=== PATIENT | female | born 1950 | race Caucasian/White ===

== ENCOUNTER → 2017-02-05 | Outpatient (CLI) | payer OTHER ==
[~2017-02-05] MED LIST: AZIT250T PO; MULT-506 PO
--- NOTE | 2017-02-06 14:33 | MAMMOGRAPHY REPORT ---
BILATERAL DIGITAL SCREENING MAMMOGRAM TOMOSYNTHESIS WITH CAD: 02/05/2017 TECHNIQUE: Breast tomosynthesis in addition to standard 2D mammography was performed. Current study was also evaluated with a Computer Aided Detection (CAD) system. COMPARISON: Comparison is made to exams dated: 01/11/2016 mammogram, 12/06/2014 mammogram, 11/16/2014 ma mmogram, and 06/16/2013 mammogram - [facility]. BREAST COMPOSITION: The tissue of both breasts is heterogeneously dense, which may obscure small mas ses. FINDINGS: No suspicious masses, calcifications, or areas of architectural distortion are noted in ei ther breast. There has been no significant interval change compared to prior exams. Bilateral asymme tries and scattered benign-appearing calcifications are not significantly changed. IMPRESSION: ACR BI-RADS CATEGORY 2: BENIGN There is no mammographic evidence of malignancy. A 1 year screening mammogram is recommended. The pa tient will receive written notification of the results. Approximately 10% of breast cancers are not detected with mammography. A negative mammographic report should not delay biopsy if a clinically suggestive mass is present. Jany Olivas M.D. ah/:02/05/2017 17:23:07 Fiction [employer]fiction Prose Writer: Jazmin GUZMAN(Gasper)(Evon), [facility] letter sent: Normal 1/2 BI-RADS Code: ACR BI-RADS Category 2: Benign
== END | disposition home or self-care (01) ==
LOC: C.MAMM 16:59
PROVIDERS: ATTEND Family Medicine
DX: Z12.31 Encounter for screening mammogram for malignant neoplasm of breast (principal)

== ENCOUNTER 2017-07-31 09:21 | Inpatient (IN) | payer OTHER ==
[~2017-07-31] VITALS: Ht 154.9 cm; Wt 69.2 kg
[2017-07-31] MEDS ORDERED: SODIUM CHLORIDE 0.9% 1000ML 1,000 ML IV STA (10:06)
[2017-07-31] MEDS ORDERED: IBUP-1277 PO (10:18)
--- NOTE | 2017-07-31 10:20 | EMERGENCY ROOM VISIT NOTE ---
ED Visit Note First contact with patient: 09:25 The patient was seen and examined with Ariel Pinedo PA-C. I agree with the history, physical and findings. Please see the note for disposition and details.
[2017-07-31] MEDS ORDERED: SODIUM CHLORIDE 0.9% IV STA (10:26)
[2017-07-31] MEDS ORDERED: VANCOMYCIN IV STA (10:26)
[2017-07-31] MEDS ORDERED: VANCOMYCIN CONSULT ACTIVE PRN ×2 (10:30→12:14)
[2017-07-31] MEDS ORDERED: AMOX875T PO (10:55)
[2017-07-31 11:00] LABS: BASO % 0.2 %; BASO ABS # 0.03 K/uL (0-0.2); EOS % 0.4 %; EOS ABS # 0.05 K/uL (0-0.5); HEMATOCRIT 39.8 % (37-47); HEMOGLOBIN 13.6 g/dL (12.0-16.0); IG# 0.05 K/uL (0.00-0.02); LYMPH % 12.1 %; LYMPH ABS # 1.53 K/uL (1.2-3.4); MEAN CELL VOLUME 94.3 fL (80-100); MEAN CORPUSCULAR HEMOGLOBIN 32.2 pg (25-34); MEAN CORPUSCULAR HGB CONC 34.2 g/dl (32-36); MEAN PLATELET VOLUME 11.7 fL (7.4-10.4); MONO % 7.6 %; MONO ABS # 0.97 K/uL (0.11-0.59); NEUT % 79.3 %; NEUT ABS # 10.05 K/uL (1.4-6.5); PLATELET COUNT 190 K/uL (130-400); RED CELL DISTRIBUTION WIDTH CV 13.5 % (11.5-14.5); RED CELL DISTRIBUTION WIDTH SD 46.7 fL (36.4-46.3); WHITE BLOOD COUNT 12.68 K/uL (4.8-10.8)
--- NOTE | 2017-07-31 11:14 | DIAGNOSTIC IMAGING REPORT ---
LEFT FOREARM ULTRASOUND CLINICAL HISTORY: L forearm cellulitis,?abscess. Spider bite. COMPARISON STUDY: None. FINDINGS: There is extensive subcutaneous edema/fluid seen within the left forearm with associated skin thickening. There is also increased echogenicity within the fat. The fluid is not loculated at this time. No foreign bodies identified. IMPRESSION: Extensive subcutaneous edema/fluid within the left forearm with associated skin thickening. This favors a cellulitis . The fluid is not loculated at this time to suggest an abscess. Consider follow-up ultrasound if the patient's swelling continues to progress. Electronically signed by: Antwan Hardy M.D. 07/31/2017 11:13 AM Dictated Date/Time: 07/31/2017 11:10 AM
[2017-07-31 11:21] LABS: ALBUMIN 3.2 gm/dl (3.4-5.0); CALCIUM 8.8 mg/dl (8.5-10.1); CREATININE 0.86 mg/dl (0.60-1.20); POTASSIUM 3.5 mmol/L (3.5-5.1)
[2017-07-31 11:23] LABS: TOTAL PROTEIN 7.3 gm/dl (6.4-8.2)
[2017-07-31] MEDS ORDERED: ENOXAPARIN 40 MG/0.4 ML SYR SQ SCH (12:00)
[2017-07-31 12:12] VITALS: O2SAT 96; Ht 154.9 cm; Wt 69.2 kg
--- NOTE | 2017-07-31 12:16 | History and Physical ---
History & Physical Date & Time of Service: Jul 31, 2017 at 12:06 Chief Complaint: Redness From The Spider Bite Primary Care Physician: Melissa Black D.O. History of Present Illness Source: patient, clinic records, hospital records Patient is a 67-year-old female with a PMH of GERD who presents with worsening left forearm pain/swelling 6 days. Patient states that she woke up Friday morning with a pea-size jeromy on her left forearm that she thinks is a spider bite. Did not visualize any spiders. By that evening, patient noticed that the jeromy had blistered and circumferential swelling was present. Saw PCP on Friday and was diagnosed with left forearm cellulitis and was sent home on Augmentin, which she started that evening. This morning, patient noticed that redness had extended down to wrist as well as up to left arm, which was a significant increase. Pain had worsened, which she described as 10/10 throbbing pain, made worse with movement. Is able to move left elbow and wrist but experiences pain when doing so. Denies numbness, tingling, itching or drainage of left forearm. Has completed 4 doses of Augmentin. Took ibuprofen at home this morning with minimal relief. Currently denies fever, chills, lightheadedness, visual changes, chest pain, SOB, abdominal pain, nausea, vomiting, bowel or bladder changes. Past Medical/Surgical History Medical Problems: (1) GERD (gastroesophageal reflux disease) Status: Chronic Family History Hypertension Social History Smoking Status: Never Smoker Alcohol Use: none Marital Status: Housing status: lives with significant other Allergies Coded Allergies: No Known Allergies (Verified , 07/31/17) Home Medications Scheduled Amoxicillin & Pot Clavulanate (Augmentin 875-125 mg), 1 TAB PO BID Multivitamin (Multivitamin), 1 TAB PO DAILY Pantoprazole (Protonix), 40 MG PO DAILY Scheduled PRN Ibuprofen (Advil), 400 MG PO Q8 PRN for Pain Review of Systems Ten systems reviewed and negative except as noted in the HPI. Physical Exam Vital Signs Date Time Temp Pulse Resp B/P (MAP) Pulse Ox O2 Delivery O2 Flow Rate FiO2 07/31/17 10:31 90 07/31/17 10:26 98 Room Air 07/31/17 09:23 36.7 102 20 116/76 98 Room Air Head: normocephalic, atraumatic Eyes: normal inspection, PERRL, sclerae normal ENT: normal ENT inspection, hearing grossly normal, pharynx normal Neck: supple, thyroid normal, trachea midline Respiratory/Chest: chest non-tender, lungs clear, normal breath sounds, no respiratory distress, no accessory muscle use Cardiovascular: regular rate, rhythm, no murmur, normal peripheral pulses Abdomen/GI: non tender, soft, no organomegaly Back: normal inspection Extremities/Musculoskelatal: normal inspection, no calf tenderness, normal capillary refill, no pedal edema Neurologic/Psych: no motor/sensory deficits, alert, normal mood/affect, oriented x 3 Skin: normal color, warm/dry, + pertinent finding (Left dorsal forearm with small macular lesion and surrounding erythema and edema extending over wrist and up to elbow. Streaking noted on medial arm ) Diagnostics Laboratory Results Results Past 24 Hours Test 07/31/17 10:32 07/31/17 12:03 07/31/17 12:04 Range/Units White Blood Count 12.68 4.8-10.8 K/uL Red Blood Count 4.22 4.2-5.4 M/uL Hemoglobin 13.6 12.0-16.0 g/dL Hematocrit 39.8 37-47 % Mean Corpuscular Volume 94.3 80-100 fL Mean Corpuscular Hemoglobin 32.2 25-34 pg Mean Corpuscular Hemoglobin Concent 34.2 32-36 g/dl Platelet Count 190 130-400 K/uL Mean Platelet Volume 11.7 7.4-10.4 fL Neutrophils (%) (Auto) 79.3 % Lymphocytes (%) (Auto) 12.1 % Monocytes (%) (Auto) 7.6 % Eosinophils (%) (Auto) 0.4 % Basophils (%) (Auto) 0.2 % Neutrophils # (Auto) 10.05 1.4-6.5 K/uL Lymphocytes # (Auto) 1.53 1.2-3.4 K/uL Monocytes # (Auto) 0.97 0.11-0.59 K/uL Eosinophils # (Auto) 0.05 0-0.5 K/uL Basophils # (Auto) 0.03 0-0.2 K/uL RDW Standard Deviation 46.7 36.4-46.3 fL RDW Coefficient of Variation 13.5 11.5-14.5 % Immature Granulocyte % (Auto) 0.4 % Immature Granulocyte # (Auto) 0.05 0.00-0.02 K/uL Sodium Level 135 136-145 mmol/L Potassium Level 3.5 3.5-5.1 mmol/L Chloride Level 107 98-107 mmol/L Carbon Dioxide Level 24 21-32 mmol/L Anion Gap 4.0 3-11 mmol/L Blood Urea Nitrogen 12 7-18 mg/dl Creatinine 0.86 0.60-1.20 mg/dl Est Creatinine Clear Calc Drug Dose 58.0 ml/min Estimated GFR () 82.2 Estimated GFR (Non- 70.9 BUN/Creatinine Ratio 13.6 10-20 Random Glucose 114 70-99 mg/dl Lactic Acid Level 0.6 0.4-2.0 mmol/L Calcium Level 8.8 8.5-10.1 mg/dl Magnesium Level 2.2 1.8-2.4 mg/dl Total Bilirubin 1.4 0.2-1 mg/dl Aspartate Amino Transf (AST/SGOT) 88 15-37 U/L Alanine Aminotransferase (ALT/SGPT) 149 12-78 U/L Alkaline Phosphatase 200 45-117 U/L Total Protein 7.3 6.4-8.2 gm/dl Albumin 3.2 3.4-5.0 gm/dl Globulin 4.1 2.5-4.0 gm/dl Albumin/Globulin Ratio 0.8 0.9-2 Lyme Disease IgG Antibody NEG NEG Lyme Disease IgM Antibody NEG NEG Microbiology Results 07/31/17 Blood Culture, Received Pending 07/31/17 Blood Culture, Received Pending Diagnostic Radiology Left forearm ultrasound: IMPRESSION: Extensive subcutaneous edema/fluid within the left forearm with associated skin thickening. This favors a cellulitis . The fluid is not loculated at this time to suggest an abscess. Consider follow-up ultrasound if the patient's swelling continues to progress. Impression Assessment and Plan Patient is a 67-year-old female with a PMH of GERD who presents with worsening left forearm pain/swelling 6 days and was found to have cellulitis. Left forearm cellulitis: -2/2 spider bite -Erythema, warmth, edema x 6 days -Erythema extending over wrist but motor/sensory function intact, normal cap refill -Ultrasound with extensive subcutaneous edema but no loculated fluid suggestive of abscess -Leukocytosis of 12.68 -All vitals stable, lactic acid within normal limits -Margins of erythema drawn with marker -Vanco initiated in ED. Plan to continue -Follow blood cultures -Pain control -Monitor CBC GERD: -Cont PPI DVT Ppx: SQ heparin Code status: FULL PCP: Wayne Dispo: Admit to med/surg. Plan to return home once medically stable. Patient seen in collaboration with Dr. Lan. Please see addendum. ADDENDUM: I have seen and examined the patient and agree with the assessment and plan as above. The patient is currently afebrile and does not appear septic but does have a significant L arm cellulitis that stops at the distal L elbow and crosses the wrist joint proximally . She does have some limited range of motion but there is no hamzah joint effusion. Will monitor response to abx overnight. Although no purulent drainage noted, there is an area of redness where a possible bite occurred. Agree with vancomycin empirically. If no improvement with IV abx or persistent wrist tenderness or reduced ROM, would have ortho see patient. Blood cultures pending. DO Riky Resuscitation Status VTE Prophylaxis Will order VTE Prophylaxis: Yes
[2017-07-31] MEDS ORDERED: MULT-506 PO (12:35)
[2017-07-31] MEDS ORDERED: PANT40TA PO (12:35)
[2017-07-31 13:05] VITALS: BP 139/76; PULSE 94; TEMP 36.8; O2SAT 97
[2017-07-31 13:15] LABS: PTT PATIENT 32.9 SECONDS (21.0-31.0)
[2017-07-31] MEDS: KETOROLAC TROMETHAMINE 30 MG/ML VIAL IV PRN ×2 (13:29→19:59)
[2017-07-31] MEDS: SODIUM CHLORIDE 0.9% 1000ML 1,000 ML IV SCH ×2 (13:30→21:29)
--- NOTE | 2017-07-31 13:59 | Pharmacy Progress Note ---
Pharmacy Abx Initial Consult Date of Service Jul 31, 2017. Pharmacy Dosing Scope Date of Consult: 07/31/17 Consultation requested by: Dr. Trina Herrera PAC Pharmacy is consulted to initiate IV Vancomycin dosing therapy, order appropriate labs and adjust drug dose/frequency. Subjective The patient is a 67 year old female admitted on Jul 31, 2017 at 11:56. Objective Height (Feet): 5 Height (Inches): 1.00 Weight (Kilograms): 69.200 Vital Signs (Past 12Hrs) Vital Signs Past 12 Hours Date Time Temp Pulse Resp B/P (MAP) Pulse Ox O2 Delivery O2 Flow Rate FiO2 07/31/17 13:05 36.8 94 18 139/76 (97) 97 Room Air 07/31/17 12:47 92 18 133/89 98 Room Air 07/31/17 12:12 96 Room Air 07/31/17 11:20 96 26 133/87 96 Room Air 07/31/17 10:31 90 07/31/17 10:26 98 Room Air 07/31/17 09:23 36.7 102 20 116/76 98 Room Air Lab Results (24Hrs) Laboratory Tests (24 Hours) Test 07/31/17 10:32 Lactic Acid Level 0.6 mmol/L (0.4-2.0) White Blood Count 12.68 K/uL (4.8-10.8) H Red Blood Count 4.22 M/uL (4.2-5.4) Hemoglobin 13.6 g/dL (12.0-16.0) Hematocrit 39.8 % (37-47) Mean Corpuscular Volume 94.3 fL (80-100) Mean Corpuscular Hemoglobin 32.2 pg (25-34) Mean Corpuscular Hemoglobin Concent 34.2 g/dl (32-36) Platelet Count 190 K/uL (130-400) Mean Platelet Volume 11.7 fL (7.4-10.4) H Neutrophils (%) (Auto) 79.3 % Lymphocytes (%) (Auto) 12.1 % Monocytes (%) (Auto) 7.6 % Eosinophils (%) (Auto) 0.4 % Basophils (%) (Auto) 0.2 % Neutrophils # (Auto) 10.05 K/uL (1.4-6.5) H Lymphocytes # (Auto) 1.53 K/uL (1.2-3.4) Monocytes # (Auto) 0.97 K/uL (0.11-0.59) H Eosinophils # (Auto) 0.05 K/uL (0-0.5) Basophils # (Auto) 0.03 K/uL (0-0.2) Micro Results Date/Time Source Procedure Growth Status 07/31/17 10:43 Blood Blood Culture Pending Received 07/31/17 10:32 Blood Blood Culture Pending Received Risk Factors for Resistance * Antimicrobial use within the last 90 days - started Augmentin orally on Assessment & Plan Assessment 67 year old female with PMH of GERD, presenting with left forearm cellulitis presumed to be induced by a spider bite that has progressed despite two days of oral Augmentin as an outpatient. Blood cultures are pending and renal function appears to be appropriate for age. Plan IV Vancomycin for treatment of skin and skin structure - cellulitis Vancomycin IV * Loading dose: 1384 mg (20 mg/kg) X 1 given in the Emergency Department today at ~1030 am * Maintenance dose: 1000 mg IV (15 mg/kg) every 16 hours * Goal trough level for cellulitis: 13 to 20 mcg/mL * Trough level ordered for Friday08/02/17 prior to the 0600 hours dose Pharmacy will continue to follow and will adjust dose/frequency as necessary. Thank you.
[2017-07-31] MEDS ORDERED: HEPARIN SOD 5000 UNIT/0.5 ML CARP SQ SCH (14:00)
[2017-07-31 15:38] VITALS: BP 115/78; PULSE 89; TEMP 36.8; O2SAT 96
[2017-07-31] MEDS: VANCOMYCIN IV 1,000 MG in SODIUM CHLORIDE 0.9% 250ML 250 ML IV SCH (21:29)
--- NOTE | 2017-07-31 23:04 | EMERGENCY ROOM VISIT NOTE ---
History First contact with patient: : Chief Complaint: BITE Stated Complaint: CELLULITIS OF LEFT FOREARM History of Present Illness The patient is a 67 year old female who presents to the Emergency Room via private vehicle accompanied by sister with complaints of "cellulitis of left forearm". The patient states that this past Friday she woke up with a red blister on the left midforearm. She states that Friday evening the blister ruptured. She states that she noticed that the arm swelled and continued over the weekend. She was then noticing redness on Friday. She states that Friday she saw her primary care doctor she states that this was twice a day. She called her family doctor noting that the redness had greatly spread beyond the occluded her left wrist, left forearm all the way up to the elbow with red streaking on the medial aspect of the bicep. She rates the overall pain as a 10 /10. She denies any nausea, vomiting,, constipation, diarrhea, abdominal pain, fevers or chills. Of important note she does note that Friday morning she had a fever 101 degrees Fahrenheit of which was relieved by Tylenol. Tetanus UTD. She denies seeing anything biting her. Review of Systems A complete 10-point Review of Systems was discussed with the patient, with pertinent positives and negatives listed in the History of Present Illness. All remaining Review of Systems questions can be considered negative unless otherwise specified. Past Medical/Surgical History Medical Problems: (1) GERD (gastroesophageal reflux disease) Family History Hypertension Social History Smoking Status: Never Smoker Marital Status: Current/Historical Medications Scheduled Amoxicillin & Pot Clavulanate (Augmentin 875-125 mg), 1 TAB PO BID Multivitamin (Multivitamin), 1 TAB PO DAILY Pantoprazole (Protonix), 40 MG PO DAILY Scheduled PRN Ibuprofen (Advil), 400 MG PO Q8 PRN for Pain Physical Exam Vital Signs Date Time Temp Pulse Resp B/P (MAP) Pulse Ox O2 Delivery O2 Flow Rate FiO2 07/31/17 11:20 96 26 133/87 96 Room Air 07/31/17 10:31 90 07/31/17 10:26 98 Room Air 07/31/17 09:23 36.7 102 20 116/76 98 Room Air Physical Exam VITAL SIGNS - Vital signs and nursing notes were reviewed. Stable. Afebrile. Slightly tachycardic. GENERAL -67-year-old female appearing her stated age who is in no acute distress. Communicates well with provider and answers questions appropriately. SKIN -there is extensive erythema and edema overlying the dorsal aspect of the patient's left entire forearm from the left wrist to left elbow. There is also medial lymphangitic streaking on the left bicep. This extends up to the armpit. HEAD - NC/AT. EYES - Sclera anicteric. EARS - No deformities of external structures noted on gross examination bilaterally. NOSE -No epistaxis or purulent drainage noted. MOUTH/OROPHARYNX - Without perioral cyanosis. LUNGS - Chest wall symmetric without accessory muscle use, intercostals retractions, or central cyanosis. Normal vesicular breath sounds CTA B/L. No wheezes, rales, or rhonchi appreciated. CARDIAC - RRR with S1/S2. No murmur, rubs, or gallops appreciated. EXTREMITIES: Full range of motion of the left upper extremity noted. She is neurovascularly intact distally. Medical Decision & Procedures ER Provider Diagnostic Interpretation: [~ rep ct add3]] LEFT FOREARM ULTRASOUND CLINICAL HISTORY: L forearm cellulitis,?abscess. Spider bite. COMPARISON STUDY: None. FINDINGS: There is extensive subcutaneous edema/fluid seen within the left forearm with associated skin thickening. There is also increased echogenicity within the fat. The fluid is not loculated at this time. No foreign bodies identified. IMPRESSION: Extensive subcutaneous edema/fluid within the left forearm with associated skin thickening. This favors a cellulitis . The fluid is not loculated at this time to suggest an abscess. Consider follow-up ultrasound if the patient's swelling continues to progress. Electronically signed by: Antwan Hardy M.D. 07/31/2017 11:13 AM Dictated Date/Time: 07/31/2017 11:10 AM Laboratory Results 07/31/17 10:32 Red Blood Count 4.22, Mean Corpuscular Volume 94.3, Mean Corpuscular Hemoglobin 32.2, Mean Corpuscular Hemoglobin Concent 34.2, Mean Platelet Volume 11.7, Neutrophils (%) (Auto) 79.3, Lymphocytes (%) (Auto) 12.1, Monocytes (%) (Auto) 7.6, Eosinophils (%) (Auto) 0.4, Basophils (%) (Auto) 0.2, Neutrophils # (Auto) 10.05, Lymphocytes # (Auto) 1.53, Monocytes # (Auto) 0.97, Eosinophils # (Auto) 0.05, Basophils # (Auto) 0.03 07/31/17 10:32 Test 07/31/17 10:32 White Blood Count 12.68 K/uL (4.8-10.8) Red Blood Count 4.22 M/uL (4.2-5.4) Hemoglobin 13.6 g/dL (12.0-16.0) Hematocrit 39.8 % (37-47) Mean Corpuscular Volume 94.3 fL (80-100) Mean Corpuscular Hemoglobin 32.2 pg (25-34) Mean Corpuscular Hemoglobin Concent 34.2 g/dl (32-36) Platelet Count 190 K/uL (130-400) Mean Platelet Volume 11.7 fL (7.4-10.4) Neutrophils (%) (Auto) 79.3 % Lymphocytes (%) (Auto) 12.1 % Monocytes (%) (Auto) 7.6 % Eosinophils (%) (Auto) 0.4 % Basophils (%) (Auto) 0.2 % Neutrophils # (Auto) 10.05 K/uL (1.4-6.5) Lymphocytes # (Auto) 1.53 K/uL (1.2-3.4) Monocytes # (Auto) 0.97 K/uL (0.11-0.59) Eosinophils # (Auto) 0.05 K/uL (0-0.5) Basophils # (Auto) 0.03 K/uL (0-0.2) RDW Standard Deviation 46.7 fL (36.4-46.3) RDW Coefficient of Variation 13.5 % (11.5-14.5) Immature Granulocyte % (Auto) 0.4 % Immature Granulocyte # (Auto) 0.05 K/uL (0.00-0.02) Prothrombin Time 10.9 SECONDS (9.0-12.0) Prothromb Time International Ratio 1.0 (0.9-1.1) Activated Partial Thromboplast Time 32.9 SECONDS (21.0-31.0) Partial Thromboplastin Ratio 1.3 Anion Gap 4.0 mmol/L (3-11) Est Creatinine Clear Calc Drug Dose 58.0 ml/min Estimated GFR () 82.2 Estimated GFR (Non- 70.9 BUN/Creatinine Ratio 13.6 (10-20) Lactic Acid Level 0.6 mmol/L (0.4-2.0) Calcium Level 8.8 mg/dl (8.5-10.1) Magnesium Level 2.2 mg/dl (1.8-2.4) Total Bilirubin 1.4 mg/dl (0.2-1) Aspartate Amino Transf (AST/SGOT) 88 U/L (15-37) Alanine Aminotransferase (ALT/SGPT) 149 U/L (12-78) Alkaline Phosphatase 200 U/L (45-117) Total Protein 7.3 gm/dl (6.4-8.2) Albumin 3.2 gm/dl (3.4-5.0) Globulin 4.1 gm/dl (2.5-4.0) Albumin/Globulin Ratio 0.8 (0.9-2) Lyme Disease IgG Antibody NEG (NEG) Lyme Disease IgM Antibody NEG (NEG) Medications Administered Medications (Trade) Dose Ordered Sig/Tony Route Start Time Stop Time Status Last Admin Dose Admin Sodium Chloride 1,000 ml @ 999 mls/hr Q1H1M STAT IV 07/31/17 10:06 07/31/17 11:06 DC 07/31/17 10:06 999 MLS/HR Vancomycin HCl 1384 mg/Sodium Chloride 277.68 ml @ 125 mls/ hr NOW STAT IV 07/31/17 10:26 07/31/17 12:39 DC 07/31/17 10:26 125 MLS/HR Medical Decision Patient was seen and evaluated as above in room A2. Review was performed of nursing notes and vital signs. After obtaining a thorough history and physical examination the above work up was performed. Clinically the patient is experiencing extensive cellulitis of the left forearm. Blood cultures were obtained. Fluids as well as IV vancomycin. Cultures were obtained prior to antibiotic administration. There is a slight leukocytosis. Ultrasound was obtained to rule out underlying deep abscess. This was negative vancomycin was chosen to provide coverage that might not be obtained with the Augmentin. Metabolic panel does reveal elevated transaminases. I believe that she should be admitted for IV antibiotics she has greater than 50% of the upper extremity affected, has essentially failed outpatient antibiotic regimen, and now has lymphogenic streaking on the left elbow towards the armpit. Case was discussed with the attending physician and subsequently the hospitalist. Please refer to for the documentation regarding her stay. Case was discussed with the attending physician. I attest that I have reviewed the patient's blood pressure and it was found to be normal. Medication list reviewed. In the evaluation and treatment of this patient the following differential diagnoses were entertained: Cellulitis, abscess, skin reaction, bite, among others. Impression Primary Impression: Cellulitis of left forearm Departure Information Dispostion Admitted as an inpatient Condition FAIR Referrals Melissa Black D.O. (PCP) Forms HOME CARE DOCUMENTATION FORM, IMPORTANT VISIT INFORMATION Patient Instructions My [facility]
[2017-07-31 23:16] VITALS: BP 127/83; PULSE 82; TEMP 36.8; O2SAT 95
[2017-08-01 06:04] LABS: HEMATOCRIT 36.5 % (37-47); HEMOGLOBIN 12.1 g/dL (12.0-16.0); MEAN CELL VOLUME 96.1 fL (80-100); MEAN CORPUSCULAR HEMOGLOBIN 31.8 pg (25-34); MEAN CORPUSCULAR HGB CONC 33.2 g/dl (32-36); MEAN PLATELET VOLUME 11.5 fL (7.4-10.4); PLATELET COUNT 196 K/uL (130-400); RED CELL DISTRIBUTION WIDTH CV 13.9 % (11.5-14.5); RED CELL DISTRIBUTION WIDTH SD 48.5 fL (36.4-46.3); WHITE BLOOD COUNT 11.68 K/uL (4.8-10.8)
[2017-08-01 06:34] LABS: ALBUMIN 2.7 gm/dl (3.4-5.0); CALCIUM 8.1 mg/dl (8.5-10.1); CREATININE 0.78 mg/dl (0.60-1.20); POTASSIUM 3.9 mmol/L (3.5-5.1)
[2017-08-01 06:37] LABS: TOTAL PROTEIN 6.7 gm/dl (6.4-8.2)
[2017-08-01 07:22] VITALS: BP 145/81; PULSE 89; TEMP 37.3; O2SAT 95
[2017-08-01] MEDS: KETOROLAC TROMETHAMINE 30 MG/ML VIAL IV PRN ×3 (09:32→23:37)
[2017-08-01] MEDS: ACETAMINOPHEN 325 MG TAB PO PRN ×2 (09:34→16:16)
[2017-08-01] MEDS: ENOXAPARIN 40 MG/0.4 ML SYR SQ SCH (09:36)
[2017-08-01] MEDS ORDERED: NURSING VERBAL MED ORDER ONE (09:45)
--- NOTE | 2017-08-01 09:53 | Progress Note ---
Medicine Progress Note Date & Time of Visit: Aug 01, 2017 at 09:52. (Trina Herrera, P.A.-C.) Subjective Patient was seen and examined. States that left forearm pain has increased overnight. Has not taken pain medication this morning due to nausea. Describes left forearm/elbow pain as constant, aching and worse with movement. Is able to move both elbow and wrist but states that it is painful. Had one episode of diarrhea this morning following breakfast. Was tearful during discussion, stating that she feels anxious 2/2 pain and a poor night's sleep. Endorses chills but denies fever, headache, lightheadedness, chest pain, SOB, abdominal pain or vomiting. (Trina Herrera, P.A.-C.) Objective Last 8 Hrs Date Time Temp Pulse Resp B/P (MAP) Pulse Ox O2 Delivery O2 Flow Rate FiO2 08/01/17 07:22 37.3 89 18 145/81 (102) 95 Room Air Physical Exam: Head: normocephalic, atraumatic Eyes: normal inspection, PERRL, sclerae normal ENT: normal ENT inspection, hearing grossly normal, pharynx normal Neck: supple, thyroid normal, trachea midline Respiratory/Chest: chest non-tender, lungs clear, normal breath sounds, no respiratory distress, no accessory muscle use Cardiovascular: regular rate, rhythm, no murmur, normal peripheral pulses Abdomen/GI: non tender, soft, no organomegaly Back: normal inspection Extremities/Musculoskelatal: normal inspection, no calf tenderness, normal capillary refill, no pedal edema Neurologic/Psych: + Anxious. No motor/sensory deficits, alert, normal mood/ affect, oriented x 3 Skin: normal color, warm/dry, + pertinent finding (Left dorsal forearm with small macular lesion and surrounding erythema and edema extending over wrist and elbow. Streaking noted on medial arm. Warm to touch. No drainage noted) Laboratory Results: Last 24 Hours Test 07/31/17 10:32 08/01/17 05:33 White Blood Count 12.68 K/uL 11.68 K/uL Red Blood Count 4.22 M/uL 3.80 M/uL Hemoglobin 13.6 g/dL 12.1 g/dL Hematocrit 39.8 % 36.5 % Mean Corpuscular Volume 94.3 fL 96.1 fL Mean Corpuscular Hemoglobin 32.2 pg 31.8 pg Mean Corpuscular Hemoglobin Concent 34.2 g/dl 33.2 g/dl Platelet Count 190 K/uL 196 K/uL Mean Platelet Volume 11.7 fL 11.5 fL Neutrophils (%) (Auto) 79.3 % Lymphocytes (%) (Auto) 12.1 % Monocytes (%) (Auto) 7.6 % Eosinophils (%) (Auto) 0.4 % Basophils (%) (Auto) 0.2 % Neutrophils # (Auto) 10.05 K/uL Lymphocytes # (Auto) 1.53 K/uL Monocytes # (Auto) 0.97 K/uL Eosinophils # (Auto) 0.05 K/uL Basophils # (Auto) 0.03 K/uL RDW Standard Deviation 46.7 fL 48.5 fL RDW Coefficient of Variation 13.5 % 13.9 % Immature Granulocyte % (Auto) 0.4 % Immature Granulocyte # (Auto) 0.05 K/uL Prothrombin Time 10.9 SECONDS Prothromb Time International Ratio 1.0 Activated Partial Thromboplast Time 32.9 SECONDS Partial Thromboplastin Ratio 1.3 Sodium Level 135 mmol/L 138 mmol/L Potassium Level 3.5 mmol/L 3.9 mmol/L Chloride Level 107 mmol/L 111 mmol/L Carbon Dioxide Level 24 mmol/L 20 mmol/L Anion Gap 4.0 mmol/L 7.0 mmol/L Blood Urea Nitrogen 12 mg/dl 15 mg/dl Creatinine 0.86 mg/dl 0.78 mg/dl Est Creatinine Clear Calc Drug Dose 58.0 ml/min 64.0 ml/min Estimated GFR () 82.2 92.5 Estimated GFR (Non- 70.9 79.8 BUN/Creatinine Ratio 13.6 18.7 Random Glucose 114 mg/dl 95 mg/dl Lactic Acid Level 0.6 mmol/L Calcium Level 8.8 mg/dl 8.1 mg/dl Magnesium Level 2.2 mg/dl Total Bilirubin 1.4 mg/dl 1.0 mg/dl Aspartate Amino Transf (AST/SGOT) 88 U/L 42 U/L Alanine Aminotransferase (ALT/SGPT) 149 U/L 101 U/L Alkaline Phosphatase 200 U/L 192 U/L Total Protein 7.3 gm/dl 6.7 gm/dl Albumin 3.2 gm/dl 2.7 gm/dl Globulin 4.1 gm/dl 4.0 gm/dl Albumin/Globulin Ratio 0.8 0.7 Lyme Disease IgG Antibody NEG Lyme Disease IgM Antibody NEG Date/Time Source Procedure Growth Status 07/31/17 10:43 Blood Blood Culture Pending Received 07/31/17 10:32 Blood Blood Culture Pending Received (Trina Herrera, P.A.-C.) Assessment & Plan Patient is a 67-year-old female with a PMH of GERD who presents with worsening left forearm pain/swelling 6 days and was found to have cellulitis. Left forearm cellulitis: -2/2 spider bite -Erythema, warmth, edema for ~ 1 week -Extending over wrist, forearm. Margins of erythema drawn with marker yesterday- -now involving elbow and distal aspect of arm -Motor/sensory function intact, normal cap refill. ROM slightly decreased 2/2 pain -Ortho consulted due to persistent pain in forearm, elbow -Concern for joint involvement, abscess -Ordered MRI upper extremity of wrist, forearm and elbow -Leukocytosis decreased from 12.68 to 11.68 -Continue vanc. 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 Plan to return home once medically stable. Patient seen in collaboration with Dr. Nava. Please see addendum. Consultants: ortho Current Inpatient Medications: Current Inpatient Medications Medications (Trade) Dose Ordered Sig/Tony Route Start Time Stop Time Status Last Admin Dose Admin Acetaminophen (Tylenol Tab) 650 mg Q4H PRN PO 07/31/17 12:00 08/30/17 11:59 08/01/17 09:34 650 MG Ketorolac Tromethamine (Toradol Inj) 30 mg Q6H PRN IV 07/31/17 12:00 08/05/17 11:59 08/01/17 09:32 30 MG Miscellaneous Information (Consult) 1 ea UD PRN N/A 07/31/17 12:14 08/30/17 12:13 Vancomycin HCl 1000 mg/Sodium Chloride 270 ml @ 125 mls/hr Q16H IV 07/31/17 22:00 08/10/17 10:29 07/31/17 21:29 125 MLS/HR Enoxaparin Sodium (Lovenox Inj) 40 mg QAM SQ 08/01/17 08:00 08/31/17 07:59 08/01/17 09:36 40 MG Piperacillin Sod/ Tazobactam Sod 4.5 gm/Dextrose 120 ml @ 200 mls/hr Q6 IV 08/01/17 09:45 08/15/17 09:44 UNV Lorazepam (Ativan Tab) 0.5 mg 1000 ONCE PO 08/01/17 10:00 08/01/17 10:01 (Trina Herrera, P.A.-C.) ATTENDING ADDENDUM care coordinated with DOV Herrera please refer to her notes for full details, I agree with her notes patient seen and examined, records reviewed by myself as well on exam, patient seen sitting in bed, comfortable states pain has improved since this morning- mild-moderate now can move wrist/hand, elbow fully no other symptoms VS noted and reviewed oriented x 3, not in distress, speaks in sentences with no effort nor accessory muscle use normal rate, regular rhythm, no murmurs clear breath sounds bilaterally non distended, soft, nontender left forearm: erythema extending from demarcation line, has significant erythema /edema, mild tenderness, mild warmth left wrist and elbow: mild erythema, no tenderness no bipedal edema, erythema, warmth no neuro deficits WBC 11.6 crea 0.78 blood cultures negative LEFT FOREARM CELLULITIS suspected started with insect bite no signs of sepsis ff up blood cultures MRI of the L arm ordered add Zosyn to Vanco to increase coverage Ortho consult ordered, appreciate the recommendations PRN analgesics other diagnoses and plan of care as per DOV Herrera's notes (Matt Nava MD)
[2017-08-01] MEDS ORDERED: PIPERACILL/TAZOBAC CONSULT ACTIVE PRN (10:00)
[2017-08-01] MEDS ORDERED: LORAZEPAM 0.5 MG TAB PO ONE (10:00)
[2017-08-01] MEDS ORDERED: PIPERACILL/TAZOBAC IV 3.375 GM in NSS 100 ML IV ONE (10:00)
[2017-08-01] MEDS: VANCOMYCIN IV 1,000 MG in SODIUM CHLORIDE 0.9% 250ML 250 ML IV SCH (14:17)
[2017-08-01 14:54] VITALS: BP 118/80; PULSE 73; TEMP 36.7; O2SAT 95
[2017-08-01] MEDS: PIPERACILL/TAZOBAC IV 3.375 GM in DEXTROSE 5% 100ML 100 ML IV SCH ×2 (15:41→23:36)
[2017-08-01 16:00] VITALS: O2SAT 95
[2017-08-01] MEDS ORDERED: LOPERAMIDE HCL 2 MG CAP PO PRN (18:00)
[2017-08-01] MEDS ORDERED: GADAVIST IV PRN (21:45)
--- NOTE | 2017-08-01 22:11 | DIAGNOSTIC IMAGING REPORT ---
L UPPER EXT NONJOINT COMBO CLINICAL HISTORY: Evaluate for abscess, effusion pain. Edema. TECHNIQUE: Multi axial MRI acquisition and post gadolinium enhancement COMPARISON STUDY: Ultrasound 07/31/2017 FINDINGS: Diffuse soft tissue cellulitis seen circumferentially about the proximal to mid forearm. This is most prominent at the posterior aspect of the proximal forearm. Muscular involvement is minimal, if any. No evidence for drainable abscess or collection. Mild generalized postcontrast enhancement of the diffuse edematous tissue. Bone marrow signal characteristics of the radius and ulna are unremarkable. IMPRESSION: 1. Diffuse soft tissue edema and/or cellulitis throughout the proximal to mid forearm. 2. No significant muscular enhancement or edematous change. 3. No evidence for a significant drainable abscess or collection. The above report was generated using voice recognition software. It may contain grammatical, syntax or spelling errors. Electronically signed by: Connor Pugh M.D. 08/01/2017 10:09 PM Dictated Date/Time: 08/01/2017 10:06 PM
[2017-08-01 23:03] VITALS: BP 142/88; PULSE 83; TEMP 36.6; O2SAT 96
--- NOTE | 2017-08-01 23:34 | ORTHOPEDIC CONSULTATION ---
DATE OF CONSULTATION: 08/01/2017 HISTORY OF PRESENT ILLNESS: This is a 67-year-old female who was admitted to the medical service on 07/31/2017 for left forearm pain and swelling. It has been ongoing for approximately 6 days. Patient had no specific injury. States she woke up on Friday morning with a pea-sized jeromy on her left forearm that she assumed had been some sort of an insect or spider bite. She had not seen any spiders in the home. They did not have an infestation problems and she has made an assumption that it was a spider. She had noticed a blister that started later that evening with some circumferential swelling. She saw her PCP on Friday and was diagnosed with cellulitis, was treated with Augmentin as an outpatient. On 07/31/2017, she noted redness with extension to the wrist as well as up to the left elbow which had worsened. She also noted severe throbbing pain worsened with movement. She denied any fevers or chills, lightheadedness or other constitutional symptoms. She is admitted to the hospital and placed on IV antibiotics. Orthopedics was consulted. PAST MEDICAL HISTORY: Gastroesophageal reflux. PAST SURGICAL HISTORY: Noncontributory. ALLERGIES: No known drug allergies. MEDICATIONS: Augmentin for approximately 2 days prior to admission, multivitamin 1 daily, Protonix 40 mg daily, Advil 400 mg p.o. q.8h. p.r.n. pain, and hospital medications as listed on the medical reconciliation. SOCIAL HISTORY: Denies tobacco use, denies alcohol use, she denies drug use. She is , she lives with her spouse. PHYSICAL EXAMINATION: GENERAL: This is a 67-year-old female who is lying supine in her hospital room bed. Her is present with her in the hospital room. She is alert and oriented x3. Speech clear and fluent. Affect is appropriate. Cranial nerves II-XII grossly intact. EXTREMITIES: Examination of the left upper extremity demonstrates a small local excoriation, no obvious blistering, significant cellulitis, erythema, and increased warmth over the left dorsal forearm extending ulnar and radial, extending to the elbow flexion crease and to the dorsal wrist crease. The forearm exhibits no obvious fluctuance or abscess formation; however, there is generalized induration. Specific palpation of the olecranon bursa yields no fluctuance and no coalescence of any type of abscess or fluid collection. Range of motion demonstrates no specific limitation with flexion, extension, supination, pronation, or wrist flexion, extension, ulnar or radial deviation. However, all motion generates some discomfort related to the forearm. 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 Radial pulses are 2/4. Radial, ulnar and median nerve sensory and motor functions are intact. LABORATORY DATA: Reviewed, specifically noting white count 12.68, hemoglobin 13.6, hematocrit 39.8, platelets 190. Negative Lyme titer. IMAGING DATA: Radiographs reviewed. IMPRESSION: Left forearm cellulitis without significant abscess formation. RECOMMENDATIONS: Continuation of IV antibiotics. Patient is scheduled for an MRI of her left upper extremity and patient will be made n.p.o. Dr. Peterson will be covering for this weekend. He is aware of this case and will reassess her in the morning for possible need for operative intervention. At this time, patient demonstrates no obvious abscess and should be managed nonoperatively for cellulitis first. We will follow with you. Thank you for the opportunity to consult in the care of this patient.
[2017-08-02] MEDS: VANCOMYCIN IV 1,000 MG in SODIUM CHLORIDE 0.9% 250ML 250 ML IV SCH ×2 (05:30→16:50)
[2017-08-02] MEDS ORDERED: VANCOMYCIN TROUGH ONE (05:30)
[2017-08-02] MEDS: KETOROLAC TROMETHAMINE 30 MG/ML VIAL IV PRN ×3 (05:33→19:07)
[2017-08-02 06:09] LABS: CREATININE 0.61 mg/dl (0.60-1.20)
[2017-08-02 07:26] VITALS: BP 126/84; PULSE 78; TEMP 36.6; O2SAT 96
[2017-08-02] MEDS: PIPERACILL/TAZOBAC IV 3.375 GM in DEXTROSE 5% 100ML 100 ML IV SCH ×2 (08:37→15:33)
[2017-08-02] MEDS ORDERED: SODIUM CHLORIDE 0.9% 1000ML 1,000 ML IV SCH (09:00)
[2017-08-02 09:30] LABS: BASO % 0.3 %; BASO ABS # 0.03 K/uL (0-0.2); EOS % 3.4 %; EOS ABS # 0.39 K/uL (0-0.5); HEMATOCRIT 35.8 % (37-47); HEMOGLOBIN 12.2 g/dL (12.0-16.0); LYMPH % 13.1 %; MEAN CORPUSCULAR HGB CONC 34.1 g/dl (32-36); MEAN PLATELET VOLUME 11.3 fL (7.4-10.4); NEUT % 75.3 %; NEUT ABS # 8.66 K/uL (1.4-6.5); PLATELET COUNT 216 K/uL (130-400); RED CELL DISTRIBUTION WIDTH CV 13.8 % (11.5-14.5); RED CELL DISTRIBUTION WIDTH SD 47.7 fL (36.4-46.3); WHITE BLOOD COUNT 11.48 K/uL (4.8-10.8)
[2017-08-02] MEDS ORDERED: MoRPHine SULFATE 4 MG/ML 1 ML CARP\\VIAL IV PRN (09:30)
[2017-08-02] MEDS: ENOXAPARIN 40 MG/0.4 ML SYR SQ SCH (10:05)
--- NOTE | 2017-08-02 10:50 | PROGRESS NOTE ---
DATE: 08/02/2017 SUBJECTIVE: Miladys was seen in the bedside today. She does note continued pain in the extremities. She denies any numbness, tingling or other complaints. OBJECTIVE: Left arm examination does show cellulitis extending slightly beyond the previous markings. I do not detect any fluctuance. Her compartments are soft. She has negative Kanavel sign. No evidence of fluctuance or abscess formation is identified. IMAGING DATA: Review of MRI shows diffuse soft tissue edema with cellulitis, no abscess. ASSESSMENT: Cellulitis, left forearm. PLAN: At this point in time, will continue to monitor. Continue antibiotics, vancomycin and Zosyn as per the hospitalist service. We will continue to follow. No surgical indications at this point in time.
[2017-08-02] MEDS: ONDANSETRON INJ 2 MG/ML 2 ML VIAL IV PRN (14:17)
[2017-08-02 15:51] VITALS: O2SAT 96
[2017-08-02] MEDS: ACETAMINOPHEN 325 MG TAB PO PRN (16:51)
[2017-08-02 17:52] VITALS: BP 118/77; PULSE 76; TEMP 36.6; O2SAT 94
--- NOTE | 2017-08-02 19:24 | Progress Note ---
Medicine Progress Note Date & Time of Visit: Aug 02, 2017 at 19:11. Subjective seen resting in bed, not in distress left arm pain slightly better able to move left hand/wrist/elbow fully no fever/chills no nausea, chest pain, dyspnea, palpitations no other symptoms Objective Last 8 Hrs Date Time Temp Pulse Resp B/P (MAP) Pulse Ox O2 Delivery O2 Flow Rate FiO2 08/02/17 17:52 36.6 76 18 118/77 (91) 94 Room Air 08/02/17 15:51 96 Room Air Physical Exam: General- oriented x 3, not in distress, speaks in sentences with no effort Eyes- anicteric Neck- supple, no JVD Lungs- clear breath sounds bilaterally Heart- regular rhythm; no murmur, normal rate Abdomen- normal bowel sounds, soft, nontender Extremities- Left forearm: (+) erythema on the left forearm- extending out of the demarcation line drawn, with moderate edema, mild warmth but no tenderness no pretibial edema, no calf tenderness; peripheral pulses intact Neuro- alert, oriented x 3; no gross focal deficits Skin- warm & dry Laboratory Results: Last 24 Hours Test 08/02/17 05:23 08/02/17 09:04 Creatinine 0.61 mg/dl Est Creatinine Clear Calc Drug Dose 81.8 ml/min Estimated GFR () 110.3 Estimated GFR (Non- 95.1 Vancomycin Level Trough 6.1 mcg/ml White Blood Count 11.48 K/uL Red Blood Count 3.81 M/uL Hemoglobin 12.2 g/dL Hematocrit 35.8 % Mean Corpuscular Volume 94.0 fL Mean Corpuscular Hemoglobin 32.0 pg Mean Corpuscular Hemoglobin Concent 34.1 g/dl Platelet Count 216 K/uL Mean Platelet Volume 11.3 fL Neutrophils (%) (Auto) 75.3 % Lymphocytes (%) (Auto) 13.1 % Monocytes (%) (Auto) 7.0 % Eosinophils (%) (Auto) 3.4 % Basophils (%) (Auto) 0.3 % Neutrophils # (Auto) 8.66 K/uL Lymphocytes # (Auto) 1.50 K/uL Monocytes # (Auto) 0.80 K/uL Eosinophils # (Auto) 0.39 K/uL Basophils # (Auto) 0.03 K/uL RDW Standard Deviation 47.7 fL RDW Coefficient of Variation 13.8 % Immature Granulocyte % (Auto) 0.9 % Immature Granulocyte # (Auto) 0.10 K/uL Assessment & Plan Left forearm cellulitis MRI arm: no abscess Ortho consulted, appreciate the recommendations continue monitor response to Vanco + Zonsyn Day 2 ID consulted GERD: -Cont PPI DVT Ppx: SQ heparin Code status: FULL PCP: Wayne Dispo: Plan to return home once medically stable. Consultants: ortho Current Inpatient Medications: Current Inpatient Medications Medications (Trade) Dose Ordered Sig/Tony Route Start Time Stop Time Status Last Admin Dose Admin Acetaminophen (Tylenol Tab) 650 mg Q4H PRN PO 07/31/17 12:00 08/30/17 11:59 08/02/17 16:51 650 MG Ketorolac Tromethamine (Toradol Inj) 30 mg Q6H PRN IV 07/31/17 12:00 08/05/17 11:59 08/02/17 19:07 30 MG Miscellaneous Information (Consult) 1 ea UD PRN N/A 07/31/17 12:14 08/30/17 12:13 Enoxaparin Sodium (Lovenox Inj) 40 mg QAM SQ 08/01/17 08:00 08/31/17 07:59 08/02/17 10:05 40 MG Piperacillin Sod/ Tazobactam Sod 3.375 gm/Dextrose 115 ml @ 28.75 mls/ hr Q8H IV 08/01/17 16:00 08/15/17 09:59 08/02/17 15:33 28.75 MLS/HR Miscellaneous Information (Consult) 1 ea UD PRN N/A 08/01/17 10:00 08/31/17 09:59 Ondansetron HCl (Zofran Inj) 4 mg Q6H PRN IV 08/01/17 10:45 08/31/17 10:44 08/02/17 14:17 4 MG Loperamide HCl (Imodium Cap) 2 mg UD PRN PO 08/01/17 18:00 08/31/17 17:59 Gadobutrol (Gadavist) 6.5 mmol UD PRN IV 08/01/17 21:45 08/05/17 21:44 Morphine Sulfate (MoRPHine SULFATE INJ) 3 mg Q4H PRN IV 08/02/17 09:30 5/5/18 09:29 08/02/17 14:19 3 MG Vancomycin HCl 1000 mg/Sodium Chloride 270 ml @ 125 mls/hr Q10H IV 08/02/17 17:00 08/10/17 23:59 08/02/17 16:50 125 MLS/HR
[2017-08-02 22:41] VITALS: BP 120/75; PULSE 76; TEMP 36.9; O2SAT 95
[2017-08-03] MEDS: PIPERACILL/TAZOBAC IV 3.375 GM in DEXTROSE 5% 100ML 100 ML IV SCH ×3 (00:25→15:59)
[2017-08-03] MEDS: VANCOMYCIN IV 1,000 MG in SODIUM CHLORIDE 0.9% 250ML 250 ML IV SCH (03:27)
--- NOTE | 2017-08-03 07:28 | Progress Note ---
Progress Note Date of Service Aug 03, 2017. Progress Note ID Consult Dictated # [id number] A/P: 1. VERONAE Cellulitis -Continue IV abx, follow cultures -thank you
[2017-08-03 07:38] VITALS: BP 140/79; PULSE 72; TEMP 36.4; O2SAT 95
[2017-08-03] MEDS: ENOXAPARIN 40 MG/0.4 ML SYR SQ SCH (07:49)
[2017-08-03 08:32] LABS: BASO % 0.4 %; BASO ABS # 0.04 K/uL (0-0.2); EOS ABS # 0.51 K/uL (0-0.5); HEMATOCRIT 33.8 % (37-47); HEMOGLOBIN 11.7 g/dL (12.0-16.0); IG# 0.13 K/uL (0.00-0.02); LYMPH % 12.6 %; LYMPH ABS # 1.28 K/uL (1.2-3.4); MEAN CELL VOLUME 94.4 fL (80-100); MEAN CORPUSCULAR HEMOGLOBIN 32.7 pg (25-34); MEAN CORPUSCULAR HGB CONC 34.6 g/dl (32-36); MEAN PLATELET VOLUME 11.8 fL (7.4-10.4); MONO % 9.7 %; MONO ABS # 0.98 K/uL (0.11-0.59); NEUT ABS # 7.18 K/uL (1.4-6.5); PLATELET COUNT 232 K/uL (130-400); RED CELL DISTRIBUTION WIDTH CV 14.1 % (11.5-14.5); RED CELL DISTRIBUTION WIDTH SD 48.8 fL (36.4-46.3); WHITE BLOOD COUNT 10.12 K/uL (4.8-10.8)
[2017-08-03 09:00] LABS: CALCIUM 8.2 mg/dl (8.5-10.1); CREATININE 1.9 mg/dl (0.60-1.20); POTASSIUM 3.7 mmol/L (3.5-5.1)
--- NOTE | 2017-08-03 09:01 | INFECT. DISEASE CONSULTATION ---
DATE OF CONSULTATION: 08/03/2017 REQUESTING PHYSICIAN: Dr. Nava. HISTORY OF PRESENT ILLNESS: This is a 67-year-old female who was admitted on the 19 with worsening left forearm pain and swelling. She started with an abscess and had worsening cellulitis. She did follow with her primary care physician and was placed on Augmentin initially. She had little response to this and subsequently followed in the Emergency Room. She states today she is feeling significantly better and has less swelling in her hand. She did have an MRI which showed diffuse cellulitis but no drainable collection or bone infection. She is also followed by orthopedic surgery, and there are no plans for surgery at this time. She is on vancomycin and Zosyn and tolerating these well. Blood cultures are negative. She initially had a leukocytosis which has resolved. She is currently afebrile. She does admit to some pain in the arm but overall states it is improved. She has full range of motion. She denies any chest pain, cough, shortness of breath, nausea, vomiting, diarrhea, or abdominal pain. Her remaining review of systems is unremarkable. She has no known trauma to the area but did feel as though she may have had a spider bite. PAST MEDICAL HISTORY: Significant for GERD. FAMILY HISTORY: Noncontributory. SOCIAL HISTORY: Negative for tobacco use, alcohol use, or drug use. ALLERGIES: She has no known drug allergies. MEDICATIONS: Include vancomycin, morphine, Gadavist, Imodium, Zosyn, Zofran, Lovenox, Toradol, and Tylenol. PHYSICAL EXAMINATION: VITAL SIGNS: She is afebrile, pulse 76, respiratory rate 16, blood pressure 120/75, oxygen saturation is 95% on room air. GENERAL: She is awake, alert, and oriented x3. She is in no acute distress. HEENT: Mucous membranes are moist. Extraocular muscles are intact. CARDIOVASCULAR: Heart is regular. LUNGS: Clear. GASTROINTESTINAL: Abdomen is soft. There is no edema. EXTREMITIES: Examination of the left forearm does reveal erythema into the medial aspect of the humerus, this has decreased from the line drawn. There is no swelling in the hand. Erythema does not extend into the hand. She has full range of motion at all joints. There is tenderness and warmth to palpation. LABORATORY STUDIES: CBC yesterday reveals a white blood cell count of 11.4, hemoglobin 12.2, and platelets of 216. Chemistry panel reveals sodium of 138, potassium 3.9, chloride 111, bicarbonate 20, BUN 15, creatinine 0.7, glucose 95. LFTs: AST is 42, ALT 101, that is improved from admission. Bilirubin is 1.0. Vancomycin level is 6. Lyme disease screen is negative. Blood cultures are negative. Stool culture is negative. C. difficile is negative. IMAGING: As above. ASSESSMENT AND PLAN: Left arm cellulitis. She will continue on intravenous antibiotics and hopefully can transition to oral antibiotics soon. Thank you for this consultation.
[2017-08-03] MEDS: KETOROLAC TROMETHAMINE 30 MG/ML VIAL IV PRN (09:03)
--- NOTE | 2017-08-03 09:15 | PROGRESS NOTE ---
DATE: 08/03/2017 SUBJECTIVE: Miladys is seen at the bedside today. She is comfortable. She has decreased swelling. She has elevated her hand on Gómez pillow. OBJECTIVE: On left hand exam, significant decrease in swelling over the dorsal aspect of the hand. She has erythema, slightly decreased compared to her prior demarcation line, but she does have continued erythema in the medial aspect of the elbow. I did not detect any gross fluctuance. She has negative Kanavel sign. She has full range of motion of the digits without significant discomfort. ASSESSMENT: Cellulitis, left upper extremity, left forearm. PLAN: At this point in time, she does appear to be responding to antibiotics. RECOMMENDATIONS: Continue antibiotics as per hospitalist service. I do not see any surgical indications at this point in time. We will sign off. If any further questions or concerns, feel free to call.
--- NOTE | 2017-08-03 09:25 | Progress Note ---
Medicine Progress Note Date & Time of Visit: Aug 03, 2017 at 09:25. Subjective seen resting in bed, comfortable in good spirits states she feels better today left arm pain is much less compared to yesterday denies fever/chills, nausea no chest pain, dyspnea, dizziness no other symptoms Objective Last 8 Hrs Date Time Temp Pulse Resp B/P (MAP) Pulse Ox O2 Delivery O2 Flow Rate FiO2 08/03/17 07:38 36.4 72 16 140/79 (99) 95 Physical Exam: General- oriented x 3, not in distress, speaks in sentences with no effort Neck- no JVD Lungs- clear breath sounds bilaterally, no rales, no wheezing Heart- regular rhythm; no murmur, normal rate Abdomen- normal bowel sounds, soft, nontender, non distended Extremities- Left forearm: (+) erythema on the left forearm- extending out of the demarcation line drawn- more on the upper arm, with less edema, less warmth , no tenderness no pretibial edema, no calf tenderness Neuro- alert, oriented x 3; no gross focal deficits Skin- warm & dry Laboratory Results: Last 24 Hours Test 08/03/17 07:58 White Blood Count 10.12 K/uL Red Blood Count 3.58 M/uL Hemoglobin 11.7 g/dL Hematocrit 33.8 % Mean Corpuscular Volume 94.4 fL Mean Corpuscular Hemoglobin 32.7 pg Mean Corpuscular Hemoglobin Concent 34.6 g/dl Platelet Count 232 K/uL Mean Platelet Volume 11.8 fL Neutrophils (%) (Auto) 71.0 % Lymphocytes (%) (Auto) 12.6 % Monocytes (%) (Auto) 9.7 % Eosinophils (%) (Auto) 5.0 % Basophils (%) (Auto) 0.4 % Neutrophils # (Auto) 7.18 K/uL Lymphocytes # (Auto) 1.28 K/uL Monocytes # (Auto) 0.98 K/uL Eosinophils # (Auto) 0.51 K/uL Basophils # (Auto) 0.04 K/uL RDW Standard Deviation 48.8 fL RDW Coefficient of Variation 14.1 % Immature Granulocyte % (Auto) 1.3 % Immature Granulocyte # (Auto) 0.13 K/uL Sodium Level 138 mmol/L Potassium Level 3.7 mmol/L Chloride Level 107 mmol/L Carbon Dioxide Level 21 mmol/L Anion Gap 10.0 mmol/L Blood Urea Nitrogen 17 mg/dl Creatinine 1.90 mg/dl Est Creatinine Clear Calc Drug Dose 26.3 ml/min Estimated GFR () 31.5 Estimated GFR (Non- 27.2 BUN/Creatinine Ratio 8.9 Random Glucose 88 mg/dl Calcium Level 8.2 mg/dl Assessment & Plan Left forearm cellulitis MRI arm: no abscess Ortho consulted, appreciate the recommendations, no surgical intervention at this time ID consulted, continue with antibiotics has received IV Vanco x 3 days, crea elevated to 1.9, change Vanco to Dapto for now, discussed with Pharmacy continue Zosyn Day 3 monitor appreciate Ortho and ID recommendations Acute Renal Failure check Fractional Excretion of Na change Vanco to Dapto stop Toradol start IV NSS at 125cc/hr monitor crea daily GERD: -Cont PPI DVT Ppx: stop Lovenox due to acute renal failure repeat crea tomorrow, may need to be transitioned to heparin SC Code status: FULL PCP: Wayne Dispo: Plan to return home once left forearm cellulitis further improves and acute renal failure resolves. Consultants: ortho Current Inpatient Medications: Current Inpatient Medications Medications (Trade) Dose Ordered Sig/Tony Route Start Time Stop Time Status Last Admin Dose Admin Acetaminophen (Tylenol Tab) 650 mg Q4H PRN PO 07/31/17 12:00 08/30/17 11:59 08/02/17 16:51 650 MG Ketorolac Tromethamine (Toradol Inj) 30 mg Q6H PRN IV 07/31/17 12:00 08/05/17 11:59 08/03/17 09:03 30 MG Miscellaneous Information (Consult) 1 ea UD PRN N/A 07/31/17 12:14 08/30/17 12:13 Enoxaparin Sodium (Lovenox Inj) 40 mg QAM SQ 08/01/17 08:00 08/31/17 07:59 08/03/17 07:49 40 MG Piperacillin Sod/ Tazobactam Sod 3.375 gm/Dextrose 115 ml @ 28.75 mls/ hr Q8H IV 08/01/17 16:00 08/15/17 09:59 08/03/17 07:48 28.75 MLS/HR Miscellaneous Information (Consult) 1 ea UD PRN N/A 08/01/17 10:00 08/31/17 09:59 Ondansetron HCl (Zofran Inj) 4 mg Q6H PRN IV 08/01/17 10:45 08/31/17 10:44 08/02/17 14:17 4 MG Loperamide HCl (Imodium Cap) 2 mg UD PRN PO 08/01/17 18:00 08/31/17 17:59 Gadobutrol (Gadavist) 6.5 mmol UD PRN IV 08/01/17 21:45 08/05/17 21:44 Morphine Sulfate (MoRPHine SULFATE INJ) 3 mg Q4H PRN IV 08/02/17 09:30 08/16/17 09:29 08/02/17 14:19 3 MG Vancomycin HCl 1000 mg/Sodium Chloride 270 ml @ 125 mls/hr Q10H IV 08/02/17 17:00 08/10/17 23:59 08/03/17 03:27 125 MLS/HR
--- NOTE | 2017-08-03 09:39 | Pharmacy Progress Note ---
Pharmacy Abx Dose Progress Nt Date of Service Aug 03, 2017. Pharmacy Dosing Scope The patient WAS receiving the Vancomycin 1000 mg IV q16h per Pharmacy consult. It was changed yesterday to Vanco 1000 mg IV q10h which started at 1700 on 08/02. Objective Height (Feet): 5 Height (Inches): 1.00 Weight (Kilograms): 69.200 Vital Signs (Past 12Hrs) Vital Signs Past 12 Hours Date Time Temp Pulse Resp B/P (MAP) Pulse Ox O2 Delivery O2 Flow Rate FiO2 08/03/17 07:38 36.4 72 16 140/79 (99) 95 08/03/17 00:05 Room Air 08/02/17 22:41 36.9 76 16 120/75 (90) 95 Room Air Lab Results (24Hrs) Item Value Date Time Vancomycin Level Trough 6.1 mcg/ml 08/02/17 0523 Laboratory Tests (24 Hours) Test 08/03/17 07:58 White Blood Count 10.12 K/uL (4.8-10.8) Red Blood Count 3.58 M/uL (4.2-5.4) L Hemoglobin 11.7 g/dL (12.0-16.0) L Hematocrit 33.8 % (37-47) L Mean Corpuscular Volume 94.4 fL (80-100) Mean Corpuscular Hemoglobin 32.7 pg (25-34) Mean Corpuscular Hemoglobin Concent 34.6 g/dl (32-36) Platelet Count 232 K/uL (130-400) Mean Platelet Volume 11.8 fL (7.4-10.4) H Neutrophils (%) (Auto) 71.0 % Lymphocytes (%) (Auto) 12.6 % Monocytes (%) (Auto) 9.7 % Eosinophils (%) (Auto) 5.0 % Basophils (%) (Auto) 0.4 % Neutrophils # (Auto) 7.18 K/uL (1.4-6.5) H Lymphocytes # (Auto) 1.28 K/uL (1.2-3.4) Monocytes # (Auto) 0.98 K/uL (0.11-0.59) H Eosinophils # (Auto) 0.51 K/uL (0-0.5) H Basophils # (Auto) 0.04 K/uL (0-0.2) Micro Results Date/Time Source Procedure Growth Status 07/31/17 10:43 Blood Blood Culture - Preliminary NO GROWTH TO DATE. Resulted 07/31/17 10:32 Blood Blood Culture - Preliminary NO GROWTH TO DATE. Resulted 08/01/17 10:50 Stool C.difficile Toxin B Gene (PCR) - Final No C. difficile toxin B gene detected Complete 08/01/17 10:50 Stool Shiga Toxin Test - Preliminary Resulted 08/01/17 10:50 Stool Stool Culture - Preliminary NO SALMONELLA ISOLATED TO DATE,... Resulted Risk Factors for Resistance * Antimicrobial use within the last 90 days- failed outpatient Augmentin use ( for 2 days) for current Cellulitis. Assessment & Plan Assessment 67 year old female receiving Vancomycin for treatment of Cellulitis from insect bite. Day # 07/22 of antimicrobial therapy Plan Vancomycin IV * Trough level of 6.1 mcg/mL from yesterday morning was subtherapeutic. * Calculated PK parameters: Ke= 0.095/hr, t1/2 = 7.3 hrs. * Vanco dose was changed to 1 gm IV q10h which started yesterday at 1700. * Goal trough level for Cellulitis: ~ 15 mcg/mL * Trough Vanco level ordered for: 08/04/17 before dose at 0900 (before the 5th dose after dose change). Pharmacy will continue to follow and will adjust dose/frequency as necessary. Thank you.
[2017-08-03] MEDS ORDERED: MoRPHine SULFATE 4 MG/ML 1 ML CARP\\VIAL IV PRN (13:30)
[2017-08-03] MEDS: SODIUM CHLORIDE 0.9% 1000ML 1,000 ML IV SCH ×2 (13:48→21:51)
[2017-08-03] MEDS ORDERED: DAPTOMYCIN CONSULT ACTIVE PRN (14:45)
[2017-08-03 15:03] VITALS: BP 138/84; PULSE 73; TEMP 36.5; O2SAT 96
[2017-08-03] MEDS: ONDANSETRON INJ 2 MG/ML 2 ML VIAL IV PRN (15:15)
[2017-08-03] MEDS: TRAMADOL HCL 50 MG TAB PO PRN (15:58)
[2017-08-03 16:00] VITALS: O2SAT 96
[2017-08-03 23:06] VITALS: BP 116/78; PULSE 81; TEMP 36.6; O2SAT 93
[2017-08-04] MEDS: PIPERACILL/TAZOBAC IV 3.375 GM in DEXTROSE 5% 100ML 100 ML IV SCH ×2 (01:11→08:03)
[2017-08-04] MEDS: SODIUM CHLORIDE 0.9% 1000ML 1,000 ML IV SCH ×3 (05:33→22:15)
[2017-08-04] MEDS: DAPTOMYCIN IV SCH (05:33)
[2017-08-04 06:27] LABS: BASO % 0.5 %; BASO ABS # 0.05 K/uL (0-0.2); EOS % 5.1 %; EOS ABS # 0.46 K/uL (0-0.5); HEMATOCRIT 33.5 % (37-47); HEMOGLOBIN 11.3 g/dL (12.0-16.0); IG# 0.17 K/uL (0.00-0.02); LYMPH % 15.7 %; LYMPH ABS # 1.43 K/uL (1.2-3.4); MEAN CELL VOLUME 95.2 fL (80-100); MEAN CORPUSCULAR HEMOGLOBIN 32.1 pg (25-34); MEAN CORPUSCULAR HGB CONC 33.7 g/dl (32-36); MEAN PLATELET VOLUME 11.4 fL (7.4-10.4); MONO % 7.3 %; MONO ABS # 0.66 K/uL (0.11-0.59); NEUT % 69.5 %; NEUT ABS # 6.33 K/uL (1.4-6.5); PLATELET COUNT 233 K/uL (130-400); RED CELL DISTRIBUTION WIDTH CV 14.4 % (11.5-14.5); RED CELL DISTRIBUTION WIDTH SD 49.8 fL (36.4-46.3)
[2017-08-04 07:03] LABS: CALCIUM 8.1 mg/dl (8.5-10.1); CREATININE 2.32 mg/dl (0.60-1.20); POTASSIUM 3.7 mmol/L (3.5-5.1)
[2017-08-04 07:24] VITALS: BP 134/84; PULSE 78; TEMP 36.5; O2SAT 94
[2017-08-04] MEDS: PANTOprazole SOD 40 MG TAB PO SCH (08:16)
[2017-08-04] MEDS ORDERED: VANCOMYCIN TROUGH ONE (08:30)
--- NOTE | 2017-08-04 09:24 | NEPHROLOGY CONSULTATION ---
DATE OF CONSULTATION: 08/04/2017 ATTENDING OF RECORD: Dr. Nava REASON FOR CONSULTATION: SHARATH. HISTORY OF PRESENT ILLNESS: This is a 67-year-old female who had a significant cellulitis of her left arm, thought to be from a spider bite. The patient was taking ibuprofen 2 pills every 4-6 hours for several days prior to coming in. The patient's creatinine on admission was normal at 0.86, however, over the past 2 days has gone from 0.61 to 1.90 to 2.32. The patient was on IV vancomycin, which was stopped and switched to daptomycin. The patient also was on Toradol which she got 2 doses on 07/31/2017, 3 doses on 08/01/2017, 3 doses on 08/02/2017, and 1 dose yesterday morning before being stopped. The patient's cellulitis is improving, appetite is improving, although still nauseous and requiring antiemetics. PAST MEDICAL/SURGICAL HISTORY: GERD. No hypertension, no diabetes, no tobacco use. FAMILY HISTORY: Significant for hypertension. SOCIAL HISTORY: No smoking, no alcohol, no drugs. Lives with . CURRENT MEDICATIONS: Protonix 40 mg a day, Zosyn 3.375 IV every 8 hours, normal saline at 125 mL an hour, daptomycin 200 mg IV every 48 hours. REVIEW OF SYSTEMS: No chest pain, no shortness of breath. Positive nausea. No vomiting. No headaches, no blurry vision. No dysphagia. No diarrhea or constipation. The patient did notice a decrease in urination yesterday. Rash/pain/cellulitis of the left forearm is improving. Denies any fevers or chills. All other review of systems otherwise negative. PHYSICAL EXAMINATION: VITAL SIGNS: Temperature 36.5, pulse 78, respiratory rate is 18, blood pressure 134/84, satting 94% on room air. GENERAL: Awake, alert, oriented x3. EYES: No scleral icterus. ENT: Moist mucous membranes. NECK: Supple. PULMONARY: Basilar rales. CARDIAC: Regular rate and rhythm. ABDOMEN: Bowel sounds positive, soft, nontender. EXTREMITIES: No clubbing, cyanosis, or edema. Left forearm is swollen, red, and warm. LABORATORIES: Sodium was 139, potassium 3.7, chloride is 111, bicarbonate is 22, BUN is 19, creatinine is 2.32, glucose is 90, calcium is 8.1. White count is 9, H and H 11 and 33, platelet count is 233. Vancomycin level on 08/03/2017 was elevated at 29.1. INR is 1. Urine random sodium of 24. UA is bland with 1+ protein, specific gravity 1.025. Lyme is negative. C. diff negative. Blood cultures negative. Stool studies negative. ASSESSMENT AND PLAN: Acute kidney injury, nonoliguric, urinating about 700-800 mL a day in the setting of NSAIDs plus or minus vancomycin. Vancomycin has been stopped and since has been stopped, giving IV fluids. I expect creatinine to worsen before it starts to improve. Checking a renal ultrasound to be thorough. Urinalysis is bland. The patient is tolerating the IV fluids well. The patient does have some basilar rales, but I feel that is more likely atelectasis as opposed to volume overload. I encouraged incentive spirometer and did reinforce this with the nurse and the patient. We will follow the creatinine trend. If creatinine does continue to worsen, there is a possibility for need for dialysis, however, I am hoping to avoid this since we have stopped the medications that could be toxic to the kidneys, hoping that kidney function eventually peaks and starts to improve and returns back down to baseline. I appreciate the consultation.
--- NOTE | 2017-08-04 10:41 | Progress Note ---
Subjective Date of Service: Aug 04, 2017. Subjective Pt evaluation today including: conversation w/ patient, physical exam pt seen in followup, ambulating in room. states arm is feeling much better. creat has significantly increased, was 0.6 on admission, now increased to 2.3. vanco changed to dapto yesterday, creat 1.9 at that point. vanco level this am 29.1, last level 6. tolerating dapto. able to move arm, denies pain, no f/c. blood cultures remain negative, no plan for OR. no n/v/d/abd pain, no cp, no cough, no sob. all remaining ros reviewed and are negative. Objective Vital Signs Date Time Temp Pulse Resp B/P (MAP) Pulse Ox O2 Delivery O2 Flow Rate FiO2 08/04/17 08:10 Room Air 08/04/17 07:24 36.5 78 18 134/84 (101) 94 08/04/17 00:05 Room Air 08/03/17 23:06 36.6 81 18 116/78 (91) 93 Room Air 08/03/17 16:00 96 Room Air 08/03/17 15:03 36.5 73 16 138/84 (102) 96 Physical Exam General Appearance: WD/WN, no apparent distress Eyes: normal inspection, EOMI Neck: supple Respiratory/Chest: lungs clear, normal breath sounds, no respiratory distress Cardiovascular: regular rate, rhythm, no edema Abdomen: non tender, soft Extremities: non-tender, no pedal edema Neurologic/Psychiatric: alert, oriented x 3 Skin: normal color Comments: lue with improved erythema, no warmth, non tender, no open areas, improving. Laboratory Results Last 24 Hours Test 08/03/17 12:34 08/03/17 14:45 08/04/17 06:01 Vancomycin Level Trough 29.1 mcg/ml Urine Color YELLOW Urine Appearance CLOUDY Urine pH 5.0 Urine Specific [place] 1.025 Urine Protein 1+ Urine Glucose (UA) NEG Urine Ketones NEG Urine Occult Blood TRACE Urine Nitrite NEG Urine Bilirubin NEG Urine Urobilinogen NEG Urine Leukocyte Esterase NEG Urine WBC (Auto) 1-5 /hpf Urine RBC (Auto) 0-4 /hpf Urine Hyaline Casts (Auto) 1-5 /lpf Urine Epithelial Cells (Auto) >30 /lpf Urine Bacteria (Auto) NEG Urine Yeast (Auto) Urine Random Creatinine 155.0 mg/dl Urine Random Sodium 24 mEq/L White Blood Count 9.10 K/uL Red Blood Count 3.52 M/uL Hemoglobin 11.3 g/dL Hematocrit 33.5 % Mean Corpuscular Volume 95.2 fL Mean Corpuscular Hemoglobin 32.1 pg Mean Corpuscular Hemoglobin Concent 33.7 g/dl Platelet Count 233 K/uL Mean Platelet Volume 11.4 fL Neutrophils (%) (Auto) 69.5 % Lymphocytes (%) (Auto) 15.7 % Monocytes (%) (Auto) 7.3 % Eosinophils (%) (Auto) 5.1 % Basophils (%) (Auto) 0.5 % Neutrophils # (Auto) 6.33 K/uL Lymphocytes # (Auto) 1.43 K/uL Monocytes # (Auto) 0.66 K/uL Eosinophils # (Auto) 0.46 K/uL Basophils # (Auto) 0.05 K/uL RDW Standard Deviation 49.8 fL RDW Coefficient of Variation 14.4 % Immature Granulocyte % (Auto) 1.9 % Immature Granulocyte # (Auto) 0.17 K/uL Sodium Level 139 mmol/L Potassium Level 3.7 mmol/L Chloride Level 111 mmol/L Carbon Dioxide Level 22 mmol/L Anion Gap 6.0 mmol/L Blood Urea Nitrogen 19 mg/dl Creatinine 2.32 mg/dl Est Creatinine Clear Calc Drug Dose 21.5 ml/min Estimated GFR () 24.8 Estimated GFR (Non- 21.4 BUN/Creatinine Ratio 8.3 Random Glucose 90 mg/dl Calcium Level 8.1 mg/dl Assessment and Plan (1) Cellulitis of left forearm Assessment & Plan: continue dapto, stop zosyn, follow blood cultures. monitor kidney function
--- NOTE | 2017-08-04 11:35 | DIAGNOSTIC IMAGING REPORT ---
ULTRASOUND KIDNEYS AND BLADDER CLINICAL HISTORY: Acute renal insufficiency. COMPARISON STUDY: No priors. TECHNIQUE: Real-time, grayscale, and color flow sonography of the kidneys and bladder is performed. Images are reviewed in the transverse and longitudinal planes. FINDINGS: Kidneys: The kidneys are normal in size and echotexture. The right kidney measures 11.3 x 4.4 x 4.3 cm and the left kidney measures 12.1 x 5.2 x 5.7 cm. There is no hydronephrosis. No shadowing renal calculi are identified. There is no sonographic evidence of contour deforming renal mass lesion. Trace right-sided perinephric fluid is nonspecific. Bladder: The partially decompressed bladder is normal in appearance. Bilateral ureteral jets were seen. IMPRESSION: 1. The kidneys are normal in size and without hydronephrosis. 2. The bladder is normal as visualized. Electronically signed by: Rommel Evans M.D. 08/04/2017 11:33 AM Dictated Date/Time: 08/04/2017 11:32 AM
[2017-08-04] MEDS: ONDANSETRON INJ 2 MG/ML 2 ML VIAL IV PRN ×2 (12:47→19:51)
[2017-08-04 15:52] VITALS: BP 129/82; PULSE 68; TEMP 36.8; O2SAT 94
--- NOTE | 2017-08-04 20:09 | Progress Note ---
Medicine Progress Note Date & Time of Visit: Aug 04, 2017 at 20:01. Subjective seen resting in bed, comfortable in good spirits states her left arm pain and swelling continues to improve denies urinary symptoms, voiding with no problems, denies decreasing urine amount no other symptoms Objective Last 8 Hrs Date Time Temp Pulse Resp B/P (MAP) Pulse Ox O2 Delivery O2 Flow Rate FiO2 08/04/17 16:32 Room Air 08/04/17 15:52 36.8 68 18 129/82 (98) 94 Physical Exam: General- oriented x 3, not in distress, speaks in sentences with no effort Neck- no JVD Lungs- clear breath sounds, no rales/wheezes bilaterally Heart- regular rhythm; no murmur, normal rate Abdomen- normal bowel sounds, soft, nontender, non distended Extremities- Left forearm: (+) erythema on the left forearm-seems to be receding /less prominent, with less edema, less warmth , no tenderness no pretibial edema, no calf tenderness Neuro- alert, oriented x 3; no gross focal deficits Skin- warm & dry Laboratory Results: Last 24 Hours Test 08/04/17 06:01 White Blood Count 9.10 K/uL Red Blood Count 3.52 M/uL Hemoglobin 11.3 g/dL Hematocrit 33.5 % Mean Corpuscular Volume 95.2 fL Mean Corpuscular Hemoglobin 32.1 pg Mean Corpuscular Hemoglobin Concent 33.7 g/dl Platelet Count 233 K/uL Mean Platelet Volume 11.4 fL Neutrophils (%) (Auto) 69.5 % Lymphocytes (%) (Auto) 15.7 % Monocytes (%) (Auto) 7.3 % Eosinophils (%) (Auto) 5.1 % Basophils (%) (Auto) 0.5 % Neutrophils # (Auto) 6.33 K/uL Lymphocytes # (Auto) 1.43 K/uL Monocytes # (Auto) 0.66 K/uL Eosinophils # (Auto) 0.46 K/uL Basophils # (Auto) 0.05 K/uL RDW Standard Deviation 49.8 fL RDW Coefficient of Variation 14.4 % Immature Granulocyte % (Auto) 1.9 % Immature Granulocyte # (Auto) 0.17 K/uL Sodium Level 139 mmol/L Potassium Level 3.7 mmol/L Chloride Level 111 mmol/L Carbon Dioxide Level 22 mmol/L Anion Gap 6.0 mmol/L Blood Urea Nitrogen 19 mg/dl Creatinine 2.32 mg/dl Est Creatinine Clear Calc Drug Dose 21.5 ml/min Estimated GFR () 24.8 Estimated GFR (Non- 21.4 BUN/Creatinine Ratio 8.3 Random Glucose 90 mg/dl Calcium Level 8.1 mg/dl Assessment & Plan Left forearm cellulitis suspected to have started as an insect bite on the dorsal aspect, middle forearm MRI arm: no abscess, (+) edema Ortho consulted, appreciate the recommendations, no surgical intervention at this time ID consulted has received IV Vanco x 3 days, but crea elevated to 1.9, changed Vanco to Dapto on 08/03/17 also received Zosyn x [address] Mayes recommends to continue Dapto IV Day 2, d/c Zosyn appreciate Ortho and ID recommendations Acute Renal Failure crea increased from 0.6 to 1.9 to 2.3 Pre renal? has also received Toradol, Vancomycin, contrast for MRI Fractional Excretion of Na: <1 changed Vanco to Dapto discontinued Toradol Renal US: unremarkable Nephro consulted, appreciate input continue IV NSS at 125cc/hr monitor crea avoid nephrotoxins, NSAIDs, contrast GERD: -Cont PPI DVT Ppx: stopped Lovenox due to acute renal failure transition to Heparin SC Dispo: Plan to return home once left forearm cellulitis further improves and acute renal failure resolves. ff up with Dr. Black for PCP Consultants: ortho Current Inpatient Medications: Current Inpatient Medications Medications (Trade) Dose Ordered Sig/Tony Route Start Time Stop Time Status Last Admin Dose Admin Acetaminophen (Tylenol Tab) 650 mg Q4H PRN PO 07/31/17 12:00 08/30/17 11:59 08/02/17 16:51 650 MG Ondansetron HCl (Zofran Inj) 4 mg Q6H PRN IV 08/01/17 10:45 08/31/17 10:44 08/04/17 19:51 4 MG Loperamide HCl (Imodium Cap) 2 mg UD PRN PO 08/01/17 18:00 08/31/17 17:59 Gadobutrol (Gadavist) 6.5 mmol UD PRN IV 08/01/17 21:45 08/05/17 21:44 Morphine Sulfate (MoRPHine SULFATE INJ) 3 mg Q6H PRN IV 08/03/17 13:30 08/16/17 09:29 Sodium Chloride 1,000 ml @ 125 mls/hr Q8H IV 08/03/17 13:15 09/02/17 13:14 08/04/17 12:47 125 MLS/HR Tramadol HCl (Ultram Tab) 50 mg Q12H PRN PO 08/03/17 13:15 09/02/17 13:14 08/03/17 15:58 50 MG Daptomycin 200 mg/ Syringe 4 ml @ 2 mls/min Q48H IV 08/04/17 06:00 08/14/17 05:59 08/04/17 05:33 2 MLS/MIN Daptomycin (Consult) 1 ea UD PRN N/A 08/03/17 14:45 09/02/17 14:44 Pantoprazole Sodium (Protonix Tab) 40 mg QAM PO 08/04/17 08:00 08/07/17 08:01 08/04/17 08:16 40 MG
[2017-08-04] MEDS: HEPARIN SOD 5000 UNIT/0.5 ML CARP SQ SCH (21:06)
[2017-08-04 23:30] VITALS: BP 146/98; PULSE 74; TEMP 37.1; O2SAT 92
[2017-08-05] MEDS: SODIUM CHLORIDE 0.9% 1000ML 1,000 ML IV SCH (05:27)
[2017-08-05] MEDS: HEPARIN SOD 5000 UNIT/0.5 ML CARP SQ SCH ×3 (05:32→21:06)
[2017-08-05 06:45] VITALS: BP 154/75; PULSE 64; TEMP 36.8; O2SAT 92
[2017-08-05 06:55] LABS: BASO % 0.5 %; BASO ABS # 0.05 K/uL (0-0.2); EOS % 5.4 %; EOS ABS # 0.53 K/uL (0-0.5); HEMATOCRIT 31.8 % (37-47); HEMOGLOBIN 10.7 g/dL (12.0-16.0); IG# 0.21 K/uL (0.00-0.02); LYMPH % 16.7 %; LYMPH ABS # 1.64 K/uL (1.2-3.4); MEAN CELL VOLUME 94.6 fL (80-100); MEAN CORPUSCULAR HEMOGLOBIN 31.8 pg (25-34); MEAN CORPUSCULAR HGB CONC 33.6 g/dl (32-36); MEAN PLATELET VOLUME 10.8 fL (7.4-10.4); MONO % 7.5 %; MONO ABS # 0.74 K/uL (0.11-0.59); NEUT % 67.8 %; NEUT ABS # 6.65 K/uL (1.4-6.5); PLATELET COUNT 249 K/uL (130-400); RED CELL DISTRIBUTION WIDTH CV 14.5 % (11.5-14.5); RED CELL DISTRIBUTION WIDTH SD 49.8 fL (36.4-46.3); WHITE BLOOD COUNT 9.82 K/uL (4.8-10.8)
[2017-08-05 07:29] LABS: CALCIUM 7.9 mg/dl (8.5-10.1); CREATININE 2.34 mg/dl (0.60-1.20); POTASSIUM 3.9 mmol/L (3.5-5.1)
[2017-08-05] MEDS: PANTOprazole SOD 40 MG TAB PO SCH (08:08)
--- NOTE | 2017-08-05 12:32 | Nephrology Progress Note ---
Nephrology Progress Note Date of Service: Aug 05, 2017. Subjective 67 yo female seen for key with resolving cellulitis. pt doing well. appetite decreased. no sob. Objective Date Time Temp Pulse Resp B/P (MAP) Pulse Ox O2 Delivery O2 Flow Rate FiO2 08/05/17 08:00 Room Air 08/05/17 06:45 36.8 64 18 154/75 (101) 92 Room Air 08/04/17 23:30 Room Air 08/04/17 23:30 37.1 74 18 146/98 (114) 92 Room Air 08/04/17 16:32 Room Air 08/04/17 15:52 36.8 68 18 129/82 (98) 94 Physical Exam: General-aaox3 Eyes-no scleral icterus ENT-mmm Neck-supple Lungs-basilar rales Heart-rrr Abdomen-bs+ s/nt/nd Extremities-+erythema of the arm Neuro-nonfocal Current Inpatient Medications Medications (Trade) Dose Ordered Sig/Tony Route Start Time Stop Time Status Last Admin Dose Admin Acetaminophen (Tylenol Tab) 650 mg Q4H PRN PO 07/31/17 12:00 08/30/17 11:59 08/02/17 16:51 650 MG Ondansetron HCl (Zofran Inj) 4 mg Q6H PRN IV 08/01/17 10:45 08/31/17 10:44 08/04/17 19:51 4 MG Loperamide HCl (Imodium Cap) 2 mg UD PRN PO 08/01/17 18:00 08/31/17 17:59 Gadobutrol (Gadavist) 6.5 mmol UD PRN IV 08/01/17 21:45 08/05/17 21:44 Morphine Sulfate (MoRPHine SULFATE INJ) 3 mg Q6H PRN IV 08/03/17 13:30 08/16/17 09:29 Sodium Chloride 1,000 ml @ 125 mls/hr Q8H IV 08/03/17 13:15 09/02/17 13:14 08/05/17 05:27 125 MLS/HR Tramadol HCl (Ultram Tab) 50 mg Q12H PRN PO 08/03/17 13:15 09/02/17 13:14 08/03/17 15:58 50 MG Daptomycin 200 mg/ Syringe 4 ml @ 2 mls/min Q48H IV 08/04/17 06:00 08/14/17 05:59 08/04/17 05:33 2 MLS/MIN Daptomycin (Consult) 1 ea UD PRN N/A 08/03/17 14:45 09/02/17 14:44 Pantoprazole Sodium (Protonix Tab) 40 mg QAM PO 08/04/17 08:00 09/03/17 07:59 08/05/17 08:08 40 MG Heparin Sodium (Porcine) (Heparin Sq 5000 Unit/0.5ml) 5,000 unit Q8 SQ 08/04/17 22:00 09/03/17 21:59 08/05/17 05:32 5,000 UNIT Last 24 Hours Test 08/05/17 06:42 White Blood Count 9.82 K/uL Red Blood Count 3.36 M/uL Hemoglobin 10.7 g/dL Hematocrit 31.8 % Mean Corpuscular Volume 94.6 fL Mean Corpuscular Hemoglobin 31.8 pg Mean Corpuscular Hemoglobin Concent 33.6 g/dl Platelet Count 249 K/uL Mean Platelet Volume 10.8 fL Neutrophils (%) (Auto) 67.8 % Lymphocytes (%) (Auto) 16.7 % Monocytes (%) (Auto) 7.5 % Eosinophils (%) (Auto) 5.4 % Basophils (%) (Auto) 0.5 % Neutrophils # (Auto) 6.65 K/uL Lymphocytes # (Auto) 1.64 K/uL Monocytes # (Auto) 0.74 K/uL Eosinophils # (Auto) 0.53 K/uL Basophils # (Auto) 0.05 K/uL RDW Standard Deviation 49.8 fL RDW Coefficient of Variation 14.5 % Immature Granulocyte % (Auto) 2.1 % Immature Granulocyte # (Auto) 0.21 K/uL Sodium Level 141 mmol/L Potassium Level 3.9 mmol/L Chloride Level 114 mmol/L Carbon Dioxide Level 18 mmol/L Anion Gap 9.0 mmol/L Blood Urea Nitrogen 19 mg/dl Creatinine 2.34 mg/dl Est Creatinine Clear Calc Drug Dose 21.3 ml/min Estimated GFR () 24.5 Estimated GFR (Non- 21.1 BUN/Creatinine Ratio 8.2 Random Glucose 77 mg/dl Calcium Level 7.9 mg/dl Assessment & Plan [id number]-thought to be atn from nsaids and volume depletion-creatinine still worsening but looks like its going to peak and start to improve. renal us is normal. would like to stop the iv fluids with the continued rales for fear of eventual volume overload. to check a chest xray to be thorough.
--- NOTE | 2017-08-05 13:56 | DIAGNOSTIC IMAGING REPORT ---
CHEST ONE VIEW PORTABLE CLINICAL HISTORY: basilar rales, check for volume overload dyspnea COMPARISON STUDY: 06/29/2007 FINDINGS: Mild cardia megaly. Prominent pulmonary vasculature. Trace pleural fluid both lung bases. IMPRESSION: Congestive heart failure The above report was generated using voice recognition software. It may contain grammatical, syntax or spelling errors. Electronically signed by: Connor Pugh M.D. 08/05/2017 1:55 PM Dictated Date/Time: 08/05/2017 1:54 PM
--- NOTE | 2017-08-05 14:04 | Progress Note ---
Medicine Progress Note Date & Time of Visit: Aug 05, 2017 at 14:03. Subjective CC: Follow-up visit for cellulitis left upper extremity and other problems. HPI: Left arm feels better; less swelling, less pain, less erythema. Nausea last evening, better this morning. Stools formed, dark. Experiencing some dyspnea on exertion; no significant cough. ROS: General- no fever Resp- as noted above in HPI Cardiac- no chest pain GI- as noted above in HPI - no dysuria, no difficulty voiding . Objective Last 8 Hrs Date Time Temp Pulse Resp B/P (MAP) Pulse Ox O2 Delivery O2 Flow Rate FiO2 08/05/17 08:00 Room Air 08/05/17 06:45 36.8 64 18 154/75 (101) 92 Room Air Physical Exam: General- lying in bed, no distress Lungs- bibasilar rales; no respiratory distress Cardiovascular- RRR; no murmur or gallop appreciated; + JVD; trace pretibial edema Abdomen- + bowel sounds, soft, nontender Extremities- moderate swelling, resolving erythema LUE; no cyanosis; no calf tenderness Neuro- alert, oriented Skin- warm & dry . Laboratory Results: Last 24 Hours Test 08/05/17 06:42 White Blood Count 9.82 K/uL Red Blood Count 3.36 M/uL Hemoglobin 10.7 g/dL Hematocrit 31.8 % Mean Corpuscular Volume 94.6 fL Mean Corpuscular Hemoglobin 31.8 pg Mean Corpuscular Hemoglobin Concent 33.6 g/dl Platelet Count 249 K/uL Mean Platelet Volume 10.8 fL Neutrophils (%) (Auto) 67.8 % Lymphocytes (%) (Auto) 16.7 % Monocytes (%) (Auto) 7.5 % Eosinophils (%) (Auto) 5.4 % Basophils (%) (Auto) 0.5 % Neutrophils # (Auto) 6.65 K/uL Lymphocytes # (Auto) 1.64 K/uL Monocytes # (Auto) 0.74 K/uL Eosinophils # (Auto) 0.53 K/uL Basophils # (Auto) 0.05 K/uL RDW Standard Deviation 49.8 fL RDW Coefficient of Variation 14.5 % Immature Granulocyte % (Auto) 2.1 % Immature Granulocyte # (Auto) 0.21 K/uL Sodium Level 141 mmol/L Potassium Level 3.9 mmol/L Chloride Level 114 mmol/L Carbon Dioxide Level 18 mmol/L Anion Gap 9.0 mmol/L Blood Urea Nitrogen 19 mg/dl Creatinine 2.34 mg/dl Est Creatinine Clear Calc Drug Dose 21.3 ml/min Estimated GFR () 24.5 Estimated GFR (Non- 21.1 BUN/Creatinine Ratio 8.2 Random Glucose 77 mg/dl Calcium Level 7.9 mg/dl Assessment & Plan CELLULITIS LUE Extensive cellulitis of left upper extremity at time of admission. MRI obtained and Ortho consulted. No apparent abscess, septic arthritis, or other drainable source of infection. ID consulted. Initially treated with intravenous vancomycin and piperacillin/tazobactam with improvement. Blood cultures negative. Vancomycin and piperacillin/tazobactam discontinued because of acute kidney injury. Now receiving IV daptomycin. ACUTE KIDNEY INJURY Serum creatinine day of admission was 0.78. Creatinine luke to 1.90 on 08/03. Nephrology consulted. Renal ultrasound did not show any hydronephrosis. [place] to have SHARATH. Possible contributing factors include vancomycin, piperacillin/tazobactam, ketorolac, infection. Received IV fluids. Urine output has been greater than 200 mL/shift. Serum creatinine today = 2.34. Avoid potential nephrotoxins when able. Follow. PULMONARY EDEMA Patient experiencing dyspnea on exertion. Oxygen saturations greater than 90% on room air. Chest x-ray today reveals pulmonary vascular congestion. Suspect pulmonary edema secondary to fluid overload from IV and oral fluid intake. IV fluids discontinued. Furosemide 20 mg x 1 today. Check echocardiogram. NAUSEA / VOMITING Improved. Continue pantoprazole and ondansetron PRN. VTE PROPHYLAXIS SQ heparin. Ambulate. DISPOSITION Expected discharge to home. Family Medicine follow-up with Dr. Black. ADDENDUM: Son and sister visiting and given update. . Consultants: ortho Current Inpatient Medications: Current Inpatient Medications Medications (Trade) Dose Ordered Sig/Tony Route Start Time Stop Time Status Last Admin Dose Admin Acetaminophen (Tylenol Tab) 650 mg Q4H PRN PO 07/31/17 12:00 08/30/17 11:59 08/02/17 16:51 650 MG Ondansetron HCl (Zofran Inj) 4 mg Q6H PRN IV 08/01/17 10:45 08/31/17 10:44 08/04/17 19:51 4 MG Loperamide HCl (Imodium Cap) 2 mg UD PRN PO 08/01/17 18:00 08/31/17 17:59 Gadobutrol (Gadavist) 6.5 mmol UD PRN IV 08/01/17 21:45 08/05/17 21:44 Morphine Sulfate (MoRPHine SULFATE INJ) 3 mg Q6H PRN IV 08/03/17 13:30 08/16/17 09:29 Tramadol HCl (Ultram Tab) 50 mg Q12H PRN PO 08/03/17 13:15 09/02/17 13:14 08/03/17 15:58 50 MG Daptomycin 200 mg/ Syringe 4 ml @ 2 mls/min Q48H IV 08/04/17 06:00 08/14/17 05:59 08/04/17 05:33 2 MLS/MIN Daptomycin (Consult) 1 ea UD PRN N/A 08/03/17 14:45 09/02/17 14:44 Pantoprazole Sodium (Protonix Tab) 40 mg QAM PO 08/04/17 08:00 09/03/17 07:59 08/05/17 08:08 40 MG Heparin Sodium (Porcine) (Heparin Sq 5000 Unit/0.5ml) 5,000 unit Q8 SQ 08/04/17 22:00 09/03/17 21:59 08/05/17 05:32 5,000 UNIT
[2017-08-05] MEDS ORDERED: POTASSIUM CHLORIDE 20 MEQ TABCR PO ONE (15:00)
[2017-08-05] MEDS ORDERED: FUROSEMIDE INJ 20 MG in SYRINGE 0 ML IV ONE (15:00)
--- NOTE | 2017-08-05 15:07 | Progress Note ---
Subjective Date of Service: Aug 05, 2017. Subjective Pt evaluation today including: conversation w/ patient, physical exam, chart review, lab review pt seen in followup, creat remains the same. afebrile. arm looks much better today. no pain, urinating frequently. blood cultures negative. all remaining ros reviewed and are negative. Objective Vital Signs Date Time Temp Pulse Resp B/P (MAP) Pulse Ox O2 Delivery O2 Flow Rate FiO2 08/05/17 08:00 Room Air 08/05/17 06:45 36.8 64 18 154/75 (101) 92 Room Air 08/04/17 23:30 Room Air 08/04/17 23:30 37.1 74 18 146/98 (114) 92 Room Air 08/04/17 16:32 Room Air 08/04/17 15:52 36.8 68 18 129/82 (98) 94 Physical Exam General Appearance: WD/WN, no apparent distress Eyes: normal inspection, EOMI Neck: supple Respiratory/Chest: normal breath sounds, no respiratory distress Cardiovascular: regular rate, rhythm, no edema, no murmur Abdomen: non tender, soft Extremities: non-tender, no pedal edema Neurologic/Psychiatric: alert, oriented x 3 Skin: normal color Comments: lue much improved. erythema almost completely resolved, no warmth, non tender. Laboratory Results Item Value Date Time Blood Culture - Preliminary Resulted 07/31/17 1043 Blood NO GROWTH TO DATE. Blood Culture - Preliminary Resulted 07/31/17 1032 Blood NO GROWTH TO DATE. Last 24 Hours Test 08/05/17 06:42 White Blood Count 9.82 K/uL Red Blood Count 3.36 M/uL Hemoglobin 10.7 g/dL Hematocrit 31.8 % Mean Corpuscular Volume 94.6 fL Mean Corpuscular Hemoglobin 31.8 pg Mean Corpuscular Hemoglobin Concent 33.6 g/dl Platelet Count 249 K/uL Mean Platelet Volume 10.8 fL Neutrophils (%) (Auto) 67.8 % Lymphocytes (%) (Auto) 16.7 % Monocytes (%) (Auto) 7.5 % Eosinophils (%) (Auto) 5.4 % Basophils (%) (Auto) 0.5 % Neutrophils # (Auto) 6.65 K/uL Lymphocytes # (Auto) 1.64 K/uL Monocytes # (Auto) 0.74 K/uL Eosinophils # (Auto) 0.53 K/uL Basophils # (Auto) 0.05 K/uL RDW Standard Deviation 49.8 fL RDW Coefficient of Variation 14.5 % Immature Granulocyte % (Auto) 2.1 % Immature Granulocyte # (Auto) 0.21 K/uL Sodium Level 141 mmol/L Potassium Level 3.9 mmol/L Chloride Level 114 mmol/L Carbon Dioxide Level 18 mmol/L Anion Gap 9.0 mmol/L Blood Urea Nitrogen 19 mg/dl Creatinine 2.34 mg/dl Est Creatinine Clear Calc Drug Dose 21.3 ml/min Estimated GFR () 24.5 Estimated GFR (Non- 21.1 BUN/Creatinine Ratio 8.2 Random Glucose 77 mg/dl Calcium Level 7.9 mg/dl Assessment and Plan (1) Cellulitis of left forearm Assessment & Plan: will continue dapto for now, follow creat, will likely transition to po abx at d/c.
[2017-08-05 15:18] VITALS: BP 152/89; PULSE 95; TEMP 36.9; O2SAT 99
[2017-08-05 15:49] VITALS: BP 163/82; PULSE 84; TEMP 36.7; O2SAT 93
[2017-08-05] MEDS: ONDANSETRON INJ 2 MG/ML 2 ML VIAL IV PRN (17:26)
[2017-08-05] MEDS ORDERED: PANTOprazole INJ 40 MG in SYRINGE 0 ML IV ONE (17:45)
[2017-08-06 00:15] VITALS: BP 157/84; PULSE 77; TEMP 37.6; O2SAT 92
[2017-08-06] MEDS: DAPTOMYCIN IV SCH (05:36)
[2017-08-06] MEDS: HEPARIN SOD 5000 UNIT/0.5 ML CARP SQ SCH ×3 (06:00→21:57)
[2017-08-06 07:53] LABS: HEMATOCRIT 32.6 % (37-47); MEAN CELL VOLUME 94.2 fL (80-100); MEAN CORPUSCULAR HEMOGLOBIN 31.8 pg (25-34); MEAN CORPUSCULAR HGB CONC 33.7 g/dl (32-36); MEAN PLATELET VOLUME 11.1 fL (7.4-10.4); PLATELET COUNT 286 K/uL (130-400); RED CELL DISTRIBUTION WIDTH CV 14.2 % (11.5-14.5); RED CELL DISTRIBUTION WIDTH SD 48.4 fL (36.4-46.3); WHITE BLOOD COUNT 10.92 K/uL (4.8-10.8)
[2017-08-06] MEDS: PANTOprazole SOD 40 MG TAB PO SCH (08:00)
[2017-08-06 08:04] VITALS: TEMP 36.9
[2017-08-06 08:16] LABS: CALCIUM 8.7 mg/dl (8.5-10.1); CREATININE 2.29 mg/dl (0.60-1.20); POTASSIUM 3.9 mmol/L (3.5-5.1)
[2017-08-06 08:18] LABS: BASO % 0.7 %; BASO ABS # 0.08 K/uL (0-0.2); EOS % 3.9 %; EOS ABS # 0.43 K/uL (0-0.5); IG# 0.46 K/uL (0.00-0.02); LYMPH % 14.5 %; LYMPH ABS # 1.58 K/uL (1.2-3.4); MONO % 7.6 %; MONO ABS # 0.83 K/uL (0.11-0.59); NEUT % 69.1 %; NEUT ABS # 7.54 K/uL (1.4-6.5)
[2017-08-06 08:30] VITALS: O2SAT 92
--- NOTE | 2017-08-06 09:16 | ECHOCARDIOGRAM REPORT ---
*NOTICE TO RECEIVING CONSTITUTION PARTY AGENCY This information is strictly Confidential and protected under [place] law. [place] law prohibits you from making any further disclosure of this information unless further disclosure is expressly permitted by the written consent of the person to whom it pertains or is authorized by law. A general authorization for the release of medical or other information is not sufficient for this purpose. Hospital accepts no responsibility if the information is made available to any other person, INCLUDING THE PATIENT. Interpretation Summary * Name: EDNA WEBB Study Date: 08/06/2017 06:51 AM BP: 157/84 mmHg * Patient Location: [id number]\S\E420\S\1 HR: 79 * : 1950 (M/d/yyyy) Gender: Female Height: 60 in * Age: 67 yrs Ethnicity: [place] Weight: 152 lb * Ordering Physician: Ramírez Arteaga * Referring Physician: Melissa Black D.O. * Performed By: Katy Troy RDCS * * Reason For Study: Pulmonary Edema * BSA: 1.7 m2 * The study was technically adequate. * -- Conclusions -- * Ejection Fraction = 60-65%. * The left ventricular wall motion is normal. * Normal diastolic function. * There is mild mitral regurgitation. * There is trace tricuspid regurgitation. * Doppler findings do not suggest pulmonary hypertension. Procedure Details * A complete two-dimensional transthoracic echocardiogram was performed (2D, M-mode, Doppler and color flow Doppler). Left Ventricle * The left ventricle is normal in size. * There is no thrombus. * There is normal left ventricular wall thickness. * Ejection Fraction = 60-65%. * Left ventricular systolic function is normal. * The left ventricular wall motion is normal. Right Ventricle * The right ventricle is normal size. * The right ventricular systolic function is normal as assessed by tricuspid annular plane systolic excursion (TAPSE) (normal >1.5 cm). Atria * The left atrial size is normal. * Right atrial size is normal. * There is no evidence of atrial septal defect, but resolution does not allow assessment for a patent foramen ovale. Mitral Valve * The mitral valve is normal. * There is no mitral valve stenosis. * There is mild mitral regurgitation. Tricuspid Valve * The tricuspid valve is normal. * There is no tricuspid stenosis. * There is trace tricuspid regurgitation. * Doppler findings do not suggest pulmonary hypertension. Aortic Valve * The aortic valve is trileaflet. * Aortic stenosis is absent. * There is no significant aortic regurgitation. Pulmonic Valve * The pulmonary valve is not well seen, but the Doppler examination is normal without significant regurgitation or stenosis. Great Vessels * The aortic root and proximal ascending aorta are normal sized. Pericardium/Pleural * There is no pericardial effusion. Great Vessels * Normal inferior vena cava diameter and respiratory variation suggests normal central venous pressure. Left Ventricular Diastolic Function * Normal diastolic function. MMode 2D Measurements and Calculations IVSd 0.85 cm IVSs 1.4 cm LVIDd 4.6 cm LVIDs 2.8 cm LVPWd 0.89 cm LVPWs 1.6 cm IVS/LVPW 0.96 FS 39.1 % EDV(Teich) 95.6 ml ESV(Teich) 29.0 ml EF(Teich) 69.6 % EDV(cubed) 95.1 ml ESV(cubed) 21.5 ml EF(cubed) 77.4 % % IVS thick 61.9 % % LVPW thick 78.5 % LV mass(C)d 130.7 grams LV mass(C)dI 78.7 grams/m\S\2 LV mass(C)s 141.4 grams LV mass(C)sI 85.1 grams/m\S\2 SV(Teich) 66.5 ml SI(Teich) 40.1 ml/m\S\2 SV(cubed) 73.6 ml SI(cubed) 44.3 ml/m\S\2 Ao root diam 2.8 cm Ao root area 6.0 cm\S\2 ACS 1.7 cm LA dimension 3.3 cm LA/Ao 1.2 LVAd ap4 22.4 cm\S\2 LVLd ap4 6.6 cm EDV(MOD-sp4) 63.8 ml EDV(sp4-el) 64.4 ml LVAs ap4 12.6 cm\S\2 LVLs ap4 5.5 cm ESV(MOD-sp4) 25.5 ml ESV(sp4-el) 24.5 ml EF(MOD-sp4) 60.0 % EF(sp4-el) 61.9 % LVAd ap2 19.5 cm\S\2 LVLd ap2 6.7 cm EDV(MOD-sp2) 49.8 ml EDV(sp2-el) 48.4 ml LVAs ap2 10.6 cm\S\2 LVLs ap2 5.1 cm ESV(MOD-sp2) 18.7 ml ESV(sp2-el) 18.7 ml EF(MOD-sp2) 62.3 % EF(sp2-el) 61.4 % LVLd %diff 0.86 % EDV(MOD-bp) 56.2 ml LVLs %diff -7.99 % ESV(MOD-bp) 22.7 ml EF(MOD-bp) 59.5 % SV(MOD-sp4) 38.3 ml SI(MOD-sp4) 23.0 ml/m\S\2 SV(MOD-sp2) 31.0 ml SI(MOD-sp2) 18.7 ml/m\S\2 SV(MOD-bp) 33.5 ml SI(MOD-bp) 20.1 ml/m\S\2 SV(sp4-el) 39.9 ml SI(sp4-el) 24.0 ml/m\S\2 SV(sp2-el) 29.7 ml SI(sp2-el) 17.9 ml/m\S\2 Doppler Measurements and Calculations MV E max analy 124.6 cm/sec MV A max analy 72.8 cm/sec MV E/A 1.7 MV dec time 0.23 sec Ao V2 max 157.9 cm/sec Ao max PG 10.0 mmHg Ao max PG (full) 4.0 mmHg LV V1 max PG 6.0 mmHg LV V1 max 122.1 cm/sec MR max analy 578.1 cm/sec MR max PG 133.7 mmHg MR mean analy 471.2 cm/sec MR mean PG 97.2 mmHg MR VTI 189.8 cm PA V2 max 106.1 cm/sec PA max PG 4.5 mmHg TR max analy 238.6 cm/sec
--- NOTE | 2017-08-06 10:01 | Nephrology Progress Note ---
Nephrology Progress Note Date of Service: Aug 06, 2017. Subjective 67 yo female seen for key with resolving cellulitis. creatinine peaked and trending down. signs of chf on chest xray. given dose of lasix yesterday and pt reports breathing better today. still with intermittent nausea with eating. did get echo of heart and no pulmonary hypertension and good EF. Objective Date Time Temp Pulse Resp B/P (MAP) Pulse Ox O2 Delivery O2 Flow Rate FiO2 08/06/17 08:30 92 Room Air 08/06/17 08:04 36.9 08/06/17 00:15 37.6 77 20 157/84 (108) 92 Room Air 08/06/17 00:00 Room Air 08/05/17 16:19 Room Air 08/05/17 15:49 36.7 84 18 163/82 (109) 93 Room Air Physical Exam: General-aaox3 Eyes-no scleral icterus ENT-mmm Neck-supple Lungs-mild rales at bases Heart-regular Abdomen-bs+ s/nt/nd Extremities-+erythema of the arm improving, mild edema in legs Neuro-nonfocal Current Inpatient Medications Medications (Trade) Dose Ordered Sig/Tony Route Start Time Stop Time Status Last Admin Dose Admin Acetaminophen (Tylenol Tab) 650 mg Q4H PRN PO 07/31/17 12:00 08/30/17 11:59 08/02/17 16:51 650 MG Ondansetron HCl (Zofran Inj) 4 mg Q6H PRN IV 08/01/17 10:45 08/31/17 10:44 08/05/17 17:26 4 MG Loperamide HCl (Imodium Cap) 2 mg UD PRN PO 08/01/17 18:00 08/31/17 17:59 Morphine Sulfate (MoRPHine SULFATE INJ) 3 mg Q6H PRN IV 08/03/17 13:30 08/16/17 09:29 Tramadol HCl (Ultram Tab) 50 mg Q12H PRN PO 08/03/17 13:15 09/02/17 13:14 08/03/17 15:58 50 MG Daptomycin 200 mg/ Syringe 4 ml @ 2 mls/min Q48H IV 08/04/17 06:00 08/14/17 05:59 08/06/17 05:36 2 MLS/MIN Daptomycin (Consult) 1 ea UD PRN N/A 08/03/17 14:45 09/02/17 14:44 Pantoprazole Sodium (Protonix Tab) 40 mg QAM PO 08/04/17 08:00 09/03/17 07:59 08/06/17 08:00 40 MG Heparin Sodium (Porcine) (Heparin Sq 5000 Unit/0.5ml) 5,000 unit Q8 SQ 08/04/17 22:00 09/03/17 21:59 08/05/17 14:08 5,000 UNIT Last 24 Hours Test 08/05/17 20:40 08/06/17 07:29 Stool Occult Blood NEGATIVE White Blood Count 10.92 K/uL Red Blood Count 3.46 M/uL Hemoglobin 11.0 g/dL Hematocrit 32.6 % Mean Corpuscular Volume 94.2 fL Mean Corpuscular Hemoglobin 31.8 pg Mean Corpuscular Hemoglobin Concent 33.7 g/dl Platelet Count 286 K/uL Mean Platelet Volume 11.1 fL Neutrophils (%) (Auto) 69.1 % Lymphocytes (%) (Auto) 14.5 % Monocytes (%) (Auto) 7.6 % Eosinophils (%) (Auto) 3.9 % Basophils (%) (Auto) 0.7 % Neutrophils # (Auto) 7.54 K/uL Lymphocytes # (Auto) 1.58 K/uL Monocytes # (Auto) 0.83 K/uL Eosinophils # (Auto) 0.43 K/uL Basophils # (Auto) 0.08 K/uL RDW Standard Deviation 48.4 fL RDW Coefficient of Variation 14.2 % Immature Granulocyte % (Auto) 4.2 % Immature Granulocyte # (Auto) 0.46 K/uL Large Platelets 1+ Sodium Level 140 mmol/L Potassium Level 3.9 mmol/L Chloride Level 113 mmol/L Carbon Dioxide Level 19 mmol/L Anion Gap 8.0 mmol/L Blood Urea Nitrogen 20 mg/dl Creatinine 2.29 mg/dl Est Creatinine Clear Calc Drug Dose 21.8 ml/min Estimated GFR () 25.1 Estimated GFR (Non- 21.7 BUN/Creatinine Ratio 8.8 Random Glucose 92 mg/dl Calcium Level 8.7 mg/dl Assessment & Plan [id number]-thought to be atn from nsaids and infection-infection improving and no more nsaids. creatinine has peaked and trending down. would continue intermittent doses of lasix to help with the volume overload. continues to have some rales at the bases. if creatinine continues to be better tomorrow, ok from renal perspective to go home tomorrow.
[2017-08-06] MEDS ORDERED: FUROSEMIDE INJ 20 MG in SYRINGE 0 ML IV ONE (10:15)
--- NOTE | 2017-08-06 11:13 | Progress Note ---
Subjective Date of Service: Aug 06, 2017. Subjective pt remains on dapto, tolerating well. slight fever overnight, 37.6, isolated. wbc slightly increased today. echo negative for veg. blood cultures negative and final. creat slightly improved today. Objective Vital Signs Date Time Temp Pulse Resp B/P (MAP) Pulse Ox O2 Delivery O2 Flow Rate FiO2 08/06/17 08:30 92 Room Air 08/06/17 08:04 36.9 08/06/17 00:15 37.6 77 20 157/84 (108) 92 Room Air 08/06/17 00:00 Room Air 08/05/17 16:19 Room Air 08/05/17 15:49 36.7 84 18 163/82 (109) 93 Room Air Laboratory Results Item Value Date Time Blood Culture - Final Complete 07/31/17 1043 Blood NO GROWTH Blood Culture - Final Complete 07/31/17 1032 Blood NO GROWTH Last 24 Hours Test 08/05/17 20:40 08/06/17 07:29 Stool Occult Blood NEGATIVE White Blood Count 10.92 K/uL Red Blood Count 3.46 M/uL Hemoglobin 11.0 g/dL Hematocrit 32.6 % Mean Corpuscular Volume 94.2 fL Mean Corpuscular Hemoglobin 31.8 pg Mean Corpuscular Hemoglobin Concent 33.7 g/dl Platelet Count 286 K/uL Mean Platelet Volume 11.1 fL Neutrophils (%) (Auto) 69.1 % Lymphocytes (%) (Auto) 14.5 % Monocytes (%) (Auto) 7.6 % Eosinophils (%) (Auto) 3.9 % Basophils (%) (Auto) 0.7 % Neutrophils # (Auto) 7.54 K/uL Lymphocytes # (Auto) 1.58 K/uL Monocytes # (Auto) 0.83 K/uL Eosinophils # (Auto) 0.43 K/uL Basophils # (Auto) 0.08 K/uL RDW Standard Deviation 48.4 fL RDW Coefficient of Variation 14.2 % Immature Granulocyte % (Auto) 4.2 % Immature Granulocyte # (Auto) 0.46 K/uL Large Platelets 1+ Sodium Level 140 mmol/L Potassium Level 3.9 mmol/L Chloride Level 113 mmol/L Carbon Dioxide Level 19 mmol/L Anion Gap 8.0 mmol/L Blood Urea Nitrogen 20 mg/dl Creatinine 2.29 mg/dl Est Creatinine Clear Calc Drug Dose 21.8 ml/min Estimated GFR () 25.1 Estimated GFR (Non- 21.7 BUN/Creatinine Ratio 8.8 Random Glucose 92 mg/dl Calcium Level 8.7 mg/dl Assessment and Plan (1) Cellulitis of left forearm Assessment & Plan: will continue dapto for now, follow creat, will likely transition to po doxy at d/c. min 14 days.
[2017-08-06] MEDS: TRAMADOL HCL 50 MG TAB PO PRN (11:34)
[2017-08-06 15:24] VITALS: BP 122/78; PULSE 80; TEMP 36.5; O2SAT 90
[2017-08-06] MEDS: ACETAMINOPHEN 325 MG TAB PO PRN (17:09)
--- NOTE | 2017-08-06 20:28 | Progress Note ---
Medicine Progress Note Date & Time of Visit: Aug 06, 2017 at 10:40 . Subjective CC: Follow-up visit for cellulitis left upper extremity and other problems. HPI: Low-grade fever last night-asymptomatic. Left arm feels better; less swelling, less pain, less erythema. Nausea yesterday, better this morning. No diarrhea. Ambulating in hallway without dyspnea. ROS: General- as noted above in HPI Resp- as noted above in HPI Cardiac- no chest pain GI- as noted above in HPI - no dysuria . Objective Last 8 Hrs Date Time Temp Pulse Resp B/P (MAP) Pulse Ox O2 Delivery O2 Flow Rate FiO2 08/06/17 15:36 Room Air 08/06/17 15:24 36.5 80 18 122/78 (93) 90 Physical Exam: General- no distress Lungs- few bibasilar rales; no respiratory distress Cardiovascular- RRR; no murmur or gallop appreciated; + JVD; trace pretibial edema Abdomen- + bowel sounds, soft, nontender Extremities- moderate swelling and resolving erythema LUE; no cyanosis; no calf tenderness Neuro- alert, oriented Skin- warm & dry . Laboratory Results: Last 24 Hours Test 08/05/17 20:40 08/06/17 07:29 Stool Occult Blood NEGATIVE White Blood Count 10.92 K/uL Red Blood Count 3.46 M/uL Hemoglobin 11.0 g/dL Hematocrit 32.6 % Mean Corpuscular Volume 94.2 fL Mean Corpuscular Hemoglobin 31.8 pg Mean Corpuscular Hemoglobin Concent 33.7 g/dl Platelet Count 286 K/uL Mean Platelet Volume 11.1 fL Neutrophils (%) (Auto) 69.1 % Lymphocytes (%) (Auto) 14.5 % Monocytes (%) (Auto) 7.6 % Eosinophils (%) (Auto) 3.9 % Basophils (%) (Auto) 0.7 % Neutrophils # (Auto) 7.54 K/uL Lymphocytes # (Auto) 1.58 K/uL Monocytes # (Auto) 0.83 K/uL Eosinophils # (Auto) 0.43 K/uL Basophils # (Auto) 0.08 K/uL RDW Standard Deviation 48.4 fL RDW Coefficient of Variation 14.2 % Immature Granulocyte % (Auto) 4.2 % Immature Granulocyte # (Auto) 0.46 K/uL Large Platelets 1+ Sodium Level 140 mmol/L Potassium Level 3.9 mmol/L Chloride Level 113 mmol/L Carbon Dioxide Level 19 mmol/L Anion Gap 8.0 mmol/L Blood Urea Nitrogen 20 mg/dl Creatinine 2.29 mg/dl Est Creatinine Clear Calc Drug Dose 21.8 ml/min Estimated GFR () 25.1 Estimated GFR (Non- 21.7 BUN/Creatinine Ratio 8.8 Random Glucose 92 mg/dl Calcium Level 8.7 mg/dl Assessment & Plan CELLULITIS LUE Extensive cellulitis of left upper extremity at time of admission. MRI obtained and Ortho consulted. No apparent abscess, septic arthritis, or other drainable source of infection. ID consulted. Initially treated with intravenous vancomycin and piperacillin/tazobactam with improvement. Blood cultures negative. Vancomycin and piperacillin/tazobactam discontinued because of acute kidney injury. Now receiving IV daptomycin. May be able to transition to oral therapy with doxycycline at time of discharge. 14 day course of therapy recommended. ACUTE KIDNEY INJURY Serum creatinine day of admission was 0.78. Creatinine luke to 1.90 on 08/03 and luke as high as 2.34 on 08/05. Nephrology consulted. Renal ultrasound did not show any hydronephrosis. [place] to have SHARATH. Possible contributing factors include vancomycin, piperacillin/tazobactam, ketorolac, infection. Received IV fluids. Urine output has been greater than 200 mL/shift. Serum creatinine today = 2.29. Avoid potential nephrotoxins when able. Follow. PULMONARY EDEMA Patient experienced dyspnea on exertion. Chest exam revealed bibasilar rales. Oxygen saturations greater than 90% on room air. Chest x-ray 08/06 revealed pulmonary vascular congestion. Suspect pulmonary edema secondary to fluid overload from IV and oral fluid intake. IV fluids discontinued. Received IV furosemide. Symptoms and exam improved. Echocardiogram showed normal left ventricle systolic and diastolic function. NAUSEA / VOMITING Improved. ? secondary to ketorolac. Continue pantoprazole and ondansetron PRN. DARK STOOLS Patient noted dark stools. Fecal occult blood was negative. VTE PROPHYLAXIS SQ heparin. Ambulating in hallway. DISPOSITION Expected discharge to home. Family Medicine follow-up with Dr. Black. . Consultants: ortho Current Inpatient Medications: Current Inpatient Medications Medications (Trade) Dose Ordered Sig/Tony Route Start Time Stop Time Status Last Admin Dose Admin Acetaminophen (Tylenol Tab) 650 mg Q4H PRN PO 07/31/17 12:00 08/30/17 11:59 08/06/17 17:09 650 MG Ondansetron HCl (Zofran Inj) 4 mg Q6H PRN IV 08/01/17 10:45 08/31/17 10:44 08/05/17 17:26 4 MG Loperamide HCl (Imodium Cap) 2 mg UD PRN PO 08/01/17 18:00 08/31/17 17:59 Morphine Sulfate (MoRPHine SULFATE INJ) 3 mg Q6H PRN IV 08/03/17 13:30 08/16/17 09:29 Tramadol HCl (Ultram Tab) 50 mg Q12H PRN PO 08/03/17 13:15 09/02/17 13:14 08/06/17 11:34 50 MG Daptomycin 200 mg/ Syringe 4 ml @ 2 mls/min Q48H IV 08/04/17 06:00 08/14/17 05:59 08/06/17 05:36 2 MLS/MIN Daptomycin (Consult) 1 ea UD PRN N/A 08/03/17 14:45 09/02/17 14:44 Pantoprazole Sodium (Protonix Tab) 40 mg QAM PO 08/04/17 08:00 09/03/17 07:59 08/06/17 08:00 40 MG Heparin Sodium (Porcine) (Heparin Sq 5000 Unit/0.5ml) 5,000 unit Q8 SQ 08/04/17 22:00 09/03/17 21:59 08/05/17 14:08 5,000 UNIT
[2017-08-06 22:35] VITALS: BP 156/89; PULSE 66; TEMP 36.5; O2SAT 91
[2017-08-07] MEDS: HEPARIN SOD 5000 UNIT/0.5 ML CARP SQ SCH ×2 (05:30→14:00)
[2017-08-07 07:01] LABS: BASO % 0.5 %; BASO ABS # 0.05 K/uL (0-0.2); EOS % 3.3 %; EOS ABS # 0.34 K/uL (0-0.5); HEMATOCRIT 31.9 % (37-47); HEMOGLOBIN 10.8 g/dL (12.0-16.0); IG# 0.37 K/uL (0.00-0.02); LYMPH ABS # 1.42 K/uL (1.2-3.4); MEAN CELL VOLUME 94.9 fL (80-100); MEAN CORPUSCULAR HEMOGLOBIN 32.1 pg (25-34); MEAN CORPUSCULAR HGB CONC 33.9 g/dl (32-36); MEAN PLATELET VOLUME 10.4 fL (7.4-10.4); MONO % 7.5 %; MONO ABS # 0.76 K/uL (0.11-0.59); NEUT % 71.1 %; NEUT ABS # 7.22 K/uL (1.4-6.5); PLATELET COUNT 263 K/uL (130-400); RED CELL DISTRIBUTION WIDTH CV 14.1 % (11.5-14.5); RED CELL DISTRIBUTION WIDTH SD 48.7 fL (36.4-46.3); WHITE BLOOD COUNT 10.16 K/uL (4.8-10.8)
[2017-08-07] MEDS: PANTOprazole SOD 40 MG TAB PO SCH (07:26)
[2017-08-07 07:38] LABS: CALCIUM 8.9 mg/dl (8.5-10.1); CREATININE 2.03 mg/dl (0.60-1.20)
[2017-08-07 07:45] VITALS: O2SAT 93
[2017-08-07 07:58] VITALS: BP 150/85; PULSE 77; TEMP 36.7; O2SAT 93
[2017-08-07] MEDS ORDERED: DOXYCYCLINE HYCLATE 100 MG CAP PO ONE (09:23)
--- NOTE | 2017-08-07 14:25 | Progress Note ---
Subjective Date of Service: Aug 07, 2017. Subjective Pt evaluation today including: conversation w/ patient, physical exam, chart review, lab review pt ambulating in room, much improved. feeling better. states she is to be d/c home today. arm much improved, almost completely resolved. creat better, urinating without difficulty. afebrile. blood cultures negative and final. all remaining ros reviewed and are negative Objective Vital Signs Date Time Temp Pulse Resp B/P (MAP) Pulse Ox O2 Delivery O2 Flow Rate FiO2 08/07/17 07:58 36.7 77 16 150/85 (106) 93 Room Air 08/07/17 07:45 93 Room Air 08/07/17 00:00 Room Air 08/06/17 22:35 36.5 66 18 156/89 (111) 91 08/06/17 20:00 Room Air 08/06/17 15:36 Room Air 08/06/17 15:24 36.5 80 18 122/78 (93) 90 Physical Exam General Appearance: WD/WN, no apparent distress Eyes: normal inspection, EOMI Neck: supple Respiratory/Chest: lungs clear, normal breath sounds, no respiratory distress Cardiovascular: regular rate, rhythm, no edema Abdomen: soft Extremities: non-tender, normal inspection, no pedal edema Neurologic/Psychiatric: alert, oriented x 3 Skin: normal color Comments: lue cellulitis almost completely resolved. Laboratory Results Item Value Date Time Blood Culture - Final Complete 07/31/17 1043 Blood NO GROWTH Blood Culture - Final Complete 07/31/17 1032 Blood NO GROWTH Last 24 Hours Test 08/07/17 06:41 White Blood Count 10.16 K/uL Red Blood Count 3.36 M/uL Hemoglobin 10.8 g/dL Hematocrit 31.9 % Mean Corpuscular Volume 94.9 fL Mean Corpuscular Hemoglobin 32.1 pg Mean Corpuscular Hemoglobin Concent 33.9 g/dl Platelet Count 263 K/uL Mean Platelet Volume 10.4 fL Neutrophils (%) (Auto) 71.1 % Lymphocytes (%) (Auto) 14.0 % Monocytes (%) (Auto) 7.5 % Eosinophils (%) (Auto) 3.3 % Basophils (%) (Auto) 0.5 % Neutrophils # (Auto) 7.22 K/uL Lymphocytes # (Auto) 1.42 K/uL Monocytes # (Auto) 0.76 K/uL Eosinophils # (Auto) 0.34 K/uL Basophils # (Auto) 0.05 K/uL RDW Standard Deviation 48.7 fL RDW Coefficient of Variation 14.1 % Immature Granulocyte % (Auto) 3.6 % Immature Granulocyte # (Auto) 0.37 K/uL Sodium Level 140 mmol/L Potassium Level 4.0 mmol/L Chloride Level 111 mmol/L Carbon Dioxide Level 23 mmol/L Anion Gap 6.0 mmol/L Blood Urea Nitrogen 22 mg/dl Creatinine 2.03 mg/dl Est Creatinine Clear Calc Drug Dose 24.6 ml/min Estimated GFR () 29.1 Estimated GFR (Non- 25.1 BUN/Creatinine Ratio 11.0 Random Glucose 91 mg/dl Calcium Level 8.9 mg/dl Assessment and Plan (1) Cellulitis of left forearm Assessment & Plan: will continue dapto for now, follow creat, will likely transition to po doxy at d/c. 14 days. ok for d/c when otherwise stable.
--- NOTE | 2017-08-07 15:28 | Nephrology Progress Note ---
Nephrology Progress Note Date of Service: Aug 07, 2017. Subjective 67 yo female seen for key with resolving cellulitis. arm looks much better. greatly appreciate ID help. recommending transition to po doxy at time of discharge. pt breathing well. urinating well. walking around and feels good. Objective Date Time Temp Pulse Resp B/P (MAP) Pulse Ox O2 Delivery O2 Flow Rate FiO2 08/07/17 07:58 36.7 77 16 150/85 (106) 93 Room Air 08/07/17 07:45 93 Room Air 08/07/17 00:00 Room Air 08/06/17 22:35 36.5 66 18 156/89 (111) 91 08/06/17 20:00 Room Air 08/06/17 15:36 Room Air Physical Exam: General-aaox3 Eyes-no scleral icterus ENT-mmm Neck-supple Lungs-cta Heart-regular Abdomen-bs+ s/nt/nd Extremities-+erythema of the arm much improved Neuro-nonfocal Current Inpatient Medications Medications (Trade) Dose Ordered Sig/Tony Route Start Time Stop Time Status Last Admin Dose Admin Acetaminophen (Tylenol Tab) 650 mg Q4H PRN PO 07/31/17 12:00 08/30/17 11:59 08/06/17 17:09 650 MG Ondansetron HCl (Zofran Inj) 4 mg Q6H PRN IV 08/01/17 10:45 08/31/17 10:44 08/05/17 17:26 4 MG Loperamide HCl (Imodium Cap) 2 mg UD PRN PO 08/01/17 18:00 08/31/17 17:59 Morphine Sulfate (MoRPHine SULFATE INJ) 3 mg Q6H PRN IV 08/03/17 13:30 08/16/17 09:29 Tramadol HCl (Ultram Tab) 50 mg Q12H PRN PO 08/03/17 13:15 09/02/17 13:14 08/06/17 11:34 50 MG Daptomycin 200 mg/ Syringe 4 ml @ 2 mls/min Q48H IV 08/04/17 06:00 08/14/17 05:59 08/06/17 05:36 2 MLS/MIN Daptomycin (Consult) 1 ea UD PRN N/A 08/03/17 14:45 09/02/17 14:44 Pantoprazole Sodium (Protonix Tab) 40 mg QAM PO 08/04/17 08:00 09/03/17 07:59 08/07/17 07:26 40 MG Heparin Sodium (Porcine) (Heparin Sq 5000 Unit/0.5ml) 5,000 unit Q8 SQ 08/04/17 22:00 09/03/17 21:59 08/05/17 14:08 5,000 UNIT Doxycycline Hyclate (Vibramycin Cap) 100 mg BID PO 08/07/17 20:00 08/17/17 19:59 Last 24 Hours Test 08/07/17 06:41 White Blood Count 10.16 K/uL Red Blood Count 3.36 M/uL Hemoglobin 10.8 g/dL Hematocrit 31.9 % Mean Corpuscular Volume 94.9 fL Mean Corpuscular Hemoglobin 32.1 pg Mean Corpuscular Hemoglobin Concent 33.9 g/dl Platelet Count 263 K/uL Mean Platelet Volume 10.4 fL Neutrophils (%) (Auto) 71.1 % Lymphocytes (%) (Auto) 14.0 % Monocytes (%) (Auto) 7.5 % Eosinophils (%) (Auto) 3.3 % Basophils (%) (Auto) 0.5 % Neutrophils # (Auto) 7.22 K/uL Lymphocytes # (Auto) 1.42 K/uL Monocytes # (Auto) 0.76 K/uL Eosinophils # (Auto) 0.34 K/uL Basophils # (Auto) 0.05 K/uL RDW Standard Deviation 48.7 fL RDW Coefficient of Variation 14.1 % Immature Granulocyte % (Auto) 3.6 % Immature Granulocyte # (Auto) 0.37 K/uL Sodium Level 140 mmol/L Potassium Level 4.0 mmol/L Chloride Level 111 mmol/L Carbon Dioxide Level 23 mmol/L Anion Gap 6.0 mmol/L Blood Urea Nitrogen 22 mg/dl Creatinine 2.03 mg/dl Est Creatinine Clear Calc Drug Dose 24.6 ml/min Estimated GFR () 29.1 Estimated GFR (Non- 25.1 BUN/Creatinine Ratio 11.0 Random Glucose 91 mg/dl Calcium Level 8.9 mg/dl Assessment & Plan [id number]-thought to be atn from nsaids and infection-infection improving and no more nsaids. creatinine has peaked and trending down. creatinine now 2.03. slowly resolving. ok from renal perspective to go home once medically cleared and would recommend repeating bmp next week. volume status appears improved. would hold on further diuretics for now and re- evaluate next week.
[2017-08-07 15:29] VITALS: BP 156/86; PULSE 70; TEMP 36.8; O2SAT 93
[2017-08-07] MEDS ORDERED: DXY100 PO (16:30)
--- NOTE | 2017-08-07 16:41 | Discharge Instructions ---
Discharge Instructions Date of Service Aug 07, 2017. Admission Reason for Admission: cellulitis of left arm . Discharge Discharge Diagnosis / Problem: cellulitis of left arm Discharge Goals Goal(s): Improve disease control Activity Recommendations Activity Limitations: as noted below Exercise/Sports Limitations: gradually increase as tolerated . Instructions / Follow-Up Instructions / Follow-Up APPOINTMENTS: FAMILY MEDICINE 08/12/2017 9:50 AM Melissa Black, DO NEPHROLOGY Dr. Cardenas Please ask Dr. Black to make referral for follow-up appointment. OTHER INSTRUCTIONS: New antibiotic for cellulitis: doxycycline 100 mg twice a day for 7 days Keep arm elevated when possible to reduce swelling. May use unscented moisturizing creams like Eucerin or aloe for dry / peeling skin on arm. Do not use anti-inflammatory medicines for pain. They can damage the kidneys. Common nonprescription anti-inflammatory medications: ibuprofen Advil or Motrin naproxen Aleve high-dose aspirin Kidney problems were probably due to one or combination of the following things: vancomycin antibiotic piperacillin / tazobactam (Zosyn) antibiotic ketorolac (Toradol) pain / anti-inflammatory medicine Kidney function is improving. Weigh yourself every morning after you go to the bathroom. Your kidneys may be overactive as they are recovering. Drink plenty of fluids, especially if you feel weak or lightheaded or you are losing weight. Please ask Dr. lBack to recheck blood test (basic metabolic profile). Please ask Dr. Black to order repeat chest x-ray in clinic. Seek medical attention if you have: * temperature above 101 * worsening pain, swelling, redness of arm * chest pain or trouble breathing * abdominal pain, nausea, vomiting * diarrhea, dark stools or bloody stools * low urine production * any unanswered questions or concerns Call 911 if symptoms are severe. Call if you have any questions or problems. My cell # is [phone]. You can also reach a [facility] hospitalist on duty at [facility] 24 hours a day by calling [phone]. Please take good care of yourself. Ramírez Arteaga . Current Hospital Diet Patient's current hospital diet: Regular Diet Discharge Diet Recommended Diet: Regular Diet Pending Studies Studies pending at discharge: no Medical Emergencies . Who to Call and When: Medical Emergencies: If at any time you feel your situation is an emergency, please call 911 immediately. . Non-Emergent Contact Non-Emergency issues call your: Primary Care Provider, Hospital Doctor, [employer] . . "Provider Documentation" section prepared by Ramírez Arteaga. .
[2017-08-07 17:23] VITALS: BP 156/86; PULSE 70; TEMP 36.8; O2SAT 93
[2017-08-07] MEDS ORDERED: DOXYCYCLINE HYCLATE 100 MG CAP PO SCH (20:00)
--- NOTE | 2017-08-07 20:57 | Progress Note ---
Medicine Progress Note Date & Time of Visit: Aug 07, 2017 at ~ 16:00 . Subjective Initially seen this morning and reassess in the afternoon. Doing well and anxious to go home No fever or chills. Left arm feels much better. Ambulating in hallway without chest pain or dyspnea. No cough. Nausea improved; tolerated dose of oral doxycycline this morning. No diarrhea, melena, hematochezia. . Objective Last 8 Hrs Date Time Temp Pulse Resp B/P (MAP) Pulse Ox O2 Delivery O2 Flow Rate FiO2 08/07/17 17:23 36.8 70 22 93 Room Air 08/07/17 16:11 Room Air 08/07/17 15:29 36.8 70 22 156/86 (109) 93 Room Air Physical Exam: General- no distress Lungs- few rales left base; no respiratory distress Cardiovascular- RRR; no murmur or gallop appreciated; + JVD; trace pretibial edema Abdomen- + bowel sounds, soft, nontender Extremities- moderate swelling and resolving erythema LUE; no cyanosis; no calf tenderness Neuro- alert, oriented Skin- warm & dry . Laboratory Results: Last 24 Hours Test 08/07/17 06:41 White Blood Count 10.16 K/uL Red Blood Count 3.36 M/uL Hemoglobin 10.8 g/dL Hematocrit 31.9 % Mean Corpuscular Volume 94.9 fL Mean Corpuscular Hemoglobin 32.1 pg Mean Corpuscular Hemoglobin Concent 33.9 g/dl Platelet Count 263 K/uL Mean Platelet Volume 10.4 fL Neutrophils (%) (Auto) 71.1 % Lymphocytes (%) (Auto) 14.0 % Monocytes (%) (Auto) 7.5 % Eosinophils (%) (Auto) 3.3 % Basophils (%) (Auto) 0.5 % Neutrophils # (Auto) 7.22 K/uL Lymphocytes # (Auto) 1.42 K/uL Monocytes # (Auto) 0.76 K/uL Eosinophils # (Auto) 0.34 K/uL Basophils # (Auto) 0.05 K/uL RDW Standard Deviation 48.7 fL RDW Coefficient of Variation 14.1 % Immature Granulocyte % (Auto) 3.6 % Immature Granulocyte # (Auto) 0.37 K/uL Sodium Level 140 mmol/L Potassium Level 4.0 mmol/L Chloride Level 111 mmol/L Carbon Dioxide Level 23 mmol/L Anion Gap 6.0 mmol/L Blood Urea Nitrogen 22 mg/dl Creatinine 2.03 mg/dl Est Creatinine Clear Calc Drug Dose 24.6 ml/min Estimated GFR () 29.1 Estimated GFR (Non- 25.1 BUN/Creatinine Ratio 11.0 Random Glucose 91 mg/dl Calcium Level 8.9 mg/dl Assessment & Plan CELLULITIS LUE Extensive cellulitis of left upper extremity at time of admission. MRI obtained and Ortho consulted. No apparent abscess, septic arthritis, or other drainable source of infection. ID consulted. Initially treated with intravenous vancomycin and piperacillin/tazobactam with improvement. Blood cultures negative. Vancomycin and piperacillin/tazobactam discontinued because of acute kidney injury. Subsequently received IV daptomycin with continued improvement. Transition to oral therapy with doxycycline at time of discharge. 14 day total course of therapy recommended. ACUTE KIDNEY INJURY Serum creatinine day of admission was 0.78. Creatinine luke to 1.90 on 08/03 and luke as high as 2.34 on 08/05. Nephrology consulted. Renal ultrasound did not show any hydronephrosis. [place] to have SHARATH. Possible contributing factors include vancomycin, piperacillin/tazobactam, ketorolac, infection. Received IV fluids. Urine output greater than 200 mL/shift. Serum creatinine today = 2.03. Avoid potential nephrotoxins when able. Follow. PULMONARY EDEMA Patient experienced dyspnea on exertion 08/05. Chest exam revealed bibasilar rales. Oxygen saturations were greater than 90% on room air. Chest x-ray revealed pulmonary vascular congestion. Suspect pulmonary edema secondary to fluid overload from IV and oral fluid intake. IV fluids discontinued. Received 2 doses of furosemide. Echocardiogram showed normal left ventricle systolic and diastolic function. Symptoms and exam improved; still has some rales at the left base at time of discharge. Check follow-up chest x-ray in clinic. NAUSEA / VOMITING Improved. ? secondary to ketorolac. Received pantoprazole and ondansetron PRN. Tolerated dose of oral doxycycline prior to discharge. DARK STOOLS Patient noted dark stools around 08/06. Fecal occult blood was negative. Follow H&H. VTE PROPHYLAXIS SQ heparin. Ambulating in hallway. DISPOSITION Discharge to home. Family Medicine follow-up with Dr. Black. Nephrology follow-up with Dr. Cardenas. ID follow-up with Dr. Mayes as needed. . Consultants: ortho
--- NOTE | 2017-08-08 23:26 | Discharge Summary ---
Discharge Summary Date of Service Aug 08, 2017. Discharge Summary Admission Date: Jul 31, 2017 at 11:56 Discharge Date: Aug 07, 2017 Discharge Disposition: Home Principal Diagnosis: cellulitis left upper extremity OTHER ACUTE / SECONDARY DIAGNOSES acute kidney injury, probable ATN pulmonary edema secondary to fluid overload (not CHF) . Secondary Diagnoses/Problems: Chronic Medical Problems: (1) GERD (gastroesophageal reflux disease) Status: Chronic . Procedures: IV fluids IV medications Ultrasound upper extremity MRI of upper extremity Ultrasound kidneys Echocardiogram . Consultations: Orthopedics Infectious disease . Pending Studies/Follow-Up: Please check follow-up CBC and basic metabolic profile clinic. Please make referral for follow-up Nephrology appointment with Dr. Cardenas re: acute kidney injury. . Medication Reconciliation New Medications: Doxycycline Hyclate (Doxycycline Hyclate) 100 Mg Cap 100 MG PO BID, #14 CAP Continued Medications: Multivitamin (Multivitamin) Tab 1 TAB PO DAILY, TAB Pantoprazole (Protonix) 40 Mg Tab 40 MG PO DAILY, #30 TAB Discontinued Medications: Amoxicillin & Pot Clavulanate (Augmentin 875-125 mg) 1 Tab Tab 1 TAB PO BID, #14 TAB Ibuprofen (Advil) 200 Mg Tab 400 MG PO Q8 PRN for Pain, TAB Admission Information HPI (per Admitting provider): Patient is a 67-year-old female with a PMH of GERD who presents with worsening left forearm pain/swelling 6 days. Patient states that she woke up Friday morning with a pea-size jeromy on her left forearm that she thinks is a spider bite. Did not visualize any spiders. By that evening, patient noticed that the jeromy had blistered and circumferential swelling was present. Saw PCP on Friday and was diagnosed with left forearm cellulitis and was sent home on Augmentin, which she started that evening. This morning, patient noticed that redness had extended down to wrist as well as up to left arm, which was a significant increase. Pain had worsened, which she described as 10/10 throbbing pain, made worse with movement. Is able to move left elbow and wrist but experiences pain when doing so. Denies numbness, tingling, itching or drainage of left forearm. Has completed 4 doses of Augmentin. Took ibuprofen at home this morning with minimal relief. Currently denies fever, chills, lightheadedness, visual changes, chest pain, SOB, abdominal pain, nausea, vomiting, bowel or bladder changes. . Physical Exam (per Admitting): Head: normocephalic, atraumatic Eyes: normal inspection, PERRL, sclerae normal ENT: normal ENT inspection, hearing grossly normal, pharynx normal Neck: supple, thyroid normal, trachea midline Respiratory/Chest: chest non-tender, lungs clear, normal breath sounds, no respiratory distress, no accessory muscle use Cardiovascular: regular rate, rhythm, no murmur, normal peripheral pulses Abdomen/GI: non tender, soft, no organomegaly Back: normal inspection Extremities/Musculoskelatal: normal inspection, no calf tenderness, normal capillary refill, no pedal edema Neurologic/Psych: no motor/sensory deficits, alert, normal mood/affect, oriented x 3 Skin: normal color, warm/dry, + pertinent finding (Left dorsal forearm with small macular lesion and surrounding erythema and edema extending over wrist and up to elbow. Streaking noted on medial arm ) Hospital Course CELLULITIS MAMADOU Presented with extensive cellulitis of left upper extremity that was not improving with outpatient management. MRI obtained and Ortho consulted. No apparent abscess, septic arthritis, or other drainable source of infection. ID consulted. Initially treated with intravenous vancomycin and piperacillin/tazobactam with improvement. Blood cultures negative. Vancomycin and piperacillin/tazobactam discontinued because of acute kidney injury. Subsequently received IV daptomycin with continued improvement. Transition to oral therapy with doxycycline at time of discharge. 14 day total course of therapy recommended. ACUTE KIDNEY INJURY Serum creatinine day of admission was 0.78. Creatinine luke to 1.90 on 08/03 and luke as high as 2.34 on 08/05. Nephrology consulted. Renal ultrasound did not show any hydronephrosis. [place] to have SHARATH. Possible contributing factors include vancomycin, piperacillin/tazobactam, ketorolac, infection. Received IV fluids. Urine output greater than 200 mL/shift. Serum creatinine day of discharge was 2.03. Avoid potential nephrotoxins when able. Follow. PULMONARY EDEMA Patient experienced dyspnea on exertion 08/05. Chest exam revealed bibasilar rales. Oxygen saturations were greater than 90% on room air. Chest x-ray revealed pulmonary vascular congestion. Suspect pulmonary edema secondary to fluid overload from IV and oral fluid intake. IV fluids discontinued. Received 2 doses of furosemide. Echocardiogram showed normal left ventricle systolic and diastolic function. Symptoms and exam improved; still has some rales at the left base at time of discharge. Check follow-up chest x-ray in clinic. NAUSEA / VOMITING Improved. ? secondary to ketorolac. Received pantoprazole and ondansetron PRN. Tolerated dose of oral doxycycline prior to discharge. DARK STOOLS Patient noted dark stools around 08/06. Hemoglobin L gradually from 13.6-10.8. Fecal occult blood was negative. Continue PPI. Follow H&H. VTE PROPHYLAXIS SQ heparin. Ambulating in hallway. DISPOSITION Discharge to home. Family Medicine follow-up with Dr. Black. Nephrology follow-up with Dr. Cardenas. ID follow-up with Dr. Mayes as needed. . Total time spent on discharge = 40 min. This includes examination of the patient, discharge planning, medication reconciliation, and communication with other providers. . Discharge Instructions Date of Service Aug 07, 2017. Admission Reason for Admission: cellulitis of left arm . Discharge Discharge Diagnosis / Problem: cellulitis of left arm Discharge Goals Goal(s): Improve disease control Activity Recommendations Activity Limitations: as noted below Exercise/Sports Limitations: gradually increase as tolerated . Instructions / Follow-Up Instructions / Follow-Up APPOINTMENTS: FAMILY MEDICINE 08/12/2017 9:50 AM Melissa Black, DO NEPHROLOGY Dr. Cardenas Please ask Dr. Black to make referral for follow-up appointment. OTHER INSTRUCTIONS: New antibiotic for cellulitis: doxycycline 100 mg twice a day for 7 days Keep arm elevated when possible to reduce swelling. May use unscented moisturizing creams like Eucerin or aloe for dry / peeling skin on arm. Do not use anti-inflammatory medicines for pain. They can damage the kidneys. Common nonprescription anti-inflammatory medications: ibuprofen Advil or Motrin naproxen Aleve high-dose aspirin Kidney problems were probably due to one or combination of the following things: vancomycin antibiotic piperacillin / tazobactam (Zosyn) antibiotic ketorolac (Toradol) pain / anti-inflammatory medicine Kidney function is improving. Weigh yourself every morning after you go to the bathroom. Your kidneys may be overactive as they are recovering. Drink plenty of fluids, especially if you feel weak or lightheaded or you are losing weight. Please ask Dr. Black to recheck blood test (basic metabolic profile). Please ask Dr. Black to order repeat chest x-ray in clinic. Seek medical attention if you have: * temperature above 101 * worsening pain, swelling, redness of arm * chest pain or trouble breathing * abdominal pain, nausea, vomiting * diarrhea, dark stools or bloody stools * low urine production * any unanswered questions or concerns Call 911 if symptoms are severe. Call if you have any questions or problems. My cell # is [phone]. You can also reach a [facility] hospitalist on duty at [facility] 24 hours a day by calling [phone]. Please take good care of yourself. Ramírez Arteaga . Current Hospital Diet Patient's current hospital diet: Regular Diet Discharge Diet Recommended Diet: Regular Diet Pending Studies Studies pending at discharge: no Medical Emergencies . Who to Call and When: Medical Emergencies: If at any time you feel your situation is an emergency, please call 911 immediately. . Non-Emergent Contact Non-Emergency issues call your: Primary Care Provider, Hospital Doctor, Flying In[employer] . . "Provider Documentation" section prepared by Ramírez Arteaga. . Additional Copies To Melissa Black D.O.; Jessica Cardenas I., DO
== END 2017-08-07 20:51 | disposition home or self-care (01) | DRG 602 ==
LOC: C.EDB 09:21 → C.4E 11:56 → ENRESERV 12:12
PROVIDERS: ADMIT Hospitalist; ATTEND Hospitalist
DX: L03.114 Cellulitis of left upper limb (principal); N17.0 Acute kidney failure with tubular necrosis; J81.1 Chronic pulmonary edema; K21.9 Gastro-esophageal reflux disease without esophagitis; E87.70 Fluid overload, unspecified; Z82.49 Family history of ischemic heart disease and other diseases of the circulatory system; W57.XXXA Bitten or stung by nonvenomous insect and other nonvenomous arthropods, initial encounter; Y92.009 Unspecified place in unspecified non-institutional (private) residence as the place of occurrence of the external cause

== ENCOUNTER 2021-03-06 08:28 | Inpatient (IN) ==
[2021-03-06] MEDS ORDERED: ALBUTEROL 0.083% NEBU SOLN 3 ML VIAL INH STA (08:38)
[2021-03-06] MEDS ORDERED: dexAMETHasone**PF** 10 MG/ML VIAL IV ONE (08:38)
[2021-03-06] MEDS ORDERED: SODIUM CHLORIDE 0.9% 1000ML 1,000 ML IV SCH (08:45)
[2021-03-06 08:58] LABS: Hematocrit (blood only) 41.5 % (37-47); Mean Corpuscular Hemoglobin 32.2 pg (25-34); Mean Corpuscular Hgb Conc 33.7 g/dL (32-36); Mean Corpuscular Volume 95.4 fL (80-100); Mean Platelet Volume 10.7 fL (7.4-10.4); Platelet Count 216 K/uL (130-400); RDW Coefficient of Variation 12.8 % (11.5-14.5); RDW Standard Deviation 45.2 fL (36.4-46.3); Red Blood Count 4.35 M/uL (4.2-5.4); White Blood Count 4.29 K/uL (4.8-10.8)
--- NOTE | 2021-03-06 09:01 | XRay Report ---
XR chest 1V portable CLINICAL HISTORY: Dyspnea. Reported positive Covid COMPARISON STUDY: 08/05/2017 TECHNIQUE: 1 view of the chest FINDINGS: Single frontal view of the chest demonstrates the cardiomediastinal silhouette to be within normal li mits. Extensive interstitial and alveolar opacities are present bilaterally, right greater than left. The findings are most characteristic of a viral type pneumonitis. Covid 19 pneumonia should be exclu ded. Bibasilar atelectasis also present. There is suspicion of a left pleural effusion. There is no e vidence for vascular congestion. There is no acute osseous pathology. IMPRESSION: Extensive interstitial and alveolar opacities bilaterally characteristic of a viral type pneumonitis and probable Covid 19 pneumonia. There is also evidence for left pleural effusion and bib asilar atelectasis. ACT 112: Negative or not required by law. Electronically signed by: Quincy Villegas M.D. 03/06/2021 8:59 AM
[2021-03-06] MEDS ORDERED: OPTIRAY 320 125ml IV ONE (09:15)
[2021-03-06 09:19] LABS: Albumin Level 2.6 gm/dl (3.4-5.0); BUN Creatinine Ratio 20.8 (10-20); Creatinine Clr Calc Pharmacy 60.7 ml/min; Est GFR (African American) 89.1 ml/min; Est GFR (Non-African American) 76.9 ml/min; Magnesium 2.3 mg/dl (1.8-2.4); Potassium 3.6 mmol/L (3.5-5.1)
--- NOTE | 2021-03-06 09:25 | CT Scan Report ---
CT angio chest PE protocol CLINICAL HISTORY: Dyspnea . Positive Covid. Evaluate for pulmonary embolus. COMPARISON STUDY: Previous CT chest with contrast from 06/29/2007 and portable chest from 03/06/2021 CT DOSE: 254.66 mGy.cm TECHNIQUE: CT Angio of the chest was performed.followed by image post processing with coronal, and s agittal MIP reformats. Contrast Volume: Optiray 320, 70 ml FINDINGS: Vasculature: There is homogeneous perfusion of the pulmonary vasculature bilaterally. No intraluminal filling defects or evidence for pulmonary embolus is seen. Airway: The airway is clear. No endobronchial lesion is identified. Lungs: Extensive groundglass opacities are present throughout both lungs characteristic of a viral ty pe pneumonitis and Covid 19 pneumonia. The lungs are otherwise clear of confluent alveolar opacities, air bronchograms or pulmonary nodules. No atelectasis is identified as suspected radiographically. Pleura: There is no evidence for pleural effusion is suspected radiographically. There is no evidenc e for pneumothorax. Mediastinum: There is no evidence for pathologic adenopathy. The heart size is within normal limits. The thoracic aorta is within normal limits. There is no evidence for pericardial effusion. Upper abdomen:The adrenal glands were not included on this study. There is evidence for small hiatal hernia. Osseous structures: There is no acute osseous pathology. Impression: 1. No CTA evidence for pulmonary embolus. 2. Extensive groundglass opacities are present throughout both lungs characteristic of a viral type p neumonitis and Covid 19 pneumonia. ACT 112: Negative or not required by law. Electronically signed by: Quincy Villegas M.D. 03/06/2021 9:24 AM
[2021-03-06 09:29] LABS: Albumin Globulin Ratio 0.6 (0.9-2); Bilirubin,Total 0.9 mg/dl (0.2-1); Globulin 4.2 gm/dl (2.5-4.0); Total Protein 6.8 gm/dl (6.4-8.2); Troponin I 0.174 ng/ml (0-0.045)
[2021-03-06 09:55] LABS: Basophils # (auto) 0.01 K/uL (0-0.2); Basophils % (auto) 0.2 %; Immature Granulocytes # (auto) 0.05 K/uL (0.00-0.02); Immature Granulocytes % (auto) 1.2 %; Lymphocytes # (auto) 0.49 K/uL (1.2-3.4); Lymphocytes % (auto) 11.4 %; Monocytes # (auto) 0.59 K/uL (0.11-0.59); Monocytes % (auto) 13.8 %; Neutrophils # (auto) 3.15 K/uL (1.4-6.5); Neutrophils % (auto) 73.4 %
[2021-03-06] MEDS ORDERED: ASPIRIN CHEW 324 MG PO STA (09:56)
[2021-03-06 10:11] LABS: Influenza A virus by PCR Negative (Negative); Influenza B virus by PCR Negative (Negative)
--- NOTE | 2021-03-06 11:14 | History & Physical Report ---
Date of Service March 06, 2021 Assessment & Plan (1) Pneumonia due to COVID-19 virus: (2) Hypoxia: (3) Elevated LFTs: Plan: Admit to COVID unit - Initially on BiPAP to maintain sats but pt started to have difficulty tolerating so will trial on high flow - Check ABG, CRP, procalcitonin - Will start dexamethasone and remdesevir - Daily labs - Trend troponin, check EKG this afternoon - Check ECHO Pt seen and reviewed with collaborating physician, Dr. Marino. Plan of care discussed and as outlined above. DVT Prophylaxis: Lovenox Code status: Full code. Orly Goss PA-C History of Present Illness Chief Complaint: near-syncope, covid Primary Care Provider: Sita Zamora PA-C This is a 70 y/o female with a PMH of GERD who presented to the ED today via EMS after an episode of near-syncope today when getting a shower. Pt reports at least ten days of symptoms. She was seen at urgent care on 02/28 with sore throat, fever with a temp to 100.8F. COVID test done and came back positive. Pt reports ST has now resolved but she has noted progressive SOB over the past few days. Not sleeping at night due to trouble breathing. Denies cough, chest pain, palpitations, N/V/D. Fever and sore throat have resolved. Mild associated MELVIN. +fatigue. Pt did receive her flu vaccine this year but not the COVID vaccine. Only outpatient medication is a multivitamin. No hx of underlying pulmonary disease. Denies prior history of cardiac disease. Allergies Allergy/AdvReac Type Severity Reaction Status Date / Time No Known Allergies Allergy Unknown Verified 03/06/21 09:52 Home Medications Medication Instructions Recorded Confirmed Type No Known Home Medications 03/06/21 03/06/21 History Past Med/Surg History Medical History (Updated 03/06/21 @ 13:29 by Taylor Goss PA-C) GERD (gastroesophageal reflux disease) Surgical History (Updated 03/06/21 @ 13:29 by Taylor Goss PA-C) History of bilateral cataract extraction History of section Family History Mother Lung disease Father Stroke Sister Heart disease Social History Smoking Status: Never smoker Feels Safe at Home: Yes Review of Systems Review of Systems: All systems reviewed & are unremarkable except as noted in HPI & below Constitutional: + fatigue; no fever, no chills and no sweats Ear, Nose, Mouth, Throat: + sore throat; no nasal congestion and no nasal discharge Respiratory: + dyspnea and + dyspnea on exertion; no cough Cardiovascular: + orthopnea and + lightheadedness; no chest pain, no palpitations and no edema Gastrointestinal: no abdominal pain, no nausea, no vomiting and no diarrhea/loose stools Genitourinary: no dysuria and no urinary hesitancy Musculoskeletal: no back pain and no neck pain Integumentary: no rash and no yellowing of the skin Neurologic: + generalized weakness, + dizziness (near-syncope this AM) and + headache(s) (mild) Physical Exam Constitutional: well developed and well nourished; no acute distress Eyes: + anicteric sclerae ENMT: BiPAP mask in place Neck: trachea midline Respiratory: + labored breathing (mildly on BiPAP) and + tachypneic Auscultation: + diminished lung sounds; no rhonchi and no wheezes Cardiovascular: Rate/Rhythm: regular rate and regular rhythm Heart Sounds: no murmur Vessels: dorsalis pedis pulses present and radial pulses present Extremities: no pedal edema Gastrointestinal (Abdomen): Inspection/Auscultation: normal bowel sounds; abdomen not distended Percussion/Palpation: abdomen soft; abdomen nontender Musculoskeletal: Head/Neck/Chest: normocephalic, head atraumatic and neck supple Skin: no rashes Neurologic: moves all extremities; no focal motor deficits Results & Data Results & Data ([facility]) Vital Signs (Past 12 Hours) Vital Signs Pulse Pulse Resp BP BP Pulse Ox 03/06/21 10:12 80 145/86 H 95 03/06/21 10:00 82 38 H 145/86 H 95 03/06/21 09:27 82 36 H 135/76 97 03/06/21 09:19 86 33 H 94 03/06/21 08:46 82 45 H 135/82 94 03/06/21 08:44 86 35 H 97 03/06/21 08:29 88 28 H 142/96 H 80 L Laboratory Results Laboratory Results - last 24 hr 03/06/21 03/06/21 03/06/21 08:40 08:40 09:20 WBC 4.29 L RBC 4.35 Hgb 14.0 Hct 41.5 MCV 95.4 MCH 32.2 MCHC 33.7 RDW Std Deviation 45.2 RDW Coeff of Heron 12.8 Plt Count 216 MPV 10.7 H Immature Gran % (Auto) 1.2 Neut % (Auto) 73.4 Lymph % (Auto) 11.4 [place] % (Auto) 13.8 Eos % (Auto) 0.0 Baso % (Auto) 0.2 Neut # (Auto) 3.15 Lymph # (Auto) 0.49 L [place] # (Auto) 0.59 Eos # (Auto) 0.00 Baso # (Auto) 0.01 Immature Gran # (Auto) 0.05 H Sodium 138 Potassium 3.6 Chloride 102 Carbon Dioxide 27 Anion Gap 10.0 BUN 16 Creatinine 0.79 Est Cr Clr Drug Dosing 60.7 Est GFR ( Amer) 89.1 Est GFR (Non-Af Amer) 76.9 BUN/Creatinine Ratio 20.8 H Glucose 131 H Calcium 8.0 L Magnesium 2.3 Total Bilirubin 0.9 AST 104 H ALT 72 Alkaline Phosphatase 197 H Troponin I 0.174 H* Total Protein 6.8 Albumin 2.6 L Globulin 4.2 H Albumin/Globulin Ratio 0.6 L SARS-CoV-2 (PCR) Influ A Molecular Assay Negative Influ B Molecular Assay Negative 03/06/21 09:20 WBC RBC Hgb Hct MCV MCH MCHC RDW Std Deviation RDW Coeff of Heron Plt Count MPV Immature Gran % (Auto) Neut % (Auto) Lymph % (Auto) [place] % (Auto) Eos % (Auto) Baso % (Auto) Neut # (Auto) Lymph # (Auto) [place] # (Auto) Eos # (Auto) Baso # (Auto) Immature Gran # (Auto) Sodium Potassium Chloride Carbon Dioxide Anion Gap BUN Creatinine Est Cr Clr Drug Dosing Est GFR ( Amer) Est GFR (Non-Af Amer) BUN/Creatinine Ratio Glucose Calcium Magnesium Total Bilirubin AST ALT Alkaline Phosphatase Troponin I Total Protein Albumin Globulin Albumin/Globulin Ratio SARS-CoV-2 (PCR) POSITIVE A* Influ A Molecular Assay Influ B Molecular Assay Diagnostic Findings Chest X-ray 03/06/21 - IMPRESSION: Extensive interstitial and alveolar opacities bilaterally characteristic of a viral type pneumonitis and probable Covid 19 pneumonia. There is also evidence for left pleural effusion and bibasilar atelectasis. Chest CTA 03/06/21 - Impression: 1. No CTA evidence for pulmonary embolus. 2. Extensive groundglass opacities are present throughout both lungs characteristic of a viral type pneumonitis and Covid 19 pneumonia. Medications Administered Discontinued Medications Albuterol (Albuterol 0.083% Nebu Soln 3 Ml Vial) 2.5 mg INH NOW STA Stop: 03/06/21 08:39 Last Admin: 03/06/21 09:18 Dose: 2.5 mg Documented by: [id number] Dexamethasone Sodium Phosphate (DexamethasonePf 10 Mg/Ml Vial) 6 mg IV NOW ONE Stop: 03/06/21 08:39 Last Admin: 03/06/21 08:48 Dose: 6 mg Documented by: [id number] Sodium Chloride (Nss 1000ml) 1,000 mls @ 999 mls/hr IV .Q1H1M ROBY Stop: 03/06/21 09:45 Last Admin: 03/06/21 08:48 Dose: 999 mls/hr Documented by: [id number] Ioversol (Optiray 320 125ml) 70 ml IV ONCE ONE Stop: 03/06/21 09:16 Last Admin: 03/06/21 09:15 Dose: 70 ml Documented by: [id number] Code Status & VTE Plan VTE Prophylaxis Plan VTE Prophylaxis will be ordered: Yes Supervising Physician Co-Signing Physician Notes Pt is a 70 F with hx of Essential tremor admitted for COVID pneumonia with hypoxia. -COVID dx on 02/28 -have been having symptoms for 11 days -Pt denied any hx of Asthma/COPD or smoking -Denied any hx of CAD, VT, or CVA Exam: -On Bipap -Lungs: difficult exam due to BiPAP-b/l lower lobe rales -Cardiac: Normal S1/S2, no murmur -Abd: ND, NT, Soft -MSK: no LE edema -Psych: AAOx3 A/P: COVID pneumonia with Hypoxia: -slight increase in AST and normal GFr - will do Dexamethasone and Remdesivir - CMP and CRP daily - will transition to NC as pt tolerates - will get ABG -encourage frequent change of position (including proning) - CTA chest: no PE Troponemia: -EKG: no ST elevation -no hx of CAD -will trend trop and get Echo Agree with Taylor Goss PA-C
[2021-03-06] MEDS ORDERED: REMDESIVIR 200 MG in SODIUM CHLORIDE 0.9% 210 ML IV STA (11:54)
[2021-03-06] MEDS ORDERED: ASPIRIN CHEW 324 MG ONE (12:07)
[2021-03-06 12:15] LABS: Base Excess ABG 3.4 mEq/L (-9-1.8); HCO3 ABG 28 mmol/L (19-24); Oxygen Saturation ABG 95.5 % (90-95); PCO2 ABG 42 mmHg (35-46); PO2 ABG 74 mmHg (80-95); pH ABG 7.44 (7.35-7.45)
[2021-03-06] MEDS: SODIUM CHLORIDE 0.9% 10ML FLUSH IV SCH (13:01)
--- NOTE | 2021-03-06 15:09 | Emergency Department Note ---
Impression & Plan Pneumonia due to COVID-19 virus, Hypoxia, Elevated troponin ED Provider Note CHIEF COMPLAINT: Hypoxia, COVID HISTORY OF PRESENT ILLNESS: This 70 yo female patient presents to the emergency department who presents to the ED with c/o SOB and syncope. Pt became symptomatic 02/22/21 and tested positive 02/28/21. Patient apparently took a shower today and had 2 syncopal episodes. The ambulance was called and she was noted to be hypoxic at 54% on room air. The patient is saturating in the mid 80s on nonrebreather. The patient is not vaccinated against Covid. She denies any chest pain but admits her breathing has gotten much worse over the last several days. She states she has "no medical problems." She was hesitant to come to the hospital with the EMS service because she is nervous she will be intubated. REVIEW OF SYSTEMS: A review of systems was performed with positives and pertinent negatives listed in the history of present illness. 10 systems were reviewed and are otherwise negative. ALLERGIES: see below MEDICATIONS: see below PMH: see below SOCIAL HISTORY: see below DDx: Reactive airway disease, COVID, pneumonia, pneumothorax, COPD, CHF, infections, cardiac ischemia, pulmonary embolism, musculoskeletal, gastrointestinal, as well as other pathologies. PHYSICAL EXAM: Vital signs reviewed. General: Somewhat ill appearing 70 yo female, in no significant distress. Anxious appearing. HEENT: No scleral icterus, PERRLA, neck supple. Atraumatic. Cardiovascular: Tachycardic and regular, no extra sounds. Pulmonary: Coarse breath sounds bilaterally, increased work of breathing, on NRB. Abdomen: Soft, nontender, nondistended, positive bowel sounds. Musculoskeletal: Atraumatic, no peripheral edema. Neurologic: Patient awake alert and oriented x 3 Skin: Warm, dry, no rash EMERGENCY DEPARTMENT COURSE/MDM: This patient was evaluated and appeared to be in some respiratory distress. Patient was switched from nonrebreather to BiPAP upon arrival. IV access was obtained and laboratory work was drawn. Patient received a DuoNeb treatment and IV dexamethasone. CT angiogram of the chest was performed to rule out PE due to the syncopal episodes and known Covid. The study is negative. Upon review of the patient's records, there is a history of SHARATH. Creatinine is normal today. Troponin is bumped at 0.174, with nonspecific ST changes on EKG. Patient was given 324 mg of aspirin to chew. Case was discussed with the hospitalist service for further evaluation and management. Patient was updated regarding the plan and agrees. She is currently comfortable on the BiPAP. MONITORING: An order for cardiac monitoring was placed and the patient is noted to be in a NSR at 88 beats per minute. RADIOLOGY: see below EKG: Normal sinus rhythm 83 bpm. No PVC, no PAC. Normal axis, nonspecific ST changes laterally. DISPOSITION: Admission I have personally spent greater than 45 minutes of critical care time in the direct management of this patient. This includes bedside care, interpretation of diagnostic studies, and testing, discussion with consultants, patient, and family members, and other required patient management activities. This 45 minutes is in excess of all separately billable procedures. Past Med/Surg History Medical History GERD (gastroesophageal reflux disease) Surgical History History of bilateral cataract extraction History of section Family History Mother Lung disease Father Stroke Sister Heart disease Social History Smoking Status: Never smoker Hx Alcohol Use: No Hx Substance Use: No Preferred Language: Czech Communication Ability: Effective Performance Improvement Analyst Required: No Beliefs That Will Affect Care: None Current Living Situation: Spouse Other Information That Helps Us Care for You: No Feels Safe at Home: Yes Safety Concerns: Feels Safe At This Time Assistive Devices: Denture - Upper and Glasses Allergies Allergies Allergy/AdvReac Type Severity Reaction Status Date / Time No Known Allergies Allergy Unknown Verified 03/06/21 09:52 Home Meds Home Medications Medication Instructions Recorded Confirmed No Known Home Medications 03/06/21 03/06/21 Results & Data (ED) Vital Signs Vital Signs - 24 hr 03/06/21 08:29 03/06/21 08:44 03/06/21 08:46 Pulse Rate 88 86 Pulse Rate [Left Finger] 82 Respiratory Rate 28 H 35 H 45 H Respiratory Effort / Characteristics Spontaneous Short of Breath Respiratory Depth Normal Respiratory Pattern Regular Tachypnea Blood Pressure 142/96 H Blood Pressure [Left Arm] 135/82 Blood Pressure Mean 111 Blood Pressure Mean [Left Arm] 99 Pulse Oximetry 80 L 97 94 Oxygen Delivery Method Non-rebreather BiPAP Oxygen Flow Rate 15 Fraction of Inspired Oxygen 50 Sepsis Recent Fever Within 48 Hours Yes Sepsis New/Unexplained Change in Mental Status N/A Sepsis Action Taken by Nursing No Action Required 03/06/21 09:19 03/06/21 09:25 03/06/21 09:27 Pulse Rate Pulse Rate [Left Finger] 86 82 Respiratory Rate 33 H 36 H Respiratory Effort / Characteristics Spontaneous Short of Breath Spontaneous Respiratory Depth Respiratory Pattern Blood Pressure Blood Pressure [Left Arm] 135/76 Blood Pressure Mean Blood Pressure Mean [Left Arm] 95 Pulse Oximetry 94 97 Oxygen Delivery Method BiPAP BiPAP BiPAP Oxygen Flow Rate Fraction of Inspired Oxygen 60 Sepsis Recent Fever Within 48 Hours Sepsis New/Unexplained Change in Mental Status Sepsis Action Taken by Nursing 03/06/21 10:00 03/06/21 10:12 Pulse Rate Pulse Rate [Left Finger] 82 80 Respiratory Rate 38 H Respiratory Effort / Characteristics Respiratory Depth Respiratory Pattern Blood Pressure Blood Pressure [Left Arm] 145/86 H 145/86 H Blood Pressure Mean Blood Pressure Mean [Left Arm] 105 105 Pulse Oximetry 95 95 Oxygen Delivery Method BiPAP BiPAP Oxygen Flow Rate Fraction of Inspired Oxygen Sepsis Recent Fever Within 48 Hours Sepsis New/Unexplained Change in Mental Status Sepsis Action Taken by Jail Medications Current Medication List: was personally reviewed by me Laboratory Data Attestation: I reviewed the patient's lab results. Result diagrams: 03/06/21 08:40 03/06/21 08:40 Lab Results 03/06/21 03/06/21 03/06/21 Range/Units 08:38 08:38 08:40 WBC 4.29 L (4.8-10.8) K/uL RBC 4.35 (4.2-5.4) M/uL Hgb 14.0 (12.0-16.0) g/dL Hct 41.5 (37-47) % MCV 95.4 (80-100) fL MCH 32.2 (25-34) pg MCHC 33.7 (32-36) g/dL RDW Std Deviation 45.2 (36.4-46.3) fL RDW Coeff of Heron 12.8 (11.5-14.5) % Plt Count 216 (130-400) K/uL MPV 10.7 H (7.4-10.4) fL Immature Gran % (Auto) 1.2 % Neut % (Auto) 73.4 % Lymph % (Auto) 11.4 % [place] % (Auto) 13.8 % Eos % (Auto) 0.0 % Baso % (Auto) 0.2 % Neut # (Auto) 3.15 (1.4-6.5) K/uL Lymph # (Auto) 0.49 L (1.2-3.4) K/uL [place] # (Auto) 0.59 (0.11-0.59) K/uL Eos # (Auto) 0.00 (0-0.5) K/uL Baso # (Auto) 0.01 (0-0.2) K/uL Immature Gran # (Auto) 0.05 H (0.00-0.02) K/uL ESR 26 (0-30) mm/hr Sodium (136-145) mmol/L Potassium (3.5-5.1) mmol/L Chloride (98-107) mmol/L Carbon Dioxide (21-32) mmol/L Anion Gap (3-11) BUN (7-18) mg/dl Creatinine (0.6-1.2) mg/dl Est Cr Clr Drug Dosing ml/min Est GFR ( Amer) ml/min Est GFR (Non-Af Amer) ml/min BUN/Creatinine Ratio (10-20) Glucose (70-99) mg/dl Calcium (8.5-10.1) mg/dl Magnesium (1.8-2.4) mg/dl Total Bilirubin (0.2-1) mg/dl AST (15-37) U/L ALT (12-78) U/L Alkaline Phosphatase (45-117) U/L Troponin I (0-0.045) ng/ml C-Reactive Protein 11.70 H (0-0.29) mg/dl Total Protein (6.4-8.2) gm/dl Albumin (3.4-5.0) gm/dl Globulin (2.5-4.0) gm/dl Albumin/Globulin Ratio (0.9-2) Procalcitonin (0-0.5) ng/ml SARS-CoV-2 (PCR) (Negative) Influ A Molecular Assay (Negative) Influ B Molecular Assay (Negative) 03/06/21 03/06/21 03/06/21 Range/Units 08:40 09:20 09:20 WBC (4.8-10.8) K/uL RBC (4.2-5.4) M/uL Hgb (12.0-16.0) g/dL Hct (37-47) % MCV (80-100) fL MCH (25-34) pg MCHC (32-36) g/dL RDW Std Deviation (36.4-46.3) fL RDW Coeff of Heron (11.5-14.5) % Plt Count (130-400) K/uL MPV (7.4-10.4) fL Immature Gran % (Auto) % Neut % (Auto) % Lymph % (Auto) % [place] % (Auto) % Eos % (Auto) % Baso % (Auto) % Neut # (Auto) (1.4-6.5) K/uL Lymph # (Auto) (1.2-3.4) K/uL [place] # (Auto) (0.11-0.59) K/uL Eos # (Auto) (0-0.5) K/uL Baso # (Auto) (0-0.2) K/uL Immature Gran # (Auto) (0.00-0.02) K/uL ESR (0-30) mm/hr Sodium 138 (136-145) mmol/L Potassium 3.6 (3.5-5.1) mmol/L Chloride 102 (98-107) mmol/L Carbon Dioxide 27 (21-32) mmol/L Anion Gap 10.0 (3-11) BUN 16 (7-18) mg/dl Creatinine 0.79 (0.6-1.2) mg/dl Est Cr Clr Drug Dosing 60.7 ml/min Est GFR ( Amer) 89.1 ml/min Est GFR (Non-Af Amer) 76.9 ml/min BUN/Creatinine Ratio 20.8 H (10-20) Glucose 131 H (70-99) mg/dl Calcium 8.0 L (8.5-10.1) mg/dl Magnesium 2.3 (1.8-2.4) mg/dl Total Bilirubin 0.9 (0.2-1) mg/dl AST 104 H (15-37) U/L ALT 72 (12-78) U/L Alkaline Phosphatase 197 H (45-117) U/L Troponin I 0.174 H* (0-0.045) ng/ml C-Reactive Protein (0-0.29) mg/dl Total Protein 6.8 (6.4-8.2) gm/dl Albumin 2.6 L (3.4-5.0) gm/dl Globulin 4.2 H (2.5-4.0) gm/dl Albumin/Globulin Ratio 0.6 L (0.9-2) Procalcitonin (0-0.5) ng/ml SARS-CoV-2 (PCR) POSITIVE A* (Negative) Influ A Molecular Assay Negative (Negative) Influ B Molecular Assay Negative (Negative) 03/06/21 Range/Units 09:27 WBC (4.8-10.8) K/uL RBC (4.2-5.4) M/uL Hgb (12.0-16.0) g/dL Hct (37-47) % MCV (80-100) fL MCH (25-34) pg MCHC (32-36) g/dL RDW Std Deviation (36.4-46.3) fL RDW Coeff of Heron (11.5-14.5) % Plt Count (130-400) K/uL MPV (7.4-10.4) fL Immature Gran % (Auto) % Neut % (Auto) % Lymph % (Auto) % [place] % (Auto) % Eos % (Auto) % Baso % (Auto) % Neut # (Auto) (1.4-6.5) K/uL Lymph # (Auto) (1.2-3.4) K/uL [place] # (Auto) (0.11-0.59) K/uL Eos # (Auto) (0-0.5) K/uL Baso # (Auto) (0-0.2) K/uL Immature Gran # (Auto) (0.00-0.02) K/uL ESR (0-30) mm/hr Sodium (136-145) mmol/L Potassium (3.5-5.1) mmol/L Chloride (98-107) mmol/L Carbon Dioxide (21-32) mmol/L Anion Gap (3-11) BUN (7-18) mg/dl Creatinine (0.6-1.2) mg/dl Est Cr Clr Drug Dosing ml/min Est GFR ( Amer) ml/min Est GFR (Non-Af Amer) ml/min BUN/Creatinine Ratio (10-20) Glucose (70-99) mg/dl Calcium (8.5-10.1) mg/dl Magnesium (1.8-2.4) mg/dl Total Bilirubin (0.2-1) mg/dl AST (15-37) U/L ALT (12-78) U/L Alkaline Phosphatase (45-117) U/L Troponin I (0-0.045) ng/ml C-Reactive Protein (0-0.29) mg/dl Total Protein (6.4-8.2) gm/dl Albumin (3.4-5.0) gm/dl Globulin (2.5-4.0) gm/dl Albumin/Globulin Ratio (0.9-2) Procalcitonin 0.21 (0-0.5) ng/ml SARS-CoV-2 (PCR) (Negative) Influ A Molecular Assay (Negative) Influ B Molecular Assay (Negative) Administered Medications Sodium Chloride (Sodium Chloride 0.9% 10ml Flush) 30 ml IV Q24H ROBY Stop: 03/10/21 12:46 Last Admin: 03/06/21 13:01 Dose: 30 ml Documented by: [id number] Discontinued Medications Albuterol (Albuterol 0.083% Nebu Soln 3 Ml Vial) 2.5 mg INH NOW STA Stop: 03/06/21 08:39 Last Admin: 03/06/21 09:18 Dose: 2.5 mg Documented by: [id number] Aspirin (Aspirin Chew 324 Mg) 324 mg PO NOW STA Stop: 03/06/21 09:57 Last Admin: 03/06/21 13:03 Dose: 324 mg Documented by: [id number] Aspirin (Aspirin Chew 324 Mg) Confirm Administered Dose 324 mg .ROUTE .STK-MED ONE Stop: 03/06/21 12:08 Last Admin: 03/06/21 13:04 Dose: Not Given Documented by: [id number] Dexamethasone Sodium Phosphate (DexamethasonePf 10 Mg/Ml Vial) 6 mg IV NOW ONE Stop: 03/06/21 08:39 Last Admin: 03/06/21 08:48 Dose: 6 mg Documented by: [id number] Sodium Chloride (Nss 1000ml) 1,000 mls @ 999 mls/hr IV .Q1H1M ORBY Stop: 03/06/21 09:45 Last Infusion: 03/06/21 11:54 Dose: 0 mls/hr Documented by: [id number] Admin: 03/06/21 08:48 Dose: 999 mls/hr Documented by: [id number] Remdesivir 200 mg/ Sodium (Chloride) 250 mls @ 125 mls/hr IV ONE STA; Protocol Stop: 03/06/21 13:53 Last Admin: 03/06/21 13:00 Dose: 125 mls/hr Documented by: [id number] Ioversol (Optiray 320 125ml) 70 ml IV ONCE ONE Stop: 03/06/21 09:16 Last Admin: 03/06/21 09:15 Dose: 70 ml Documented by: [id number] Imaging Data Radiologist's Impression: Chest CTA 03/06/21 08:38 CT angio chest PE protocol CLINICAL HISTORY: Dyspnea . Positive Covid. Evaluate for pulmonary embolus. COMPARISON STUDY: Previous CT chest with contrast from 06/29/2007 and portable chest from 03/06/2021 CT DOSE: 254.66 mGy.cm TECHNIQUE: CT Angio of the chest was performed.followed by image post processing with coronal, and sagittal MIP reformats. Contrast Volume: Optiray 320, 70 ml FINDINGS: Vasculature: There is homogeneous perfusion of the pulmonary vasculature bilaterally. No intraluminal filling defects or evidence for pulmonary embolus is seen. Airway: The airway is clear. No endobronchial lesion is identified. Lungs: Extensive groundglass opacities are present throughout both lungs characteristic of a viral type pneumonitis and Covid 19 pneumonia. The lungs are otherwise clear of confluent alveolar opacities, air bronchograms or pulmonary nodules. No atelectasis is identified as suspected radiographically. Pleura: There is no evidence for pleural effusion is suspected radiographically. There is no evidence for pneumothorax. Mediastinum: There is no evidence for pathologic adenopathy. The heart size is within normal limits. The thoracic aorta is within normal limits. There is no evidence for pericardial effusion. Upper abdomen:The adrenal glands were not included on this study. There is evidence for small hiatal hernia. Osseous structures: There is no acute osseous pathology. Impression: 1. No CTA evidence for pulmonary embolus. 2. Extensive groundglass opacities are present throughout both lungs characteristic of a viral type pneumonitis and Covid 19 pneumonia. ACT 112: Negative or not required by law. Electronically signed by: Quincy Villegas M.D. 03/06/2021 9:24 AM Chest X-Ray 03/06/21 08:38 XR chest 1V portable CLINICAL HISTORY: Dyspnea. Reported positive Covid COMPARISON STUDY: 08/05/2017 TECHNIQUE: 1 view of the chest FINDINGS: Single frontal view of the chest demonstrates the cardiomediastinal silhouette to be within normal limits. Extensive interstitial and alveolar opacities are present bilaterally, right greater than left. The findings are most characteristic of a viral type pneumonitis. Covid 19 pneumonia should be excluded. Bibasilar atelectasis also present. There is suspicion of a left pleural effusion. There is no evidence for vascular congestion. There is no acute osseous pathology. IMPRESSION: Extensive interstitial and alveolar opacities bilaterally characteristic of a viral type pneumonitis and probable Covid 19 pneumonia. There is also evidence for left pleural effusion and bibasilar atelectasis. ACT 112: Negative or not required by law. Electronically signed by: Quincy Villegas M.D. 03/06/2021 8:59 AM Blood Pressure Blood Pressure Findings: Normal blood pressure Blood Pressure Disposition: Referred to patients primary care provider Discharge Plan Visit Data Chief Complaint: Respiratory Distress Stated Complaint: HYPOXIA, COVID + ED Provider: Vikki Gilbert Discharge Problem: Pneumonia due to COVID-19 virus, Hypoxia, Elevated troponin Patient Disposition: Admitted As Inpatient Discharge Instructions Interventions: ED Discharge Assessment Last Done: 03/06/21 12:15
[2021-03-06] MEDS: ENOXAPARIN INJ 40 MG/0.4 ML SYR SQ SCH ×2 (16:12→21:59)
[2021-03-06 18:41] LABS: Appearance Urine Clear (Clear); Bacteria Urine Automated 4+ (Negative); Bilirubin Urine Negative (Negative); Blood Urine Negative (Negative); Color Urine Dark Yellow; Epithelial Cell Urine Auto >30 /lpf (0-5); Glucose Urine UA Negative (Negative); Ketones Urine Trace (Negative); Leukocyte Esterase Urine Negative (Negative); Nitrite Urine Negative (Negative); Protein Urine 2+ (Negative); RBC Urine Automated 0-4 /hpf (0-4); Specific Gravity Urine > 1.045 (1.000-1.030); Urobilinogen Urine Negative (Negative); pH Urine 5.5 (4.5-7.5)
[2021-03-06 19:22] LABS: Renal Epithelial Cells Urine 0-5 /lpf (0-5)
[2021-03-07 07:44] LABS: Hematocrit (blood only) 40.8 % (37-47); Hemoglobin 13.7 g/dL (12.0-16.0); Mean Corpuscular Hemoglobin 32.2 pg (25-34); Mean Corpuscular Hgb Conc 33.6 g/dL (32-36); Mean Corpuscular Volume 95.8 fL (80-100); Mean Platelet Volume 10.6 fL (7.4-10.4); Platelet Count 232 K/uL (130-400); RDW Coefficient of Variation 13.1 % (11.5-14.5); RDW Standard Deviation 46.2 fL (36.4-46.3); Red Blood Count 4.26 M/uL (4.2-5.4); White Blood Count 7.73 K/uL (4.8-10.8)
[2021-03-07 08:18] LABS: Basophils # (auto) 0.02 K/uL (0-0.2); Basophils % (auto) 0.3 %; Immature Granulocytes # (auto) 0.13 K/uL (0.00-0.02); Immature Granulocytes % (auto) 1.7 %; Lymphocytes # (auto) 0.83 K/uL (1.2-3.4); Lymphocytes % (auto) 10.7 %; Monocytes # (auto) 0.75 K/uL (0.11-0.59); Monocytes % (auto) 9.7 %; Neutrophils % (auto) 77.6 %
[2021-03-07 08:19] LABS: Albumin Level 2.2 gm/dl (3.4-5.0); BUN Creatinine Ratio 47.3 (10-20); Bilirubin Direct 0.3 mg/dl (0-0.2); Bilirubin,Total 0.7 mg/dl (0.2-1); Calcium 8.1 mg/dl (8.5-10.1); Creatinine Clr Calc Pharmacy 105.2 ml/min; Est GFR (African American) 119.3 ml/min; Potassium 3.7 mmol/L (3.5-5.1); Total Protein 6.2 gm/dl (6.4-8.2)
[2021-03-07] MEDS: ENOXAPARIN INJ 40 MG/0.4 ML SYR SQ SCH ×2 (09:01→20:10)
[2021-03-07] MEDS: dexAMETHasone 6 MG in SYRINGE 0 ML IV SCH (09:01)
[2021-03-07] MEDS: SODIUM CHLORIDE 0.9% 10ML FLUSH IV SCH (11:55)
[2021-03-07] MEDS ORDERED: REMDESIVIR 100 MG in SODIUM CHLORIDE 0.9% 230 ML IV SCH (12:00)
--- NOTE | 2021-03-07 13:51 | Hospitalist Progress Note ---
Date of Service March 07, 2021 Assessment & Plan (1) Acute respiratory failure with hypoxia: Plan: Presented with acute respiratory failure secondary to COVID-19 virus infection Has been requiring high flow oxygen to maintain saturation Management as outlined below (2) Pneumonia due to COVID-19 virus: Plan: Not been vaccinated for COVID-19 Symptoms have been going on for the last 10 days Diagnosed COVID-19 positive on 03/06/2021 Started with dexamethasone and remdesivir Remdesivir has been discontinued as per patient's request and not needed Continue with dexamethasone She has been requiring high flow oxygen to maintain saturation Prone position, incentive spirometry and flutter valve including cough suppressants and nebulized bronchodilator as needed (3) Hypoxia: (4) Elevated LFTs: Plan: Minimally elevated We will monitor (5) Sepsis: Plan: Sepsisin setting of COVID19 pneumonia e/b +2/4 SIRS and SOFA score of 2 Plan: DVT Prophylaxis: Lovenox Code status: Full code. I was informed that the patient does not want to be intubated We will cleared that tomorrow after discussion with the patient Admission and Anticipated Discharge Date Admission Date: March 06, 2021 Subjective 03/07/2021 The patient was seen and examined in telemetry unit and in the Covid room She remains in prone position and feels a little better compared with yesterday She still requires high flow oxygen to maintain saturation She does not like to get this remdesivir and does not like to be intubated if that is needed Review of Systems Review of Systems: All systems reviewed and are unremarkable except as noted below Respiratory: Moderate shortness of breath at rest Physical Exam Physical Exam: Lying in bed in prone position Constitutional: well developed, well nourished, + ill appearing and + obese Eyes: PERRL, conjunctivae normal, anicteric sclerae ENMT: external ear and nose normal, oropharynx normal Neck: trachea midline, no thyromegaly Respiratory: + respiratory distress (Mild to moderate respiratory distress at rest) and + cough Auscultation: + diminished lung sounds and + crackles (Minimal crackles at the bases) Cardiovascular: Rate/Rhythm: regular rate and regular rhythm; not tachycardic Heart Sounds: normal S1 and normal S2; no murmur Extremities: + edema (Trace edema bilaterally) Gastrointestinal (Abdomen): Inspection/Auscultation: normal bowel sounds; abdomen not distended Percussion/Palpation: abdomen soft; abdomen nontender Musculoskeletal: No acute arthritis in any joint Neurologic: Alert, awake and oriented x3 Results & Data Results & Data ([facility]) Vital Signs (Past 12 Hours) Vital Signs Temp Pulse Resp BP Pulse Ox 03/07/21 12:35 36.9 C 79 20 140/75 93 03/07/21 10:57 77 26 H 90 03/07/21 08:12 83 26 H 93 03/07/21 07:19 36.8 C 75 20 162/91 H 88 L 03/07/21 06:38 36.8 C 72 22 142/80 H 90 03/07/21 04:01 77 28 H 89 L Laboratory Results Short CBC 03/07/21 Range/Units 07:12 WBC 7.73 (4.8-10.8) K/uL Hgb 13.7 (12.0-16.0) g/dL Hct 40.8 (37-47) % Plt Count 232 (130-400) K/uL BMP 03/07/21 07:12 Sodium 142 Potassium 3.7 Chloride 108 H Carbon Dioxide 26 BUN 21 H Creatinine 0.45 L D Glucose 112 H Calcium 8.1 L Cardiac Enzymes 03/06/21 03/06/21 Range/Units 14:47 20:15 Troponin I 0.114 H* 0.086 H* (0-0.045) ng/ml Liver Function 03/07/21 Range/Units 07:12 Total Bilirubin 0.7 (0.2-1) mg/dl Direct Bilirubin 0.3 H (0-0.2) mg/dl AST 79 H (15-37) U/L ALT 59 (12-78) U/L Alkaline Phosphatase 170 H (45-117) U/L Albumin 2.2 L (3.4-5.0) gm/dl Urine 03/06/21 Range/Units 18:30 Urine Color Dark Yellow Urine Appearance Clear (Clear) Urine pH 5.5 (4.5-7.5) Ur Specific Reading > 1.045 H (1.000-1.030) Urine Protein 2+ H (Negative) Urine Glucose (UA) Negative (Negative) Medications Administered Current Inpatient Medications Enoxaparin Sodium (Enoxaparin Inj 40 Mg/0.4 Ml Syr) 40 mg SQ Q12 ROBY Stop: 04/05/21 13:59 Last Admin: 03/07/21 09:01 Dose: 40 mg Documented by: Dexamethasone 6 mg/ Syringe 1.5 mls @ 1 mls/min IV DAILY ROBY Stop: 03/17/21 08:59 Last Admin: 03/07/21 09:01 Dose: 1 mls/min Documented by:
--- NOTE | 2021-03-07 15:32 | Electrocardiogram Report ---
Test Reason : Blood Pressure : / mmHG Vent. Rate : 083 BPM Atrial Rate : 083 BPM P-R Int : 126 ms QRS Dur : 090 ms QT Int : 360 ms P-R-T Axes : 067 065 025 degrees QTc Int : 423 ms Normal sinus rhythm Nonspecific T wave abnormality When compared with ECG of 01-AUG-2017 10:15, Premature ventricular complexes are no longer Present Nonspecific T wave abnormality has replaced inverted T waves in Anterior leads Confirmed by Kannan aMe ([id number]) on 03/07/2021 3:31:48 PM Referred By: REFERRED SELF Confirmed By:Kannan Mae
--- NOTE | 2021-03-08 06:03 | Electrocardiogram Report ---
Test Reason : Blood Pressure : / mmHG Vent. Rate : 076 BPM Atrial Rate : 076 BPM P-R Int : 124 ms QRS Dur : 088 ms QT Int : 390 ms P-R-T Axes : 044 037 033 degrees QTc Int : 438 ms Normal sinus rhythm Nonspecific T wave abnormality Abnormal ECG When compared with ECG of 06-MAR-2021 08:51, No significant change Confirmed by Kannan Mae ([id number]) on 03/08/2021 6:03:37 AM Referred By: REFERRED SELF Confirmed By:Kannan Mae
[2021-03-08 08:04] LABS: Basophils # (auto) 0.04 K/uL (0-0.2); Basophils % (auto) 0.4 %; Hematocrit (blood only) 40.9 % (37-47); Hemoglobin 13.7 g/dL (12.0-16.0); Lymphocytes # (auto) 0.76 K/uL (1.2-3.4); Lymphocytes % (auto) 7.5 %; Mean Corpuscular Hemoglobin 31.9 pg (25-34); Mean Corpuscular Hgb Conc 33.5 g/dL (32-36); Mean Corpuscular Volume 95.3 fL (80-100); Mean Platelet Volume 10.6 fL (7.4-10.4); Monocytes # (auto) 0.67 K/uL (0.11-0.59); Monocytes % (auto) 6.6 %; Neutrophils # (auto) 8.52 K/uL (1.4-6.5); Neutrophils % (auto) 84.5 %; Platelet Count 266 K/uL (130-400); RDW Coefficient of Variation 12.9 % (11.5-14.5); RDW Standard Deviation 44.9 fL (36.4-46.3); Red Blood Count 4.29 M/uL (4.2-5.4); White Blood Count 10.09 K/uL (4.8-10.8)
[2021-03-08] MEDS: dexAMETHasone 6 MG in SYRINGE 0 ML IV SCH (08:06)
[2021-03-08] MEDS: ENOXAPARIN INJ 40 MG/0.4 ML SYR SQ SCH ×2 (08:06→20:04)
[2021-03-08 08:32] LABS: Albumin Level 2.3 gm/dl (3.4-5.0); BUN Creatinine Ratio 47.3 (10-20); Bilirubin Direct 0.3 mg/dl (0-0.2); Calcium 8.3 mg/dl (8.5-10.1); Creatinine Clr Calc Pharmacy 80.1 ml/min; Est GFR (African American) 109.2 ml/min; Est GFR (Non-African American) 94.2 ml/min; Potassium 3.6 mmol/L (3.5-5.1)
[2021-03-08 08:34] LABS: Bilirubin,Total 0.8 mg/dl (0.2-1)
[2021-03-08] MEDS ORDERED: FUROSEMIDE 40 MG/4 ML VIAL IV ONE (13:45)
[2021-03-08] MEDS ORDERED: guaiFENesin 600 MG TABCR PO STA (13:46)
--- NOTE | 2021-03-08 15:10 | Hospitalist Progress Note ---
Date of Service March 08, 2021 Assessment & Plan (1) Acute respiratory failure with hypoxia: Plan: Presented with acute respiratory failure secondary to COVID-19 virus infection Has been requiring high flow oxygen to maintain saturation Management as outlined below (2) Pneumonia due to COVID-19 virus: Plan: Not been vaccinated for COVID-19 Symptoms have been going on for the last 10 days Diagnosed COVID-19 positive on 03/06/2021 Started with dexamethasone and remdesivir Remdesivir has been discontinued as per patient's request and not needed Continue with dexamethasone She has been requiring high flow oxygen to maintain saturation Prone position, incentive spirometry and flutter valve including cough suppressants and nebulized bronchodilator as needed Condition remains stable and may get worse anytime Cough medications have been added and will continue with intravenous Lasix daily C-reactive protein is coming down We will continue current management for now (3) Hypoxia: (4) Elevated LFTs: Plan: Minimally elevated We will monitor (5) Sepsis: Plan: Sepsisin setting of COVID19 pneumonia e/b +2/4 SIRS and SOFA score of 2 Plan: DVT Prophylaxis: Lovenox Code status: Full code. I was informed that the patient does not want to be intubated We will cleared that tomorrow after discussion with the patient Discussed with the patient about resuscitationshe does not want any mechanical ventilator and/or other means of resuscitation Updated the and he will discussed with the patient for any resuscitation status that needs to be changed or updated Admission and Anticipated Discharge Date Admission Date: March 06, 2021 Subjective 03/07/2021 The patient was seen and examined in telemetry unit and in the Covid room She remains in prone position and feels a little better compared with yesterday She still requires high flow oxygen to maintain saturation She does not like to get this remdesivir and does not like to be intubated if that is needed 03/08/2021 The patient was seen and examined in telemetry unit and in the Covid room She has not been feeling any better and is still requiring very high flow oxygen to maintain saturation She has cough and complains of generalized weakness Review of Systems Review of Systems: All systems reviewed and are unremarkable except as noted below Respiratory: Moderate shortness of breath at rest Physical Exam Physical Exam: Lying in bed with moderate shortness of breath Constitutional: well developed, well nourished, + ill appearing and + obese Eyes: PERRL, conjunctivae normal, anicteric sclerae + anicteric sclerae ENMT: external ear and nose normal, oropharynx normal Neck: trachea midline Respiratory: + labored breathing (mildly on BiPAP) and + tachypneic Auscultation: no rhonchi and no wheezes Cardiovascular: Vessels: dorsalis pedis pulses present and radial pulses present Extremities: no pedal edema Gastrointestinal (Abdomen): Inspection/Auscultation: normal bowel sounds; abdomen not distended Percussion/Palpation: abdomen soft; abdomen nontender Musculoskeletal: Head/Neck/Chest: normocephalic, head atraumatic and neck supple Skin: no rashes Neurologic: moves all extremities; no focal motor deficits Alert, awake and oriented x3. Generally weak but no focal sensory and motor deficit appreciated Results & Data Results & Data ([facility]) Vital Signs (Past 12 Hours) Vital Signs Temp Pulse Pulse Resp BP Pulse Ox Pulse Ox 03/08/21 14:28 81 34 H 89 L 03/08/21 12:37 36.8 C 78 18 157/85 H 84 L 03/08/21 12:00 92 03/08/21 11:28 79 32 H 89 L 03/08/21 08:20 67 03/08/21 07:52 37.0 C 76 18 144/69 H 89 L 03/08/21 07:03 36.8 C 79 22 158/94 H 90 03/08/21 06:41 74 35 H 90 03/08/21 03:16 77 26 H 92 Laboratory Results Short CBC 03/08/21 Range/Units 07:21 WBC 10.09 (4.8-10.8) K/uL Hgb 13.7 (12.0-16.0) g/dL Hct 40.9 (37-47) % Plt Count 266 (130-400) K/uL BMP 03/08/21 07:21 Sodium 144 Potassium 3.6 Chloride 111 H Carbon Dioxide 25 BUN 28 H Creatinine 0.59 L Glucose 142 H Calcium 8.3 L Liver Function 03/08/21 Range/Units 07:21 Total Bilirubin 0.8 (0.2-1) mg/dl Direct Bilirubin 0.3 H (0-0.2) mg/dl AST 53 H (15-37) U/L ALT 52 (12-78) U/L Alkaline Phosphatase 158 H (45-117) U/L Albumin 2.3 L (3.4-5.0) gm/dl Medications Administered Current Inpatient Medications Enoxaparin Sodium (Enoxaparin Inj 40 Mg/0.4 Ml Syr) 40 mg SQ Q12 ROBY Stop: 04/05/21 13:59 Last Admin: 03/08/21 08:06 Dose: 40 mg Documented by: Guaifenesin (Guaifenesin 600 Mg Tabcr) 1,200 mg PO Q12 ROBY Stop: 04/07/21 20:59 Hydrocodone Bit/Homatropine Methylb (Hydrocodone/Homatropine Syrup 5mg/1.5mg 5ml Udp) 5 ml PO Q6H PRN PRN Reason: Cough Stop: 03/22/21 13:44 Dexamethasone 6 mg/ Syringe 1.5 mls @ 1 mls/min IV DAILY ROBY Stop: 03/17/21 08:59 Last Admin: 03/08/21 08:06 Dose: 1 mls/min Documented by:
[2021-03-08] MEDS: guaiFENesin 600 MG TABCR PO SCH (20:04)
[2021-03-09 06:40] LABS: Hematocrit (blood only) 42.2 % (37-47); Hemoglobin 14.4 g/dL (12.0-16.0); Mean Corpuscular Hemoglobin 32.1 pg (25-34); Mean Corpuscular Hgb Conc 34.1 g/dL (32-36); Mean Corpuscular Volume 94.2 fL (80-100); Platelet Count 285 K/uL (130-400); RDW Coefficient of Variation 12.7 % (11.5-14.5); RDW Standard Deviation 43.4 fL (36.4-46.3); Red Blood Count 4.48 M/uL (4.2-5.4); White Blood Count 12.62 K/uL (4.8-10.8)
[2021-03-09 07:00] LABS: Basophils # (auto) 0.04 K/uL (0-0.2); Basophils % (auto) 0.3 %; Immature Granulocytes # (auto) 0.09 K/uL (0.00-0.02); Immature Granulocytes % (auto) 0.7 %; Lymphocytes # (auto) 0.85 K/uL (1.2-3.4); Lymphocytes % (auto) 6.7 %; Monocytes # (auto) 0.63 K/uL (0.11-0.59); Neutrophils # (auto) 11.01 K/uL (1.4-6.5); Neutrophils % (auto) 87.3 %
[2021-03-09 07:14] LABS: Albumin Level 2.4 gm/dl (3.4-5.0); BUN Creatinine Ratio 58.7 (10-20); Bilirubin Direct 0.4 mg/dl (0-0.2); Calcium 8.4 mg/dl (8.5-10.1); Creatinine Clr Calc Pharmacy 78.9 ml/min; Est GFR (African American) 108.5 ml/min; Est GFR (Non-African American) 93.7 ml/min; Magnesium 2.2 mg/dl (1.8-2.4); Potassium 3.6 mmol/L (3.5-5.1)
[2021-03-09 07:17] LABS: Albumin Globulin Ratio 0.6 (0.9-2); Bilirubin,Total 0.9 mg/dl (0.2-1); Globulin 3.8 gm/dl (2.5-4.0); Phosphorus 3.6 mg/dl (2.5-4.9); Total Protein 6.2 gm/dl (6.4-8.2)
[2021-03-09] MEDS: HYDROcodone/HOMATROPINE SYRUP 5MG/1.5MG 5ML UDP PO PRN (07:52)
[2021-03-09] MEDS: dexAMETHasone 6 MG in SYRINGE 0 ML IV SCH (07:52)
[2021-03-09] MEDS: ENOXAPARIN INJ 40 MG/0.4 ML SYR SQ SCH ×2 (07:52→20:29)
[2021-03-09] MEDS: guaiFENesin 600 MG TABCR PO SCH ×2 (10:47→20:29)
[2021-03-09] MEDS ORDERED: FUROSEMIDE 40 MG/4 ML VIAL IV ONE (16:05)
[2021-03-09] MEDS ORDERED: POTASSIUM CHLORIDE CRTAB 20 MEQ TABCR PO STA (16:05)
--- NOTE | 2021-03-09 16:05 | Hospitalist Progress Note ---
Date of Service March 09, 2021 Assessment & Plan (1) Acute respiratory failure with hypoxia: Plan: Presented with acute respiratory failure secondary to COVID-19 virus infection Has been requiring high flow oxygen to maintain saturation Management as outlined below (2) Pneumonia due to COVID-19 virus: Plan: Not been vaccinated for COVID-19 Symptoms have been going on for the last 10 days Diagnosed COVID-19 positive on 03/06/2021 Started with dexamethasone and remdesivir Remdesivir has been discontinued as per patient's request and not needed Continue with dexamethasone She has been requiring high flow oxygen to maintain saturation Prone position, incentive spirometry and flutter valve including cough suppressants and nebulized bronchodilator as needed Condition remains stable and may get worse anytime Cough medications have been added and will continue with intravenous Lasix daily C-reactive protein is coming down Clinically a little better but is still requiring high flow oxygen to maintain saturation (3) Hypoxia: (4) Elevated LFTs: Plan: Minimally elevated We will monitor-LFTs have been normalized (5) Sepsis: Plan: Sepsisin setting of COVID19 pneumonia e/b +2/4 SIRS and SOFA score of 2 Plan: DVT Prophylaxis: Lovenox Code status: Full code. I was informed that the patient does not want to be intubated We will cleared that tomorrow after discussion with the patient Discussed with the patient about resuscitationshe does not want any mechanical ventilator and/or other means of resuscitation Updated the and he will discussed with the patient for any resuscitation status that needs to be changed or updated Resuscitation status discussed with the patient again and she wanted to have DNR and DNI This was again discussed with the CODE STATUS changed to DNR/DNI Admission and Anticipated Discharge Date Admission Date: March 06, 2021 Subjective 03/07/2021 The patient was seen and examined in telemetry unit and in the Covid room She remains in prone position and feels a little better compared with yesterday She still requires high flow oxygen to maintain saturation She does not like to get this remdesivir and does not like to be intubated if that is needed 03/08/2021 The patient was seen and examined in telemetry unit and in the Covid room She has not been feeling any better and is still requiring very high flow oxygen to maintain saturation She has cough and complains of generalized weakness 03/09/2021 The patient was seen and examined in telemetry unit and in the Covid room She has been feeling a little better but he still remains quite dyspneic and requiring high flow oxygen to maintain saturation Has minimal cough and generalized weakness Review of Systems Review of Systems: All systems reviewed and are unremarkable except as noted below Respiratory: Moderate shortness of breath at rest Physical Exam Physical Exam: Lying in bed with moderate shortness of breath Constitutional: well developed, well nourished, + ill appearing and + obese Eyes: PERRL, conjunctivae normal, anicteric sclerae + anicteric sclerae ENMT: external ear and nose normal, oropharynx normal Neck: trachea midline Respiratory: + labored breathing (mildly on BiPAP) and + tachypneic Auscultation: no rhonchi and no wheezes Cardiovascular: Vessels: dorsalis pedis pulses present and radial pulses present Extremities: no pedal edema Gastrointestinal (Abdomen): Inspection/Auscultation: normal bowel sounds; abdomen not distended Percussion/Palpation: abdomen soft; abdomen nontender Musculoskeletal: Head/Neck/Chest: normocephalic, head atraumatic and neck supple Skin: no rashes Neurologic: moves all extremities; no focal motor deficits Psychiatric: A+Ox3, euthymic affect Lymphatic: no cervical or axillary lymphadenopathy Results & Data Results & Data ([facility]) Vital Signs (Past 12 Hours) Vital Signs Temp Pulse Pulse Resp BP BP Pulse Ox 03/09/21 15:17 74 03/09/21 15:16 36.5 C 77 19 151/81 H 88 L 03/09/21 14:16 65 20 88 L 03/09/21 12:00 03/09/21 11:00 75 20 88 L 03/09/21 08:50 66 22 89 L 03/09/21 07:50 71 03/09/21 07:18 36.9 C 71 19 137/88 88 L 03/09/21 04:22 84 26 H 90 03/09/21 04:07 36.7 C 74 18 129/73 91 Pulse Ox 03/09/21 15:17 03/09/21 15:16 03/09/21 14:16 03/09/21 12:00 93 03/09/21 11:00 03/09/21 08:50 03/09/21 07:50 03/09/21 07:18 03/09/21 04:22 03/09/21 04:07 Laboratory Results Short CBC 03/09/21 Range/Units 06:08 WBC 12.62 H (4.8-10.8) K/uL Hgb 14.4 (12.0-16.0) g/dL Hct 42.2 (37-47) % Plt Count 285 (130-400) K/uL BMP 03/09/21 06:08 Sodium 145 Potassium 3.6 Chloride 108 H Carbon Dioxide 26 BUN 35 H Creatinine 0.60 Glucose 151 H Calcium 8.4 L Liver Function 03/09/21 Range/Units 06:08 Total Bilirubin 0.9 (0.2-1) mg/dl Direct Bilirubin 0.4 H (0-0.2) mg/dl AST 35 (15-37) U/L ALT 47 (12-78) U/L Alkaline Phosphatase 151 H (45-117) U/L Albumin 2.4 L (3.4-5.0) gm/dl Medications Administered Current Inpatient Medications Enoxaparin Sodium (Enoxaparin Inj 40 Mg/0.4 Ml Syr) 40 mg SQ Q12 ROBY Stop: 04/05/21 13:59 Last Admin: 03/09/21 07:52 Dose: 40 mg Documented by: Guaifenesin (Guaifenesin 600 Mg Tabcr) 1,200 mg PO Q12 ROBY Stop: 04/07/21 20:59 Last Admin: 03/09/21 10:47 Dose: 1,200 mg Documented by: Hydrocodone Bit/Homatropine Methylb (Hydrocodone/Homatropine Syrup 5mg/1.5mg 5ml Udp) 5 ml PO Q6H PRN PRN Reason: Cough Stop: 03/22/21 13:44 Last Admin: 03/09/21 07:52 Dose: 5 ml Documented by: Dexamethasone 6 mg/ Syringe 1.5 mls @ 1 mls/min IV DAILY ROBY Stop: 03/17/21 08:59 Last Admin: 03/09/21 07:52 Dose: 1 mls/min Documented by:
[2021-03-10] MEDS: HYDROcodone/HOMATROPINE SYRUP 5MG/1.5MG 5ML UDP PO PRN (03:18)
[2021-03-10 08:21] LABS: Basophils # (auto) 0.02 K/uL (0-0.2); Basophils % (auto) 0.1 %; Hematocrit (blood only) 40.8 % (37-47); Hemoglobin 14.2 g/dL (12.0-16.0); Immature Granulocytes # (auto) 0.15 K/uL (0.00-0.02); Lymphocytes # (auto) 0.65 K/uL (1.2-3.4); Lymphocytes % (auto) 4.1 %; Mean Corpuscular Hemoglobin 32.6 pg (25-34); Mean Corpuscular Hgb Conc 34.8 g/dL (32-36); Mean Corpuscular Volume 93.8 fL (80-100); Mean Platelet Volume 11.3 fL (7.4-10.4); Monocytes # (auto) 0.52 K/uL (0.11-0.59); Monocytes % (auto) 3.3 %; Neutrophils # (auto) 14.33 K/uL (1.4-6.5); Neutrophils % (auto) 91.5 %; Platelet Count 312 K/uL (130-400); RDW Coefficient of Variation 12.7 % (11.5-14.5); RDW Standard Deviation 44.1 fL (36.4-46.3); Red Blood Count 4.35 M/uL (4.2-5.4); White Blood Count 15.67 K/uL (4.8-10.8)
[2021-03-10 08:40] LABS: Calcium 8.5 mg/dl (8.5-10.1); Creatinine Clr Calc Pharmacy 71.2 ml/min; Est GFR (African American) 105.7 ml/min; Est GFR (Non-African American) 91.2 ml/min; Potassium 3.8 mmol/L (3.5-5.1)
[2021-03-10] MEDS: ENOXAPARIN INJ 40 MG/0.4 ML SYR SQ SCH ×2 (08:44→20:48)
[2021-03-10] MEDS: guaiFENesin 600 MG TABCR PO SCH ×2 (08:44→20:49)
[2021-03-10] MEDS: dexAMETHasone 6 MG in SYRINGE 0 ML IV SCH (08:45)
[2021-03-10 09:33] LABS: Influenza A virus by PCR Negative (Negative); Influenza B virus by PCR Negative (Negative)
[2021-03-10] MEDS: FUROSEMIDE 40 MG/4 ML VIAL IV SCH (12:49)
--- NOTE | 2021-03-10 14:53 | Hospitalist Progress Note ---
Date of Service March 10, 2021 Assessment & Plan (1) Acute respiratory failure with hypoxia: Plan: Presented with acute respiratory failure secondary to COVID-19 virus infection Has been requiring high flow oxygen to maintain saturation Management as outlined below (2) Pneumonia due to COVID-19 virus: Plan: Not been vaccinated for COVID-19 Symptoms have been going on for the last 10 days Diagnosed COVID-19 positive on 03/06/2021 Started with dexamethasone and remdesivir Remdesivir has been discontinued as per patient's request and not needed Continue with dexamethasone She has been requiring high flow oxygen to maintain saturation Prone position, incentive spirometry and flutter valve including cough suppressants and nebulized bronchodilator as needed Condition remains stable and may get worse anytime Cough medications have been added and will continue with intravenous Lasix daily C-reactive protein is coming down Clinically a little better but is still requiring high flow oxygen to maintain saturation-minimal change We will continue current management including Lasix (3) Hypoxia: Plan: Gets hypoxic with minimal movement (4) Elevated LFTs: Plan: Minimally elevated We will monitor-LFTs have been normalized (5) Sepsis: Plan: Sepsisin setting of COVID19 pneumonia e/b +2/4 SIRS and SOFA score of 2 Plan: DVT Prophylaxis: Lovenox Code status: Full code. I was informed that the patient does not want to be intubated We will cleared that tomorrow after discussion with the patient Discussed with the patient about resuscitationshe does not want any mechanical ventilator and/or other means of resuscitation Updated the and he will discussed with the patient for any resuscitation status that needs to be changed or updated Resuscitation status discussed with the patient again and she wanted to have DNR and DNI This was again discussed with the CODE STATUS changed to DNR/DNI Admission and Anticipated Discharge Date Admission Date: March 06, 2021 Subjective 03/07/2021 The patient was seen and examined in telemetry unit and in the Covid room She remains in prone position and feels a little better compared with yesterday She still requires high flow oxygen to maintain saturation She does not like to get this remdesivir and does not like to be intubated if that is needed 03/08/2021 The patient was seen and examined in telemetry unit and in the Covid room She has not been feeling any better and is still requiring very high flow oxygen to maintain saturation She has cough and complains of generalized weakness 03/09/2021 The patient was seen and examined in telemetry unit and in the Covid room She has been feeling a little better but he still remains quite dyspneic and requiring high flow oxygen to maintain saturation Has minimal cough and generalized weakness 03/10/2021 Patient was seen and examined in telemetry unit in the Covid room She has been feeling better but still requiring very high flow oxygen to [place] in saturation Still has cough Review of Systems Review of Systems: All systems reviewed and are unremarkable except as noted below Respiratory: Moderate shortness of breath at rest Physical Exam Physical Exam: Lying in bed with moderate shortness of breath Constitutional: well developed, well nourished, + ill appearing and + obese Eyes: PERRL, conjunctivae normal, anicteric sclerae + anicteric sclerae ENMT: external ear and nose normal, oropharynx normal Neck: trachea midline Respiratory: + labored breathing (mildly on BiPAP) and + tachypneic Auscultation: no rhonchi and no wheezes Cardiovascular: Vessels: dorsalis pedis pulses present and radial pulses present Extremities: no pedal edema Gastrointestinal (Abdomen): Inspection/Auscultation: normal bowel sounds; abdomen not distended Percussion/Palpation: abdomen soft; abdomen nontender Musculoskeletal: Head/Neck/Chest: normocephalic, head atraumatic and neck supple Skin: no rashes Neurologic: moves all extremities; no focal motor deficits Psychiatric: A+Ox3, euthymic affect Lymphatic: no cervical or axillary lymphadenopathy Results & Data Results & Data ([facility]) Vital Signs (Past 12 Hours) Vital Signs Temp Pulse Resp BP Pulse Ox 03/10/21 11:34 83 24 90 03/10/21 11:19 36.9 C 84 24 127/70 89 L 03/10/21 07:16 36.8 C 81 25 H 131/78 89 L 03/10/21 06:26 85 26 H 85 L 03/10/21 05:54 73 22 95 03/10/21 03:10 37.2 C 89 22 143/80 H 90 Laboratory Results Short CBC 03/10/21 Range/Units 07:47 WBC 15.67 H (4.8-10.8) K/uL Hgb 14.2 (12.0-16.0) g/dL Hct 40.8 (37-47) % Plt Count 312 (130-400) K/uL BMP 03/10/21 07:47 Sodium 142 Potassium 3.8 Chloride 107 Carbon Dioxide 25 BUN 32 H Creatinine 0.65 Glucose 164 H Calcium 8.5 Medications Administered Current Inpatient Medications Enoxaparin Sodium (Enoxaparin Inj 40 Mg/0.4 Ml Syr) 40 mg SQ Q12 ROBY Stop: 04/05/21 13:59 Last Admin: 03/10/21 08:44 Dose: 40 mg Documented by: Furosemide (Furosemide 40 Mg/4 Ml Vial) 60 mg IV DAILY ROBY Stop: 04/09/21 11:59 Last Admin: 03/10/21 12:49 Dose: 60 mg Documented by: Guaifenesin (Guaifenesin 600 Mg Tabcr) 1,200 mg PO Q12 ROBY Stop: 04/07/21 20:59 Last Admin: 03/10/21 08:44 Dose: 1,200 mg Documented by: Hydrocodone Bit/Homatropine Methylb (Hydrocodone/Homatropine Syrup 5mg/1.5mg 5ml Udp) 5 ml PO Q6H PRN PRN Reason: Cough Stop: 03/22/21 13:44 Last Admin: 03/10/21 03:18 Dose: 5 ml Documented by: Dexamethasone 6 mg/ Syringe 1.5 mls @ 1 mls/min IV DAILY ROBY Stop: 03/17/21 08:59 Last Admin: 03/10/21 08:45 Dose: 1 mls/min Documented by:
[2021-03-10] MEDS ORDERED: SODIUM CHLORIDE 0.65% NA SOLN 45 ML (OCEAN) PRN (23:01)
[2021-03-11] MEDS: POLYETHYLENE (MIRALAX) 17 GM PACK PO PRN (04:00)
[2021-03-11] MEDS: FUROSEMIDE 40 MG/4 ML VIAL IV SCH (06:30)
[2021-03-11] MEDS: guaiFENesin 600 MG TABCR PO SCH ×2 (08:27→20:17)
[2021-03-11] MEDS: dexAMETHasone 6 MG in SYRINGE 0 ML IV SCH (08:27)
[2021-03-11] MEDS: ENOXAPARIN INJ 40 MG/0.4 ML SYR SQ SCH (08:27)
[2021-03-11 10:12] LABS: BUN Creatinine Ratio 44.2 (10-20); Calcium 8.7 mg/dl (8.5-10.1); Creatinine Clr Calc Pharmacy 58.3 ml/min; Est GFR (African American) 86.5 ml/min; Est GFR (Non-African American) 74.6 ml/min; Magnesium 2.1 mg/dl (1.8-2.4); Potassium 3.7 mmol/L (3.5-5.1)
[2021-03-11 10:13] LABS: Phosphorus 3.9 mg/dl (2.5-4.9)
--- NOTE | 2021-03-11 15:24 | Hospitalist Progress Note ---
Date of Service March 11, 2021 Assessment & Plan (1) Acute respiratory failure with hypoxia: Plan: Presented with acute respiratory failure secondary to COVID-19 virus infection Has been requiring high flow oxygen to maintain saturation Management as outlined below (2) Pneumonia due to COVID-19 virus: Plan: Not been vaccinated for COVID-19 Symptoms have been going on for the last 10 days Diagnosed COVID-19 positive on 03/06/2021 Started with dexamethasone and remdesivir Remdesivir has been discontinued as per patient's request and not needed Continue with dexamethasone She has been requiring high flow oxygen to maintain saturation Prone position, incentive spirometry and flutter valve including cough suppressants and nebulized bronchodilator as needed Condition remains stable and may get worse anytime Cough medications have been added and will continue with intravenous Lasix daily C-reactive protein is coming down Clinically a little better but is still requiring high flow oxygen to maintain saturation-minimal change We will continue current management including Lasix Clinically better but he still requires very high flow oxygen-we will continue current management (3) Hypoxia: Plan: Gets hypoxic with minimal movement (4) Elevated LFTs: Plan: Minimally elevated We will monitor-LFTs have been normalized (5) Sepsis: Plan: Sepsisin setting of COVID19 pneumonia e/b +2/4 SIRS and SOFA score of 2 Plan: DVT Prophylaxis: Lovenox Code status: Full code. I was informed that the patient does not want to be intubated We will cleared that tomorrow after discussion with the patient Discussed with the patient about resuscitationshe does not want any mechanical ventilator and/or other means of resuscitation Updated the and he will discussed with the patient for any resuscitation status that needs to be changed or updated Resuscitation status discussed with the patient again and she wanted to have DNR and DNI This was again discussed with the CODE STATUS changed to DNR/DNI CODE STATUS changed to full as she wanted to try everything possible to improve Admission and Anticipated Discharge Date Admission Date: March 06, 2021 Subjective 03/07/2021 The patient was seen and examined in telemetry unit and in the Covid room She remains in prone position and feels a little better compared with yesterday She still requires high flow oxygen to maintain saturation She does not like to get this remdesivir and does not like to be intubated if that is needed 03/08/2021 The patient was seen and examined in telemetry unit and in the Covid room She has not been feeling any better and is still requiring very high flow oxygen to maintain saturation She has cough and complains of generalized weakness 03/09/2021 The patient was seen and examined in telemetry unit and in the Covid room She has been feeling a little better but he still remains quite dyspneic and requiring high flow oxygen to maintain saturation Has minimal cough and generalized weakness 03/10/2021 Patient was seen and examined in telemetry unit in the Covid room She has been feeling better but still requiring very high flow oxygen to maintain saturation Still has cough 03/11/2021 The patient was seen and examined in telemetry unit and in Covid room She has been feeling better but he still requires very high flow oxygen to maintain saturation Cough is diminished She plans to be full code Review of Systems Review of Systems: All systems reviewed and are unremarkable except as noted below Respiratory: Moderate shortness of breath at rest Physical Exam Physical Exam: Lying in bed with moderate shortness of breath Constitutional: well developed, well nourished, + ill appearing and + obese Eyes: PERRL, conjunctivae normal, anicteric sclerae + anicteric sclerae ENMT: external ear and nose normal, oropharynx normal Neck: trachea midline Respiratory: + labored breathing (mildly on BiPAP) and + tachypneic Auscultation: no rhonchi and no wheezes Cardiovascular: Vessels: dorsalis pedis pulses present and radial pulses present Extremities: no pedal edema Gastrointestinal (Abdomen): Inspection/Auscultation: normal bowel sounds; abdomen not distended Percussion/Palpation: abdomen soft; abdomen nontender Musculoskeletal: Head/Neck/Chest: normocephalic, head atraumatic and neck supple Skin: no rashes Neurologic: moves all extremities; no focal motor deficits Psychiatric: A+Ox3, euthymic affect Lymphatic: no cervical or axillary lymphadenopathy Results & Data Results & Data ([facility]) Vital Signs (Past 12 Hours) Vital Signs Temp Pulse Resp BP Pulse Ox 03/11/21 15:16 36.5 C 89 34 H 138/87 90 03/11/21 11:45 36.5 C 86 32 H 122/71 88 L 03/11/21 11:42 90 24 91 03/11/21 07:55 36.5 C 82 20 147/108 H 88 L 03/11/21 07:10 79 24 87 L Laboratory Results [facility] 03/11/21 08:54 Sodium 142 Potassium 3.7 Chloride 104 Carbon Dioxide 26 BUN 36 H Creatinine 0.81 Glucose 167 H Calcium 8.7 Medications Administered Current Inpatient Medications Enoxaparin Sodium (Enoxaparin Inj 40 Mg/0.4 Ml Syr) 40 mg SQ QAM ROBY Stop: 04/11/21 08:59 Furosemide (Furosemide 40 Mg/4 Ml Vial) 60 mg IV DAILY ROBY Stop: 04/09/21 11:59 Last Admin: 03/11/21 06:30 Dose: 60 mg Documented by: Guaifenesin (Guaifenesin 600 Mg Tabcr) 1,200 mg PO Q12 ROBY Stop: 04/07/21 20:59 Last Admin: 03/11/21 08:27 Dose: 1,200 mg Documented by: Hydrocodone Bit/Homatropine Methylb (Hydrocodone/Homatropine Syrup 5mg/1.5mg 5ml Udp) 5 ml PO Q6H PRN PRN Reason: Cough Stop: 03/22/21 13:44 Last Admin: 03/10/21 03:18 Dose: 5 ml Documented by: Dexamethasone 6 mg/ Syringe 1.5 mls @ 1 mls/min IV DAILY ROBY Stop: 03/17/21 08:59 Last Admin: 03/11/21 08:27 Dose: 1 mls/min Documented by: Polyethylene Glycol (Polyethylene (Miralax) 17 Gm Pack) 17 gm PO DAILY PRN PRN Reason: Constipation Stop: 04/09/21 23:01 Last Admin: 03/11/21 04:00 Dose: 17 gm Documented by: Sodium Chloride (Sodium Chloride 0.65% Na Soln 45 Ml ([place])) 2 sprays NA BID PRN PRN Reason: Nasal Congestion Stop: 04/09/21 23:00 Last Admin: 03/10/21 23:50 Dose: 2 sprays Documented by:
[2021-03-11] MEDS ORDERED: COUGH DROP (SUGAR FREE) LOZ 24 LOZ/1 BOX BUCCAL PRN (20:18)
[2021-03-12] MEDS: dexAMETHasone 6 MG in SYRINGE 0 ML IV SCH (08:36)
[2021-03-12] MEDS: guaiFENesin 600 MG TABCR PO SCH ×2 (08:37→19:57)
[2021-03-12] MEDS: FUROSEMIDE 40 MG/4 ML VIAL IV SCH (08:37)
[2021-03-12] MEDS: ENOXAPARIN INJ 40 MG/0.4 ML SYR SQ SCH (08:37)
--- NOTE | 2021-03-12 16:07 | Hospitalist Progress Note ---
Date of Service March 12, 2021 Assessment & Plan (1) Acute respiratory failure with hypoxia: Plan: Presented with acute respiratory failure secondary to COVID-19 virus infection Has been requiring high flow oxygen to maintain saturation Management as outlined below (2) Pneumonia due to COVID-19 virus: Plan: Not been vaccinated for COVID-19 Symptoms have been going on for the last 10 days Diagnosed COVID-19 positive on 03/06/2021 Started with dexamethasone and remdesivir Remdesivir has been discontinued as per patient's request and not needed Continue with dexamethasone She has been requiring high flow oxygen to maintain saturation Prone position, incentive spirometry and flutter valve including cough suppressants and nebulized bronchodilator as needed Condition remains stable and may get worse anytime Cough medications have been added and will continue with intravenous Lasix daily C-reactive protein is coming down Clinically a little better but is still requiring high flow oxygen to maintain saturation-minimal change Still requiring high flow oxygen Will get repeat CRP and procalcitonin level if the condition gets worse will involve pulmonary for possible further therapy (3) Hypoxia: Plan: Gets hypoxic with minimal movement (4) Elevated LFTs: Plan: Minimally elevated We will monitor-LFTs have been normalized (5) Sepsis: Plan: Sepsisin setting of COVID19 pneumonia e/b +2/4 SIRS and SOFA score of 2 Plan: DVT Prophylaxis: Lovenox Code status: Full code. I was informed that the patient does not want to be intubated We will cleared that tomorrow after discussion with the patient Discussed with the patient about resuscitationshe does not want any mechanical ventilator and/or other means of resuscitation Updated the and he will discussed with the patient for any resuscitation status that needs to be changed or updated Resuscitation status discussed with the patient again and she wanted to have DNR and DNI This was again discussed with the CODE STATUS changed to DNR/DNI CODE STATUS changed to full as she wanted to try everything possible to improve Discussed with the Admission and Anticipated Discharge Date Admission Date: March 06, 2021 Subjective 03/07/2021 The patient was seen and examined in telemetry unit and in the Covid room She remains in prone position and feels a little better compared with yesterday She still requires high flow oxygen to maintain saturation She does not like to get this remdesivir and does not like to be intubated if that is needed 03/08/2021 The patient was seen and examined in telemetry unit and in the Covid room She has not been feeling any better and is still requiring very high flow oxygen to maintain saturation She has cough and complains of generalized weakness 03/09/2021 The patient was seen and examined in telemetry unit and in the Covid room She has been feeling a little better but he still remains quite dyspneic and requiring high flow oxygen to maintain saturation Has minimal cough and generalized weakness 03/10/2021 Patient was seen and examined in telemetry unit in the Covid room She has been feeling better but still requiring very high flow oxygen to maintain saturation Still has cough 03/11/2021 The patient was seen and examined in telemetry unit and in Covid room She has been feeling better but he still requires very high flow oxygen to m aintain saturation Cough is diminished She plans to be full code 03/12/2021 The patient was seen and examined in telemetry unit and in the Covid room She has been feeling better but he still requires high flow oxygen to maintain saturation Still has cough Review of Systems Review of Systems: All systems reviewed and are unremarkable except as noted below Respiratory: Shortness of breath Physical Exam Physical Exam: Lying in bed with moderate shortness of breath Constitutional: well developed, well nourished, + ill appearing and + obese Eyes: PERRL, conjunctivae normal, anicteric sclerae + anicteric sclerae ENMT: external ear and nose normal, oropharynx normal Neck: trachea midline Respiratory: + labored breathing (mildly on BiPAP) and + tachypneic Auscultation: no rhonchi and no wheezes Cardiovascular: Vessels: dorsalis pedis pulses present and radial pulses present Extremities: no pedal edema Gastrointestinal (Abdomen): Inspection/Auscultation: normal bowel sounds; abdomen not distended Percussion/Palpation: abdomen soft; abdomen nontender Musculoskeletal: Head/Neck/Chest: normocephalic, head atraumatic and neck supple Skin: no rashes Neurologic: moves all extremities; no focal motor deficits Psychiatric: A+Ox3, euthymic affect Lymphatic: no cervical or axillary lymphadenopathy Results & Data Results & Data ([facility]) Vital Signs (Past 12 Hours) Vital Signs Temp Pulse Pulse Resp BP Pulse Ox Pulse Ox 03/12/21 15:40 36.6 C 92 H 30 H 133/75 89 L 03/12/21 14:41 19 90 03/12/21 12:00 90 03/12/21 11:41 36.8 C 82 20 117/76 91 03/12/21 10:37 81 22 90 03/12/21 08:00 68 03/12/21 07:56 18 90 03/12/21 07:17 36.9 C 82 23 135/99 92 03/12/21 04:28 97 Medications Administered Current Inpatient Medications Enoxaparin Sodium (Enoxaparin Inj 40 Mg/0.4 Ml Syr) 40 mg SQ QAM ROBY Stop: 04/11/21 08:59 Last Admin: 03/12/21 08:37 Dose: 40 mg Documented by: Furosemide (Furosemide 40 Mg/4 Ml Vial) 60 mg IV DAILY ROBY Stop: 04/09/21 11:59 Last Admin: 03/12/21 08:37 Dose: 60 mg Documented by: Guaifenesin (Guaifenesin 600 Mg Tabcr) 1,200 mg PO Q12 ROBY Stop: 04/07/21 20:59 Last Admin: 03/12/21 08:37 Dose: 1,200 mg Documented by: Hydrocodone Bit/Homatropine Methylb (Hydrocodone/Homatropine Syrup 5mg/1.5mg 5ml Udp) 5 ml PO Q6H PRN PRN Reason: Cough Stop: 03/22/21 13:44 Last Admin: 03/10/21 03:18 Dose: 5 ml Documented by: Dexamethasone 6 mg/ Syringe 1.5 mls @ 1 mls/min IV DAILY ROBY Stop: 03/17/21 08:59 Last Admin: 03/12/21 08:36 Dose: 1 mls/min Documented by: Menthol (Cough Drop (Sugar Free) Piotr 24 Piotr/1 Box) 1 piotr BUCCAL Q2H PRN PRN Reason: Sore Throat Stop: 04/10/21 20:17 Polyethylene Glycol (Polyethylene (Miralax) 17 Gm Pack) 17 gm PO DAILY PRN PRN Reason: Constipation Stop: 04/09/21 23:01 Last Admin: 03/11/21 04:00 Dose: 17 gm Documented by: Sodium Chloride (Sodium Chloride 0.65% Na Soln 45 Ml ([place])) 2 sprays NA BID PRN PRN Reason: Nasal Congestion Stop: 04/09/21 23:00 Last Admin: 03/10/21 23:50 Dose: 2 sprays Documented by:
--- NOTE | 2021-03-12 17:38 | XRay Report ---
SINGLE VIEW CHEST CLINICAL HISTORY: Covid pneumonia. FINDINGS: An AP, portable, upright chest radiograph is compared to chest x-ray and chest CT dated . The heart is mildly enlarged noting atherosclerotic calcification of the thoracic aorta. Mul tifocal airspace consolidation is seen throughout both lungs with a lower lobe predominance. No large pleural effusion or pneumothorax is seen. The skeletal structures are osteopenic. The bony thorax is grossly intact. IMPRESSION: Multifocal airspace consolidation is consistent with the reported history of a viral pneu monia. This has partially cleared as compared to 03/06/2021. Continued follow-up to resolution is rec ommended. ACT 112: Negative or not required by law. Electronically signed by: Rommel Evans M.D. 03/12/2021 5:37 PM
[2021-03-13 08:36] LABS: Albumin Level 2.2 gm/dl (3.4-5.0); C Reactive Protein 4.16 mg/dl (0-0.29); Calcium 8.7 mg/dl (8.5-10.1); Creatinine Clr Calc Pharmacy 44.8 ml/min; Est GFR (African American) 64.7 ml/min; Est GFR (Non-African American) 55.8 ml/min; Magnesium 2.4 mg/dl (1.8-2.4)
[2021-03-13] MEDS: guaiFENesin 600 MG TABCR PO SCH (08:52)
[2021-03-13] MEDS: dexAMETHasone 6 MG in SYRINGE 0 ML IV SCH (08:52)
[2021-03-13] MEDS: FUROSEMIDE 40 MG/4 ML VIAL IV SCH (08:52)
[2021-03-13] MEDS: ENOXAPARIN INJ 40 MG/0.4 ML SYR SQ SCH (08:52)
[2021-03-13 08:53] LABS: Albumin Globulin Ratio 0.5 (0.9-2); Bilirubin,Total 1.1 mg/dl (0.2-1); Globulin 4.5 gm/dl (2.5-4.0); Phosphorus 3.3 mg/dl (2.5-4.9); Total Protein 6.7 gm/dl (6.4-8.2)
[2021-03-13] MEDS ORDERED: LORazepam 0.25 MG/0.5 ML VIAL IV STA (12:46)
[2021-03-13] MEDS: ceFAZolin 2000MG 2,000 MG/15 ML SYR IV SCH ×2 (14:52→21:51)
[2021-03-13] MEDS: LEVALBUTEROL HCL 1.25 MG/3 ML NEB NEB PRN (23:33)
--- NOTE | 2021-03-13 23:40 | Hospitalist Progress Note ---
Date of Service March 13, 2021 Assessment & Plan (1) Acute respiratory failure with hypoxia: (2) Pneumonia due to COVID-19 virus: (3) Hypoxia: Plan: Present on admission with worsening shortness of breath Has not been vaccinated for COVID-19 Symptoms have been going on for the last 10 days Diagnosed COVID-19 positive on 03/06/2021 CTA chest showed Extensive groundglass opacities are present throughout both lungs characteristic of a viral type pneumonitis and Covid 19 pneumonia. Started with dexamethasone and remdesivir Remdesivir has been discontinued as per patient's request and not needed Continue with dexamethasone She has been requiring high flow oxygen to maintain saturation Prone position, incentive spirometry and flutter valve including cough suppressants and nebulized bronchodilator as needed Case discussed with pulm in case patient decompensates for possible intubation As per pulm continues CPAP and if worsening, please consult pulmonology Continue Lasix 60 mg IV Monitor inflammatory markers and BMP We will monitor closely (4) Elevated LFTs: Plan: Minimally elevated We will monitor-LFTs have been normalized (5) Sepsis: Plan: Sepsisin setting of COVID19 pneumonia e/b +2/4 SIRS and SOFA score of 2 Plan: DVT Prophylaxis: Lovenox Code status: Full code. Presvious hospitalist discussed code status with patient at first she did not want any mechanical ventilator and/or other means of resuscitation was notified and discussed with the patient for any resuscitation status that needs to be changed or updated Resuscitation status discussed with the patient and she wanted to have DNR and DNI, then later she changed it to Full code because she wanted to try everything possible that can help her to get better Admission and Anticipated Discharge Date Admission Date: March 06, 2021 Subjective Patient was seen and examined for follow-up shortness of breath due to COVID-19 Lying in bed with acute respiratory distress Patient is very anxious and does not want to keep the BiPAP/CPA mask on Denies any chest pain, palpitation, dizziness, and fever. Review of Systems Review of Systems: All systems reviewed & are unremarkable except as noted in Subjective Physical Exam Physical Exam: General- No acute distress Head- atraumatic Eyes- PERRL, EOMI, ENT- oropharynx clear Neck- supple, no JVD Lungs- +diminished BS Heart- regular rhythm; no murmur Abdomen- normal bowel sounds, soft, nontender Extremities- no calf tenderness Neuro- alert, oriented x 3; PERRL, EOMI; no facial palsy; no dysarthria Skin- warm & dry Results & Data Results & Data ([facility]) Vital Signs (Past 12 Hours) Vital Signs Temp Pulse Pulse Resp BP BP Pulse Ox 03/13/21 23:31 95 H 40 H 90 03/13/21 23:02 37.2 C 91 H 18 126/70 90 03/13/21 21:43 32 H 91 03/13/21 19:50 95 H 42 H 88 L 03/13/21 19:41 34 H 89 L 03/13/21 18:52 36.7 C 98 H 20 134/81 91 03/13/21 16:48 36.8 C 103 H 20 131/77 92 03/13/21 14:15 86 27 H 92 03/13/21 12:40 108 H 91 03/13/21 12:29 111 H 40 H 90 03/13/21 12:00 Pulse Ox 03/13/21 23:31 03/13/21 23:02 03/13/21 21:43 03/13/21 19:50 03/13/21 19:41 03/13/21 18:52 03/13/21 16:48 03/13/21 14:15 03/13/21 12:40 03/13/21 12:29 03/13/21 12:00 89 L
[2021-03-14] MEDS: guaiFENesin 600 MG TABCR PO SCH ×3 (00:59→21:57)
[2021-03-14] MEDS: ceFAZolin 2000MG 2,000 MG/15 ML SYR IV SCH (06:09)
[2021-03-14 07:56] LABS: Albumin Globulin Ratio 0.5 (0.9-2); Albumin Level 2.1 gm/dl (3.4-5.0); BUN Creatinine Ratio 41.4 (10-20); Bilirubin,Total 0.8 mg/dl (0.2-1); Creatinine Clr Calc Pharmacy 47.3 ml/min; Est GFR (African American) 69.6 ml/min; Globulin 4.6 gm/dl (2.5-4.0); Total Protein 6.7 gm/dl (6.4-8.2)
[2021-03-14 08:21] LABS: C Reactive Protein 14.4 mg/dl (0-0.29); Ferritin 3073.9 ng/ml (8-388)
[2021-03-14 09:43] LABS: Base Excess ABG 5.6 mEq/L (-9-1.8); HCO3 ABG 29 mmol/L (19-24); Oxygen Saturation ABG 96.5 % (90-95); PCO2 ABG 38 mmHg (35-46); PO2 ABG 78 mmHg (80-95)
[2021-03-14 09:49] LABS: Allen Test Pos (Pos)
[2021-03-14] MEDS: ENOXAPARIN INJ 40 MG/0.4 ML SYR SQ SCH (10:09)
[2021-03-14] MEDS: FUROSEMIDE 40 MG/4 ML VIAL IV SCH (10:09)
[2021-03-14] MEDS: dexAMETHasone 6 MG in SYRINGE 0 ML IV SCH (10:09)
[2021-03-14] MEDS ORDERED: LORazepam 0.25 MG/0.5 ML VIAL IV ONE (11:22)
--- NOTE | 2021-03-14 13:17 | Pulmonary Consultation ---
Date of Consultation March 14, 2021 Assessment & Plan (1) Acute respiratory failure with hypoxia: (2) Acute respiratory distress syndrome (ARDS) due to 2019 novel coronavirus: (3) Code status needs review: Attending: Dr. Rodriguez Impresion: 70 yo old female admitted and found positive for COVID-19 03/06/2021. Since that time, she has required HiFlo O2 or positive pressure. She currently is not tolerating BiPAP and is on CPAP with FiO2 of 100%. She is tacjycardic and only able to take fast, shallow breaths. She stated to me that she does not want to be on a mechanical ventilate and would definitely not want a tracheostomy. I called and spoke to her Andrew who stated that they have discussed this before and that we should honor her wishes. Kalina Davies RN also confirmed with him joon there would be no escalation of care and that we should treat as we can but focus on palliation. Recommendations: 1. COVID-19/ARDs * Change code status to DNR/DNI per patient and spouse request * No escalation of care * Check repeat CXR * Continue PAP as tolerated to maintain SaO2 >90% * No smoking or pulmonary disease history * Not a candidate for ECMO * Completed course of Remdesivir * Continue Dexamethasone. Consider change in dose after reviewing CXR and COVID treatment nomogram * Consider palliative care consult 2. CODE STATUS: * Discussion with patient at bedside. In addition, I had a long discussion with Andrew by telephone. * Patient does not wish to escalate care. She specifically does not want mechanical ventilation. * I explained to the patient that without mechanical ventilation there is a strong possibility that she could . She stated that she understood that. * Discussed with he indicated that they had discussed CODE STATUS before and that she would prefer not to be ventilated and understood that she may . * Discussed with Dr. Rodriguez and Dr. Ansari. Please look to Dr. Rodriguez's addendum for further clarification after his review. Thank you for including us in the care of this patient. The pulmonary service will sign off at this time. Please call with any additional questions. Supervising Physician Co-Signing Physician Notes Patient seen and examined with Rommel Spain PA-C. Agree with his assessment and plan aside for any additions/exceptions noted: Patient with severe COVID-19 viral pneumonia. She does qualify for intubation given her rapid respiratory rate, increased work of breathing and severe hypoxemia. She is not interested in pursuing intubation or mechanical ventilation at this time. Recommend a palliative care consultation. Chest x-r ay findings reviewed with bilateral airspace opacities consistent with COVID-19 viral pneumonia. Agree with continued steroids and consideration of increasing the steroid dose to 6 mg twice daily. Please call should her CODE STATUS change or we can be of further assistance. History of Present Illness Reason for Consultation: Respiratory failure secondary to COVID-19/ARDs Requesting Physician: Dr. Lan Attending Physician: William Ansari MD History of Present Illness Attending: Dr. Rodriguez Patient admitted on 03/06/2021 and found to be positive for Covid. She is started on remdesivir and dexamethasone. She completed 5 days of remdesivir but is not improved clinically. Since admission she has required either high flow O2 or positive air pressure. She does not do well with the BiPAP. And does not like the high flow. She currently is on CPAP with an FiO2 of 100%. She has rapid shallow breathing. I did have extensive discussion with her about CODE S TATUS and she does not wish to have mechanical ventilation I explained to her that we were out of medical options and that would be the next step. She adamantly denied mechanical ventilation. She has been to contact her Andrew which I did. He affirmed that if that is what she wanted that he agreed with her wishes. Patient does have crackles on examination. She has decreased airflow in all lung zones. Repeat chest x-ray is pending. Patient denies any fever, chills, sweats, rigors. She denies any abdominal pain. She denies any nausea or vomiting. She further denies any lower extremity pain. There is no evidence of asymmetrical edema of the lower extremities. Allergies Allergy/AdvReac Type Severity Reaction Status Date / Time No Known Allergies Allergy Unknown Verified 03/06/21 09:52 Home Medications Medication Instructions Recorded Confirmed Type No Known Home Medications 03/06/21 03/06/21 History Patient History Medical History GERD (gastroesophageal reflux disease) Surgical History History of bilateral cataract extraction History of section Family History Mother Lung disease Father Stroke Sister Heart disease Social History Smoking Status: Never smoker Hx Alcohol Use: No Hx Substance Use: No Preferred Language: Thai Communication Ability: Effective Jet Wiper Required: No Beliefs That Will Affect Care: None Current Living Situation: Spouse Other Information That Helps Us Care for You: No Feels Safe at Home: Yes Safety Concerns: Feels Safe At This Time Assistive Devices: CPAP and Oxygen - Continuous Review of Systems Review of Systems: All systems reviewed & are unremarkable except as noted in Subjective Physical Exam Physical Exam: GENERAL : Moderate distress. Using accessory muscles. Rapid shallow breaths. EYES: No icterus, gaze conjugate. Pupils equal round react to light. NOSE: No evidence of epistaxis. CPAP mask in place MOUTH: No lesions or candidiasis NECK: Supple LUNGS: Decreased breath sounds throughout. Bibasilar crackles. HEART: Regular, rate is in the 90s ABDOMEN: Soft, NT, ND, BS Present EXTREMITIES: No LE edema, pedal pulses intact and equal bilaterally. Feet are warm to touch. NEURO: Awake and alert. Moves all extremities. Follows commands. Results & Data Results & Data ([facility]) Vital Signs (Past 12 Hours) Vital Signs Temp Pulse Pulse Resp BP BP Pulse Ox 03/14/21 12:15 37.9 C H 105 H 24 131/82 88 L 03/14/21 10:59 102 H 41 H 86 L 03/14/21 08:14 37.4 C 87 22 139/88 93 03/14/21 07:17 84 40 H 91 03/14/21 03:46 36.5 C 87 34 H 119/89 91 03/14/21 02:25 69 25 H 92 Laboratory Results 03/10/21 07:47 03/14/21 06:52 COVID-19 Results 03/06/21 09:20 SARS-CoV-2 (PCR) POSITIVE A* 03/06/21 03/14/21 12:05 09:28 ABG pH 7.44 7.50 H ABG pCO2 42 38 ABG pO2 74 L 78 L ABG HCO3 28 H 29 H ABG O2 Saturation 95.5 H 96.5 H ABG Base Excess 3.4 H 5.6 H Diagnostic Findings Chest X-Ray 03/14/21 12:57 XR chest 1V portable CLINICAL HISTORY: Covid pneumonia. Difficulty breathing. Follow-up multifocal airspace opacities. COMPARISON STUDY: 03/12/2021 TECHNIQUE: 1 view of the chest FINDINGS: Single frontal view of the chest demonstrates the cardiomediastinal silhouette to be within normal limits. Compared to previous examination, patchy interstitial and alveolar opacities are again seen predominantly in both lung bases but also in the upper lobes to a lesser extent. There is also evidence for left basilar atelectasis small left pleural effusion. There is no evidence for vascular congestion. There is no acute osseous pathology. IMPRESSION: Persistent patchy interstitial and alveolar opacities particularly at the lung bases but also involving the upper lobes bilaterally. Left basilar atelectasis and small left pleural effusion are also seen. ACT 112: Negative or not required by law. Electronically signed by: Quincy Villegas M.D. 03/14/2021 2:49 PM PG Care Time/CCT Total # of Minutes Spent Total Time Spent with Patient: Total time spent is greater than 50% in coordination of care (as documented) at patient's floor/unit and/or counseling patient:45 minutes Coding Level of Care Code 31129 Inpt Consult Level 4 Diagnoses Acute respiratory failure with hypoxia J96.01 Acute respiratory distress syndrome (ARDS) due to 2019 novel coronavirus U07.1; J80 Code status needs review Time Spent (min) 45
[2021-03-14] MEDS: cefTRIAXone SODIUM 1,000 MG in DEXTROSE 5% 50 ML IV SCH (13:56)
--- NOTE | 2021-03-14 14:51 | XRay Report ---
XR chest 1V portable CLINICAL HISTORY: Covid pneumonia. Difficulty breathing. Follow-up multifocal airspace opacities. COMPARISON STUDY: 03/12/2021 TECHNIQUE: 1 view of the chest FINDINGS: Single frontal view of the chest demonstrates the cardiomediastinal silhouette to be within normal li mits. Compared to previous examination, patchy interstitial and alveolar opacities are again seen pre dominantly in both lung bases but also in the upper lobes to a lesser extent. There is also evidence for left basilar atelectasis small left pleural effusion. There is no evidence for vascular congestio n. There is no acute osseous pathology. IMPRESSION: Persistent patchy interstitial and alveolar opacities particularly at the lung bases but also involving the upper lobes bilaterally. Left basilar atelectasis and small left pleural effusion are also seen. ACT 112: Negative or not required by law. Electronically signed by: Quincy Villegas M.D. 03/14/2021 2:49 PM
--- NOTE | 2021-03-14 19:52 | Hospitalist Progress Note ---
Date of Service March 14, 2021 Assessment & Plan (1) Acute respiratory failure with hypoxia: (2) Pneumonia due to COVID-19 virus: (3) Hypoxia: Plan: Acute respiratory failure with hypoxia ARDS COVID-19 pneumonia Diagnosed COVID-19 positive on 03/06/2021 --CTA:No CTA evidence for pulmonary embolus. Extensive groundglass opacities are present throughout both lungs characteristic of a viral type pneumonitis and Covid 19 pneumonia.XR: -Continue CPAP/high flow oxygen DNI DNR as per patient, spouse Not a candidate for ECMO as per pulmonary Completed remdesivir course Continue dexamethasone Consulted palliative care to address goals of care Appreciate pulmonary input Continue Lasix 60 mg IV CRP:14.4 Urinary tract infection-POA Urine culture growing E. coli On Rocephin (4) Elevated LFTs: Plan: Minimally elevated monitor (5) Sepsis: Plan: Sepsisin setting of COVID19 pneumonia, UTI Plan: DVT Px: Lovenox SQ Code status DNI/DNR as per patient/Family- Admission and Anticipated Discharge Date Admission Date: March 06, 2021 Subjective Patient is seen and examined at bedside States having generalized weakness, tiredness and dyspnea Offers no other complaints Currently on BiPAP Discussed with pulmonology Also updated patient's over the phone Review of Systems Review of Systems: All systems reviewed & are unremarkable except as noted in Subjective Physical Exam Physical Exam: Physical Exam: Vitals signs as noted above General Appearance:Moderately built and nourished, no apparent distress Head: normocephalic, Atraumatic Eyes: normal inspection, EOMI Neck: supple, Trachea midline Respiratory/Chest: Decreased breath sounds, CTA Cardiovascular: S1, S2, No murmur Abdomen/GI:Soft, Non tender, Bowel sounds present Extremities/Musculoskeletal:normal inspection, no edema Neurologic/Psych:AAOX3, grossly no focal neurological deficits Skin: normal color, warm Results & Data Results & Data ([facility]) Vital Signs (Past 12 Hours) Vital Signs Temp Pulse Pulse Resp BP BP Pulse Ox 03/14/21 19:31 36.5 C 97 H 38 H 121/81 90 03/14/21 17:45 92 H 36 H 90 03/14/21 16:49 37.6 C H 96 H 24 118/81 91 03/14/21 14:22 94 H 32 H 92 03/14/21 12:15 37.9 C H 105 H 24 131/82 88 L 03/14/21 10:59 102 H 41 H 86 L 03/14/21 08:14 37.4 C 87 22 139/88 93 Laboratory Results [facility] 03/14/21 06:52 Sodium 133 L Potassium 4.0 Chloride 97 L Carbon Dioxide 28 BUN 40 H Creatinine 0.97 Glucose 178 H Calcium 9.0 Liver Function 03/14/21 Range/Units 06:52 Total Bilirubin 0.8 (0.2-1) mg/dl AST 24 (15-37) U/L ALT 35 (12-78) U/L Alkaline Phosphatase 114 (45-117) U/L Albumin 2.1 L (3.4-5.0) gm/dl
[2021-03-15 08:25] LABS: Basophils # (auto) 0.01 K/uL (0-0.2); Basophils % (auto) 0.1 %; Eosinophils # (auto) 0.01 K/uL (0-0.5); Eosinophils % (auto) 0.1 %; Hematocrit (blood only) 44.8 % (37-47); Hemoglobin 15.4 g/dL (12.0-16.0); Immature Granulocytes % (auto) 0.6 %; Lymphocytes # (auto) 0.76 K/uL (1.2-3.4); Lymphocytes % (auto) 4.6 %; Mean Corpuscular Hemoglobin 32.8 pg (25-34); Mean Corpuscular Hgb Conc 34.4 g/dL (32-36); Mean Corpuscular Volume 95.3 fL (80-100); Mean Platelet Volume 12.5 fL (7.4-10.4); Monocytes % (auto) 3.6 %; Neutrophils # (auto) 15.05 K/uL (1.4-6.5); Platelet Count 378 K/uL (130-400); RDW Coefficient of Variation 12.8 % (11.5-14.5); RDW Standard Deviation 44.8 fL (36.4-46.3); White Blood Count 16.53 K/uL (4.8-10.8)
[2021-03-15 08:58] LABS: BUN Creatinine Ratio 66.7 (10-20); Calcium 9.1 mg/dl (8.5-10.1); Creatinine Clr Calc Pharmacy 70.4 ml/min; Est GFR (African American) 105.2 ml/min; Est GFR (Non-African American) 90.8 ml/min; Potassium 4.2 mmol/L (3.5-5.1)
[2021-03-15] MEDS: dexAMETHasone 6 MG in SYRINGE 0 ML IV SCH (09:15)
[2021-03-15] MEDS: ENOXAPARIN INJ 40 MG/0.4 ML SYR SQ SCH (09:15)
[2021-03-15] MEDS: guaiFENesin 600 MG TABCR PO SCH ×2 (09:15→21:18)
[2021-03-15] MEDS: cefTRIAXone SODIUM 1,000 MG in DEXTROSE 5% 50 ML IV SCH (10:15)
--- NOTE | 2021-03-15 16:56 | Hospitalist Progress Note ---
Date of Service March 15, 2021 Assessment & Plan (1) Acute respiratory failure with hypoxia: (2) Pneumonia due to COVID-19 virus: (3) Hypoxia: Plan: Acute respiratory failure with hypoxia ARDS COVID-19 pneumonia Diagnosed COVID-19 positive on 03/06/2021 --CTA:No CTA evidence for pulmonary embolus. Extensive groundglass opacities are present throughout both lungs characteristic of a viral type pneumonitis and Covid 19 pneumonia.XR: -Continue CPAP/high flow oxygen DNI DNR as per patient, spouse Not a candidate for ECMO as per pulmonary Completed remdesivir course Continue dexamethasone Consulted palliative care to address goals of care Appreciate pulmonary input Continue Lasix 40mg CRP:14.4 Currently on BiPAP: 90% FiO2 Urinary tract infection-POA Urine culture growing E. coli On Rocephin (4) Elevated LFTs: Plan: Minimally elevated monitor (5) Sepsis: Plan: Sepsisin setting of COVID19 pneumonia, UTI Plan: DVT Px: Lovenox SQ Code status DNI/DNR as per patient/Family- Admission and Anticipated Discharge Date Admission Date: March 06, 2021 Subjective Patient is seen and examined at bedside States having productive cough Currently on BiPAP Denies any significant dyspnea while on BiPAP Offers no other complaints Review of Systems Review of Systems: All systems reviewed & are unremarkable except as noted in Subjective Physical Exam Physical Exam: Physical Exam: Vitals signs as noted above General Appearance:Moderately built and nourished, no apparent distress Head: normocephalic, Atraumatic Eyes: normal inspection, EOMI Neck: supple, Trachea midline Respiratory/Chest: Decreased coarse breath sounds Cardiovascular: S1, S2, No murmur Abdomen/GI:Soft, Non tender, Bowel sounds present Extremities/Musculoskeletal:normal inspection, no edema Neurologic/Psych:AAOX3, grossly no focal neurological deficits Skin: normal color, warm Results & Data Results & Data ([facility]) Vital Signs (Past 12 Hours) Vital Signs Temp Pulse Pulse Resp BP BP Pulse Ox 03/15/21 15:29 36.6 C 79 22 140/74 92 03/15/21 15:05 23 92 03/15/21 12:38 92 H 03/15/21 12:06 36.6 C 108 H 19 122/90 88 L 03/15/21 11:58 92 H 28 H 92 03/15/21 08:36 36.6 C 102 H 32 H 146/97 H 90 03/15/21 06:19 82 30 H 95 03/15/21 06:18 94 03/15/21 05:31 36.6 C 100 H 32 H 127/78 90 Laboratory Results Short CBC 03/15/21 Range/Units 07:46 WBC 16.53 H (4.8-10.8) K/uL Hgb 15.4 (12.0-16.0) g/dL Hct 44.8 (37-47) % Plt Count 378 (130-400) K/uL [facility] 03/15/21 07:46 Sodium 136 Potassium 4.2 Chloride 98 Carbon Dioxide 30 BUN 44 H Creatinine 0.66 D Glucose 132 H Calcium 9.1
[2021-03-16 07:45] LABS: Basophils # (auto) 0.01 K/uL (0-0.2); Basophils % (auto) 0.1 %; Hematocrit (blood only) 45.4 % (37-47); Hemoglobin 15.2 g/dL (12.0-16.0); Immature Granulocytes # (auto) 0.11 K/uL (0.00-0.02); Immature Granulocytes % (auto) 0.7 %; Lymphocytes # (auto) 1.36 K/uL (1.2-3.4); Lymphocytes % (auto) 8.9 %; Mean Corpuscular Hemoglobin 32.1 pg (25-34); Mean Corpuscular Hgb Conc 33.5 g/dL (32-36); Mean Corpuscular Volume 95.8 fL (80-100); Mean Platelet Volume 12.4 fL (7.4-10.4); Monocytes # (auto) 0.04 K/uL (0.11-0.59); Monocytes % (auto) 0.3 %; Neutrophils # (auto) 13.75 K/uL (1.4-6.5); Platelet Count 374 K/uL (130-400); RDW Coefficient of Variation 12.6 % (11.5-14.5); RDW Standard Deviation 44.1 fL (36.4-46.3); Red Blood Count 4.74 M/uL (4.2-5.4); White Blood Count 15.27 K/uL (4.8-10.8)
[2021-03-16 08:12] LABS: C Reactive Protein 6.74 mg/dl (0-0.29); Calcium 8.9 mg/dl (8.5-10.1); Creatinine Clr Calc Pharmacy 57.9 ml/min; Est GFR (African American) 89.1 ml/min; Est GFR (Non-African American) 76.9 ml/min; Potassium 4.6 mmol/L (3.5-5.1)
[2021-03-16] MEDS: ENOXAPARIN INJ 40 MG/0.4 ML SYR SQ SCH (08:34)
[2021-03-16] MEDS: cefTRIAXone SODIUM 1,000 MG in DEXTROSE 5% 50 ML IV SCH (08:34)
[2021-03-16] MEDS: guaiFENesin 600 MG TABCR PO SCH ×2 (08:34→21:57)
[2021-03-16] MEDS: dexAMETHasone 6 MG in SYRINGE 0 ML IV SCH (08:34)
[2021-03-16] MEDS ORDERED: FUROSEMIDE 40 MG/4 ML VIAL IV SCH (09:00)
--- NOTE | 2021-03-16 11:37 | Palliative Care Consultation ---
Date of Consultation March 16, 2021 Assessment & Plan (1) Palliative care encounter: Ms. Rodriguez is a 70 year old female who presented to the [facility] with syncope while she was in the shower. She had 10 days of symptoms and then tested positive for covid. She is unvaccinated. She completed the Remdesivir course and has been rotating between Bipap and Hi-flow oxygen. She has stated on numerous occasions that she would NOT want to be intubated. Additional PMH includes: GERD. Palliative Medicine was consulted to discuss overall goals of care. I talked with Miladys in her room. She was on Hi-Flow 100% 60L and using accessory muscle to breathe. She is really PAMUNKEY. We talked about her being on Bipap and now Hi-Flow.She was clear she did not want to be intubated. She did say that she felt like things were improving, despite her accessory muscle use. We talked about having Morphine available for air hunger, but what continued Morphine use would mean, indicating she would likely eventually pass away. She did say she was not ready for even PRN Morphine use. For now, she is comfortable with continued care and Bipap use if necessary. Again, confirmed no intubated, knowing that would mean she would pass away. She verbailized understanding. (2) Hypoxia: (3) Pneumonia due to COVID-19 virus: History of Present Illness Reason for Consultation: goals of care Requesting Physician: Dr. Ansari Attending Physician: William Ansari MD History of Present Illness Ms. Rodriguez is a 70 year old female who presented to the [facility] with syncope while she was in the shower. She had 10 days of symptoms and then tested positive for covid. She is unvaccinated. She completed the Remdesivir course and has been rotating between Bipap and Hi-flow oxygen. She has stated on numerous occasions that she would NOT want to be intubated. Additional PMH includes: GERD. Palliative Medicine was consulted to discuss overall goals of care. Please see A/P for further details. Thanks for involving Palliative Care with this individual. Allergies Allergy/AdvReac Type Severity Reaction Status Date / Time No Known Allergies Allergy Unknown Verified 03/06/21 09:52 Home Medications Medication Instructions Recorded Confirmed Type No Known Home Medications 03/06/21 03/06/21 History Patient History Medical History (Updated 03/16/21 @ 15:33 by TRENTON Montelongo) GERD (gastroesophageal reflux disease) Hypoxia Palliative care encounter Surgical History History of bilateral cataract extraction History of section Family History Mother Lung disease Father Stroke Sister Heart disease Social History Smoking Status: Never smoker Hx Alcohol Use: No Hx Substance Use: No Preferred Language: German Communication Ability: Effective Poultry Hanger Required: No Beliefs That Will Affect Care: None Current Living Situation: Spouse Other Information That Helps Us Care for You: No Feels Safe at Home: Yes Safety Concerns: Feels Safe At This Time Assistive Devices: Oxygen - Continuous Review of Systems Review of Systems: [place] System Assessment Scale: Pain: 0/3 SOB: 3/3 Anxiety: 1/3/ Palliative Performance Scale: 40% Physical Exam Constitutional: + ill appearing and cooperative Respiratory: + uses accessory muscles Auscultation: + rhonchi Cardiovascular: Rate/Rhythm: regular rate and regular rhythm Extremities: normal capillary refill Gastrointestinal (Abdomen): Inspection/Auscultation: abdomen normal to inspection Psychiatric: Orientation: alert and oriented x 3 Results & Data ([facility]) Vital Signs (Past 12 Hours) Vital Signs Temp Pulse Pulse Resp BP BP Pulse Ox 03/16/21 11:32 37.0 C 112 H 26 H 128/78 88 L 03/16/21 11:16 110 H 26 H 89 L 03/16/21 07:17 36.9 C 85 21 144/83 H 89 L 03/16/21 05:17 98 H 26 H 91 03/16/21 03:30 37.1 C 73 22 119/63 91 03/16/21 02:32 65 22 89 L 03/16/21 00:01 98 H 03/15/21 23:42 36.9 C 85 21 151/88 H 90 PG Care Time/CCT Total # of Minutes Spent Total Time Spent with Patient: Total time spent is greater than 50% in coordination of care (as documented) at patient's floor/unit and/or counseling patient: 70 minutes Coding Level of Care Code 20683 Initial Inpt Care Lvl 3 Diagnoses Palliative care encounter Z51.5 Hypoxia R09.02 Pneumonia due to COVID-19 virus U07.1; J12.82 Time Spent (min) 70
--- NOTE | 2021-03-16 19:33 | Hospitalist Progress Note ---
Date of Service March 16, 2021 Assessment & Plan (1) Acute respiratory failure with hypoxia: (2) Pneumonia due to COVID-19 virus: (3) Hypoxia: Plan: Acute respiratory failure with hypoxia ARDS COVID-19 pneumonia Diagnosed COVID-19 positive on 03/06/2021 --CTA:No CTA evidence for pulmonary embolus. Extensive groundglass opacities are present throughout both lungs characteristic of a viral type pneumonitis and Covid 19 pneumonia.XR: -Continue CPAP/high flow oxygen DNI DNR as per patient, spouse Not a candidate for ECMO as per pulmonary Completed remdesivir course Continue dexamethasone Consulted palliative care to address goals of care Appreciate pulmonary input Continue Lasix 40mg CRP:14.4 Currently on high flow oxygen Plan to repeat chest x-ray tomorrow Urinary tract infection-POA Urine culture growing E. coli On Rocephin (4) Elevated LFTs: Plan: Minimally elevated monitor (5) Sepsis: Plan: Sepsisin setting of COVID19 pneumonia, UTI Plan: DVT Px: Lovenox SQ Code status DNI/DNR as per patient/Family- Admission and Anticipated Discharge Date Admission Date: March 06, 2021 Subjective Patient is seen and examined at bedside States feeling better today Still has cough with expectoration Currently on high flow oxygen Updated patient's family over the phone Review of Systems Review of Systems: All systems reviewed & are unremarkable except as noted in Subjective Physical Exam Physical Exam: Physical Exam: Vitals signs as noted above General Appearance:Moderately built and nourished, no apparent distress Head: normocephalic, Atraumatic Eyes: normal inspection, EOMI Neck: supple, Trachea midline Respiratory/Chest: Decreased breath sounds, minimal basal crackles Cardiovascular: S1, S2, No murmur Abdomen/GI:Soft, Non tender, Bowel sounds present Extremities/Musculoskeletal:normal inspection, no edema Neurologic/Psych:AAOX3, grossly no focal neurological deficits Skin: normal color, warm Results & Data Results & Data ([facility]) Vital Signs (Past 12 Hours) Vital Signs Temp Pulse Pulse Resp BP Pulse Ox 03/16/21 19:19 36.8 C 96 H 22 129/90 91 03/16/21 18:06 89 30 H 87 L 03/16/21 15:45 91 H 30 H 87 L 03/16/21 15:23 36.8 C 103 H 20 118/73 90 03/16/21 11:37 83 03/16/21 11:32 37.0 C 112 H 26 H 128/78 88 L 03/16/21 11:16 110 H 26 H 89 L Laboratory Results Short CBC 03/16/21 Range/Units 07:19 WBC 15.27 H (4.8-10.8) K/uL Hgb 15.2 (12.0-16.0) g/dL Hct 45.4 (37-47) % Plt Count 374 (130-400) K/uL BMP 03/16/21 07:19 Sodium 136 Potassium 4.6 Chloride 98 Carbon Dioxide 29 BUN 40 H Creatinine 0.79 Glucose 135 H Calcium 8.9
[2021-03-17 06:04] LABS: Basophils # (auto) 0.02 K/uL (0-0.2); Basophils % (auto) 0.1 %; Eosinophils # (auto) 0.03 K/uL (0-0.5); Eosinophils % (auto) 0.2 %; Hemoglobin 15.4 g/dL (12.0-16.0); Immature Granulocytes # (auto) 0.22 K/uL (0.00-0.02); Immature Granulocytes % (auto) 1.3 %; Lymphocytes # (auto) 0.93 K/uL (1.2-3.4); Lymphocytes % (auto) 5.6 %; Mean Corpuscular Hgb Conc 33.5 g/dL (32-36); Mean Corpuscular Volume 95.6 fL (80-100); Mean Platelet Volume 12.3 fL (7.4-10.4); Monocytes % (auto) 6.1 %; Neutrophils # (auto) 14.29 K/uL (1.4-6.5); Neutrophils % (auto) 86.7 %; Platelet Count 382 K/uL (130-400); RDW Coefficient of Variation 12.6 % (11.5-14.5); RDW Standard Deviation 43.8 fL (36.4-46.3); Red Blood Count 4.81 M/uL (4.2-5.4); White Blood Count 16.49 K/uL (4.8-10.8)
[2021-03-17 06:31] LABS: BUN Creatinine Ratio 51.6 (10-20); Calcium 8.9 mg/dl (8.5-10.1); Creatinine Clr Calc Pharmacy 64.1 ml/min; Est GFR (African American) 101.4 ml/min; Est GFR (Non-African American) 87.5 ml/min; Potassium 4.4 mmol/L (3.5-5.1)
--- NOTE | 2021-03-17 08:12 | XRay Report ---
XR chest 1V portable CLINICAL HISTORY: COVID COMPARISON STUDY: Chest CT March 06, 2021. Chest radiograph March 14, 2021. FINDINGS: Lung volumes are normal. No pneumothorax or pleural effusion is identified. Cardiomegaly is unchanged. Bilateral lower lobe consolidation persists. Additional airspace opacities within the rem ainder of the lungs are similar to prior exam. IMPRESSION: No significant change in extensive bilateral airspace opacities suggestive of viral pneu monia. ACT 112: Negative or not required by law. Electronically signed by: Artie Brunner M.D. 03/17/2021 8:11 AM
[2021-03-17] MEDS: ENOXAPARIN INJ 40 MG/0.4 ML SYR SQ SCH (08:46)
[2021-03-17] MEDS: FUROSEMIDE INJ 20 MG/2 ML VIAL IV SCH (08:46)
[2021-03-17] MEDS: cefTRIAXone SODIUM 1,000 MG in DEXTROSE 5% 50 ML IV SCH (08:47)
[2021-03-17] MEDS: guaiFENesin 600 MG TABCR PO SCH ×2 (08:47→21:10)
--- NOTE | 2021-03-17 19:32 | Hospitalist Progress Note ---
Date of Service March 17, 2021 Assessment & Plan (1) Acute respiratory failure with hypoxia: (2) Pneumonia due to COVID-19 virus: (3) Hypoxia: Plan: Acute respiratory failure with hypoxia ARDS COVID-19 pneumonia Diagnosed COVID-19 positive on 03/06/2021 --CTA:No CTA evidence for pulmonary embolus. Extensive groundglass opacities are present throughout both lungs characteristic of a viral type pneumonitis and Covid 19 pneumonia.XR: -Continue CPAP/high flow oxygen DNI DNR as per patient, spouse Not a candidate for ECMO as per pulmonary Completed remdesivir course Continue dexamethasone Consulted palliative care to address goals of care Appreciate pulmonary input Continue Lasix 40mg CRP:14.4 Currently on high flow oxygen Chest x-ray remains unchanged Continue current management Urinary tract infection-POA Urine culture growing E. coli On Rocephin (4) Elevated LFTs: Plan: Minimally elevated monitor (5) Sepsis: Plan: Sepsisin setting of COVID19 pneumonia, UTI Plan: DVT Px: Lovenox SQ Code status DNI/DNR as per patient/Family- Admission and Anticipated Discharge Date Admission Date: March 06, 2021 Subjective Patient is seen and examined at bedside Chest x-ray showed no significant change Remains on high flow oxygen States having persistent cough with expectoration No new complaints Review of Systems Review of Systems: All systems reviewed & are unremarkable except as noted in Subjective Physical Exam Physical Exam: Physical Exam: Vitals signs as noted above General Appearance:Moderately built and nourished, no apparent distress Head: normocephalic, Atraumatic Eyes: normal inspection, EOMI Neck: supple, Trachea midline Respiratory/Chest: Decreased breath sounds, basal crackles Cardiovascular: S1, S2, No murmur Abdomen/GI:Soft, Non tender, Bowel sounds present Extremities/Musculoskeletal:normal inspection, no edema Neurologic/Psych:AAOX3, grossly no focal neurological deficits Skin: normal color, warm Results & Data Results & Data ([facility]) Vital Signs (Past 12 Hours) Vital Signs Temp Pulse Pulse Resp BP Pulse Ox Pulse Ox 03/17/21 19:04 36.5 C 94 H 21 136/75 93 03/17/21 15:43 103 H 03/17/21 15:40 101 H 26 H 91 03/17/21 15:35 36.8 C 108 H 18 123/94 90 03/17/21 12:00 93 03/17/21 11:51 36.9 C 105 H 22 123/76 90 03/17/21 11:30 106 H 28 H 90 03/17/21 07:42 83 28 H 92 03/17/21 07:32 87 Laboratory Results Short CBC 03/17/21 Range/Units 05:48 WBC 16.49 H (4.8-10.8) K/uL Hgb 15.4 (12.0-16.0) g/dL Hct 46.0 (37-47) % Plt Count 382 (130-400) K/uL [facility] 03/17/21 05:48 Sodium 136 Potassium 4.4 Chloride 97 L Carbon Dioxide 30 BUN 36 H Creatinine 0.71 Glucose 105 H Calcium 8.9
[2021-03-18] MEDS: guaiFENesin 600 MG TABCR PO SCH ×2 (09:03→20:11)
[2021-03-18] MEDS: FUROSEMIDE INJ 20 MG/2 ML VIAL IV SCH (09:04)
[2021-03-18] MEDS: ENOXAPARIN INJ 40 MG/0.4 ML SYR SQ SCH (09:04)
--- NOTE | 2021-03-18 17:13 | Hospitalist Progress Note ---
Date of Service March 18, 2021 Assessment & Plan (1) Acute respiratory failure with hypoxia: (2) Pneumonia due to COVID-19 virus: (3) Hypoxia: Plan: Acute respiratory failure with hypoxia ARDS COVID-19 pneumonia Diagnosed COVID-19 positive on 03/06/2021 --CTA:No CTA evidence for pulmonary embolus. Extensive groundglass opacities are present throughout both lungs characteristic of a viral type pneumonitis and Covid 19 pneumonia.XR: -Continue CPAP/high flow oxygen DNI DNR as per patient, spouse Not a candidate for ECMO as per pulmonary Completed remdesivir course Completed dexamethasone course Consulted palliative care to address goals of care Appreciate pulmonary input Continue Lasix 20mg CRP:14.4 Currently on high flow oxygen Continue to Prone Transition to BiPAP PRN Urinary tract infection-POA Urine culture growing E. coli Completed Rocephin course (4) Elevated LFTs: Plan: Minimally elevated monitor (5) Sepsis: Plan: Sepsisin setting of COVID19 pneumonia, UTI Plan: DVT Px: Lovenox SQ Code status DNI/DNR as per patient/Family- Admission and Anticipated Discharge Date Admission Date: March 06, 2021 Subjective Patient is seen and examined at bedside Was proning during my encounter Patient states feeling less dyspneic with proning Currently on 100% FiO2, High Flow oxygen Reports cough with expectoration No other complaints Review of Systems Review of Systems: All systems reviewed & are unremarkable except as noted in Subjective Physical Exam Physical Exam: Physical Exam: Vitals signs as noted above General Appearance:Moderately built and nourished, no apparent distress Head: normocephalic, Atraumatic Eyes: normal inspection, EOMI Neck: supple, Trachea midline Respiratory/Chest: Decreased breath sounds, basal crackles Cardiovascular: S1, S2, No murmur Abdomen/GI:Soft, Non tender, Bowel sounds present Extremities/Musculoskeletal:normal inspection, no edema Neurologic/Psych:AAOX3, grossly no focal neurological deficits Skin: normal color, warm Results & Data Results & Data ([facility]) Vital Signs (Past 12 Hours) Vital Signs Temp Pulse Pulse Resp BP BP Pulse Ox 03/18/21 15:30 36.9 C 99 H 25 H 134/72 89 L 03/18/21 15:10 97 H 30 H 92 03/18/21 12:00 03/18/21 11:37 95 H 24 90 03/18/21 11:20 37.0 C 81 26 H 116/75 91 03/18/21 07:43 36.9 C 96 H 20 137/78 91 03/18/21 07:40 96 H 28 H 88 L 03/18/21 07:34 88 Pulse Ox 03/18/21 15:30 03/18/21 15:10 03/18/21 12:00 92 03/18/21 11:37 03/18/21 11:20 03/18/21 07:43 03/18/21 07:40 03/18/21 07:34
[2021-03-18] MEDS: methylPREDNISolone 40 MG in SYRINGE 0 ML IV SCH (18:02)
[2021-03-18] MEDS: LEVALBUTEROL HCL 1.25 MG/3 ML NEB NEB PRN (20:20)
[2021-03-19] MEDS ORDERED: XOPENEX/ATROVENT 1.25mg/0.5MG NEB COMBO NEB STA (00:13)
[2021-03-19] MEDS ORDERED: IPRATROPIUM BROMIDE NEB SOLN 0.02% 2.5 ML VIAL INH STA (00:14)
[2021-03-19] MEDS ORDERED: LEVALBUTEROL 1.25MG/0.5ML NEB INH STA (00:14)
[2021-03-19] MEDS ORDERED: methylPREDNISolone 40 MG in SYRINGE 0 ML IV ONE (00:30)
[2021-03-19] MEDS ORDERED: DOXYCYCLINE HYCLATE 100 MG in DEXTROSE 5% 100 ML IV ONE (00:30)
[2021-03-19 01:11] LABS: Basophils # (auto) 0.02 K/uL (0-0.2); Basophils % (auto) 0.1 %; Eosinophils # (auto) 0.01 K/uL (0-0.5); Eosinophils % (auto) 0.1 %; Hematocrit (blood only) 44.3 % (37-47); Hemoglobin 15.2 g/dL (12.0-16.0); Immature Granulocytes # (auto) 0.23 K/uL (0.00-0.02); Immature Granulocytes % (auto) 1.5 %; Lymphocytes # (auto) 0.44 K/uL (1.2-3.4); Lymphocytes % (auto) 2.8 %; Mean Corpuscular Hemoglobin 32.6 pg (25-34); Mean Corpuscular Hgb Conc 34.3 g/dL (32-36); Mean Corpuscular Volume 95.1 fL (80-100); Mean Platelet Volume 12.6 fL (7.4-10.4); Monocytes # (auto) 0.28 K/uL (0.11-0.59); Monocytes % (auto) 1.8 %; Neutrophils # (auto) 14.51 K/uL (1.4-6.5); Neutrophils % (auto) 93.7 %; Platelet Count 339 K/uL (130-400); RDW Coefficient of Variation 12.8 % (11.5-14.5); RDW Standard Deviation 44.4 fL (36.4-46.3); Red Blood Count 4.66 M/uL (4.2-5.4); White Blood Count 15.49 K/uL (4.8-10.8)
[2021-03-19 01:28] LABS: BUN Creatinine Ratio 34.6 (10-20); Calcium 9.1 mg/dl (8.5-10.1); Creatinine Clr Calc Pharmacy 53.9 ml/min; Est GFR (African American) 82.2 ml/min; Est GFR (Non-African American) 70.9 ml/min; Magnesium 2.7 mg/dl (1.8-2.4); Potassium 4.5 mmol/L (3.5-5.1)
[2021-03-19 01:35] LABS: C Reactive Protein 24.7 mg/dl (0-0.29)
[2021-03-19] MEDS ORDERED: FUROSEMIDE INJ 20 MG/2 ML VIAL IV ONE (01:41)
[2021-03-19] MEDS ORDERED: ALBUMIN 25% 100 mL 25 GM/100 ML VIAL IV ONE (01:43)
--- NOTE | 2021-03-19 01:48 | Communication Note ---
Date of Service: March 19, 2021 Made aware by RN of worsening respiratory distress, hypoxemia this a.m. Serum sodium noted to be 130 with a.m. labs Hold Lasix for now.
--- NOTE | 2021-03-19 07:59 | XRay Report ---
XR chest 1V portable CLINICAL HISTORY: Shortness of breath. COMPARISON STUDY: Chest CT March 06, 2021 chest radiograph March 17, 2021. FINDINGS: There has been interval development of radiolucencies within the mediastinum, including lyla ency outlining the cardiac silhouette since prior examination. Extensive bilateral airspace opacities are noted. Lung aeration has mildly improved. Lucency at the right lung apex is noted. This could re flect pneumomediastinum or small right apical pneumothorax. IMPRESSION: 1. Interval development of moderate pneumomediastinum. Lucency outlining the cardiac silhouette may r epresent pneumomediastinum or pneumopericardium. A chest CT could be obtained for further evaluation. This finding will be called/faxed to the ordering provider at time of dictation. 2. Lucency within the right lung apex. This could represent pneumomediastinum or artifact. However, a small right pneumothorax could appear similar. 3. Extensive bilateral airspace opacities consistent with viral pneumonia, improved since prior exam. ACT 112: Negative or not required by law. Electronically signed by: Artie Brunner M.D. 03/19/2021 7:57 AM
[2021-03-19] MEDS ORDERED: SODIUM CHLORIDE 0.9% 500 ML IV ONE (08:11)
[2021-03-19] MEDS ORDERED: OPTIRAY 320 125ml IV ONE (09:47)
--- NOTE | 2021-03-19 10:10 | CT Scan Report ---
CT angio chest PE protocol CLINICAL HISTORY: PE Covid pneumonia TECHNIQUE: Multidetector row helical CT of the chest was performed. Coronal and sagittal reformations were obtained. Automated dose lowering techniques and/or adjustment according to patient size were u tilized for this exam. Comparison: Comparison is made to CT chest 03/06/2021 and chest 1 view 12 6 FINDINGS: Lungs and pleura: Multifocal groundglass opacities with prominence of consolidation most prominent in the dependent portions of the lung, likely representing evolutionary changes of Covid pneumonia. Heart and pericardium: Heart size is normal. No pericardial effusion. Vessels: No evidence of pulmonary embolism. Mediastinum and david: Subcentimeter lymph nodes are seen, most prominent in the aortopulmonary window . Pneumomediastinum and subcutaneous emphysema are seen. Chest wall and lower neck: Unremarkable. Abdomen: A hiatal hernia is seen. Bones: Unremarkable. IMPRESSION: 1. No evidence of pulmonary embolism. 2. Interval evolutionary changes of groundglass and consolidative opacities in this patient with his tory of Covid pneumonia. 3. Trace pneumomediastinum and subcutaneous emphysema, new from prior CT but unchanged from prior ra diograph. Of note, no right pneumothorax is seen. ACT 112: Negative or not required by law. Electronically signed by: Beck Gordon M.D. 03/19/2021 10:08 AM
[2021-03-19] MEDS: ENOXAPARIN INJ 40 MG/0.4 ML SYR SQ SCH (10:24)
[2021-03-19] MEDS: methylPREDNISolone 40 MG in SYRINGE 0 ML IV SCH (10:25)
[2021-03-19] MEDS: guaiFENesin 600 MG TABCR PO SCH ×2 (10:25→21:03)
--- NOTE | 2021-03-19 12:04 | Palliative Care Progress Note ---
Date of Service March 19, 2021 Assessment & Plan (1) Palliative care encounter: Plan: Pt remains on Maximum Hi-Flow today 100% FiO2 and 60L. She was able to tolerate proning. She was taken down to CT for a chest CT to r/o a pneumothorax. She was placed on CPAP for that transport to receive diagnostic imagine. I talked to her when she returned from CT. She told me that she felt like her cough was the worst part of her illness and felt like if she could drink a lot of water it would 'get better'. She continues to use accessory muscles to breath. She continues to be clear that she does want to be intubated. We talked about having Morphine available for air hunger, but what continued Morphine use would mean, indicating she would likely eventually pass away. She did say she was not ready for even PRN Morphine use. For now, she is comfortable with continued care and Bipap/CPAP use if necessary. Again, confirmed no intubated, knowing that would mean she would pass away. She verbalized understanding. I was able to talk to her Andrew at [phone] at length about the gravity of her illness. He is well aware of her prognosis. If she does end up becoming confused and unable to make the decision to continue with her current treatment plan, he will look towards transitioning her to comfort measures and keeping her comfortable as she dies. Adivsed that we will continuewithour current treatment plan for now. Encouraged him to keep talking on video calls with her - they had one video call today. Palliative will follow. (2) Hypoxia: (3) Pneumonia due to COVID-19 virus: Admission and Anticipated Discharge Date Admission Date: March 06, 2021 Subjective Pt seen today. Pt with hypoxemia and desaturation with taking her meds this AM, dropped into mid 70's. CTA pending. Review of Systems Review of Systems: [place] System Assessment Scale: Pain: 0/3 SOB: 3/3 Anxiety: 1/3/ Palliative Performance Scale: 40% Physical Exam Constitutional: + ill appearing and cooperative Respiratory: + uses accessory muscles Auscultation: + rhonchi Cardiovascular: Rate/Rhythm: regular rate and regular rhythm Extremities: normal capillary refill Gastrointestinal (Abdomen): Inspection/Auscultation: abdomen normal to inspection Psychiatric: Orientation: alert and oriented x 3 Results & Data ([facility]) Vital Signs (Past 12 Hours) Vital Signs Temp Pulse Resp BP BP Pulse Ox 03/19/21 11:17 95 H 27 H 86 L 03/19/21 10:56 36.6 C 95 H 29 H 147/74 H 86 L 03/19/21 07:01 36.7 C 102 H 28 H 133/70 88 L 03/19/21 03:36 36.6 C 101 H 23 131/75 90 03/19/21 03:30 93 H 28 H 90 03/19/21 02:00 119 H 48 H 87 L 03/19/21 00:27 118 H 44 H 90 03/19/21 00:00 50 H 89 L PG Care Time/CCT Total # of Minutes Spent Total Time Spent with Patient: Total time spent is greater than 50% in coordination of care (as documented) at patient's floor/unit and/or counseling patient: 35 minutes Coding Level of Care Code 16121 Subseq Hosp Care Lvl 3 Diagnoses Palliative care encounter Z51.5 Hypoxia R09.02 Pneumonia due to COVID-19 virus U07.1; J12.82 Time Spent (min) 35
[2021-03-19 12:45] LABS: Base Excess ABG 4.7 mEq/L (-9-1.8); HCO3 ABG 28 mmol/L (19-24); Oxygen Saturation ABG 82.6 % (90-95); PCO2 ABG 39 mmHg (35-46); PO2 ABG 45 mmHg (80-95); pH ABG 7.48 (7.35-7.45)
[2021-03-19 13:08] LABS: Allen Test Pos (Pos)
[2021-03-19] MEDS: dexAMETHasone 6 MG in SYRINGE 0 ML IV SCH (14:12)
--- NOTE | 2021-03-19 18:22 | Hospitalist Progress Note ---
Date of Service March 19, 2021 Assessment & Plan (1) Acute respiratory failure with hypoxia: (2) Pneumonia due to COVID-19 virus: (3) Hypoxia: Plan: Acute respiratory failure with hypoxia ARDS COVID-19 pneumonia Diagnosed COVID-19 positive on 03/06/2021 Pneumomediastinum --CTA:No CTA evidence for pulmonary embolus. Extensive groundglass opacities are present throughout both lungs characteristic of a viral type pneumonitis and Covid 19 pneumonia.XR: -Continue CPAP/high flow oxygen DNI DNR as per patient, spouse Not a candidate for ECMO as per pulmonary Completed remdesivir course Continue dexamethasone Consulted palliative care to address goals of care Appreciate pulmonary input Continue Lasix 20mg CRP:14.4>24.7 Currently on high flow oxygen Continue to Prone Patient continues to desaturate while on High Flow Imaging suggestive of Trace pneumomediastinum Patient prefers to be DNI DNR Appreciate palliative care Input Given risks versus benefits, will place patient on CPAP if she agrees with low PEEP settings to minimize barotrauma We'll repeat chest x-ray tomorrow Plan to utilize high flow oxygen mostly if able to maintain saturation Urinary tract infection-POA Urine culture growing E. coli Completed Rocephin course (4) Elevated LFTs: Plan: Minimally elevated monitor (5) Sepsis: Plan: Sepsisin setting of COVID19 pneumonia, UTI Plan: DVT Px: Lovenox SQ Code status DNI/DNR as per patient/Family- Admission and Anticipated Discharge Date Admission Date: March 06, 2021 Subjective Patient is seen and examined at bedside Patient continues to desaturate while on High Flow Imaging suggestive of Trace pneumomediastinum Patient prefers to be DNI DNR Updated patient's family over the phone Also discussed with palliative care Given risks versus benefits, will place patient on CPAP if she agrees with low PEEP settings to minimize barotrauma We'll repeat chest x-ray tomorrow She subjectively feels dyspnea is about the same as yesterday Reports minimal cough Review of Systems Review of Systems: All systems reviewed & are unremarkable except as noted in Subjective Physical Exam Physical Exam: Physical Exam: Vitals signs as noted above General Appearance:Moderately built and nourished, no apparent distress Head: normocephalic, Atraumatic Eyes: normal inspection, EOMI Neck: supple, Trachea midline Respiratory/Chest: Decreased breath sounds, basal crackles Cardiovascular: S1, S2, No murmur Abdomen/GI:Soft, Non tender, Bowel sounds present Extremities/Musculoskeletal:normal inspection, no edema Neurologic/Psych:AAOX3, grossly no focal neurological deficits Skin: normal color, warm Results & Data Results & Data ([facility]) Vital Signs (Past 12 Hours) Vital Signs Temp Pulse Pulse Resp BP BP Pulse Ox 03/19/21 15:48 36.6 C 103 H 29 H 162/91 H 88 L 03/19/21 15:33 93 H 24 93 03/19/21 14:20 96 H 03/19/21 13:57 36.7 C 96 H 25 H 146/79 H 88 L 03/19/21 11:17 95 H 27 H 86 L 03/19/21 10:56 36.6 C 95 H 29 H 147/74 H 86 L 03/19/21 07:01 36.7 C 102 H 28 H 133/70 88 L 03/19/21 07:00 94 H Laboratory Results Short CBC 03/19/21 Range/Units 00:58 WBC 15.49 H (4.8-10.8) K/uL Hgb 15.2 (12.0-16.0) g/dL Hct 44.3 (37-47) % Plt Count 339 (130-400) K/uL BMP 03/19/21 00:58 Sodium 130 L Potassium 4.5 Chloride 93 L Carbon Dioxide 31 BUN 29 H Creatinine 0.84 Glucose 212 H Calcium 9.1
[2021-03-19] MEDS: DOXYCYCLINE HYCLATE 100 MG CAP PO SCH (21:03)
[2021-03-19] MEDS ORDERED: CHLORASEPTIC 1.4% SOLN 180 ML BTL MT PRN (21:03)
[2021-03-19] MEDS ORDERED: LORazepam 2 MG/4 ML VIAL ONE (22:30)
[2021-03-19] MEDS: LORazepam 0.25 MG/0.5 ML VIAL IV PRN (22:39)
--- NOTE | 2021-03-20 07:59 | XRay Report ---
XR chest 1V portable CLINICAL HISTORY: Follow-up pneumomediastinum and bilateral airspace opacities. 03/19/2021 COMPARISON STUDY: No previous studies for comparison. TECHNIQUE: 1 view of the chest FINDINGS: Single frontal view of the chest demonstrates the cardiomediastinal silhouette to be within normal li mits. Compared to previous examination, pneumomediastinum is less prominent. However, there is increa se in bilateral interstitial and alveolar opacities which may relate to decreased inspiration on the current study. There is no evidence for pleural effusion. There is no evidence for vascular congestio n. There is no acute osseous pathology. IMPRESSION: Compared to previous examination, there is worsening of bilateral interstitial and alveol ar opacities. Previously identified pneumomediastinum is not as well defined on the current study. ACT 112: Negative or not required by law. Electronically signed by: Quincy Villegas M.D. 03/20/2021 7:57 AM
[2021-03-20 08:44] LABS: Hematocrit (blood only) 41.3 % (37-47); Hemoglobin 13.9 g/dL (12.0-16.0); Mean Corpuscular Hgb Conc 33.7 g/dL (32-36); Mean Corpuscular Volume 94.9 fL (80-100); Mean Platelet Volume 12.5 fL (7.4-10.4); Platelet Count 301 K/uL (130-400); RDW Coefficient of Variation 12.8 % (11.5-14.5); RDW Standard Deviation 44.8 fL (36.4-46.3); Red Blood Count 4.35 M/uL (4.2-5.4)
[2021-03-20] MEDS: guaiFENesin 600 MG TABCR PO SCH ×2 (08:44→20:06)
[2021-03-20] MEDS: DOXYCYCLINE HYCLATE 100 MG CAP PO SCH ×2 (08:44→20:08)
[2021-03-20] MEDS: ENOXAPARIN INJ 40 MG/0.4 ML SYR SQ SCH (08:44)
[2021-03-20] MEDS ORDERED: FUROSEMIDE INJ 20 MG/2 ML VIAL IV SCH (09:00)
[2021-03-20 09:55] LABS: BUN Creatinine Ratio 44.1 (10-20); Calcium 9.1 mg/dl (8.5-10.1); Creatinine Clr Calc Pharmacy 67.6 ml/min; Est GFR (African American) 103.9 ml/min; Est GFR (Non-African American) 89.7 ml/min; Potassium 3.9 mmol/L (3.5-5.1)
[2021-03-20] MEDS: FUROSEMIDE 40 MG/4 ML VIAL IV SCH (10:12)
[2021-03-20] MEDS: dexAMETHasone 6 MG in SYRINGE 0 ML IV SCH (13:12)
--- NOTE | 2021-03-20 17:39 | Hospitalist Progress Note ---
Date of Service March 20, 2021 Assessment & Plan (1) Acute respiratory failure with hypoxia: (2) Pneumonia due to COVID-19 virus: (3) Hypoxia: Plan: Acute respiratory failure with hypoxia ARDS COVID-19 pneumonia Diagnosed COVID-19 positive on 03/06/2021 Pneumomediastinum --CTA:No CTA evidence for pulmonary embolus. Extensive groundglass opacities are present throughout both lungs characteristic of a viral type pneumonitis and Covid 19 pneumonia.XR: -Continue CPAP/high flow oxygen DNI DNR as per patient, spouse Not a candidate for ECMO as per pulmonary Completed remdesivir course Continue dexamethasone Consulted palliative care to address goals of care Appreciate pulmonary input Continue Lasix 20mg CRP:14.4>24.7 Currently on high flow oxygen Continue to Prone Patient continues to desaturate while on High Flow Imaging suggestive of Trace pneumomediastinum Patient prefers to be DNI DNR Appreciate palliative care Input Patient x-ray showed worsening bilateral interstitial and alveolar opacities. Pneumomediastinum seem to be improving Continue current management Prognosis is poor Urinary tract infection-POA Urine culture growing E. coli Completed Rocephin course (4) Elevated LFTs: Plan: Minimally elevated monitor (5) Sepsis: Plan: Sepsisin setting of COVID19 pneumonia, UTI Plan: DVT Px: Lovenox SQ Code status DNI/DNR as per patient/Family- Admission and Anticipated Discharge Date Admission Date: March 06, 2021 Subjective Patient is seen and examined at bedside Proned and sleeping during my encounter Desaturate easily while on high flow with movement on 60, 100% FiO2 Review of Systems Review of Systems: Other Physical Exam Physical Exam: Physical Exam: Vitals signs as noted above General Appearance:Moderately built and nourished, no apparent distress Head: normocephalic, Atraumatic Eyes: normal inspection, EOMI Neck: supple, Trachea midline Respiratory/Chest: Decreased breath sounds, basal crackles Cardiovascular: S1, S2, No murmur Abdomen/GI:Soft, Non tender, Bowel sounds present Extremities/Musculoskeletal:normal inspection, no edema Neurologic/Psych:AAOX3, grossly no focal neurological deficits Skin: normal color, warm Results & Data Results & Data ([facility]) Vital Signs (Past 12 Hours) Vital Signs Temp Pulse Resp BP Pulse Ox 03/20/21 15:30 36.7 C 88 23 146/75 H 90 12/07/21 14:22 96 H 22 87 L 03/20/21 10:59 36.5 C 91 H 20 138/64 90 03/20/21 10:51 94 H 25 H 88 L 03/20/21 07:50 36.7 C 95 H 24 130/70 86 L 03/20/21 07:10 89 26 H 89 L Laboratory Results Short CBC 03/20/21 Range/Units 07:53 WBC 17.90 H (4.8-10.8) K/uL Hgb 13.9 (12.0-16.0) g/dL Hct 41.3 (37-47) % Plt Count 301 (130-400) K/uL BMP 03/20/21 07:53 Sodium 137 D Potassium 3.9 Chloride 100 Carbon Dioxide 29 BUN 29 H Creatinine 0.67 Glucose 137 H Calcium 9.1
[2021-03-20] MEDS: LORazepam 0.25 MG/0.5 ML VIAL IV PRN (20:46)
[2021-03-21] MEDS: LORazepam 0.25 MG/0.5 ML VIAL IV PRN (01:38)
[2021-03-21 07:48] LABS: Hematocrit (blood only) 42.1 % (37-47); Hemoglobin 14.1 g/dL (12.0-16.0); Mean Corpuscular Hemoglobin 32.1 pg (25-34); Mean Corpuscular Hgb Conc 33.5 g/dL (32-36); Mean Corpuscular Volume 95.9 fL (80-100); Mean Platelet Volume 12.1 fL (7.4-10.4); Platelet Count 296 K/uL (130-400); RDW Coefficient of Variation 13.2 % (11.5-14.5); RDW Standard Deviation 45.8 fL (36.4-46.3); Red Blood Count 4.39 M/uL (4.2-5.4); White Blood Count 15.56 K/uL (4.8-10.8)
[2021-03-21] MEDS: guaiFENesin 600 MG TABCR PO SCH ×2 (08:21→21:03)
[2021-03-21] MEDS: ENOXAPARIN INJ 40 MG/0.4 ML SYR SQ SCH (08:21)
[2021-03-21] MEDS: DOXYCYCLINE HYCLATE 100 MG CAP PO SCH ×2 (08:22→21:03)
[2021-03-21 08:26] LABS: BUN Creatinine Ratio 49.8 (10-20); Calcium 8.8 mg/dl (8.5-10.1); Creatinine Clr Calc Pharmacy 69.8 ml/min; Est GFR (Non-African American) 90.6 ml/min; Magnesium 2.5 mg/dl (1.8-2.4); Phosphorus 3.7 mg/dl (2.5-4.9); Potassium 4.3 mmol/L (3.5-5.1)
--- NOTE | 2021-03-21 11:41 | Palliative Care Progress Note ---
Date of Service March 21, 2021 Assessment & Plan (1) Palliative care encounter: Plan: Pt remains on Maximum Hi-Flow today 100% FiO2 and 60L. She continues to be able to tolerate proning. She continues to use accessory muscles to breath, although it does seem less today. She continues to be clear that she does want to be intubated. We talked about having Morphine available for air hunger, but what continued Morphine use would mean, indicating she would likely eventually pass away. She did say she was not ready for even PRN Morphine use. For now, she is comfortable with continued care and Bipap/CPAP use. Again, confirmed no intubated, knowing that would mean she would pass away. She verbalized understanding. I did talk to her about what she is emotionally processing. She said she 'feels 95% better today'. She said she wants to 'work with the staff to help get her better'. She said she has gone through some challenging times as a child and adult but feels at peace with it all. She states 'the past is in the past'. She is comfortable with continuing treatment and does not feel that her body is failing her at this time. She enjoys daily video calls with her . Palliative will follow. (2) Hypoxia: (3) Pneumonia due to COVID-19 virus: Admission and Anticipated Discharge Date Admission Date: March 06, 2021 Subjective Patient is seen and examined at bedside Proned and sleeping during my encounter Desaturate easily while on high flow with movement on 60, 100% FiO2 Review of Systems Review of Systems: Rowe System Assessment Scale: Pain: 0/3 SOB: 3/3 Anxiety: 1/3 Palliative Performance Scale: 40% Physical Exam Constitutional: + ill appearing and cooperative Respiratory: + uses accessory muscles Auscultation: + rhonchi Cardiovascular: Rate/Rhythm: regular rate and regular rhythm Extremities: normal capillary refill Gastrointestinal (Abdomen): Inspection/Auscultation: abdomen normal to inspection Psychiatric: Orientation: alert and oriented x 3 Results & Data ([facility]) Vital Signs (Past 12 Hours) Vital Signs Temp Pulse Pulse Resp BP BP Pulse Ox 03/21/21 11:31 36.9 C 103 H 26 H 129/73 87 L 03/21/21 07:54 88 32 H 86 L 03/21/21 07:51 97 H 03/21/21 07:10 36.9 C 93 H 22 90 03/21/21 05:25 40 H 80 L 03/21/21 03:26 36.6 C 89 25 H 168/86 H 94 03/21/21 02:45 80 21 92 PG Care Time/CCT Total # of Minutes Spent Total Time Spent with Patient: Total time spent is greater than 50% in coordination of care (as documented) at patient's floor/unit and/or counseling patient: 35 minutes Coding Level of Care Code 14093 Subseq Hosp Care Lvl 3 Diagnoses Palliative care encounter Z51.5 Hypoxia R09.02 Pneumonia due to COVID-19 virus U07.1; J12.82 Time Spent (min) 35
--- NOTE | 2021-03-21 12:46 | Hospitalist Progress Note ---
Date of Service March 21, 2021 Assessment & Plan (1) Acute respiratory failure with hypoxia: (2) Pneumonia due to COVID-19 virus: (3) Hypoxia: Plan: Acute respiratory failure with hypoxia ARDS COVID-19 pneumonia Diagnosed COVID-19 positive on 03/06/2021 Pneumomediastinum --CTA: No CTA evidence for pulmonary embolus. Extensive groundglass opacities are present throughout both lungs characteristic of a viral type pneumonitis and Covid 19 pneumonia.XR: -Continue CPAP/high flow oxygen DNI DNR as per patient, spouse Not a candidate for ECMO as per pulmonary Completed remdesevir course Continue dexamethasone - increase dose to q12 h (on 03/21 as not much improvement, and per previous pulm. recs) Palliative care consulted to address goals of care Appreciate pulmonary input Continue Lasix 20mg CRP:14.4>24.7 Currently on high flow oxygen Continue to Prone Patient continues to desaturate while on High Flow Imaging suggestive of Trace pneumomediastinum Patient prefers to be DNI DNR Appreciate palliative care Input 03/20 Chest x-ray showed worsening bilateral interstitial and alveolar opacities. Pneumomediastinum seem to be improving Continue current management Prognosis is poor Urinary tract infection-POA Urine culture growing E. coli Completed Rocephin course (4) Elevated LFTs: Plan: Minimally elevated monitor (5) Sepsis: Plan: Sepsisin setting of COVID19 pneumonia, UTI Plan: DVT Px: Lovenox SQ Code status DNI/DNR as per patient/Family- Admission and Anticipated Discharge Date Admission Date: March 06, 2021 Subjective Patient is seen in follow up of acute resp. failure w/ hypoxia Sitting up in bed in NAD Able to speak - in short sentences Desaturates easily while on high flow with movement Palliative medicine following Review of Systems Review of Systems: All systems reviewed & are unremarkable except as noted in Subjective Physical Exam Physical Exam: General Appearance:Moderately built and nourished, no apparent distress, remains on HF NC Head: normocephalic, Atraumatic Eyes: normal inspection, EOMI Neck: supple Respiratory/Chest: Decreased breath sounds, basal crackles Cardiovascular: S1, S2, No murmur Abdomen/GI:Soft, Non tender, Bowel sounds present Extremities/Musculoskeletal:normal inspection, no edema Neurologic/Psych:AAOX3, no facial asymmetry, speech slow but fluent, moves extremities Skin: normal color, warm Results & Data Results & Data ([facility]) Vital Signs (Past 12 Hours) Vital Signs Temp Pulse Pulse Resp BP BP Pulse Ox 03/21/21 11:31 36.9 C 103 H 26 H 129/73 87 L 03/21/21 07:54 88 32 H 86 L 03/21/21 07:51 97 H 03/21/21 07:10 36.9 C 93 H 22 90 03/21/21 05:25 40 H 80 L 03/21/21 03:26 36.6 C 89 25 H 168/86 H 94 03/21/21 02:45 80 21 92 Laboratory Results 03/21/21 03/21/21 Range/Units 07:09 07:09 WBC 15.56 H (4.8-10.8) K/uL RBC 4.39 (4.2-5.4) M/uL Hgb 14.1 (12.0-16.0) g/dL Hct 42.1 (37-47) % MCV 95.9 (80-100) fL MCH 32.1 (25-34) pg MCHC 33.5 (32-36) g/dL RDW Std Deviation 45.8 (36.4-46.3) fL RDW Coeff of [place]on 13.2 (11.5-14.5) % Plt Count 296 (130-400) K/uL MPV 12.1 H (7.4-10.4) fL Sodium 140 (136-145) mmol/L Potassium 4.3 (3.5-5.1) mmol/L Chloride 103 (98-107) mmol/L Carbon Dioxide 30 (21-32) mmol/L Anion Gap 7.0 (3-11) BUN 32 H (7-18) mg/dl Creatinine 0.65 (0.6-1.2) mg/dl Est Cr Clr Drug Dosing 69.8 ml/min Est GFR ( Amer) 105.0 ml/min Est GFR (Non-Af Amer) 90.6 ml/min BUN/Creatinine Ratio 49.8 H (10-20) Glucose 113 H (70-99) mg/dl Calcium 8.8 (8.5-10.1) mg/dl Phosphorus 3.7 (2.5-4.9) mg/dl Magnesium 2.5 H (1.8-2.4) mg/dl Medications Administered Current Inpatient Medications Doxycycline Hyclate (Doxycycline Hyclate 100 Mg Cap) 100 mg PO BID ROBY Stop: 03/26/21 20:59 Last Admin: 03/21/21 08:22 Dose: 100 mg Documented by: Enoxaparin Sodium (Enoxaparin Inj 40 Mg/0.4 Ml Syr) 40 mg SQ QAM ROBY Stop: 04/11/21 08:59 Last Admin: 03/21/21 08:21 Dose: 40 mg Documented by: Guaifenesin (Guaifenesin 600 Mg Tabcr) 1,200 mg PO Q12 ROBY Stop: 04/07/21 20:59 Last Admin: 03/21/21 08:21 Dose: 1,200 mg Documented by: Hydrocodone Bit/Homatropine Methylb (Hydrocodone/Homatropine Syrup 5mg/1.5mg 5ml Udp) 5 ml PO Q6H PRN PRN Reason: Cough Stop: 03/22/21 13:44 Last Admin: 03/10/21 03:18 Dose: 5 ml Documented by: Dexamethasone 6 mg/ Syringe 1.5 mls @ 1 mls/min IV Q24H ROBY Stop: 04/18/21 13:59 Last Admin: 03/20/21 13:12 Dose: 1 mls/min Documented by: Lorazepam (Ativan) 0.25 mg in 0.5 mls @ 0.5 mls/min IV Q4H PRN PRN Reason: Anxiety Stop: 04/18/21 22:22 Last Admin: 03/21/21 01:38 Dose: 0.5 mls/min Documented by: Levalbuterol HCl (Levalbuterol Hcl 1.25 Mg/3 Ml Neb) 1.25 mg NEB Q4R PRN PRN Reason: Shortness Of Breath Or Wheezing Stop: 04/12/21 22:12 Last Admin: 03/18/21 20:20 Dose: 1.25 mg Documented by: Menthol (Cough Drop (Sugar Free) Piotr 24 Piotr/1 Box) 1 piotr BUCCAL Q2H PRN PRN Reason: Sore Throat Stop: 04/10/21 20:17 Phenol (Chloraseptic 1.4% Soln 180 Ml Btl) 1 sprays MT Q2H PRN PRN Reason: throat discomfort Stop: 04/18/21 21:02 Last Admin: 03/19/21 22:23 Dose: 1 sprays Documented by: Polyethylene Glycol (Polyethylene (Miralax) 17 Gm Pack) 17 gm PO DAILY PRN PRN Reason: Constipation Stop: 04/09/21 23:01 Last Admin: 03/11/21 04:00 Dose: 17 gm Documented by: Sodium Chloride (Sodium Chloride 0.65% Na Soln 45 Ml ([place])) 2 sprays NA BID PRN PRN Reason: Nasal Congestion Stop: 04/09/21 23:00 Last Admin: 03/10/21 23:50 Dose: 2 sprays Documented by:
[2021-03-21] MEDS: dexAMETHasone 6 MG in SYRINGE 0 ML IV SCH ×2 (13:08→19:16)
[2021-03-21] MEDS ORDERED: FUROSEMIDE INJ 20 MG/2 ML VIAL IV ONE (22:29)
[2021-03-22] MEDS: dexAMETHasone 6 MG in SYRINGE 0 ML IV SCH ×2 (06:20→18:22)
[2021-03-22 08:11] LABS: Hematocrit (blood only) 42.8 % (37-47); Hemoglobin 14.3 g/dL (12.0-16.0); Mean Corpuscular Hemoglobin 32.1 pg (25-34); Mean Corpuscular Hgb Conc 33.4 g/dL (32-36); Mean Corpuscular Volume 96.2 fL (80-100); Mean Platelet Volume 12.2 fL (7.4-10.4); Platelet Count 296 K/uL (130-400); RDW Coefficient of Variation 13.3 % (11.5-14.5); RDW Standard Deviation 46.7 fL (36.4-46.3); Red Blood Count 4.45 M/uL (4.2-5.4); White Blood Count 11.37 K/uL (4.8-10.8)
[2021-03-22] MEDS: ENOXAPARIN INJ 40 MG/0.4 ML SYR SQ SCH (08:21)
[2021-03-22] MEDS: guaiFENesin 600 MG TABCR PO SCH ×2 (08:21→20:14)
[2021-03-22] MEDS: DOXYCYCLINE HYCLATE 100 MG CAP PO SCH ×2 (08:22→20:14)
[2021-03-22 08:35] LABS: BUN Creatinine Ratio 45.8 (10-20); C Reactive Protein 4.42 mg/dl (0-0.29); Creatinine Clr Calc Pharmacy 65.3 ml/min; Est GFR (African American) 102.9 ml/min; Est GFR (Non-African American) 88.8 ml/min; Potassium 4.3 mmol/L (3.5-5.1)
[2021-03-22 08:36] LABS: Phosphorus 3.5 mg/dl (2.5-4.9)
--- NOTE | 2021-03-22 08:44 | Hospitalist Progress Note ---
Date of Service March 22, 2021 Assessment & Plan (1) Acute respiratory failure with hypoxia: (2) Pneumonia due to COVID-19 virus: (3) Hypoxia: Plan: Acute respiratory failure with hypoxia ARDS COVID-19 pneumonia Diagnosed COVID-19 positive on 03/06/2021 Pneumomediastinum --CTA: No CTA evidence for pulmonary embolus. Extensive groundglass opacities are present throughout both lungs characteristic of a viral type pneumonitis and Covid 19 pneumonia.XR: -Continue CPAP/high flow oxygen DNI DNR as per patient, spouse Not a candidate for ECMO as per pulmonary Completed remdesevir course Continue dexamethasone - increase dose to q12 h (on 03/21 as not much improvement, and per previous pulm. recs) Palliative care consulted to address goals of care Appreciate pulmonary input Continue Lasix 20mg CRP:14.4>24.7 Currently on high flow oxygen Continue to Prone Patient continues to desaturate while on High Flow Imaging suggestive of Trace pneumomediastinum Patient prefers to be DNI DNR Appreciate palliative care Input 03/20 Chest x-ray showed worsening bilateral interstitial and alveolar opacities. Pneumomediastinum seem to be improving Continue current management Prognosis is poor Urinary tract infection-POA Urine culture growing E. coli Completed Rocephin course (4) Elevated LFTs: Plan: Minimally elevated monitor (5) Sepsis: Plan: Sepsisin setting of COVID19 pneumonia, UTI Plan: DVT Px: Lovenox SQ Code status DNI/DNR as per patient/Family- Admission and Anticipated Discharge Date Admission Date: March 06, 2021 Subjective Patient is seen in follow up of acute resp. failure w/ hypoxia 2/2 covid 19 infection Sitting up in bed in NAD Able to speak - in short sentences Says she feels better Desaturates easily while on high flow with movement Palliative medicine following Pt declines intubation at this time / even in case she worsens Pt's updated over the phone Review of Systems Review of Systems: All systems reviewed & are unremarkable except as noted in Subjective Physical Exam Physical Exam: General Appearance:Moderately built and nourished, no apparent distress, remains on HF NC Head: normocephalic, Atraumatic Eyes: normal inspection, EOMI Neck: supple Respiratory/Chest: Decreased breath sounds, basal crackles Cardiovascular: S1, S2, No murmur Abdomen/GI:Soft, Non tender, Bowel sounds present Extremities/Musculoskeletal:normal inspection, no edema Neurologic/Psych:AAOX3, no facial asymmetry, speech slow but fluent, moves extremities Skin: normal color, warm Results & Data Results & Data ([facility]) Vital Signs (Past 12 Hours) Vital Signs Temp Pulse Pulse Resp BP BP Pulse Ox 03/22/21 07:31 88 24 82 L 03/22/21 07:19 36.3 C L 110 H 25 H 127/87 84 L 03/22/21 03:28 36.6 C 84 22 141/87 H 84 L 03/22/21 01:40 92 H 24 86 L 03/22/21 00:07 83 03/21/21 23:23 36.4 C L 87 22 141/83 H 91 03/21/21 23:15 91 H 26 H 92 Laboratory Results 03/22/21 03/22/21 03/22/21 Range/Units 07:10 07:10 07:10 WBC 11.37 H (4.8-10.8) K/uL RBC 4.45 (4.2-5.4) M/uL Hgb 14.3 (12.0-16.0) g/dL Hct 42.8 (37-47) % MCV 96.2 (80-100) fL MCH 32.1 (25-34) pg MCHC 33.4 (32-36) g/dL RDW Std Deviation 46.7 H (36.4-46.3) fL RDW Coeff of Heron 13.3 (11.5-14.5) % Plt Count 296 (130-400) K/uL MPV 12.2 H (7.4-10.4) fL Sodium 139 (136-145) mmol/L Potassium 4.3 (3.5-5.1) mmol/L Chloride 103 (98-107) mmol/L Carbon Dioxide 28 (21-32) mmol/L Anion Gap 8.0 (3-11) BUN 31 H (7-18) mg/dl Creatinine 0.69 (0.6-1.2) mg/dl Est Cr Clr Drug Dosing 65.3 ml/min Est GFR ( Amer) 102.9 ml/min Est GFR (Non-Af Amer) 88.8 ml/min BUN/Creatinine Ratio 45.8 H (10-20) Glucose 145 H (70-99) mg/dl Calcium 9.0 (8.5-10.1) mg/dl Phosphorus 3.5 (2.5-4.9) mg/dl Magnesium Pending C-Reactive Protein 4.42 H (0-0.29) mg/dl Procalcitonin Pending Medications Administered Current Inpatient Medications Doxycycline Hyclate (Doxycycline Hyclate 100 Mg Cap) 100 mg PO BID [facility] Stop: 03/26/21 20:59 Last Admin: 03/22/21 08:22 Dose: 100 mg Documented by: Enoxaparin Sodium (Enoxaparin Inj 40 Mg/0.4 Ml Syr) 40 mg SQ QAM [facility] Stop: 04/11/21 08:59 Last Admin: 03/22/21 08:21 Dose: 40 mg Documented by: Guaifenesin (Guaifenesin 600 Mg Tabcr) 1,200 mg PO Q12 [facility] Stop: 04/07/21 20:59 Last Admin: 03/22/21 08:21 Dose: 1,200 mg Documented by: Hydrocodone Bit/Homatropine Methylb (Hydrocodone/Homatropine Syrup 5mg/1.5mg 5ml Udp) 5 ml PO Q6H PRN PRN Reason: Cough Stop: 03/22/21 13:44 Last Admin: 03/10/21 03:18 Dose: 5 ml Documented by: Lorazepam (Ativan) 0.25 mg in 0.5 mls @ 0.5 mls/min IV Q4H PRN PRN Reason: Anxiety Stop: 04/18/21 22:22 Last Admin: 03/21/21 01:38 Dose: 0.5 mls/min Documented by: Dexamethasone 6 mg/ Syringe 1.5 mls @ 1 mls/min IV Q12H ROBY Stop: 04/20/21 18:59 Last Admin: 03/22/21 06:20 Dose: 1 mls/min Documented by: Levalbuterol HCl (Levalbuterol Hcl 1.25 Mg/3 Ml Neb) 1.25 mg NEB Q4R PRN PRN Reason: Shortness Of Breath Or Wheezing Stop: 04/12/21 22:12 Last Admin: 03/18/21 20:20 Dose: 1.25 mg Documented by: Menthol (Cough Drop (Sugar Free) Piotr 24 Piotr/1 Box) 1 piotr BUCCAL Q2H PRN PRN Reason: Sore Throat Stop: 04/10/21 20:17 Phenol (Chloraseptic 1.4% Soln 180 Ml Btl) 1 sprays MT Q2H PRN PRN Reason: throat discomfort Stop: 04/18/21 21:02 Last Admin: 03/19/21 22:23 Dose: 1 sprays Documented by: Polyethylene Glycol (Polyethylene (Miralax) 17 Gm Pack) 17 gm PO DAILY PRN PRN Reason: Constipation Stop: 04/09/21 23:01 Last Admin: 03/11/21 04:00 Dose: 17 gm Documented by: Sodium Chloride (Sodium Chloride 0.65% Na Soln 45 Ml ([place])) 2 sprays NA BID PRN PRN Reason: Nasal Congestion Stop: 04/09/21 23:00 Last Admin: 03/10/21 23:50 Dose: 2 sprays Documented by:
[2021-03-22 09:27] LABS: Magnesium 2.6 mg/dl (1.8-2.4)
[2021-03-22] MEDS ORDERED: FUROSEMIDE INJ 20 MG/2 ML VIAL IV ONE (23:23)
[2021-03-23] MEDS: dexAMETHasone 6 MG in SYRINGE 0 ML IV SCH ×2 (05:41→18:00)
[2021-03-23 07:57] LABS: Hematocrit (blood only) 45.2 % (37-47); Hemoglobin 15.1 g/dL (12.0-16.0); Mean Corpuscular Hemoglobin 32.1 pg (25-34); Mean Corpuscular Hgb Conc 33.4 g/dL (32-36); Mean Platelet Volume 12.3 fL (7.4-10.4); Platelet Count 284 K/uL (130-400); RDW Coefficient of Variation 13.2 % (11.5-14.5); RDW Standard Deviation 46.5 fL (36.4-46.3); Red Blood Count 4.71 M/uL (4.2-5.4); White Blood Count 14.86 K/uL (4.8-10.8)
[2021-03-23] MEDS: DOXYCYCLINE HYCLATE 100 MG CAP PO SCH ×2 (08:16→19:51)
[2021-03-23] MEDS: PANTOprazole 40 MG TAB PO SCH (08:16)
[2021-03-23] MEDS: ENOXAPARIN INJ 40 MG/0.4 ML SYR SQ SCH (08:17)
[2021-03-23] MEDS: guaiFENesin 600 MG TABCR PO SCH ×2 (08:17→19:50)
[2021-03-23 08:38] LABS: BUN Creatinine Ratio 50.3 (10-20); Creatinine Clr Calc Pharmacy 58.3 ml/min; Est GFR (African American) 92.8 ml/min; Magnesium 2.5 mg/dl (1.8-2.4); Potassium 4.4 mmol/L (3.5-5.1)
[2021-03-23 08:40] LABS: Phosphorus 4.2 mg/dl (2.5-4.9)
--- NOTE | 2021-03-23 10:23 | Hospitalist Progress Note ---
Date of Service March 23, 2021 Assessment & Plan (1) Acute respiratory failure with hypoxia: (2) Pneumonia due to COVID-19 virus: (3) Hypoxia: Plan: Acute respiratory failure with hypoxia ARDS COVID-19 pneumonia Diagnosed COVID-19 positive on 03/06/2021 Pneumomediastinum --CTA: No CTA evidence for pulmonary embolus. Extensive groundglass opacities are present throughout both lungs characteristic of a viral type pneumonitis and Covid 19 pneumonia.XR: -Continue CPAP/high flow oxygen DNI DNR as per patient, and spouse Not a candidate for ECMO as per pulmonary Completed remdesevir course Continue dexamethasone - increase dose to q12 h (on 03/21 as not much improvement, and per previous pulm. recs) Palliative care consulted to address goals of care Appreciate pulmonary input Continue Lasix 20mg prn CRP:14.4>24.7 Currently on high flow oxygen Continue to Prone Patient continues to desaturate while on High Flow Imaging suggestive of Trace pneumomediastinum Patient prefers to be DNI DNR Appreciate palliative care Input 03/20 Chest x-ray showed worsening bilateral interstitial and alveolar opacities. Pneumomediastinum seem to be improving Continue current management Prognosis is poor 03/22 - had a long discussion with the patient and her (over the phone), patient wants to remain DNR/DNI Explained intubation in case she would worsen, however at this time patient does not want to change anything 03/23 -reports she is feeling better, she is able to answer in short sentences, does not wish to make any changes at this time Urinary tract infection-POA Urine culture growing E. coli Completed Rocephin course (4) Elevated LFTs: Plan: Minimally elevated monitor (5) Sepsis: Plan: Sepsisin setting of COVID19 pneumonia, UTI Plan: DVT Px: Lovenox SQ Code status: DNI/DNR as per patient/Family- Admission and Anticipated Discharge Date Admission Date: March 06, 2021 Subjective Patient is seen in follow up of acute resp. failure w/ hypoxia 2/2 covid 19 pneumonia Sitting up in bed in NAD Able to speak - in short sentences Says she feels better Says she does not want to change anything at this time Desaturates easily while on high flow with movement Palliative medicine following Pt declines intubation at this time / even in case she worsens Pt's updated over the phone yesterday Review of Systems Review of Systems: All systems reviewed & are unremarkable except as noted in Subjective Physical Exam Physical Exam: General Appearance: Moderately built and nourished, no apparent distress, remains on HF NC Head: normocephalic, Atraumatic Eyes: normal inspection, EOMI Neck: supple Respiratory/Chest: Decreased breath sounds, basal crackles Cardiovascular: S1, S2, No murmur Abdomen/GI:Soft, Non tender, Bowel sounds present Extremities/Musculoskeletal:normal inspection, no edema Neurologic/Psych:AAOX3, no facial asymmetry, speech slow but fluent, moves extremities Skin: normal color, warm Results & Data Results & Data ([facility]) Vital Signs (Past 12 Hours) Vital Signs Temp Pulse Pulse Resp BP BP Pulse Ox 03/23/21 08:21 165/92 H 03/23/21 07:46 36.9 C 96 H 22 166/103 H 83 L 03/23/21 07:09 88 03/23/21 06:41 71 26 H 89 L 03/23/21 03:17 88 26 H 89 L 03/23/21 02:59 36.4 C L 93 H 24 152/92 H 89 L 03/23/21 01:21 77 03/22/21 23:05 36.8 C 75 22 151/89 H 89 L Laboratory Results 03/23/21 03/23/21 Range/Units 07:21 07:21 WBC 14.86 H (4.8-10.8) K/uL RBC 4.71 (4.2-5.4) M/uL Hgb 15.1 (12.0-16.0) g/dL Hct 45.2 (37-47) % MCV 96.0 (80-100) fL MCH 32.1 (25-34) pg MCHC 33.4 (32-36) g/dL RDW Std Deviation 46.5 H (36.4-46.3) fL RDW Coeff of [place] 13.2 (11.5-14.5) % Plt Count 284 (130-400) K/uL MPV 12.3 H (7.4-10.4) fL Sodium 140 (136-145) mmol/L Potassium 4.4 (3.5-5.1) mmol/L Chloride 103 (98-107) mmol/L Carbon Dioxide 27 (21-32) mmol/L Anion Gap 10.0 (3-11) BUN 38 H (7-18) mg/dl Creatinine 0.76 (0.6-1.2) mg/dl Est Cr Clr Drug Dosing 58.3 ml/min Est GFR ( Amer) 92.8 ml/min Est GFR (Non-Af Amer) 80.0 ml/min BUN/Creatinine Ratio 50.3 H (10-20) Glucose 135 H (70-99) mg/dl Calcium 9.0 (8.5-10.1) mg/dl Phosphorus 4.2 (2.5-4.9) mg/dl Magnesium 2.5 H (1.8-2.4) mg/dl Medications Administered Current Inpatient Medications Doxycycline Hyclate (Doxycycline Hyclate 100 Mg Cap) 100 mg PO BID [facility] Stop: 03/26/21 20:59 Last Admin: 03/23/21 08:16 Dose: 100 mg Documented by: Enoxaparin Sodium (Enoxaparin Inj 40 Mg/0.4 Ml Syr) 40 mg SQ QAM [facility] Stop: 04/11/21 08:59 Last Admin: 03/23/21 08:17 Dose: 40 mg Documented by: Guaifenesin (Guaifenesin 600 Mg Tabcr) 1,200 mg PO Q12 [facility] Stop: 04/07/21 20:59 Last Admin: 03/23/21 08:17 Dose: 1,200 mg Documented by: Lorazepam (Ativan) 0.25 mg in 0.5 mls @ 0.5 mls/min IV Q4H PRN PRN Reason: Anxiety Stop: 04/18/21 22:22 Last Admin: 03/21/21 01:38 Dose: 0.5 mls/min Documented by: Dexamethasone 6 mg/ Syringe 1.5 mls @ 1 mls/min IV Q12H [facility] Stop: 04/20/21 18:59 Last Admin: 03/23/21 05:41 Dose: 1 mls/min Documented by: Levalbuterol HCl (Levalbuterol Hcl 1.25 Mg/3 Ml Neb) 1.25 mg NEB Q4R PRN PRN Reason: Shortness Of Breath Or Wheezing Stop: 04/12/21 22:12 Last Admin: 12/05/21 20:20 Dose: 1.25 mg Documented by: Menthol (Cough Drop (Sugar Free) Piotr 24 Piotr/1 Box) 1 piotr BUCCAL Q2H PRN PRN Reason: Sore Throat Stop: 04/10/21 20:17 Pantoprazole Sodium (Pantoprazole 40 Mg Tab) 40 mg PO QAM [facility] Stop: 04/22/21 08:59 Last Admin: 03/23/21 08:16 Dose: 40 mg Documented by: Phenol (Chloraseptic 1.4% Soln 180 Ml Btl) 1 sprays MT Q2H PRN PRN Reason: throat discomfort Stop: 04/18/21 21:02 Last Admin: 03/19/21 22:23 Dose: 1 sprays Documented by: Polyethylene Glycol (Polyethylene (Miralax) 17 Gm Pack) 17 gm PO DAILY PRN PRN Reason: Constipation Stop: 04/09/21 23:01 Last Admin: 03/11/21 04:00 Dose: 17 gm Documented by: Sodium Chloride (Sodium Chloride 0.65% Na Soln 45 Ml ([place])) 2 sprays NA BID PRN PRN Reason: Nasal Congestion Stop: 04/09/21 23:00 Last Admin: 03/10/21 23:50 Dose: 2 sprays Documented by:
[2021-03-23] MEDS: DOCUSATE SODIUM 100 MG CAP PO SCH (10:56)
[2021-03-23] MEDS: ENOXAPARIN INJ 30 MG/0.3 ML SYR SQ SCH (19:52)
[2021-03-24 06:23] LABS: Hematocrit (blood only) 46.8 % (37-47); Hemoglobin 15.1 g/dL (12.0-16.0)
[2021-03-24] MEDS: dexAMETHasone 6 MG in SYRINGE 0 ML IV SCH ×2 (06:45→18:25)
--- NOTE | 2021-03-24 06:53 | Hospitalist Progress Note ---
Date of Service March 24, 2021 Assessment & Plan (1) Acute respiratory failure with hypoxia: (2) Pneumonia due to COVID-19 virus: (3) Hypoxia: Plan: Acute respiratory failure with hypoxia ARDS COVID-19 pneumonia Diagnosed COVID-19 positive on 03/06/2021 Pneumomediastinum --CTA: No CTA evidence for pulmonary embolus. Extensive groundglass opacities are present throughout both lungs characteristic of a viral type pneumonitis and Covid 19 pneumonia.XR: -Continue CPAP/high flow oxygen DNI DNR as per patient, and spouse Not a candidate for ECMO as per pulmonary Completed remdesevir course Continue dexamethasone - increased dose to q12 h (on 03/21 as not much improvement, and per previous pulm. recs) Palliative care consulted to address goals of care Appreciate pulmonary input Continue Lasix 20mg prn CRP:14.4>24.7 Currently on high flow oxygen Continue to Prone Patient continues to desaturate while on High Flow Imaging suggestive of Trace pneumomediastinum Patient prefers to be DNI DNR Appreciate palliative care Input 03/20 Chest x-ray showed worsening bilateral interstitial and alveolar opacities. Pneumomediastinum seem to be improving Continue current management Prognosis is poor 03/22 - had a long discussion with the patient and her (over the phone), patient wants to remain DNR/DNI Explained intubation in case she would worsen, however at this time patient does not want to change anything 03/23 -reports she is feeling better, she is able to answer in short sentences, does not wish to make any changes at this time 03/24 - patient having more difficulty breathing today, on HF nasal cannula, BiPAP attempted, however patient did not tolerate. Patient stated that she does not want to and wants to proceed with whatever necessary including intubation. Nursing staff at the bedside. Contacted anesthesia and contract project manager. Updated patient's over the phone. Urinary tract infection-POA Urine culture growing E. coli Completed Rocephin course (4) Elevated LFTs: Plan: Minimally elevated monitor (5) Sepsis: Plan: Sepsisin setting of COVID19 pneumonia, UTI Plan: DVT Px: Lovenox SQ Code status: Pt was DNI/DNR however now pt wishes for FULL code. States she does not want to and wants to proceed w/ whatever necessary including intubation. Admission and Anticipated Discharge Date Admission Date: March 06, 2021 Subjective Patient is seen in follow up of acute resp. failure w/ hypoxia 2/2 covid 19 pneumonia Notified by nursing staff, that patient had more difficulty today with her high flow nasal cannula, they attempted BiPAP however patient did not tolerate On my evaluation, patient more fatigued, and stating several times that she does not want to , and wants to proceed with whatever needed, including intubation -nursing staff present at the bedside Building Maintenance Custodian and anesthesia contacted Pt's updated over the phone Review of Systems Review of Systems: All systems reviewed & are unremarkable except as noted in Subjective Physical Exam Physical Exam: General Appearance: Moderately built and nourished, on HF NC, anxious, fatigued Head: normocephalic, Atraumatic Eyes: normal inspection, EOMI Neck: supple Respiratory/Chest: Decreased breath sounds, basal crackles Cardiovascular: S1, S2, No murmur Abdomen/GI:Soft, Non tender, Bowel sounds present Extremities/Musculoskeletal:normal inspection, no edema Neurologic/Psych:AAOX3, no facial asymmetry, speech slow but fluent, moves extremities Skin: normal color, warm Results & Data Results & Data ([facility]) Vital Signs (Past 12 Hours) Vital Signs Temp Pulse Pulse Resp BP BP Pulse Ox 03/24/21 03:32 36.2 C L 89 22 137/91 87 L 03/24/21 03:16 84 24 90 03/23/21 23:45 88 26 H 88 L 03/23/21 23:06 36.9 C 89 20 134/87 86 L 03/23/21 22:25 85 03/23/21 20:14 36.6 C 103 H 22 140/74 86 L 03/23/21 19:08 93 H 21 86 L Laboratory Results 03/24/21 03/24/21 Range/Units 05:21 05:21 Hgb 15.1 (12.0-16.0) g/dL Hct 46.8 (37-47) % Sodium 141 (136-145) mmol/L Potassium 4.6 (3.5-5.1) mmol/L Chloride 104 (98-107) mmol/L Carbon Dioxide 29 (21-32) mmol/L Anion Gap 7.0 (3-11) BUN 42 H (7-18) mg/dl Creatinine 0.83 (0.6-1.2) mg/dl Est Cr Clr Drug Dosing 53.4 ml/min Est GFR ( Amer) 83.4 ml/min Est GFR (Non-Af Amer) 71.9 ml/min BUN/Creatinine Ratio 50.2 H (10-20) Glucose 143 H (70-99) mg/dl Calcium 9.2 (8.5-10.1) mg/dl Phosphorus 4.3 (2.5-4.9) mg/dl Magnesium 2.7 H (1.8-2.4) mg/dl Specimen Hemolysis Medications Administered Current Inpatient Medications Docusate Sodium (Docusate Sodium 100 Mg Cap) 100 mg PO QAM [facility] Stop: 04/22/21 10:44 Last Admin: 03/23/21 10:56 Dose: 100 mg Documented by: Doxycycline Hyclate (Doxycycline Hyclate 100 Mg Cap) 100 mg PO BID [facility] Stop: 03/26/21 20:59 Last Admin: 03/23/21 19:51 Dose: 100 mg Documented by: Enoxaparin Sodium (Enoxaparin Inj 30 Mg/0.3 Ml Syr) 30 mg SQ BID [facility] Stop: 04/22/21 20:59 Last Admin: 03/23/21 19:52 Dose: 30 mg Documented by: Guaifenesin (Guaifenesin 600 Mg Tabcr) 1,200 mg PO Q12 [facility] Stop: 04/07/21 20:59 Last Admin: 03/23/21 19:50 Dose: 1,200 mg Documented by: Lorazepam (Ativan) 0.25 mg in 0.5 mls @ 0.5 mls/min IV Q4H PRN PRN Reason: Anxiety Stop: 04/18/21 22:22 Last Admin: 03/21/21 01:38 Dose: 0.5 mls/min Documented by: Dexamethasone 6 mg/ Syringe 1.5 mls @ 1 mls/min IV Q12H [facility] Stop: 04/20/21 18:59 Last Admin: 03/24/21 06:45 Dose: 1 mls/min Documented by: Levalbuterol HCl (Levalbuterol Hcl 1.25 Mg/3 Ml Neb) 1.25 mg NEB Q4R PRN PRN Reason: Shortness Of Breath Or Wheezing Stop: 04/12/21 22:12 Last Admin: 03/18/21 20:20 Dose: 1.25 mg Documented by: Menthol (Cough Drop (Sugar Free) Piotr 24 Piotr/1 Box) 1 piotr BUCCAL Q2H PRN PRN Reason: Sore Throat Stop: 04/10/21 20:17 Pantoprazole Sodium (Pantoprazole 40 Mg Tab) 40 mg PO QAM [facility] Stop: 04/22/21 08:59 Last Admin: 03/23/21 08:16 Dose: 40 mg Documented by: Phenol (Chloraseptic 1.4% Soln 180 Ml Btl) 1 sprays MT Q2H PRN PRN Reason: throat discomfort Stop: 04/18/21 21:02 Last Admin: 03/19/21 22:23 Dose: 1 sprays Documented by: Polyethylene Glycol (Polyethylene (Miralax) 17 Gm Pack) 17 gm PO DAILY PRN PRN Reason: Constipation Stop: 04/09/21 23:01 Last Admin: 03/11/21 04:00 Dose: 17 gm Documented by: Sodium Chloride (Sodium Chloride 0.65% Na Soln 45 Ml ([place])) 2 sprays NA BID PRN PRN Reason: Nasal Congestion Stop: 04/09/21 23:00 Last Admin: 03/10/21 23:50 Dose: 2 sprays Documented by:
[2021-03-24 07:00] LABS: BUN Creatinine Ratio 50.2 (10-20); Calcium 9.2 mg/dl (8.5-10.1); Creatinine Clr Calc Pharmacy 53.4 ml/min; Est GFR (African American) 83.4 ml/min; Est GFR (Non-African American) 71.9 ml/min; Magnesium 2.7 mg/dl (1.8-2.4); Phosphorus 4.3 mg/dl (2.5-4.9); Potassium 4.6 mmol/L (3.5-5.1)
[2021-03-24] MEDS ORDERED: FUROSEMIDE INJ 20 MG/2 ML VIAL IV ONE (08:15)
[2021-03-24] MEDS: LORazepam 0.25 MG/0.5 ML VIAL IV PRN (10:08)
--- NOTE | 2021-03-24 10:09 | XRay Report ---
XR chest 1V portable CLINICAL HISTORY: Follow-up interstitial and alveolar opacities. Hypoxia. Covid positive. COMPARISON STUDY: 03/20/2021 TECHNIQUE: 1 view of the chest FINDINGS: Single frontal view of the chest demonstrates the cardiomediastinal silhouette to be within normal li mits. Compared to previous examination, there has been slight improvement of bilateral interstitial a nd alveolar opacities. However, there is now atelectasis at the left lung base with evidence of small left pleural effusion. There is no evidence for pleural effusion. There is no evidence for vascular congestion. There is no acute osseous pathology. IMPRESSION: While there has been slight improvement of bilateral interstitial and alveolar opacities, there is now left lower lobe atelectasis and small left pleural effusion. ACT 112: Negative or not required by law. Electronically signed by: Quincy Villegas M.D. 03/24/2021 10:08 AM
[2021-03-24] MEDS: DOXYCYCLINE HYCLATE 100 MG CAP PO SCH (10:11)
[2021-03-24] MEDS: ENOXAPARIN INJ 30 MG/0.3 ML SYR SQ SCH ×2 (10:11→21:53)
[2021-03-24] MEDS: guaiFENesin 600 MG TABCR PO SCH (10:11)
[2021-03-24] MEDS: DOCUSATE SODIUM 100 MG CAP PO SCH (10:11)
[2021-03-24] MEDS: PANTOprazole 40 MG TAB PO SCH (10:11)
[2021-03-24] MEDS ORDERED: ETOMIDATE 2 MG/ML 20 ML VIAL IV ONE (11:48)
[2021-03-24] MEDS ORDERED: ROCURONIUM BROMIDE 10 MG/ML 5 ML VIAL IV ONE (11:48)
[2021-03-24] MEDS ORDERED: SUCCINYLCHOLINE CHLORIDE 20 MG/ML 10 ML VIAL IV ONE (11:53)
[2021-03-24] MEDS ORDERED: fentaNYL citrate 100 MCG/2 ML VIAL ONE (11:54)
[2021-03-24] MEDS ORDERED: PROPOFOL IV EMULSION 10 MG/ML 100 ML VIAL IV ONE (12:13)
[2021-03-24] MEDS: propofoL 1,000 MG/100 ML VIAL IV SCH ×2 (13:00→18:51)
[2021-03-24] MEDS: fentaNYL DRIP 1,250 MCG/250 ML BAG IV SCH (13:00)
--- NOTE | 2021-03-24 13:06 | Anesthesia Procedure Note ---
Anesthesia Procedure Note Arterial Line Note Patient medical history, medications, allergies and vitals reviewed. At 1220pm, Pt. left radial artery w/ negative Beau's test. prepped sterile fashion,localized w/ 1% lidocaine. atraumatic Date of procedure: 03/24/21 Consent: Risk / Benefits Reviewed With: PT / POA / Parent / Guardian, Accepts Plan, Informed Consent Obtained and All Questions Answered Monitors attached: Blood Pressure, CO2, EKG and Pulse Oximetry Oxygen delivery method: ETT Time out completed: Yes Laterality: Left Location: Radial Hand hygeine: Soap and water and Alcohol based hand rub Equipment/Supplies: Cap, Mask, Sterile gown, Sterile gloves, Sterile drapes and Sterile procedures used Skin prep: Chloraprep Local medication: 1% Lidocaine (ml) Ultrasound used: No Beau test: Negative Attempts: 1 Procedure Summary: 20 gauge angiocath advanced until return of bright red blood and needle was advanced beyond the artery using a through and through technique. Needle was removed and catheter withdrawn until return of pulsatile red blood. An arterial wire was advanced through the catheter and into the artery and the catheter was then treaded into place over the wire. The wire was removed and the catheter secured with tape and covered with occlusive dressing. Waveform consistent with correct arterial placement. After placement, normal perfusion was observed distal to the site of catheter placement. Post-Procedure: Pt hemodynamically stable, Pt tolerates well and No complication Anesthesia Charges Arterial Line A Line Charges: 70172 Insert Art line [facility]
--- NOTE | 2021-03-24 13:19 | Anesthesia Procedure Note ---
Anesthesia Procedure Note Intubation Note Vital Signs: Pt w/ covid pneumonia and ARDS in resp. Failure.At 1210pm, Pt preoxygenated,; smooth IV induction w/ 100 mcgs fentanyl + 14 mg etomidate + 160 mg succinylcholine. Using Glidescope #3 , VC's visualized, atraumatic intubation w/ 7.5 ETT;+ ETCO2;+ B/L BS ETT taped at 22 cm jeromy. CXR ordered for placement. Date of procedure: 03/24/21 Indication for intubation: Failure to ventilate, Failure to oxygenate and Respiratory distress Consent: Risk / Benefits Reviewed With: PT / POA / Parent / Guardian, Informed Consent Obtained and Emergency Monitors attached: Blood Pressure, CO2 and Pulse Oximetry Time out completed: Yes Premedication: Fentanyl (mcg) (100 mcg) and Etomidate (mg) (14 mg) Paralytic medication: Succinylcholine (mg) (160 mg) and Rocuronium (mg) (50 mg) Intubation technique: Adequate preoxygenation, Mask ventilation and Easy mask Equipment: Glidescope (#3) View: Grade 1 Endotracheal tube: Oral, 7.5, with Stylet, Tube secured @ cm (22 cm) and Balloon inflated Attempts: 1 and Atraumatic Tube placement confirmation: auscultation and Positive CO2 detection Procedure Summary: As above Post-procedure: Pt hemodynamically stable, Pt tolerates well, No complication and Post placement CXR ordered
--- NOTE | 2021-03-24 13:27 | Anesthesia Procedure Note ---
Anesthesia Procedure Note Central Line Note Date of procedure: 03/24/21 Indication: Central intravenous access Consent: Risk / Benefits Reviewed With: PT / POA / Parent / Guardian, Informed Consent Obtained and Emergency Monitors attached: Blood Pressure, CO2, EKG and Pulse Oximetry Oxygen delivery method: ETT Time out completed: Yes Premedication: Fentanyl (mcg), Propofol (mg) and General anesthesia Laterality: Right Location: Internal Jugular Surgical Prep: Hand hygeine: Alcohol based hand rub Equipment/Supplies: Cap, Mask, Sterile gown, Sterile gloves, Sterile drapes and Sterile procedures used Skin prep: Chloraprep Local medication: 1% Lidocaine (ml) Ultrasound Guidance: Ultrasound used: Yes US equipment and supplies: Sterile Gel and Sterile Probe Cover Central line lumen: Triple Catheter sutured at: CM (15 cm) Attempts: 1 Procedure Summary: At 1240pm; Pt. Right IJ vein area prepped w/ chloroprep; sterile full length drape placed; 1% lidocaine 5 ml infiltrated; using sterile covered U/S, Right IJV IDed,pt. placed in trendelenberg position, Right IJV guidewire inserted , 3- lumen catheter inserted w/o incident,sutured and secured; Each lumen aspirated ,deaired and flushed w/ sterile saline;antibiotic disc placed and dressing applied. Post-Procedure: Pt hemodynamically stable, Pt tolerates well, No complication and Post placement CXR ordered
--- NOTE | 2021-03-24 13:30 | Communication Note ---
Date of Service: March 24, 2021 At 1124 am, Dr Yang requested that our services were needed to emergently intubate a critical covid pt. and subsequently place an arterial line and triple lumen central venous catheter.Pt's chart was reviewed and pt was seen and examined.
[2021-03-24] MEDS ORDERED: MIDAZOLAM HCL 1 MG/ML 2ML VIAL IV PRN (13:31)
[2021-03-24] MEDS ORDERED: ICU PROTOCOL FOR HYPERGLYCEMIA PRN (13:31)
[2021-03-24] MEDS ORDERED: STAT IV Infusion **Titration per Protocol STA ×2 (13:31)
[2021-03-24 13:40] LABS: iSTAT Arterial Blood Gas HCO3 29 meg/L (19-24); iSTAT Arterial Blood Gas pCO2 79 mmHg (35-46); iSTAT Arterial Blood Gas pH 7.17 (7.35-7.45); iSTAT Arterial Blood Gas pO2 106 mmHg (80-95); iSTAT Carbon Dioxide 31 mmol/L (24-31); iSTAT FiO2 90 %; iSTAT Site Art Line
--- NOTE | 2021-03-24 13:46 | XRay Report ---
XR chest 1V portable CLINICAL HISTORY: Status post intubation. Assess Line/tube placement. Follow-up airspace opacities COMPARISON STUDY: 03/24/2021 TECHNIQUE: 1 view of the chest FINDINGS: Single frontal view of the chest demonstrates the cardiomediastinal silhouette to be within normal li mits. Endotracheal tube has been placed with its tip approximately 6 cm above the leigh ann. Right femor al catheter is also been placed with its tip in the distal SVC. There is no evidence of pneumothorax. Is also evidence for an NG tube extending below the edge of the film into the body of the stomach. Compared to previous examination, mild diffuse interstitial and alveolar opacities are again seen. Th ere is again evidence for left basilar atelectasis and small left pleural effusion as well. There is no evidence for vascular congestion. There is no acute osseous pathology. IMPRESSION: No significant interval change in mild diffuse interstitial and alveolar opacities, left basilar atelectasis and small left pleural effusion. Tubes and catheters in satisfactory position. ACT 112: Negative or not required by law. Electronically signed by: Quincy Villegas M.D. 03/24/2021 1:44 PM
--- NOTE | 2021-03-24 13:49 | Critical Care Consultation ---
Date of Consultation March 24, 2021 Assessment & Plan (1) ARDS (adult respiratory distress syndrome): (2) Hypoxia: (3) Acute respiratory distress syndrome (ARDS) due to 2019 novel coronavirus: Impression: 71-year-old unvaccinated female with Luciana. She has been aggressively treated but unfortunately failed. She had a prolonged hospitalization and today apparently decided to be intubated for progressive hypoxemic respiratory failure. Recommendations: 1. Neurologic: We will continue deep sedation with fentanyl Versed propofol and as needed neuromuscular blockade. 2. Cardiovascular: No current issues. She may need norepinephrine to maintain systolic blood pressures with sedation. 3. Pulmonary: Severe ARDS with refractory hypoxemia. Post intubation blood gas shows metabolic acidosis. Ventilator was adjusted. We will follow up with a repeat blood gas. Try and wean FiO2 and PEEP according to ARDS net tables. We will pursue high FiO2 low PEEP strategy to prevent barotrauma. Follow-up chest x-ray. As her CRP is decreasing, I do not think additional steroids are likely to be beneficial. She is recently been evaluated for PE and has not significantly clinically changed so we will hold off on repeat evaluation currently. Given the appearance on her most recent CT scan, I am not convinced that proning will likely improve her VQ mismatching 4. ID: Currently on dexamethasone 6 mg daily. She is completed about 21 days of this so will initiate a taper. I do not think additional steroids are going to offer her a clinical benefit at the current time. We will monitor for signs or symptoms of secondary infection. 5. Renal: ICU electrolyte replacement will be ordered. Follow kidney function. Try and keep YOLY on dry side. 6. GI: N.p.o. for now. Will assess nutritional support depending on whether or not the patient needs prone positioning. 7. Endocrine: ICU glycemic protocol. I discussed the case with the patient's spouse on the phone. Given her current illness, I do not think that CPR or ACLS or defibrillation would likely offer her clinical benefit if she dies in spite of intubation. He agrees. CODE STATUS will be updated to reflect DNR/DNI status. We did discuss duration of intubation mechanical ventilation. I would not recommend a prolonged course as the patient is already 3 weeks into the current illness. He tends to agree. He states the patient would not want a tracheostomy or long-term ventilatory support. He thinks that 5 days of mechanical ventilation is reasonable and if the patient fails to improve at that point time she should be extubated and placed on palliative care/comfort care measures. He understands the severity of her illness and the probability of . Total of 78 minutes critical care time was spent in evaluation management stabilization of this patient. Discussed with bedside respiratory therapist and ICU nurse. History of Present Illness Attending Physician: Tashi Yang MD History of Present Illness Asked by hospitalist to assist in management of this patient who is now been intubated for hypoxemic respiratory failure secondary to COVID-19. History is obtained from discussion with hospitalist as well as review the electronic medical record and discussion with the patient's by phone. This 71-year-old female is now 3 weeks into her hospitalization for COVID-19 pneumonia. She has had persistent hypoxemic respiratory failure. During the initial portion of her hospitalization she was seen by palliative care as well as pulmonary. She likely needed intubation at that point time but declined and preferred to pursue a palliative intervention. She has been managed expectantly and treated with steroids. Unfortunately, her condition is worsened and today she was found to be hypoxemic with oxygen saturations in the mid 80s. She reported to the hospitalist that she was not ready to and anesthesia was contacted for intubation mechanical ventilation. Were asked to assist with management. Patient underwent CT angiogram a few days ago which showed no evidence of PE but did show fairly dense fibrotic changes in the lung. Her CRP has been decreasing. She is not been febrile. Allergies Allergy/AdvReac Type Severity Reaction Status Date / Time No Known Allergies Allergy Unknown Verified 03/06/21 09:52 Home Medications Medication Instructions Recorded Confirmed Type No Known Home Medications 03/06/21 03/06/21 History Patient History Medical History (Updated 03/24/21 @ 13:44 by Dagoberto Flores MD) GERD (gastroesophageal reflux disease) Hypoxia Palliative care encounter Surgical History History of bilateral cataract extraction History of section Family History Mother Lung disease Father Stroke Sister Heart disease Social History Smoking Status: Never smoker Hx Alcohol Use: No Hx Substance Use: No Preferred Language: Pashto Communication Ability: Effective Retirement Specialist Required: No Beliefs That Will Affect Care: None Current Living Situation: Spouse Other Information That Helps Us Care for You: No Feels Safe at Home: Yes Safety Concerns: Feels Safe At This Time Assistive Devices: BiPap and Oxygen - Continuous Review of Systems Review of Systems: Unobtainable due to endotracheal tube Physical Exam Constitutional: well developed and + mechanically ventilated Intubated and sedated Neck: trachea midline, no thyromegaly Respiratory: Auscultation: + crackles On the mechanical ventilator Cardiovascular: RRR, no murmur, no edema Gastrointestinal (Abdomen): normal bowel sounds, soft, nontender, no hepatosplenomegaly Musculoskeletal: Extremities: extremities normal to inspection Skin: no rashes, warm and dry Neurologic: Sedated and paralyzed Lymphatic: no cervical lymphadenopathy Results & Data Results & Data ([facility]) Vital Signs (Past 12 Hours) Vital Signs Temp Pulse Pulse Resp BP BP Pulse Ox 03/24/21 10:21 122 H 38 H 100 03/24/21 10:05 116 H 34 H 83 L 03/24/21 09:00 103 H 03/24/21 08:02 36.7 C 85 20 164/76 H 90 03/24/21 07:54 93 H 26 H 85 L 03/24/21 03:32 36.2 C L 89 22 137/91 87 L 03/24/21 03:16 84 24 90 Pulse Ox 03/24/21 10:21 03/24/21 10:05 03/24/21 09:00 82 L 03/24/21 08:02 03/24/21 07:54 03/24/21 03:32 03/24/21 03:16 Critical Care Results & Data Vital Signs (Past 12 Hours) Vital Signs Temp Pulse Pulse Resp BP BP Pulse Ox 03/24/21 10:21 122 H 38 H 100 03/24/21 10:05 116 H 34 H 83 L 03/24/21 09:00 103 H 03/24/21 08:02 36.7 C 85 20 164/76 H 90 03/24/21 07:54 93 H 26 H 85 L 03/24/21 03:32 36.2 C L 89 22 137/91 87 L 03/24/21 03:16 84 24 90 Pulse Ox 03/24/21 10:21 03/24/21 10:05 03/24/21 09:00 82 L 03/24/21 08:02 03/24/21 07:54 03/24/21 03:32 03/24/21 03:16 Lab & Micro Results (Past 24 Hours) Hgb 15.1 g/dL (12.0-16.0) 03/24/21 Hct 46.8 % (37-47) 03/24/21 Na 141 mmol/L (136-145) 03/24/21 K 4.6 mmol/L (3.5-5.1) 03/24/21 Cl 104 mmol/L (98-107) 03/24/21 CO2 29 mmol/L (21-32) 03/24/21 Anion Gap 7.0 (3-11) 03/24/21 BUN 42 mg/dl (7-18) H 03/24/21 Creatinine 0.83 mg/dl (0.6-1.2) 03/24/21 Estimated GFR ( Amer) 83.4 ml/min 03/24/21 Estimated GFR (Non-Af Amer) 71.9 ml/min 03/24/21 BUN/Creatinine Ratio 50.2 (10-20) H 03/24/21 Glu 143 mg/dl (70-99) H 03/24/21 Ca 9.2 mg/dl (8.5-10.1) 03/24/21 Phosphorus Level 4.3 mg/dl (2.5-4.9) 03/24/21 Mg 2.7 mg/dl (1.8-2.4) H 03/24/21 05:21 03/24/21 Calcium Level 9.2 mg/dl (8.5-10.1) 03/24/21 05:21 03/24/21 Beau Test NA 03/24/21 13:24 03/24/21 Diagnostic Findings (Past 24 Hours) Chest X-Ray 03/24/21 08:03 XR chest 1V portable CLINICAL HISTORY: Follow-up interstitial and alveolar opacities. Hypoxia. Covid positive. COMPARISON STUDY: 03/20/2021 TECHNIQUE: 1 view of the chest FINDINGS: Single frontal view of the chest demonstrates the cardiomediastinal silhouette to be within normal limits. Compared to previous examination, there has been slight improvement of bilateral interstitial and alveolar opacities. However, there is now atelectasis at the left lung base with evidence of small left pleural effusion. There is no evidence for pleural effusion. There is no evidence for vascular congestion. There is no acute osseous pathology. IMPRESSION: While there has been slight improvement of bilateral interstitial and alveolar opacities, there is now left lower lobe atelectasis and small left pleural effusion. ACT 112: Negative or not required by law. Electronically signed by: Quincy Villegas M.D. 03/24/2021 10:08 AM I & O Totals 24 Hours 03/23/21 03/24/21 03/25/21 06:59 06:59 06:59 Intake Total 1350 / 1350 1100 / 1100 Output Total 1150 / 1150 850 / 850 Balance 200 / 200 250 / 250 Cumulative 03/06/21 08:09 thru 03/24/21 05:11 Intake Total 91883 Output Total 96146 Balance -1199 RT Ventilator Mngmt (Last Documented) Ventilator Ordered Settings Respiratory Rate 38 03/24/21 10:21 Fraction of Inspired Oxygen 100 03/24/21 10:21 Ventilator - PT Measurements Respiratory Rate 38 Coding Level of Care Code Critical Care ea addt'l 30 min Diagnoses ARDS (adult respiratory distress syndrome) J80 Hypoxia R09.02 Acute respiratory distress syndrome (ARDS) due to 2019 novel coronavirus U07.1; J80 Time Spent (min) 79 Comment [id number] and [id number]
[2021-03-24] MEDS ORDERED: CISATRACURIUM BESYLATE IV SOLN 2 MG/ML 10 ML VIAL IV ONE (14:00)
[2021-03-24] MEDS: CISATRACURIUM BESYLATE 40 MG in 0.9 % SODIUM CHLORIDE 80 ML IV SCH ×2 (14:21→22:00)
[2021-03-24] MEDS: ARTIFICIAL TEARS OP OINT 3.5 GM TUBE OP SCH ×3 (14:36→21:53)
[2021-03-24] MEDS: NORMOSOL-R 1,000 ML IV SCH (14:36)
[2021-03-24 14:58] LABS: Albumin Level 2.6 gm/dl (3.4-5.0); BUN Creatinine Ratio 41.3 (10-20); Calcium 8.5 mg/dl (8.5-10.1); Creatinine Clr Calc Pharmacy 44.4 ml/min; Est GFR (African American) 66.6 ml/min; Est GFR (Non-African American) 57.4 ml/min; Potassium 4.3 mmol/L (3.5-5.1)
[2021-03-24 15:01] LABS: Albumin Globulin Ratio 0.7 (0.9-2); Bilirubin,Total 0.8 mg/dl (0.2-1); Globulin 3.7 gm/dl (2.5-4.0); Total Protein 6.3 gm/dl (6.4-8.2)
[2021-03-24 15:16] LABS: Basophils # (auto) 0.03 K/uL (0-0.2); Basophils % (auto) 0.1 %; Hemoglobin 14.8 g/dL (12.0-16.0); Immature Granulocytes # (auto) 0.48 K/uL (0.00-0.02); Immature Granulocytes % (auto) 1.8 %; Lymphocytes # (auto) 1.35 K/uL (1.2-3.4); Lymphocytes % (auto) 5.1 %; Mean Corpuscular Hgb Conc 32.2 g/dL (32-36); Mean Corpuscular Volume 99.4 fL (80-100); Mean Platelet Volume 12.2 fL (7.4-10.4); Monocytes % (auto) 1.1 %; Neutrophils # (auto) 24.57 K/uL (1.4-6.5); Neutrophils % (auto) 91.9 %; Platelet Count 310 K/uL (130-400); RDW Coefficient of Variation 13.6 % (11.5-14.5); RDW Standard Deviation 49.3 fL (36.4-46.3); Red Blood Count 4.63 M/uL (4.2-5.4); White Blood Count 26.73 K/uL (4.8-10.8)
[2021-03-24 16:19] LABS: iSTAT Arterial Blood Gas HCO3 30 meg/L (19-24); iSTAT Arterial Blood Gas pCO2 79 mmHg (35-46); iSTAT Arterial Blood Gas pH 7.19 (7.35-7.45); iSTAT Arterial Blood Gas pO2 67 mmHg (80-95); iSTAT Carbon Dioxide 33 mmol/L (24-31); iSTAT FiO2 75 %; iSTAT Site Art Line
[2021-03-24] MEDS: ICU ELECTROLYTE REPLACEMENT PROTOCOL SCH (18:24)
[2021-03-25] MEDS: CISATRACURIUM BESYLATE 40 MG in 0.9 % SODIUM CHLORIDE 80 ML IV SCH ×6 (00:45→12:54)
[2021-03-25] MEDS: fentaNYL DRIP 1,250 MCG/250 ML BAG IV SCH ×2 (02:17→16:22)
[2021-03-25] MEDS: PROPOFOL BOLUS FROM BAG IV PRN (02:25)
[2021-03-25] MEDS: ARTIFICIAL TEARS OP OINT 3.5 GM TUBE OP SCH ×6 (02:36→21:29)
[2021-03-25] MEDS: propofoL 1,000 MG/100 ML VIAL IV SCH ×4 (03:02→19:19)
[2021-03-25] MEDS ORDERED: GLUCAGON FOR INJ 1 MG VIAL SQ PRN (03:23)
[2021-03-25] MEDS ORDERED: CARBOHYDRATES FOR HYPOGLYCEMIA PO PRN (03:23)
[2021-03-25] MEDS ORDERED: GLUCOSE 40% GEL 15 GM TUBE PO PRN (03:23)
[2021-03-25] MEDS ORDERED: GLUCOSE 10 TABS/TUBE PO PRN (03:23)
[2021-03-25] MEDS ORDERED: DEXTROSE 50% 50 ML SYRINGE IV PRN (03:23)
[2021-03-25] MEDS ORDERED: PHARMACY GLYCEMIC MGMT CONSULT PRN (03:23)
[2021-03-25] MEDS ORDERED: INSULIN ASPART PER UNIT SC SCH (04:00)
[2021-03-25 05:05] LABS: iSTAT Arterial Blood Gas HCO3 31 meg/L (19-24); iSTAT Arterial Blood Gas pCO2 81 mmHg (35-46); iSTAT Arterial Blood Gas pO2 73 mmHg (80-95); iSTAT Carbon Dioxide 34 mmol/L (24-31); iSTAT FiO2 55 %; iSTAT Site Art Line
[2021-03-25] MEDS: INSULIN ASPART PER UNIT SC SCH ×3 (05:21→17:33)
[2021-03-25] MEDS: dexAMETHasone 6 MG in SYRINGE 0 ML IV SCH ×2 (06:24→19:34)
[2021-03-25 07:41] LABS: Hematocrit (blood only) 44.6 % (37-47); Mean Corpuscular Hemoglobin 32.4 pg (25-34); Mean Corpuscular Hgb Conc 31.4 g/dL (32-36); Mean Corpuscular Volume 103.2 fL (80-100); Mean Platelet Volume 12.4 fL (7.4-10.4); Platelet Count 214 K/uL (130-400); RDW Standard Deviation 52.7 fL (36.4-46.3); Red Blood Count 4.32 M/uL (4.2-5.4); White Blood Count 28.09 K/uL (4.8-10.8)
[2021-03-25 07:43] LABS: Basophils # (auto) 0.06 K/uL (0-0.2); Basophils % (auto) 0.2 %; Immature Granulocytes % (auto) 2.8 %; Lymphocytes # (auto) 1.49 K/uL (1.2-3.4); Lymphocytes % (auto) 5.3 %; Monocytes # (auto) 0.76 K/uL (0.11-0.59); Monocytes % (auto) 2.7 %; Neutrophils # (auto) 24.98 K/uL (1.4-6.5)
[2021-03-25 07:48] LABS: Albumin Level 2.3 gm/dl (3.4-5.0); BUN Creatinine Ratio 70.5 (10-20); Bilirubin Direct 0.2 mg/dl (0-0.2); Bilirubin,Total 0.5 mg/dl (0.2-1); Calcium 8.4 mg/dl (8.5-10.1); Creatinine Clr Calc Pharmacy 90.7 ml/min; Est GFR (Non-African American) 100.1 ml/min; Magnesium 2.6 mg/dl (1.8-2.4); Phosphorus 3.4 mg/dl (2.5-4.9); Potassium 4.8 mmol/L (3.5-5.1); Total Protein 5.8 gm/dl (6.4-8.2)
[2021-03-25] MEDS: ICU ELECTROLYTE REPLACEMENT PROTOCOL SCH ×2 (07:51→17:32)
[2021-03-25] MEDS: PANTOprazole 40 MG TAB PO SCH (08:11)
[2021-03-25] MEDS ORDERED: ICU PROTOCOL FOR HYPERGLYCEMIA SCH (09:00)
[2021-03-25] MEDS ORDERED: INSULIN HUMAN NPH SC STA (09:11)
[2021-03-25] MEDS: ENOXAPARIN INJ 30 MG/0.3 ML SYR SQ SCH ×2 (09:30→17:56)
[2021-03-25] MEDS: DOCUSATE SODIUM 100 MG CAP PO SCH (09:30)
--- NOTE | 2021-03-25 10:04 | XRay Report ---
XR chest 1V portable CLINICAL HISTORY: resp failure TECHNIQUE: Single frontal radiograph of the chest was obtained. Comparison: Comparison is made to chest one view 03/24/2021 FINDINGS: Lines and tubes are stable. The cardiomediastinal silhouette is stable. Bilateral lower lung predomin ant airspace opacities are seen. Mild interstitial opacities are unchanged. There is a likely small l eft pleural effusion, unchanged. IMPRESSION: No significant interval change in bilateral interstitial and airspace opacities. Likely small left pl eural effusion. ACT 112: Negative or not required by law. Electronically signed by: Beck Gordon M.D. 03/25/2021 10:03 AM
--- NOTE | 2021-03-25 11:11 | Hospitalist Progress Note ---
Date of Service March 25, 2021 Assessment & Plan (1) Acute respiratory failure with hypoxia: (2) Pneumonia due to COVID-19 virus: (3) Hypoxia: Plan: Acute respiratory failure with hypoxia ARDS COVID-19 pneumonia Diagnosed COVID-19 positive on 03/06/2021 Pneumomediastinum --CTA: No CTA evidence for pulmonary embolus. Extensive groundglass opacities are present throughout both lungs characteristic of a viral type pneumonitis and Covid 19 pneumonia.XR: -Continue CPAP/high flow oxygen DNI DNR as per patient, and spouse Not a candidate for ECMO as per pulmonary Completed remdesevir course Continue dexamethasone - increased dose to q12 h (on 03/21 as not much improvement, and per previous pulm. recs) Palliative care consulted to address goals of care Appreciate pulmonary input Continue Lasix 20mg prn CRP:14.4>24.7 Currently on high flow oxygen Continue to Prone Patient continues to desaturate while on High Flow Imaging suggestive of Trace pneumomediastinum Patient prefers to be DNI DNR Appreciate palliative care Input 03/20 Chest x-ray showed worsening bilateral interstitial and alveolar opacities. Pneumomediastinum seem to be improving Continue current management Prognosis is poor 03/22 - had a long discussion with the patient and her (over the phone), patient wants to remain DNR/DNI Explained intubation in case she would worsen, however at this time patient does not want to change anything 03/23 -reports she is feeling better, she is able to answer in short sentences, does not wish to make any changes at this time 03/24 - patient having more difficulty breathing today, on HF nasal cannula, BiPAP attempted, however patient did not tolerate. Patient stated that she does not want to and wants to proceed with whatever necessary including intubation. Nursing staff at the bedside. Contacted anesthesia and wound care nurse. Updated patient's over the phone. 03/25 - pt was intubated yesterday Severe ARDS with refractory hypoxemia. Current vent settings assist-control/32/250/10/0.5 with a plateau pressure of about 30. ABG 7.2/81/73. P to F ratio 146 with a very stiff lungs and very poor compliance. Urinary tract infection-POA Urine culture growing E. coli Completed Rocephin course (4) Elevated LFTs: Plan: Minimally elevated monitor (5) Sepsis: Plan: Sepsisin setting of COVID19 pneumonia, UTI Plan: DVT Px: Lovenox SQ Code status: Pt was DNI/DNR however then pt wished for FULL code -> pt was intubated Admission and Anticipated Discharge Date Admission Date: March 06, 2021 Subjective Patient is seen in follow up of acute resp. failure w/ hypoxia 2/2 covid 19 pneumonia Pt intubated yesterday (03/24) d/t severe ards and refractory hypoxemia Pt has had prolonged hospital course, on HF NC previously Review of Systems Review of Systems: Unobtainable due to cognitive status and Unobtainable due to endotracheal tube Physical Exam Physical Exam: General Appearance: Moderately built and nourished, intubated, sedated Head: normocephalic, Atraumatic Eyes: normal inspection Respiratory/Chest: Decreased breath sounds, + mild rhonchi Cardiovascular: S1, S2, No murmur Abdomen/GI:Soft, Non tender, Bowel sounds present Extremities/Musculoskeletal:normal inspection, no edema Neurologic/Psych:AAOX3, no facial asymmetry, speech slow but fluent, moves extremities Skin: normal color, warm Results & Data Results & Data ([facility]) Vital Signs (Past 12 Hours) Vital Signs Temp Pulse Resp BP Pulse Ox Pulse Ox 03/25/21 09:47 96 H 03/25/21 09:45 100 H 32 H 90 03/25/21 09:30 102 H 32 H 90 03/25/21 09:15 103 H 32 H 90 03/25/21 09:00 101 H 32 H 90 90 03/25/21 08:45 100 H 32 H 109/65 89 L 03/25/21 08:31 102 H 32 H 90 03/25/21 08:15 97 H 32 H 113/67 90 03/25/21 08:01 112 H 32 H 90 03/25/21 08:00 36.6 C 03/25/21 07:46 98 H 32 H 90 03/25/21 07:31 99 H 32 H 89 L 03/25/21 07:16 96 H 32 H 90 03/25/21 07:11 94 H 32 H 90 03/25/21 07:00 101 H 32 H 89 L 03/25/21 06:20 93 H 32 H 91 03/25/21 06:10 96 H 32 H 90 03/25/21 06:00 106 H 32 H 92 03/25/21 05:50 97 H 32 H 90 03/25/21 05:40 99 H 32 H 90 03/25/21 05:30 97 H 32 H 91 03/25/21 05:20 99 H 32 H 91 03/25/21 05:10 98 H 32 H 90 03/25/21 05:00 99 H 32 H 91 03/25/21 04:50 97 H 32 H 92 03/25/21 04:40 100 H 32 H 92 03/25/21 04:30 122 H 32 H 93 03/25/21 04:20 97 H 32 H 123/66 92 03/25/21 04:10 96 H 32 H 119/69 93 03/25/21 04:00 36.5 C 97 H 32 H 92 03/25/21 03:50 96 H 32 H 92 03/25/21 03:40 96 H 32 H 92 03/25/21 03:30 97 H 32 H 92 03/25/21 03:20 94 H 32 H 92 03/25/21 03:10 96 H 32 H 92 03/25/21 03:00 97 H 32 H 92 03/25/21 02:50 96 H 32 H 94 03/25/21 02:48 96 H 32 H 94 03/25/21 02:40 93 H 32 H 94 03/25/21 02:30 99 H 32 H 93 03/25/21 02:20 95 H 32 H 129/71 96 03/25/21 02:10 98 H 32 H 131/75 96 03/25/21 02:01 96 H 32 H 95 03/25/21 01:51 98 H 32 H 95 03/25/21 01:41 99 H 32 H 95 03/25/21 01:31 102 H 32 H 94 03/25/21 01:21 102 H 32 H 95 03/25/21 01:11 99 H 32 H 95 03/25/21 01:01 100 H 32 H 94 03/25/21 00:51 101 H 32 H 95 03/25/21 00:41 102 H 32 H 94 03/25/21 00:30 101 H 32 H 94 03/25/21 00:20 101 H 32 H 94 03/25/21 00:10 103 H 32 H 94 03/25/21 00:00 36.3 C L 104 H 32 H 93 03/24/21 23:50 105 H 32 H 93 03/24/21 23:40 104 H 32 H 93 03/24/21 23:30 105 H 32 H 93 03/24/21 23:20 106 H 32 H 93 Laboratory Results 03/25/21 03/25/21 03/25/21 Range/Units 06:20 06:20 06:20 WBC 28.09 H (4.8-10.8) K/uL RBC 4.32 (4.2-5.4) M/uL Hgb 14.0 (12.0-16.0) g/dL Hct 44.6 (37-47) % MCV 103.2 H (80-100) fL MCH 32.4 (25-34) pg MCHC 31.4 L (32-36) g/dL RDW Std Deviation 52.7 H (36.4-46.3) fL RDW Coeff of Heron 14.0 (11.5-14.5) % Plt Count 214 (130-400) K/uL MPV 12.4 H (7.4-10.4) fL Immature Gran % (Auto) 2.8 % Neut % (Auto) 89.0 % Lymph % (Auto) 5.3 % [place] % (Auto) 2.7 % Eos % (Auto) 0.0 % Baso % (Auto) 0.2 % Neut # (Auto) 24.98 H (1.4-6.5) K/uL Lymph # (Auto) 1.49 (1.2-3.4) K/uL [place] # (Auto) 0.76 H (0.11-0.59) K/uL Eos # (Auto) 0.00 (0-0.5) K/uL Baso # (Auto) 0.06 (0-0.2) K/uL Immature Gran # (Auto) 0.80 H (0.00-0.02) K/uL Sample Site POC pH (7.35-7.45) POC pCO2 (35-46) mmHg POC pO2 (80-95) mmHg POC HCO3 (19-24) mikie/L POC Total CO2 (24-31) mmol/L POC Base Excess (-9-1.8) mikie/L POC ABG O2 Sat (90-95) % Beau Test O2 Delivery Device POC O2 Rate Minute Ventilation POC FiO2 % Tidal Volume PEEP Sodium 142 (136-145) mmol/L Potassium 4.8 (3.5-5.1) mmol/L Chloride 107 (98-107) mmol/L Carbon Dioxide 30 (21-32) mmol/L Anion Gap 4.0 (3-11) BUN 34 H (7-18) mg/dl Creatinine 0.48 L D (0.6-1.2) mg/dl Est Cr Clr Drug Dosing 90.7 ml/min Est GFR ( Amer) 116.0 ml/min Est GFR (Non-Af Amer) 100.1 ml/min BUN/Creatinine Ratio 70.5 H (10-20) Glucose 144 H (70-99) mg/dl POC Glucose (70-99) mg/dl Estimat Average Glucose Pending Hemoglobin A1c Pending Calcium 8.4 L (8.5-10.1) mg/dl Phosphorus 3.4 (2.5-4.9) mg/dl Magnesium 2.6 H (1.8-2.4) mg/dl Total Bilirubin 0.5 (0.2-1) mg/dl Direct Bilirubin 0.2 (0-0.2) mg/dl AST 22 (15-37) U/L ALT 48 (12-78) Alkaline Phosphatase 101 (45-117) U/L Total Protein 5.8 L (6.4-8.2) gm/dl Albumin 2.3 L (3.4-5.0) gm/dl Globulin (2.5-4.0) gm/dl Albumin/Globulin Ratio (0.9-2) Procalcitonin (0-0.5) ng/ml Nasal Screen MRSA (PCR) (Negative) 03/25/21 03/25/21 03/24/21 Range/Units 04:51 00:09 17:30 WBC (4.8-10.8) K/uL RBC (4.2-5.4) M/uL Hgb (12.0-16.0) g/dL Hct (37-47) % MCV (80-100) fL MCH (25-34) pg MCHC (32-36) g/dL RDW Std Deviation (36.4-46.3) fL RDW Coeff of Heron (11.5-14.5) % Plt Count (130-400) K/uL MPV (7.4-10.4) fL Immature Gran % (Auto) % Neut % (Auto) % Lymph % (Auto) % [place] % (Auto) % Eos % (Auto) % Baso % (Auto) % Neut # (Auto) (1.4-6.5) K/uL Lymph # (Auto) (1.2-3.4) K/uL [place] # (Auto) (0.11-0.59) K/uL Eos # (Auto) (0-0.5) K/uL Baso # (Auto) (0-0.2) K/uL Immature Gran # (Auto) (0.00-0.02) K/uL Sample Site Art Line POC pH 7.20 L (7.35-7.45) POC pCO2 81 H (35-46) mmHg POC pO2 73 L (80-95) mmHg POC HCO3 31 H (19-24) mikie/L POC Total CO2 34 H (24-31) mmol/L POC Base Excess 3.0 H (-9-1.8) mikie/L POC ABG O2 Sat 89.0 L (90-95) % Beau Test NA O2 Delivery Device Ventilator POC O2 Rate 32 Minute Ventilation POC FiO2 55 % Tidal Volume 225 PEEP 10 Sodium (136-145) mmol/L Potassium (3.5-5.1) mmol/L Chloride (98-107) mmol/L Carbon Dioxide (21-32) mmol/L Anion Gap (3-11) BUN (7-18) mg/dl Creatinine (0.6-1.2) mg/dl Est Cr Clr Drug Dosing ml/min Est GFR ( Amer) ml/min Est GFR (Non-Af Amer) ml/min BUN/Creatinine Ratio (10-20) Glucose (70-99) mg/dl POC Glucose 194 H (70-99) mg/dl Estimat Average Glucose Hemoglobin A1c Calcium (8.5-10.1) mg/dl Phosphorus (2.5-4.9) mg/dl Magnesium (1.8-2.4) mg/dl Total Bilirubin (0.2-1) mg/dl Direct Bilirubin (0-0.2) mg/dl AST (15-37) U/L ALT (12-78) Alkaline Phosphatase (45-117) U/L Total Protein (6.4-8.2) gm/dl Albumin (3.4-5.0) gm/dl Globulin (2.5-4.0) gm/dl Albumin/Globulin Ratio (0.9-2) Procalcitonin (0-0.5) ng/ml Nasal Screen MRSA (PCR) Negative (Negative) 03/24/21 03/24/21 03/24/21 Range/Units 16:02 14:10 14:10 WBC 26.73 H (4.8-10.8) K/uL RBC 4.63 (4.2-5.4) M/uL Hgb 14.8 (12.0-16.0) g/dL Hct 46.0 (37-47) % MCV 99.4 (80-100) fL MCH 32.0 (25-34) pg MCHC 32.2 (32-36) g/dL RDW Std Deviation 49.3 H (36.4-46.3) fL RDW Coeff of Heron 13.6 (11.5-14.5) % Plt Count 310 (130-400) K/uL MPV 12.2 H (7.4-10.4) fL Immature Gran % (Auto) 1.8 % Neut % (Auto) 91.9 % Lymph % (Auto) 5.1 % [place] % (Auto) 1.1 % Eos % (Auto) 0.0 % Baso % (Auto) 0.1 % Neut # (Auto) 24.57 H (1.4-6.5) K/uL Lymph # (Auto) 1.35 (1.2-3.4) K/uL [place] # (Auto) 0.30 (0.11-0.59) K/uL Eos # (Auto) 0.00 (0-0.5) K/uL Baso # (Auto) 0.03 (0-0.2) K/uL Immature Gran # (Auto) 0.48 H (0.00-0.02) K/uL Sample Site Art Line POC pH 7.19 L* (7.35-7.45) POC pCO2 79 H (35-46) mmHg POC pO2 67 L (80-95) mmHg POC HCO3 30 H (19-24) mikie/L POC Total CO2 33 H (24-31) mmol/L POC Base Excess 2.0 H (-9-1.8) mikie/L POC ABG O2 Sat 87.0 L (90-95) % Beau Test NA O2 Delivery Device Ventilator POC O2 Rate 26 Minute Ventilation 8 POC FiO2 75 % Tidal Volume 310 PEEP 12 Sodium 139 (136-145) mmol/L Potassium 4.3 (3.5-5.1) mmol/L Chloride 105 (98-107) mmol/L Carbon Dioxide 27 (21-32) mmol/L Anion Gap 7.0 (3-11) BUN 41 H (7-18) mg/dl Creatinine 1.00 (0.6-1.2) mg/dl Est Cr Clr Drug Dosing 44.4 ml/min Est GFR ( Amer) 66.6 ml/min Est GFR (Non-Af Amer) 57.4 ml/min BUN/Creatinine Ratio 41.3 H (10-20) Glucose 274 H (70-99) mg/dl POC Glucose (70-99) mg/dl Estimat Average Glucose Hemoglobin A1c Calcium 8.5 (8.5-10.1) mg/dl Phosphorus (2.5-4.9) mg/dl Magnesium (1.8-2.4) mg/dl Total Bilirubin 0.8 (0.2-1) mg/dl Direct Bilirubin (0-0.2) mg/dl AST 35 (15-37) U/L ALT 44 (12-78) Alkaline Phosphatase 110 (45-117) U/L Total Protein 6.3 L (6.4-8.2) gm/dl Albumin 2.6 L (3.4-5.0) gm/dl Globulin 3.7 (2.5-4.0) gm/dl Albumin/Globulin Ratio 0.7 L (0.9-2) Procalcitonin (0-0.5) ng/ml Nasal Screen MRSA (PCR) (Negative) 03/24/21 03/24/21 Range/Units 14:10 13:24 WBC (4.8-10.8) K/uL RBC (4.2-5.4) M/uL Hgb (12.0-16.0) g/dL Hct (37-47) % MCV (80-100) fL MCH (25-34) pg MCHC (32-36) g/dL RDW Std Deviation (36.4-46.3) fL RDW Coeff of Heron (11.5-14.5) % Plt Count (130-400) K/uL MPV (7.4-10.4) fL Immature Gran % (Auto) % Neut % (Auto) % Lymph % (Auto) % [place] % (Auto) % Eos % (Auto) % Baso % (Auto) % Neut # (Auto) (1.4-6.5) K/uL Lymph # (Auto) (1.2-3.4) K/uL [place] # (Auto) (0.11-0.59) K/uL Eos # (Auto) (0-0.5) K/uL Baso # (Auto) (0-0.2) K/uL Immature Gran # (Auto) (0.00-0.02) K/uL Sample Site Art Line POC pH 7.17 L* (7.35-7.45) POC pCO2 79 H (35-46) mmHg POC pO2 106 H (80-95) mmHg POC HCO3 29 H (19-24) mikie/L POC Total CO2 31 (24-31) mmol/L POC Base Excess 0.0 (-9-1.8) mikie/L POC ABG O2 Sat 96.0 H (90-95) % Beau Test NA O2 Delivery Device Ventilator POC O2 Rate 18 Minute Ventilation 5.8 POC FiO2 90 % Tidal Volume 310 PEEP 12 Sodium (136-145) mmol/L Potassium (3.5-5.1) mmol/L Chloride (98-107) mmol/L Carbon Dioxide (21-32) mmol/L Anion Gap (3-11) BUN (7-18) mg/dl Creatinine (0.6-1.2) mg/dl Est Cr Clr Drug Dosing ml/min Est GFR ( Amer) ml/min Est GFR (Non-Af Amer) ml/min BUN/Creatinine Ratio (10-20) Glucose (70-99) mg/dl POC Glucose (70-99) mg/dl Estimat Average Glucose Hemoglobin A1c Calcium (8.5-10.1) mg/dl Phosphorus (2.5-4.9) mg/dl Magnesium (1.8-2.4) mg/dl Total Bilirubin (0.2-1) mg/dl Direct Bilirubin (0-0.2) mg/dl AST (15-37) U/L ALT (12-78) Alkaline Phosphatase (45-117) U/L Total Protein (6.4-8.2) gm/dl Albumin (3.4-5.0) gm/dl Globulin (2.5-4.0) gm/dl Albumin/Globulin Ratio (0.9-2) Procalcitonin 0.08 (0-0.5) ng/ml Nasal Screen MRSA (PCR) (Negative) Medications Administered Current Inpatient Medications Dextrose (Dextrose 50% 50 Ml Syringe) 25 - 50 ml IV UD PRN; Protocol PRN Reason: Hypoglycemia Protocol Stop: 04/24/21 03:22 Docusate Sodium (Docusate Sodium 100 Mg Cap) 100 mg PO QAM [facility] Stop: 04/22/21 10:44 Last Admin: 03/25/21 09:30 Dose: Not Given Documented by: Enoxaparin Sodium (Enoxaparin Inj 30 Mg/0.3 Ml Syr) 30 mg SQ BID [facility] Stop: 04/22/21 20:59 Last Admin: 03/25/21 09:30 Dose: 30 mg Documented by: Fentanyl Citrate (Fentanyl Bolus From Bag) 50 mcg IV Q60M PRN PRN Reason: Pain or Agitation Stop: 04/07/21 13:30 Glucagon (Glucagon For Inj 1 Mg Vial) 1 mg SQ UD PRN; Protocol PRN Reason: Hypoglycemia Protocol Stop: 04/24/21 03:22 Glucose (Glucose 10 Tabs/Tube) 4 - 8 tabs PO UD PRN; Protocol PRN Reason: Hypoglycemia Protocol Stop: 04/24/21 03:22 Glucose (Glucose 40% Gel 15 Gm Tube) 15 - 30 gm PO UD PRN; Protocol PRN Reason: Hypoglycemia Protocol Stop: 04/24/21 03:22 Dexamethasone 6 mg/ Syringe 1.5 mls @ 1 mls/min IV Q12H [facility] Stop: 04/20/21 18:59 Last Admin: 03/25/21 06:24 Dose: 1 mls/min Documented by: Cisatracurium Besylate 40 mg/ (Sodium Chloride) 100 mls @ 14.34 mls/hr IV .[id number] ROBY; Protocol Stop: 04/23/21 13:44 Last Admin: 03/25/21 10:40 Dose: 2 mcg/kg/min, 14.3 mls/hr Documented by: Propofol (Diprivan) 1,000 mg in 100 mls @ 10.908 mls/hr IV .Q9H11M [facility]; Protocol Stop: 03/27/21 13:44 Last Admin: 03/25/21 09:55 Dose: 30 mcg/kg/min, 10.9 mls/hr Documented by: Fentanyl Citrate (Fentanyl Drip) 1,250 mcg in 250 mls @ 15 mls/hr IV .[id number] [facility]; Protocol Stop: 04/07/21 13:44 Last Admin: 03/25/21 02:17 Dose: 75 mcg/hr, 15 mls/hr Documented by: Parenteral Electrolytes (Normosol-R) 1,000 mls @ 30 mls/hr IV .Q24H [facility] Stop: 04/23/21 13:44 Last Admin: 03/24/21 14:36 Dose: 30 mls/hr Documented by: Insulin Aspart (Insulin Aspart Per Unit) 0 units SC Q6 [facility]; Protocol Stop: 04/24/21 04:59 Last Admin: 03/25/21 05:21 Dose: Not Given Documented by: Insulin Human NPH (Insulin Human Nph) 10 units SC DAILY [facility]; Protocol Stop: 04/25/21 08:59 Midazolam HCl (Midazolam Hcl 1 Mg/Ml 2ml Vial) 2 mg IV Q2H PRN PRN Reason: RASS goal -1 Stop: 04/23/21 13:30 Miscellaneous ([facility] Electrolyte Replacement Protocol) 1 ea N/A BID@06,18 ROBY; Protocol Stop: 03/31/21 17:59 Last Admin: 03/25/21 07:51 Dose: Not Given Documented by: Miscellaneous ([facility] Protocol For Hyperglycemia) 1 ea N/A PRN PRN; Protocol PRN Reason: Hyperglycemia Protocol Stop: 03/26/21 13:30 Miscellaneous (Carbohydrates For Hypoglycemia ) 15 - 30 gm PO UD PRN PRN Reason: Hypoglycemia Protocol Stop: 04/24/21 03:22 Miscellaneous Information (Pharmacy Glycemic Mgmt Consult) 1 ea N/A UD PRN; Protocol PRN Reason: Consult Stop: 04/24/21 03:22 Multi-Ingredient Cream (Artificial Tears Op Oint 3.5 Gm Tube) 1 appln OP Q4H [facility] Stop: 04/23/21 14:29 Last Admin: 03/25/21 10:41 Dose: 1 appln Documented by: Pantoprazole Sodium (Pantoprazole 40 Mg Tab) 40 mg PO QAM [facility] Stop: 04/22/21 08:59 Last Admin: 03/25/21 08:11 Dose: Not Given Documented by: Polyethylene Glycol (Polyethylene (Miralax) 17 Gm Pack) 17 gm PO DAILY PRN PRN Reason: Constipation Stop: 04/09/21 23:01 Last Admin: 03/11/21 04:00 Dose: 17 gm Documented by: Propofol (Propofol Bolus From Bag) 20 mg IV Q5M PRN PRN Reason: Sedation Stop: 03/27/21 13:30 Last Admin: 03/25/21 02:25 Dose: 20 mg Documented by:
--- NOTE | 2021-03-25 11:52 | Critical Care Progress Note ---
Date of Service March 25, 2021 Assessment & Plan (1) ARDS (adult respiratory distress syndrome): (2) Hypoxia: (3) Acute respiratory distress syndrome (ARDS) due to 2019 novel coronavirus: Plan: Impression: 71-year-old unvaccinated female with Luciana. She has been aggressively treated but unfortunately failed. She had a prolonged hospitalization and today apparently decided to be intubated for progressive hypoxemic respiratory failure. 24-hour events: The patient clinically worsened yesterday with refractory hypoxemia. She elected to change her CODE STATUS and was subsequently intubated by anesthesia. Central lines and arterial lines were placed. She was placed on neuromuscular blockade. Her vent settings have been weaned. She continues to demonstrate hypercarbic respiratory failure but were allowing for permissive hypercapnia attempting to maintain peak and plateau airway pressures which are acceptable. She is been hemodynamically stable. Urine output is drifting off somewhat this morning. Recommendations: 1. Neurologic: We will continue deep sedation with fentanyl Versed propofo. Discontinue neuromuscular blockade today. Will place restraints to prevent self extubation 2. Cardiovascular: No current issues. Continue to monitor 3. Pulmonary: Severe ARDS with refractory hypoxemia. Current vent settings assist-control/32/250/10/0.5 with a plateau pressure of about 30. Blood gas 7.2/81/73. P to F ratio 146 with a very stiff lungs and very poor compliance. Tolerating permissive hypercapnia in an effort to try and keep peak airway pressures lower. Continue to wean per ARDS net protocol. Pursuing high FiO2 low PEEP tables. As her CRP is decreasing, I do not think additional steroids are likely to be beneficial. She is recently been evaluated for PE and has not significantly clinically changed so we will hold off on repeat evaluation currently. Her oxygenation is adequate currently so do not think she needs additional adjuvant such as proning or inhaled epoprostenol. 4. ID: Tapering dexamethasone as she is been on it for approximately 3 weeks. I do not think additional steroids are going to offer her a clinical benefit at the current time. She has significant elevation in her white blood cell count but no fevers. Fever may be masked by concomitant steroids. Will check blood cultures, sputum culture, and urine culture but hold on antibiotics for now. 5. Renal: ICU electrolyte replacement will be ordered. Follow kidney function. Try and keep I/O on dry side. 6. GI: Dietary consultation for tube feeding today. Senna and Colace for bowel regimen, may need to reevaluate and escalate. 7. Endocrine: ICU glycemic protocol. Per previous discussions with family, no CPR or cardioversion. Will reassess after 5 days of mechanical ventilation if the patient is not making significant progress, consider termination of resuscitative efforts and transition to comfort care. Total of 45 minutes critical care time was spent in evaluation management stabilization of this patient. Patient remains critically ill with significant possibility of clinical deterioration or . Discussed with bedside respiratory therapist and ICU nurse.. Family to be updated by hospitalist Admission and Anticipated Discharge Date Admission Date: March 06, 2021 Subjective Patient is intubated and sedated and paralyzed. Review of Systems Review of Systems: Unobtainable due to endotracheal tube Physical Exam Constitutional: well developed and + mechanically ventilated Neck: trachea midline, no thyromegaly Respiratory: Auscultation: + crackles Cardiovascular: RRR, no murmur, no edema Gastrointestinal (Abdomen): normal bowel sounds, soft, nontender, no hepatosplenomegaly Musculoskeletal: Extremities: extremities normal to inspection Skin: no rashes, warm and dry Lymphatic: no cervical lymphadenopathy Results & Data Results & Data ([facility]) Vital Signs (Past 12 Hours) Vital Signs Temp Pulse Resp BP Pulse Ox Pulse Ox 03/25/21 11:15 103 H 32 H 90 03/25/21 11:10 103 H 32 H 90 03/25/21 11:00 102 H 32 H 91 03/25/21 10:45 99 H 32 H 118/81 91 03/25/21 10:30 102 H 32 H 97/71 L 91 03/25/21 10:15 103 H 32 H 91 03/25/21 10:00 107 H 32 H 91 03/25/21 09:47 96 H 03/25/21 09:45 100 H 32 H 90 03/25/21 09:30 102 H 32 H 90 03/25/21 09:15 103 H 32 H 90 03/25/21 09:00 101 H 32 H 90 90 03/25/21 08:45 100 H 32 H 109/65 89 L 03/25/21 08:31 102 H 32 H 90 03/25/21 08:15 97 H 32 H 113/67 90 03/25/21 08:01 112 H 32 H 90 03/25/21 08:00 36.6 C 03/25/21 07:46 98 H 32 H 90 03/25/21 07:31 99 H 32 H 89 L 03/25/21 07:16 96 H 32 H 90 03/25/21 07:11 94 H 32 H 90 03/25/21 07:00 101 H 32 H 89 L 03/25/21 06:20 93 H 32 H 91 03/25/21 06:10 96 H 32 H 90 03/25/21 06:00 106 H 32 H 92 03/25/21 05:50 97 H 32 H 90 03/25/21 05:40 99 H 32 H 90 03/25/21 05:30 97 H 32 H 91 03/25/21 05:20 99 H 32 H 91 03/25/21 05:10 98 H 32 H 90 03/25/21 05:00 99 H 32 H 91 03/25/21 04:50 97 H 32 H 92 03/25/21 04:40 100 H 32 H 92 03/25/21 04:30 122 H 32 H 93 03/25/21 04:20 97 H 32 H 123/66 92 03/25/21 04:10 96 H 32 H 119/69 93 03/25/21 04:00 36.5 C 97 H 32 H 92 03/25/21 03:50 96 H 32 H 92 03/25/21 03:40 96 H 32 H 92 03/25/21 03:30 97 H 32 H 92 03/25/21 03:20 94 H 32 H 92 03/25/21 03:10 96 H 32 H 92 03/25/21 03:00 97 H 32 H 92 03/25/21 02:50 96 H 32 H 94 03/25/21 02:48 96 H 32 H 94 03/25/21 02:40 93 H 32 H 94 03/25/21 02:30 99 H 32 H 93 03/25/21 02:20 95 H 32 H 129/71 96 03/25/21 02:10 98 H 32 H 131/75 96 03/25/21 02:01 96 H 32 H 95 03/25/21 01:51 98 H 32 H 95 03/25/21 01:41 99 H 32 H 95 03/25/21 01:31 102 H 32 H 94 03/25/21 01:21 102 H 32 H 95 03/25/21 01:11 99 H 32 H 95 03/25/21 01:01 100 H 32 H 94 03/25/21 00:51 101 H 32 H 95 03/25/21 00:41 102 H 32 H 94 03/25/21 00:30 101 H 32 H 94 03/25/21 00:20 101 H 32 H 94 03/25/21 00:10 103 H 32 H 94 03/25/21 00:00 36.3 C L 104 H 32 H 93 Critical Care Results & Data Vital Signs (Past 12 Hours) Vital Signs Temp Pulse Resp BP Pulse Ox Pulse Ox 03/25/21 11:15 103 H 32 H 90 03/25/21 11:10 103 H 32 H 90 03/25/21 11:00 102 H 32 H 91 03/25/21 10:45 99 H 32 H 118/81 91 03/25/21 10:30 102 H 32 H 97/71 L 91 03/25/21 10:15 103 H 32 H 91 03/25/21 10:00 107 H 32 H 91 03/25/21 09:47 96 H 03/25/21 09:45 100 H 32 H 90 03/25/21 09:30 102 H 32 H 90 03/25/21 09:15 103 H 32 H 90 03/25/21 09:00 101 H 32 H 90 90 03/25/21 08:45 100 H 32 H 109/65 89 L 03/25/21 08:31 102 H 32 H 90 03/25/21 08:15 97 H 32 H 113/67 90 03/25/21 08:01 112 H 32 H 90 03/25/21 08:00 36.6 C 03/25/21 07:46 98 H 32 H 90 03/25/21 07:31 99 H 32 H 89 L 03/25/21 07:16 96 H 32 H 90 03/25/21 07:11 94 H 32 H 90 03/25/21 07:00 101 H 32 H 89 L 03/25/21 06:20 93 H 32 H 91 03/25/21 06:10 96 H 32 H 90 03/25/21 06:00 106 H 32 H 92 03/25/21 05:50 97 H 32 H 90 03/25/21 05:40 99 H 32 H 90 03/25/21 05:30 97 H 32 H 91 03/25/21 05:20 99 H 32 H 91 03/25/21 05:10 98 H 32 H 90 03/25/21 05:00 99 H 32 H 91 03/25/21 04:50 97 H 32 H 92 03/25/21 04:40 100 H 32 H 92 03/25/21 04:30 122 H 32 H 93 03/25/21 04:20 97 H 32 H 123/66 92 03/25/21 04:10 96 H 32 H 119/69 93 03/25/21 04:00 36.5 C 97 H 32 H 92 03/25/21 03:50 96 H 32 H 92 03/25/21 03:40 96 H 32 H 92 03/25/21 03:30 97 H 32 H 92 03/25/21 03:20 94 H 32 H 92 03/25/21 03:10 96 H 32 H 92 03/25/21 03:00 97 H 32 H 92 03/25/21 02:50 96 H 32 H 94 03/25/21 02:48 96 H 32 H 94 03/25/21 02:40 93 H 32 H 94 03/25/21 02:30 99 H 32 H 93 03/25/21 02:20 95 H 32 H 129/71 96 03/25/21 02:10 98 H 32 H 131/75 96 03/25/21 02:01 96 H 32 H 95 03/25/21 01:51 98 H 32 H 95 03/25/21 01:41 99 H 32 H 95 03/25/21 01:31 102 H 32 H 94 03/25/21 01:21 102 H 32 H 95 03/25/21 01:11 99 H 32 H 95 03/25/21 01:01 100 H 32 H 94 03/25/21 00:51 101 H 32 H 95 03/25/21 00:41 102 H 32 H 94 03/25/21 00:30 101 H 32 H 94 03/25/21 00:20 101 H 32 H 94 03/25/21 00:10 103 H 32 H 94 03/25/21 00:00 36.3 C L 104 H 32 H 93 Lab & Micro Results (Past 24 Hours) RBC 4.32 M/uL (4.2-5.4) 03/25/21 WBC 28.09 K/uL (4.8-10.8) H 03/25/21 Hgb 14.0 g/dL (12.0-16.0) 03/25/21 Hct 44.6 % (37-47) 03/25/21 MCV 103.2 fL (80-100) H 03/25/21 MCH 32.4 pg (25-34) 03/25/21 MCHC 31.4 g/dL (32-36) L 03/25/21 RDW Standard Deviation 52.7 fL (36.4-46.3) H 03/25/21 RDW Coefficient of Variation 14.0 % (11.5-14.5) 03/25/21 Plt Count 214 K/uL (130-400) 03/25/21 MPV 12.4 fL (7.4-10.4) H 03/25/21 Neutrophils (%) (Auto) 89.0 % 03/25/21 Lymphocytes (%) (Auto) 5.3 % 03/25/21 Monocytes # (Auto) 0.76 K/uL (0.11-0.59) H 03/25/21 Eosinophils # (Auto) 0.00 K/uL (0-0.5) 03/25/21 Immature Granulocyte % (Auto) 2.8 % 03/25/21 Neutrophils # (Auto) 24.98 K/uL (1.4-6.5) H 03/25/21 Lymphocytes # (Auto) 1.49 K/uL (1.2-3.4) 03/25/21 Monocytes # (Auto) 0.76 K/uL (0.11-0.59) H 03/25/21 Eosinophils # (Auto) 0.00 K/uL (0-0.5) 03/25/21 Basophils # (Auto) 0.06 K/uL (0-0.2) 03/25/21 Immature Granulocyte # (Auto) 0.80 K/uL (0.00-0.02) H 03/25/21 Na 142 mmol/L (136-145) 03/25/21 K 4.8 mmol/L (3.5-5.1) 03/25/21 Cl 107 mmol/L (98-107) 03/25/21 CO2 30 mmol/L (21-32) 03/25/21 Anion Gap 4.0 (3-11) 03/25/21 BUN 34 mg/dl (7-18) H 03/25/21 Creatinine 0.48 mg/dl (0.6-1.2) L 03/25/21 Estimated GFR ( Amer) 116.0 ml/min 03/25/21 Estimated GFR (Non-Af Amer) 100.1 ml/min 03/25/21 BUN/Creatinine Ratio 70.5 (10-20) H 03/25/21 Glu 144 mg/dl (70-99) H 03/25/21 Ca 8.4 mg/dl (8.5-10.1) L 03/25/21 Phosphorus Level 3.4 mg/dl (2.5-4.9) 03/25/21 Total Bilirubin 0.5 mg/dl (0.2-1) 03/25/21 Direct Bilirubin 0.2 mg/dl (0-0.2) 03/25/21 AST 22 U/L (15-37) 03/25/21 ALT 48 (12-78) 03/25/21 Alkaline Phosphatase 101 U/L (45-117) 03/25/21 TP 5.8 gm/dl (6.4-8.2) L 03/25/21 Albumin 2.3 gm/dl (3.4-5.0) L 03/25/21 Globulin 3.7 gm/dl (2.5-4.0) 03/24/21 Albumin/Globulin Ratio 0.7 (0.9-2) L 03/24/21 Mg 2.6 mg/dl (1.8-2.4) H 03/25/21 06:20 03/25/21 Calcium Level 8.4 mg/dl (8.5-10.1) L 03/25/21 06:20 03/25/21 Beau Test NA 03/25/21 04:51 03/25/21 Diagnostic Findings (Past 24 Hours) Chest X-Ray 03/24/21 13:03 XR chest 1V portable CLINICAL HISTORY: Status post intubation. Assess Line/tube placement. Follow- up airspace opacities COMPARISON STUDY: 03/24/2021 TECHNIQUE: 1 view of the chest FINDINGS: Single frontal view of the chest demonstrates the cardiomediastinal silhouette to be within normal limits. Endotracheal tube has been placed with its tip approximately 6 cm above the leigh ann. Right femoral catheter is also been placed with its tip in the distal SVC. There is no evidence of pneumothorax. Is also evidence for an NG tube extending below the edge of the film into the body of the stomach. Compared to previous examination, mild diffuse interstitial and alveolar opacities are again seen. There is again evidence for left basilar atelectasis and small left pleural effusion as well. There is no evidence for vascular congestion. There is no acute osseous pathology. IMPRESSION: No significant interval change in mild diffuse interstitial and alveolar opacities, left basilar atelectasis and small left pleural effusion. Tubes and catheters in satisfactory position. ACT 112: Negative or not required by law. Electronically signed by: Quincy Villegas M.D. 03/24/2021 1:44 PM Chest X-Ray 03/25/21 06:00 XR chest 1V portable CLINICAL HISTORY: resp failure TECHNIQUE: Single frontal radiograph of the chest was obtained. Comparison: Comparison is made to chest one view 03/24/2021 FINDINGS: Lines and tubes are stable. The cardiomediastinal silhouette is stable. Bilateral lower lung predominant airspace opacities are seen. Mild interstitial opacities are unchanged. There is a likely small left pleural effusion, unchanged. IMPRESSION: No significant interval change in bilateral interstitial and airspace opacities. Likely small left pleural effusion. ACT 112: Negative or not required by law. Electronically signed by: Beck Gordon M.D. 03/25/2021 10:03 AM I & O Totals 24 Hours 03/24/21 03/25/21 03/26/21 06:59 06:59 06:59 Intake Total 1100 / 1100 704.313 / 704.313 175.028 / 175.028 Output Total 850 / 850 925 / 925 99 / 99 Balance 250 / 250 -220.687 / -220.687 76.028 / 76.028 Cumulative 03/06/21 08:09 thru 03/25/21 10:40 Intake Total 85564.341 Output Total 10290 Balance -1343.659 RT Ventilator Mngmt (Last Documented) Ventilator Ordered Settings Ventilator Support Mode Assist Control 03/25/21 11:10 Respiratory Rate 32 03/25/21 11:15 Ventilator Tidal Volume 250 03/25/21 11:10 Setting Minute Ventilation 8.1 03/25/21 11:10 Positive End Expiratory 10 03/25/21 11:10 Pressure Fraction of Inspired Oxygen 50 03/25/21 11:10 Machine Comment [employer] protocol followed to 03/25/21 02:48 titrate fio2 and peep accordingly Ventilator - PT Measurements Respiratory Rate 32 Exhaled Tidal Volume 250 Minute Ventilation 8.1 Peak Inspiratory Airway 30 Pressure Plateau Pressure 26 Respiratory Cycle Inspiratory: 1:1.9 Expiratory Ratio Inspiratory Phase Time 0.65 End-Tidal CO2 41 Static Lung Compliance 15.63 Dynamic Lung Compliance 12.50 Normal Static Lung Compliance 42.[address] Flores notified of ABG results and Pplat. Changes to be made. Coding Level of Care Code Critical Care 1st 30-74 mins Diagnoses ARDS (adult respiratory distress syndrome) J80 Hypoxia R09.02 Acute respiratory distress syndrome (ARDS) due to 2019 novel coronavirus U07.1; J80 Time Spent (min) 45
[2021-03-25] MEDS: SENNOSIDES 8.8 MG/5 ML UDC PO SCH (13:06)
--- NOTE | 2021-03-25 14:10 | Pharmacy Report ---
Pharmacy Glycemic Short Note 2 - Date of Service March 25, 2021 - Glycemic Short BSG Results (Last 24 hours): 03/24/21 03/25/21 03/25/21 14:10 00:09 06:20 Glucose 274 H 144 H POC Glucose 194 H 03/25/21 11:32 Glucose POC Glucose 144 H OUTPATIENT ANTIDIABETIC REGIMEN: * N/a * HbA1c pending ASSESSMENT: * 71 yo F admitted secondary to COVID-19 pneumonia. Pharmacy has been consulted to assist with inpatient glycemic management. * Has been started on Dexamethasone 6 mg IV every 12 hours. Was on Nimbex but has since been discontinued. Remains intubated and NPO. No tube feeds started. * Will start NPH every 12 hours to cover for steroid-induced hyperglycemia. * Novolog started based on weight/stress of 2-3. * Goal range of 120-160 mg/dL. PLAN FOR INPATIENT GLYCEMIC CONTROL: * Basal insulin * NPH 0-10 units SC q12h * Bolus insulin * NovoLog per scale ACHS or Q6hrs while NPO * Goal Range: Low 120 mg/dL - High 160 mg/dL * Correction Factor: 30 mg/dL/unit * Nutritional / Prandial insulin per carb ratio of 1 unit per 10 grams CHO consumed PLAN FOR DISCHARGE: * To be determined
[2021-03-25] MEDS ORDERED: PEPTAMEN INTENSE VHP 1.0 CAL 1,000 ML BAG OG SCH (14:45)
[2021-03-25] MEDS: NORMOSOL-R 1,000 ML IV SCH (15:35)
[2021-03-25] MEDS: INSULIN HUMAN NPH SC SCH (19:35)
[2021-03-25 20:07] LABS: Hematocrit (blood only) 42.5 % (37-47); Hemoglobin 13.2 g/dL (12.0-16.0)
[2021-03-25] MEDS: POLYETHYLENE (MIRALAX) 17 GM PACK PO PRN (21:03)
[2021-03-25] MEDS: PANTOprazole 40 MG in SYRINGE 0 ML IV SCH (21:04)
[2021-03-26] MEDS: INSULIN ASPART PER UNIT SC SCH ×4 (00:40→18:20)
[2021-03-26] MEDS: propofoL 1,000 MG/100 ML VIAL IV SCH ×6 (00:58→21:15)
[2021-03-26 01:32] LABS: Hematocrit (blood only) 41.1 % (37-47); Hemoglobin 12.8 g/dL (12.0-16.0)
[2021-03-26] MEDS: ARTIFICIAL TEARS OP OINT 3.5 GM TUBE OP SCH ×6 (02:35→23:08)
[2021-03-26] MEDS: fentaNYL DRIP 1,250 MCG/250 ML BAG IV SCH ×5 (02:36→22:40)
[2021-03-26 04:28] LABS: iSTAT Arterial Blood Gas HCO3 31 meg/L (19-24); iSTAT Arterial Blood Gas pCO2 64 mmHg (35-46); iSTAT Arterial Blood Gas pH 7.29 (7.35-7.45); iSTAT Arterial Blood Gas pO2 64 mmHg (80-95); iSTAT Carbon Dioxide 33 mmol/L (24-31); iSTAT FiO2 55 %; iSTAT Site Art Line
[2021-03-26] MEDS: dexAMETHasone 6 MG in SYRINGE 0 ML IV SCH (07:29)
[2021-03-26 07:35] LABS: Estimated Average Glucose 146 mg/dl; Hemoglobin A1C 6.7 % (4.5-5.6)
[2021-03-26] MEDS: INSULIN HUMAN NPH SC SCH ×2 (07:37→18:12)
[2021-03-26 08:02] LABS: Basophils # (auto) 0.03 K/uL (0-0.2); Basophils % (auto) 0.1 %; Hemoglobin 12.3 g/dL (12.0-16.0); Immature Granulocytes # (auto) 0.39 K/uL (0.00-0.02); Immature Granulocytes % (auto) 1.8 %; Lymphocytes # (auto) 0.72 K/uL (1.2-3.4); Lymphocytes % (auto) 3.4 %; Mean Corpuscular Hemoglobin 31.5 pg (25-34); Mean Corpuscular Hgb Conc 30.8 g/dL (32-36); Mean Corpuscular Volume 102.3 fL (80-100); Mean Platelet Volume 12.3 fL (7.4-10.4); Monocytes # (auto) 0.95 K/uL (0.11-0.59); Monocytes % (auto) 4.5 %; Neutrophils # (auto) 19.05 K/uL (1.4-6.5); Neutrophils % (auto) 90.2 %; Platelet Count 175 K/uL (130-400); RDW Coefficient of Variation 13.8 % (11.5-14.5); RDW Standard Deviation 51.8 fL (36.4-46.3); Red Blood Count 3.91 M/uL (4.2-5.4); White Blood Count 21.14 K/uL (4.8-10.8)
--- NOTE | 2021-03-26 08:09 | Hospitalist Progress Note ---
Date of Service March 26, 2021 Assessment & Plan (1) Acute respiratory failure with hypoxia: (2) Pneumonia due to COVID-19 virus: (3) Hypoxia: Plan: Acute respiratory failure with hypoxia ARDS COVID-19 pneumonia Diagnosed COVID-19 positive on 03/06/2021 Pneumomediastinum --CTA: No CTA evidence for pulmonary embolus. Extensive groundglass opacities are present throughout both lungs characteristic of a viral type pneumonitis and Covid 19 pneumonia.XR: -Continued CPAP/high flow oxygen Not a candidate for ECMO as per pulmonary Completed remdesevir course Continued dexamethasone Palliative care consulted to address goals of care Appreciate pulmonary input Continue Lasix prn CRP:14.4>24.7 Patient continues to desaturate while on High Flow Imaging suggestive of Trace pneumomediastinum Patient prefers to be DNI DNR Appreciate palliative care Input 03/20 Chest x-ray showed worsening bilateral interstitial and alveolar opacities. Pneumomediastinum seem to be improving Continue current management Prognosis is poor 03/22 - had a long discussion with the patient and her (over the phone), patient wants to remain DNR/DNI Explained intubation in case she would worsen, however at this time patient does not want to change anything 03/23 -reports she is feeling better, she is able to answer in short sentences, does not wish to make any changes at this time 03/24 - patient having more difficulty breathing today, on HF nasal cannula, BiPAP attempted, however patient did not tolerate. Patient stated that she does not want to and wants to proceed with whatever necessary including intubation. Nursing staff at the bedside. Contacted anesthesia and gutter installer. Updated patient's over the phone. 03/25 - pt was intubated yesterday Severe ARDS with refractory hypoxemia. Current vent settings assist-control/32/250/10/0.5 with a plateau pressure of about 30. ABG 7.2/81/73. P/F 146 with a very stiff lungs and very poor compliance. GI bleed 03/26 - developed hematochezia overnight GI consulted - conservative management, PPI, hold anticoagulation Urinary tract infection-POA Urine culture growing E. coli Completed Rocephin course (4) Elevated LFTs: Plan: Minimally elevated monitor (5) Sepsis: Plan: Sepsisin setting of COVID19 pneumonia, UTI Plan: DVT Px: Lovenox SQ now on hold d/t GI bleed Code status: Pt was DNI/DNR however then pt wished for FULL code -> pt was intubated Admission and Anticipated Discharge Date Admission Date: March 06, 2021 Subjective Patient is seen in follow up of acute resp. failure w/ hypoxia 2/2 covid 19 pneumonia Pt intubated on (03/24) d/t severe ARDS and refractory hypoxemia Pt has had prolonged hospital course, on HF NC previously Hematochezia noted overnight, GI consulted, anticoag. on hold Review of Systems Review of Systems: Unobtainable due to cognitive status and Unobtainable due to endotracheal tube Physical Exam Physical Exam: General Appearance: Moderately built and nourished, intubated, sedated Head: normocephalic, Atraumatic Eyes: normal inspection Respiratory/Chest: + mild exp. wheezes Cardiovascular: S1, S2, No murmur Abdomen/GI:Soft, Non tender, Bowel sounds present Extremities/Musculoskeletal:normal inspection, no edema Neurologic/Psych:sedated intubated Skin: normal color, warm Results & Data Results & Data ([facility]) Vital Signs (Past 12 Hours) Vital Signs Temp Pulse Resp Pulse Ox 03/26/21 07:30 96 H 34 H 90 03/26/21 07:15 94 H 29 H 03/26/21 07:00 95 H 30 H 03/26/21 06:45 90 34 H 03/26/21 05:00 91 H 30 H 90 03/26/21 04:45 93 H 34 H 90 03/26/21 04:30 92 H 30 H 90 03/26/21 04:15 89 30 H 90 03/26/21 04:00 37.0 C 94 H 32 H 91 03/26/21 03:45 93 H 32 H 91 03/26/21 03:30 97 H 28 H 90 03/26/21 03:15 98 H 35 H 91 03/26/21 03:07 96 H 34 H 91 03/26/21 03:00 94 H 32 H 91 03/26/21 02:45 91 H 30 H 90 03/26/21 02:30 92 H 30 H 91 03/26/21 02:15 95 H 33 H 90 03/26/21 02:00 96 H 27 H 90 03/26/21 01:45 95 H 33 H 88 L 03/26/21 01:30 93 H 28 H 88 L 03/26/21 01:15 97 H 35 H 89 L 03/26/21 01:00 98 H 31 H 88 L 03/26/21 00:45 94 H 28 H 87 L 03/26/21 00:30 96 H 33 H 88 L 03/26/21 00:15 93 H 31 H 89 L 03/26/21 00:12 93 H 35 H 90 03/26/21 00:00 37.1 C 107 H 28 H 90 03/25/21 23:45 94 H 31 H 87 L 03/25/21 23:30 93 H 87 L 03/25/21 23:15 93 H 30 H 88 L 03/25/21 23:00 95 H 30 H 89 L 03/25/21 22:45 121 H 41 H 86 L 03/25/21 22:30 96 H 29 H 89 L 03/25/21 22:15 94 H 29 H 88 L 03/25/21 22:00 97 H 30 H 88 L 03/25/21 21:45 97 H 35 H 88 L 03/25/21 21:30 96 H 29 H 88 L 03/25/21 21:15 96 H 28 H 88 L 03/25/21 21:00 92 H 32 H 89 L 03/25/21 20:45 94 H 30 H 89 L 03/25/21 20:30 94 H 32 H 90 03/25/21 20:25 94 H 33 H 90 03/25/21 20:15 93 H 32 H 90 Laboratory Results 03/26/21 03/26/21 03/26/21 Range/Units 18:16 15:04 15:04 WBC (4.8-10.8) K/uL RBC (4.2-5.4) M/uL Hgb 11.4 L (12.0-16.0) g/dL Hct 36.8 L (37-47) % MCV (80-100) fL MCH (25-34) pg MCHC (32-36) g/dL RDW Std Deviation (36.4-46.3) fL RDW Coeff of Heron (11.5-14.5) % Plt Count (130-400) K/uL MPV (7.4-10.4) fL Immature Gran % (Auto) % Neut % (Auto) % Lymph % (Auto) % [place] % (Auto) % Eos % (Auto) % Baso % (Auto) % Neut # (Auto) (1.4-6.5) K/uL Lymph # (Auto) (1.2-3.4) K/uL [place] # (Auto) (0.11-0.59) K/uL Eos # (Auto) (0-0.5) K/uL Baso # (Auto) (0-0.2) K/uL Immature Gran # (Auto) (0.00-0.02) K/uL PT 10.3 (9.0-12.0) Seconds INR 1.0 (0.9-1.1) Fibrinogen 335 (184-400) mg/dl Sample Site POC pH (7.35-7.45) POC pCO2 (35-46) mmHg POC pO2 (80-95) mmHg POC HCO3 (19-24) mikie/L POC Total CO2 (24-31) mmol/L POC Base Excess (-9-1.8) mikie/L POC ABG O2 Sat (90-95) % Beau Test O2 Delivery Device POC O2 Rate POC FiO2 % Tidal Volume PEEP Sodium (136-145) mmol/L Potassium (3.5-5.1) mmol/L Chloride (98-107) mmol/L Carbon Dioxide (21-32) mmol/L Anion Gap (3-11) BUN (7-18) mg/dl Creatinine (0.6-1.2) mg/dl Est Cr Clr Drug Dosing ml/min Est GFR ( Amer) ml/min Est GFR (Non-Af Amer) ml/min BUN/Creatinine Ratio (10-20) Glucose (70-99) mg/dl POC Glucose 128 H (70-99) mg/dl POC Glucose (other) (70-99) mg/dl Estimat Average Glucose mg/dl Hemoglobin A1c (4.5-5.6) % Calcium (8.5-10.1) mg/dl Phosphorus (2.5-4.9) mg/dl Magnesium (1.8-2.4) mg/dl Total Bilirubin (0.2-1) mg/dl Direct Bilirubin (0-0.2) mg/dl AST (15-37) U/L ALT (12-78) Alkaline Phosphatase (45-117) U/L NT-Pro-B Natriuret Pep (0-900) pg/ml Total Protein (6.4-8.2) gm/dl Albumin (3.4-5.0) gm/dl 03/26/21 03/26/21 03/26/21 Range/Units 12:08 07:36 07:18 WBC 21.14 H (4.8-10.8) K/uL RBC 3.91 L (4.2-5.4) M/uL Hgb 12.3 (12.0-16.0) g/dL Hct 40.0 (37-47) % MCV 102.3 H (80-100) fL MCH 31.5 (25-34) pg MCHC 30.8 L (32-36) g/dL RDW Std Deviation 51.8 H (36.4-46.3) fL RDW Coeff of Heron 13.8 (11.5-14.5) % Plt Count 175 (130-400) K/uL MPV 12.3 H (7.4-10.4) fL Immature Gran % (Auto) 1.8 % Neut % (Auto) 90.2 % Lymph % (Auto) 3.4 % [place] % (Auto) 4.5 % Eos % (Auto) 0.0 % Baso % (Auto) 0.1 % Neut # (Auto) 19.05 H (1.4-6.5) K/uL Lymph # (Auto) 0.72 L (1.2-3.4) K/uL [place] # (Auto) 0.95 H (0.11-0.59) K/uL Eos # (Auto) 0.00 (0-0.5) K/uL Baso # (Auto) 0.03 (0-0.2) K/uL Immature Gran # (Auto) 0.39 H (0.00-0.02) K/uL PT (9.0-12.0) Seconds INR (0.9-1.1) Fibrinogen (184-400) mg/dl Sample Site POC pH (7.35-7.45) POC pCO2 (35-46) mmHg POC pO2 (80-95) mmHg POC HCO3 (19-24) mikie/L POC Total CO2 (24-31) mmol/L POC Base Excess (-9-1.8) mikie/L POC ABG O2 Sat (90-95) % Beau Test O2 Delivery Device POC O2 Rate POC FiO2 % Tidal Volume PEEP Sodium (136-145) mmol/L Potassium (3.5-5.1) mmol/L Chloride (98-107) mmol/L Carbon Dioxide (21-32) mmol/L Anion Gap (3-11) BUN (7-18) mg/dl Creatinine (0.6-1.2) mg/dl Est Cr Clr Drug Dosing ml/min Est GFR ( Amer) ml/min Est GFR (Non-Af Amer) ml/min BUN/Creatinine Ratio (10-20) Glucose (70-99) mg/dl POC Glucose 127 H 142 H (70-99) mg/dl POC Glucose (other) (70-99) mg/dl Estimat Average Glucose mg/dl Hemoglobin A1c (4.5-5.6) % Calcium (8.5-10.1) mg/dl Phosphorus (2.5-4.9) mg/dl Magnesium (1.8-2.4) mg/dl Total Bilirubin (0.2-1) mg/dl Direct Bilirubin (0-0.2) mg/dl AST (15-37) U/L ALT (12-78) Alkaline Phosphatase (45-117) U/L NT-Pro-B Natriuret Pep (0-900) pg/ml Total Protein (6.4-8.2) gm/dl Albumin (3.4-5.0) gm/dl 03/26/21 03/26/21 03/26/21 Range/Units 07:18 04:15 01:22 WBC (4.8-10.8) K/uL RBC (4.2-5.4) M/uL Hgb 12.8 (12.0-16.0) g/dL Hct 41.1 (37-47) % MCV (80-100) fL MCH (25-34) pg MCHC (32-36) g/dL RDW Std Deviation (36.4-46.3) fL RDW Coeff of Heron (11.5-14.5) % Plt Count (130-400) K/uL MPV (7.4-10.4) fL Immature Gran % (Auto) % Neut % (Auto) % Lymph % (Auto) % [place] % (Auto) % Eos % (Auto) % Baso % (Auto) % Neut # (Auto) (1.4-6.5) K/uL Lymph # (Auto) (1.2-3.4) K/uL [place] # (Auto) (0.11-0.59) K/uL Eos # (Auto) (0-0.5) K/uL Baso # (Auto) (0-0.2) K/uL Immature Gran # (Auto) (0.00-0.02) K/uL PT (9.0-12.0) Seconds INR (0.9-1.1) Fibrinogen (184-400) mg/dl Sample Site Art Line POC pH 7.29 L (7.35-7.45) POC pCO2 64 H (35-46) mmHg POC pO2 64 L (80-95) mmHg POC HCO3 31 H (19-24) mikie/L POC Total CO2 33 H (24-31) mmol/L POC Base Excess 4.0 H (-9-1.8) mikie/L POC ABG O2 Sat 88.0 L (90-95) % Beau Test NA O2 Delivery Device Ventilator POC O2 Rate 32 POC FiO2 55 % Tidal Volume 250 PEEP 10 Sodium 140 (136-145) mmol/L Potassium 4.8 (3.5-5.1) mmol/L Chloride 107 (98-107) mmol/L Carbon Dioxide 29 (21-32) mmol/L Anion Gap 4.0 (3-11) BUN 33 H (7-18) mg/dl Creatinine 0.48 L (0.6-1.2) mg/dl Est Cr Clr Drug Dosing 91.9 ml/min Est GFR ( Amer) 116.0 ml/min Est GFR (Non-Af Amer) 100.1 ml/min BUN/Creatinine Ratio 69.0 H (10-20) Glucose 161 H (70-99) mg/dl POC Glucose (70-99) mg/dl POC Glucose (other) (70-99) mg/dl Estimat Average Glucose mg/dl Hemoglobin A1c (4.5-5.6) % Calcium 8.1 L (8.5-10.1) mg/dl Phosphorus 2.0 L D (2.5-4.9) mg/dl Magnesium 2.5 H (1.8-2.4) mg/dl Total Bilirubin 0.4 (0.2-1) mg/dl Direct Bilirubin 0.1 (0-0.2) mg/dl AST 18 (15-37) U/L ALT 34 (12-78) Alkaline Phosphatase 85 (45-117) U/L NT-Pro-B Natriuret Pep 888 (0-900) pg/ml Total Protein 5.1 L (6.4-8.2) gm/dl Albumin 2.0 L (3.4-5.0) gm/dl 03/26/21 03/25/21 Range/Units 00:37 06:20 WBC (4.8-10.8) K/uL RBC (4.2-5.4) M/uL Hgb (12.0-16.0) g/dL Hct (37-47) % MCV (80-100) fL MCH (25-34) pg MCHC (32-36) g/dL RDW Std Deviation (36.4-46.3) fL RDW Coeff of Heron (11.5-14.5) % Plt Count (130-400) K/uL MPV (7.4-10.4) fL Immature Gran % (Auto) % Neut % (Auto) % Lymph % (Auto) % [place] % (Auto) % Eos % (Auto) % Baso % (Auto) % Neut # (Auto) (1.4-6.5) K/uL Lymph # (Auto) (1.2-3.4) K/uL [place] # (Auto) (0.11-0.59) K/uL Eos # (Auto) (0-0.5) K/uL Baso # (Auto) (0-0.2) K/uL Immature Gran # (Auto) (0.00-0.02) K/uL PT (9.0-12.0) Seconds INR (0.9-1.1) Fibrinogen (184-400) mg/dl Sample Site POC pH (7.35-7.45) POC pCO2 (35-46) mmHg POC pO2 (80-95) mmHg POC HCO3 (19-24) mikie/L POC Total CO2 (24-31) mmol/L POC Base Excess (-9-1.8) mikie/L POC ABG O2 Sat (90-95) % Beau Test O2 Delivery Device POC O2 Rate POC FiO2 % Tidal Volume PEEP Sodium (136-145) mmol/L Potassium (3.5-5.1) mmol/L Chloride (98-107) mmol/L Carbon Dioxide (21-32) mmol/L Anion Gap (3-11) BUN (7-18) mg/dl Creatinine (0.6-1.2) mg/dl Est Cr Clr Drug Dosing ml/min Est GFR ( Amer) ml/min Est GFR (Non-Af Amer) ml/min BUN/Creatinine Ratio (10-20) Glucose (70-99) mg/dl POC Glucose (70-99) mg/dl POC Glucose (other) 209 H (70-99) mg/dl Estimat Average Glucose 146 mg/dl Hemoglobin A1c 6.7 H (4.5-5.6) % Calcium (8.5-10.1) mg/dl Phosphorus (2.5-4.9) mg/dl Magnesium (1.8-2.4) mg/dl Total Bilirubin (0.2-1) mg/dl Direct Bilirubin (0-0.2) mg/dl AST (15-37) U/L ALT (12-78) Alkaline Phosphatase (45-117) U/L NT-Pro-B Natriuret Pep (0-900) pg/ml Total Protein (6.4-8.2) gm/dl Albumin (3.4-5.0) gm/dl Medications Administered Current Inpatient Medications Dextrose (Dextrose 50% 50 Ml Syringe) 25 - 50 ml IV UD PRN; Protocol PRN Reason: Hypoglycemia Protocol Stop: 04/24/21 03:22 Docusate Sodium (Docusate Sodium 100 Mg Cap) 100 mg PO QAM [facility] Stop: 04/22/21 10:44 Last Admin: 03/25/21 09:30 Dose: Not Given Documented by: Enoxaparin Sodium (Enoxaparin Inj 30 Mg/0.3 Ml Syr) 30 mg SQ BID [facility] Stop: 04/22/21 20:59 Last Admin: 03/25/21 17:56 Dose: Not Given Documented by: Fentanyl Citrate (Fentanyl Bolus From Bag) 50 mcg IV Q60M PRN PRN Reason: Pain or Agitation Stop: 04/07/21 13:30 Glucagon (Glucagon For Inj 1 Mg Vial) 1 mg SQ UD PRN; Protocol PRN Reason: Hypoglycemia Protocol Stop: 04/24/21 03:22 Glucose (Glucose 10 Tabs/Tube) 4 - 8 tabs PO UD PRN; Protocol PRN Reason: Hypoglycemia Protocol Stop: 04/24/21 03:22 Glucose (Glucose 40% Gel 15 Gm Tube) 15 - 30 gm PO UD PRN; Protocol PRN Reason: Hypoglycemia Protocol Stop: 04/24/21 03:22 Dexamethasone 6 mg/ Syringe 1.5 mls @ 1 mls/min IV Q12H [facility] Stop: 04/20/21 18:59 Last Admin: 03/26/21 07:29 Dose: 1 mls/min Documented by: Propofol (Diprivan) 1,000 mg in 100 mls @ 14.544 mls/hr IV .Q6H53M [facility]; Protocol Stop: 03/27/21 13:44 Last Admin: 03/26/21 06:38 Dose: 40 mcg/kg/min, 14.5 mls/hr Documented by: Fentanyl Citrate (Fentanyl Drip) 1,250 mcg in 250 mls @ 25 mls/hr IV .Q10H [facility]; Protocol Stop: 04/07/21 13:44 Last Admin: 03/26/21 04:05 Dose: 125 mcg/hr, 25 mls/hr Documented by: Parenteral Electrolytes (Normosol-R) 1,000 mls @ 30 mls/hr IV .Q24H [facility] Stop: 04/23/21 13:44 Last Admin: 03/25/21 15:35 Dose: 30 mls/hr Documented by: Pantoprazole Sodium 40 mg/ (Syringe) 10 mls @ 5 mls/min IV BID [facility] Stop: 04/24/21 20:59 Last Admin: 03/25/21 21:04 Dose: 5 mls/min Documented by: Insulin Aspart (Insulin Aspart Per Unit) 0 units SC Q6 [facility]; Protocol Stop: 04/24/21 04:59 Last Admin: 03/26/21 06:35 Dose: 2 units Documented by: Insulin Human NPH (Insulin Human Nph) 0 units SC Q12H [facility]; Protocol Stop: 04/24/21 18:59 Last Admin: 03/26/21 07:37 Dose: 5 units Documented by: Midazolam HCl (Midazolam Hcl 1 Mg/Ml 2ml Vial) 2 mg IV Q2H PRN PRN Reason: RASS goal -1 Stop: 04/23/21 13:30 Miscellaneous (Icu Electrolyte Replacement Protocol) 1 ea N/A BID@ [facility]; Protocol Stop: 03/31/21 17:59 Last Admin: 03/25/21 17:32 Dose: Not Given Documented by: Miscellaneous ([facility] Protocol For Hyperglycemia) 1 ea N/A PRN PRN; Protocol PRN Reason: Hyperglycemia Protocol Stop: 03/26/21 13:30 Miscellaneous (Carbohydrates For Hypoglycemia ) 15 - 30 gm PO UD PRN PRN Reason: Hypoglycemia Protocol Stop: 04/24/21 03:22 Miscellaneous Information (Pharmacy Glycemic Mgmt Consult) 1 ea N/A UD PRN; Protocol PRN Reason: Consult Stop: 04/24/21 03:22 Multi-Ingredient Cream (Artificial Tears Op Oint 3.5 Gm Tube) 1 appln OP Q4H [facility] Stop: 04/23/21 14:29 Last Admin: 03/26/21 05:33 Dose: 1 appln Documented by: Nutritional Formula (Peptamen Intense Vhp 1.0 [place] 1,000 Ml Bag) 1,000 ml OG [facility]; Protocol Stop: 04/24/21 14:44 Polyethylene Glycol (Polyethylene (Miralax) 17 Gm Pack) 17 gm PO DAILY PRN PRN Reason: Constipation Stop: 04/09/21 23:01 Last Admin: 03/25/21 21:03 Dose: 17 gm Documented by: Propofol (Propofol Bolus From Bag) 20 mg IV Q5M PRN PRN Reason: Sedation Stop: 03/27/21 13:30 Last Admin: 03/25/21 02:25 Dose: 20 mg Documented by: Sennosides (Sennosides 8.8 Mg/5 Ml Udc) 8.8 mg PO QAM [facility] Stop: 04/24/21 11:59 Last Admin: 03/25/21 13:06 Dose: 8.8 mg Documented by:
[2021-03-26 08:43] LABS: Bilirubin Direct 0.1 mg/dl (0-0.2); Bilirubin,Total 0.4 mg/dl (0.2-1); Calcium 8.1 mg/dl (8.5-10.1); Creatinine Clr Calc Pharmacy 91.9 ml/min; Est GFR (Non-African American) 100.1 ml/min; Magnesium 2.5 mg/dl (1.8-2.4); Potassium 4.8 mmol/L (3.5-5.1); Total Protein 5.1 gm/dl (6.4-8.2)
[2021-03-26] MEDS ORDERED: INSULIN HUMAN NPH SC SCH (09:00)
--- NOTE | 2021-03-26 09:04 | Gastrointestinal Consultation ---
Date of Consultation March 26, 2021 Assessment & Plan (1) ARDS (adult respiratory distress syndrome): 71 year old female w/ COVID-19 PNA, acute respiratory failure, ARDS, intubated yesterday admitted since 03/06/21. GI asked to evaluate for dark stools, yesterday. HGB stable, no further episodes of bleeding documented. Given COVID-19 diagnosis, would recommend conservative management at this time. Continue IV PPI BID. If there are further episodes of dark stools, would recommend IV PPI drip. Trend HGB. Transfuse PRN. Thank you for allowing us to participate in the care of this patient. Please call with any acute changes, questions or concerns. Please see addendum below with additional recommendation from my supervising physician. Supervising Physician Co-Signing Physician Notes Patient not seen however we did review her chart. She appears to have respiratory failure as result of Covid pneumonia. There was a question of melena yesterday but no drop in her hemoglobin or hematocrit. Would recommend continued use of an IV Protonix drip. Should the patient have recurrent melena or significant drop in her hemoglobin and hematocrit endoscopy could certainly be revisited. History of Present Illness Reason for Consultation: rectal bleeding Requesting Physician: Celia Attending Physician: Tashi Yang MD History of Present Illness 71 year old female admitted w/ COVID-19 PNA, acute respiratory failure, ARDS, intubated yesterday. GI asked to evaluate as BM yesterday was documented as black mixed with bright red. Given COVID-19 status, chart was reviewed. HGB 12.3 BUN 33 which appears chronically elevated this admission Is on IV steroids Is on lovenox subq Started on IV PPI BID yesterday Allergies Allergy/AdvReac Type Severity Reaction Status Date / Time No Known Allergies Allergy Unknown Verified 03/06/21 09:52 Home Medications Medication Instructions Recorded Confirmed Type No Known Home Medications 03/06/21 03/06/21 History Patient History Medical History (Updated 03/24/21 @ 13:44 by Dagoberto Flores MD) GERD (gastroesophageal reflux disease) Hypoxia Palliative care encounter Surgical History History of bilateral cataract extraction History of section Family History Mother Lung disease Father Stroke Sister Heart disease Social History Smoking Status: Never smoker Hx Alcohol Use: No Hx Substance Use: No Preferred Language: Greenlandic Communication Ability: Effective 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) Vital Signs (Past 12 Hours) Vital Signs Temp Pulse Resp Pulse Ox 03/26/21 07:35 97 H 34 H 90 03/26/21 07:30 96 H 34 H 90 03/26/21 07:15 94 H 29 H 03/26/21 07:00 95 H 30 H 03/26/21 06:45 90 34 H 03/26/21 05:00 91 H 30 H 90 03/26/21 04:45 93 H 34 H 90 03/26/21 04:30 92 H 30 H 90 03/26/21 04:15 89 30 H 90 03/26/21 04:00 37.0 C 94 H 32 H 91 03/26/21 03:45 93 H 32 H 91 03/26/21 03:30 97 H 28 H 90 03/26/21 03:15 98 H 35 H 91 03/26/21 03:07 96 H 34 H 91 03/26/21 03:00 94 H 32 H 91 03/26/21 02:45 91 H 30 H 90 03/26/21 02:30 92 H 30 H 91 03/26/21 02:15 95 H 33 H 90 03/26/21 02:00 96 H 27 H 90 03/26/21 01:45 95 H 33 H 88 L 03/26/21 01:30 93 H 28 H 88 L 03/26/21 01:15 97 H 35 H 89 L 03/26/21 01:00 98 H 31 H 88 L 03/26/21 00:45 94 H 28 H 87 L 03/26/21 00:30 96 H 33 H 88 L 03/26/21 00:15 93 H 31 H 89 L 03/26/21 00:12 93 H 35 H 90 03/26/21 00:00 37.1 C 107 H 28 H 90 03/25/21 23:45 94 H 31 H 87 L 03/25/21 23:30 93 H 87 L 03/25/21 23:15 93 H 30 H 88 L 03/25/21 23:00 95 H 30 H 89 L 03/25/21 22:45 121 H 41 H 86 L 03/25/21 22:30 96 H 29 H 89 L 03/25/21 22:15 94 H 29 H 88 L 03/25/21 22:00 97 H 30 H 88 L 03/25/21 21:45 97 H 35 H 88 L 03/25/21 21:30 96 H 29 H 88 L 03/25/21 21:15 96 H 28 H 88 L 03/25/21 21:00 92 H 32 H 89 L Diagnostic Findings 03/26/21 03/26/21 03/26/21 Range/Units 07:36 07:18 07:18 WBC 21.14 H (4.8-10.8) K/uL RBC 3.91 L (4.2-5.4) M/uL Hgb 12.3 (12.0-16.0) g/dL Hct 40.0 (37-47) % MCV 102.3 H (80-100) fL MCH 31.5 (25-34) pg MCHC 30.8 L (32-36) g/dL RDW Std Deviation 51.8 H (36.4-46.3) fL RDW Coeff of Heron 13.8 (11.5-14.5) % Plt Count 175 (130-400) K/uL MPV 12.3 H (7.4-10.4) fL Immature Gran % (Auto) 1.8 % Neut % (Auto) 90.2 % Lymph % (Auto) 3.4 % [place] % (Auto) 4.5 % Eos % (Auto) 0.0 % Baso % (Auto) 0.1 % Neut # (Auto) 19.05 H (1.4-6.5) K/uL Lymph # (Auto) 0.72 L (1.2-3.4) K/uL [place] # (Auto) 0.95 H (0.11-0.59) K/uL Eos # (Auto) 0.00 (0-0.5) K/uL Baso # (Auto) 0.03 (0-0.2) K/uL Immature Gran # (Auto) 0.39 H (0.00-0.02) K/uL Sample Site POC pH (7.35-7.45) POC pCO2 (35-46) mmHg POC pO2 (80-95) mmHg POC HCO3 (19-24) mikie/L POC Total CO2 (24-31) mmol/L POC Base Excess (-9-1.8) mikie/L POC ABG O2 Sat (90-95) % Beau Test O2 Delivery Device POC O2 Rate POC FiO2 % Tidal Volume PEEP Sodium 140 (136-145) mmol/L Potassium 4.8 (3.5-5.1) mmol/L Chloride 107 (98-107) mmol/L Carbon Dioxide 29 (21-32) mmol/L Anion Gap 4.0 (3-11) BUN 33 H (7-18) mg/dl Creatinine 0.48 L (0.6-1.2) mg/dl Est Cr Clr Drug Dosing 91.9 ml/min Est GFR ( Amer) 116.0 ml/min Est GFR (Non-Af Amer) 100.1 ml/min BUN/Creatinine Ratio 69.0 H (10-20) Glucose 161 H (70-99) mg/dl POC Glucose 142 H (70-99) mg/dl POC Glucose (other) (70-99) mg/dl Estimat Average Glucose mg/dl Hemoglobin A1c (4.5-5.6) % Calcium 8.1 L (8.5-10.1) mg/dl Phosphorus 2.0 L D (2.5-4.9) mg/dl Magnesium 2.5 H (1.8-2.4) mg/dl Total Bilirubin 0.4 (0.2-1) mg/dl Direct Bilirubin 0.1 (0-0.2) mg/dl AST 18 (15-37) U/L ALT 34 (12-78) Alkaline Phosphatase 85 (45-117) U/L NT-Pro-B Natriuret Pep 888 (0-900) pg/ml Total Protein 5.1 L (6.4-8.2) gm/dl Albumin 2.0 L (3.4-5.0) gm/dl 03/26/21 03/26/2121 Range/Units 04:15 01:22 00:37 WBC (4.8-10.8) K/uL RBC (4.2-5.4) M/uL Hgb 12.8 (12.0-16.0) g/dL Hct 41.1 (37-47) % MCV (80-100) fL MCH (25-34) pg MCHC (32-36) g/dL RDW Std Deviation (36.4-46.3) fL RDW Coeff of Heron (11.5-14.5) % Plt Count (130-400) K/uL MPV (7.4-10.4) fL Immature Gran % (Auto) % Neut % (Auto) % Lymph % (Auto) % [place] % (Auto) % Eos % (Auto) % Baso % (Auto) % Neut # (Auto) (1.4-6.5) K/uL Lymph # (Auto) (1.2-3.4) K/uL [place] # (Auto) (0.11-0.59) K/uL Eos # (Auto) (0-0.5) K/uL Baso # (Auto) (0-0.2) K/uL Immature Gran # (Auto) (0.00-0.02) K/uL Sample Site Art Line POC pH 7.29 L (7.35-7.45) POC pCO2 64 H (35-46) mmHg POC pO2 64 L (80-95) mmHg POC HCO3 31 H (19-24) mikie/L POC Total CO2 33 H (24-31) mmol/L POC Base Excess 4.0 H (-9-1.8) mikie/L POC ABG O2 Sat 88.0 L (90-95) % Beau Test NA O2 Delivery Device Ventilator POC O2 Rate 32 POC FiO2 55 % Tidal Volume 250 PEEP 10 Sodium (136-145) mmol/L Potassium (3.5-5.1) mmol/L Chloride (98-107) mmol/L Carbon Dioxide (21-32) mmol/L Anion Gap (3-11) BUN (7-18) mg/dl Creatinine (0.6-1.2) mg/dl Est Cr Clr Drug Dosing ml/min Est GFR ( Amer) ml/min Est GFR (Non-Af Amer) ml/min BUN/Creatinine Ratio (10-20) Glucose (70-99) mg/dl POC Glucose (70-99) mg/dl POC Glucose (other) 209 H (70-99) mg/dl Estimat Average Glucose mg/dl Hemoglobin A1c (4.5-5.6) % Calcium (8.5-10.1) mg/dl Phosphorus (2.5-4.9) mg/dl Magnesium (1.8-2.4) mg/dl Total Bilirubin (0.2-1) mg/dl Direct Bilirubin (0-0.2) mg/dl AST (15-37) U/L ALT (12-78) Alkaline Phosphatase (45-117) U/L NT-Pro-B Natriuret Pep (0-900) pg/ml Total Protein (6.4-8.2) gm/dl Albumin (3.4-5.0) gm/dl 03/25/21 03/25/21 03/25/21 Range/Units 20:34 19:46 16:55 WBC (4.8-10.8) K/uL RBC (4.2-5.4) M/uL Hgb 13.2 (12.0-16.0) g/dL Hct 42.5 (37-47) % MCV (80-100) fL MCH (25-34) pg MCHC (32-36) g/dL RDW Std Deviation (36.4-46.3) fL RDW Coeff of Heron (11.5-14.5) % Plt Count (130-400) K/uL MPV (7.4-10.4) fL Immature Gran % (Auto) % Neut % (Auto) % Lymph % (Auto) % [place] % (Auto) % Eos % (Auto) % Baso % (Auto) % Neut # (Auto) (1.4-6.5) K/uL Lymph # (Auto) (1.2-3.4) K/uL [place] # (Auto) (0.11-0.59) K/uL Eos # (Auto) (0-0.5) K/uL Baso # (Auto) (0-0.2) K/uL Immature Gran # (Auto) (0.00-0.02) K/uL Sample Site POC pH (7.35-7.45) POC pCO2 (35-46) mmHg POC pO2 (80-95) mmHg POC HCO3 (19-24) mikie/L POC Total CO2 (24-31) mmol/L POC Base Excess (-9-1.8) mikie/L POC ABG O2 Sat (90-95) % Beau Test O2 Delivery Device POC O2 Rate POC FiO2 % Tidal Volume PEEP Sodium (136-145) mmol/L Potassium (3.5-5.1) mmol/L Chloride (98-107) mmol/L Carbon Dioxide (21-32) mmol/L Anion Gap (3-11) BUN (7-18) mg/dl Creatinine (0.6-1.2) mg/dl Est Cr Clr Drug Dosing ml/min Est GFR ( Amer) ml/min Est GFR (Non-Af Amer) ml/min BUN/Creatinine Ratio (10-20) Glucose (70-99) mg/dl POC Glucose 124 H (70-99) mg/dl POC Glucose (other) 123 H (70-99) mg/dl Estimat Average Glucose mg/dl Hemoglobin A1c (4.5-5.6) % Calcium (8.5-10.1) mg/dl Phosphorus (2.5-4.9) mg/dl Magnesium (1.8-2.4) mg/dl Total Bilirubin (0.2-1) mg/dl Direct Bilirubin (0-0.2) mg/dl AST (15-37) U/L ALT (12-78) Alkaline Phosphatase (45-117) U/L NT-Pro-B Natriuret Pep (0-900) pg/ml Total Protein (6.4-8.2) gm/dl Albumin (3.4-5.0) gm/dl 03/25/21 03/25/21 Range/Units 11:32 06:20 WBC (4.8-10.8) K/uL RBC (4.2-5.4) M/uL Hgb (12.0-16.0) g/dL Hct (37-47) % MCV (80-100) fL MCH (25-34) pg MCHC (32-36) g/dL RDW Std Deviation (36.4-46.3) fL RDW Coeff of Heron (11.5-14.5) % Plt Count (130-400) K/uL MPV (7.4-10.4) fL Immature Gran % (Auto) % Neut % (Auto) % Lymph % (Auto) % [place] % (Auto) % Eos % (Auto) % Baso % (Auto) % Neut # (Auto) (1.4-6.5) K/uL Lymph # (Auto) (1.2-3.4) K/uL [place] # (Auto) (0.11-0.59) K/uL Eos # (Auto) (0-0.5) K/uL Baso # (Auto) (0-0.2) K/uL Immature Gran # (Auto) (0.00-0.02) K/uL Sample Site POC pH (7.35-7.45) POC pCO2 (35-46) mmHg POC pO2 (80-95) mmHg POC HCO3 (19-24) mikie/L POC Total CO2 (24-31) mmol/L POC Base Excess (-9-1.8) mikie/L POC ABG O2 Sat (90-95) % Beau Test O2 Delivery Device POC O2 Rate POC FiO2 % Tidal Volume PEEP Sodium (136-145) mmol/L Potassium (3.5-5.1) mmol/L Chloride (98-107) mmol/L Carbon Dioxide (21-32) mmol/L Anion Gap (3-11) BUN (7-18) mg/dl Creatinine (0.6-1.2) mg/dl Est Cr Clr Drug Dosing ml/min Est GFR ( Amer) ml/min Est GFR (Non-Af Amer) ml/min BUN/Creatinine Ratio (10-20) Glucose (70-99) mg/dl POC Glucose 144 H (70-99) mg/dl POC Glucose (other) (70-99) mg/dl Estimat Average Glucose 146 mg/dl Hemoglobin A1c 6.7 H (4.5-5.6) % Calcium (8.5-10.1) mg/dl Phosphorus (2.5-4.9) mg/dl Magnesium (1.8-2.4) mg/dl Total Bilirubin (0.2-1) mg/dl Direct Bilirubin (0-0.2) mg/dl AST (15-37) U/L ALT (12-78) Alkaline Phosphatase (45-117) U/L NT-Pro-B Natriuret Pep (0-900) pg/ml Total Protein (6.4-8.2) gm/dl Albumin (3.4-5.0) gm/dl
--- NOTE | 2021-03-26 09:06 | XRay Report ---
XR chest 1V portable HISTORY: Follow-up. Respiratory failure. COMPARISON: Chest 03/25/2021. FINDINGS: No pneumothorax. The nasogastric tube, endotracheal tube, and right jugular central venous catheter are in good position. These remain unchanged in position. Patchy bilateral hazy airspace opa cities within the mid to lower lung zones persist. IMPRESSION: 1. Satisfactory support line placement. 2. No change in the patchy bibasilar airspace opacities. ACT 112: Negative or not required by law. Electronically signed by: Antwan Hardy M.D. 03/26/2021 9:05 AM
[2021-03-26] MEDS: ICU ELECTROLYTE REPLACEMENT PROTOCOL SCH ×2 (09:19→18:11)
[2021-03-26] MEDS: DOCUSATE SODIUM 100 MG CAP PO SCH (09:20)
[2021-03-26] MEDS ORDERED: SODIUM PHOSPHATE 3 MMOL/1 ML INFUSION IV STA (09:21)
[2021-03-26] MEDS: PANTOprazole 40 MG in SYRINGE 0 ML IV SCH ×2 (09:23→20:41)
[2021-03-26] MEDS: SENNOSIDES 8.8 MG/5 ML UDC PO SCH (09:23)
[2021-03-26] MEDS ORDERED: SODIUM PHOSPHATE 15 MMOL in SODIUM CHLORIDE 0.9% 250 ML IV ONE (09:30)
[2021-03-26] MEDS: NORMOSOL-R 1,000 ML IV SCH (14:19)
--- NOTE | 2021-03-26 14:42 | Pharmacy Report ---
Pharmacy Glycemic Short Note 2 - Date of Service March 26, 2021 - Glycemic Short BSG Results (Last 24 hours): 03/25/21 03/25/21 03/26/21 16:55 20:34 00:37 Glucose POC Glucose 124 H POC Glucose (other) 123 H 209 H 03/26/21 03/26/21 03/26/21 07:18 07:36 12:08 Glucose 161 H POC Glucose 142 H 127 H POC Glucose (other) OUTPATIENT ANTIDIABETIC REGIMEN: * N/a * HbA1c pending ASSESSMENT: 03/26: * Patient received a total of 17 units of insulin yesterday, 15 of which were NPH. BSGs well controlled today. * Of note, dexamethasone will be decreased from 6mg BID and tapered over the next week. TFs on hold since mid morning due to rectal bleeding. Patient received 5 units NPH this morning. Will plan to decrease scale for this evening. 03/25 * 71 yo F admitted secondary to COVID-19 pneumonia. Pharmacy has been consulted to assist with inpatient glycemic management. * Has been started on Dexamethasone 6 mg IV every 12 hours. Was on Nimbex but has since been discontinued. Remains intubated and NPO. No tube feeds started. * Will start NPH every 12 hours to cover for steroid-induced hyperglycemia. * Novolog started based on weight/stress of 2-3. * Goal range of 120-160 mg/dL. PLAN FOR INPATIENT GLYCEMIC CONTROL: * Basal insulin * NPH 0-5 units SC q12h * Bolus insulin * NovoLog per scale ACHS or Q6hrs while NPO * Goal Range: Low 120 mg/dL - High 160 mg/dL * Correction Factor: 30 mg/dL/unit * Nutritional / Prandial insulin per carb ratio of 1 unit per 10 grams CHO consumed PLAN FOR DISCHARGE: * To be determined
--- NOTE | 2021-03-26 14:47 | Critical Care Progress Note ---
Date of Service March 26, 2021 Assessment & Plan (1) ARDS (adult respiratory distress syndrome): (2) Hypoxia: (3) Acute respiratory distress syndrome (ARDS) due to 2019 novel coronavirus: Plan: Impression: 71-year-old unvaccinated female with Luciana. She has been aggressively treated but unfortunately failed. She had a prolonged hospitalization and today apparently decided to be intubated for progressive hypoxemic respiratory failure. 24-hour events: Patient remains intubated and sedated. We are unable to wean her ventilatory requirements overnight. She remains afebrile and hemodynamically stable. Lungs were very stiff with poor compliance yesterday necessitating decrease in tidal volume down to 4cc/kg ideal body weight to maintain peak and plateau pressures less than 35. Compliance somewhat improved today Recommendations: 1. Neurologic: We will continue deep sedation with fentanyl Versed propofol. Off neuromuscular blockade. Continue restraints to prevent self extubation 2. Cardiovascular: No current issues. Continue to monitor 3. Pulmonary: Severe ARDS with refractory hypoxemia. Current vent settings assist-control 35/250/10/0.5 with a plateau pressure of about 24. Blood gas 7.29/64/64. P to F ratio 128 slightly worse than yesterday with continued poor compliance. Tolerating permissive hypercapnia in an effort to try and keep peak airway pressures lower. Continue to wean per ARDS net protocol. Pursuing high FiO2 low PEEP tables. She is recently been evaluated for PE and has not significantly clinically changed so we will hold off on repeat evaluation currently. Her oxygenation is adequate currently so do not think she needs additional adjuvant such as proning or inhaled epoprostenol. Overall prognosis is guarded. Day #3 mechanical ventilation 4. ID: Tapering dexamethasone as she is been on it for approximately 3 weeks. Tapering dexamethasone. Blood cultures and urine cultures are showing no growth to date. Will ensure that we have tracheal aspirate for culture as well. Remains afebrile. Holding on antibiotics for now.. The patient is 21 days out from her initial diagnosis and no longer requires respiratory isolation. She can be transferred out of the Covid unit to a regular ICU room. Unfortunately, after discussion with ICU staff, it appears that regular ICU beds are also on a critical shortage currently. 5. Renal: ICU electrolyte replacement will be ordered. Follow kidney function. Try and keep I/O on dry side. 6. GI: Initiated tube feeding per dietary Senna and Colace for bowel regimen, may need to reevaluate and escalate. 7. Endocrine: ICU glycemic protocol. Per previous discussions with family, no CPR or cardioversion. Will reassess after 5 days of mechanical ventilation if the patient is not making significant progress, consider termination of resuscitative efforts and transition to comfort care. Total of 45 minutes critical care time was spent in evaluation management stabilization of this patient. Patient remains critically ill with significant possibility of clinical deterioration or . Discussed with bedside respiratory therapist and ICU nurse as well as on multidisciplinary rounds. Family to be updated by hospitalist Admission and Anticipated Discharge Date Admission Date: March 06, 2021 Subjective intubated and sedated Review of Systems Review of Systems: Unobtainable due to endotracheal tube Physical Exam Constitutional: well developed and + mechanically ventilated Neck: trachea midline, no thyromegaly Respiratory: Auscultation: + crackles Cardiovascular: RRR, no murmur, no edema Gastrointestinal (Abdomen): normal bowel sounds, soft, nontender, no hepatosplenomegaly Musculoskeletal: Extremities: extremities normal to inspection Skin: no rashes, warm and dry Lymphatic: no cervical lymphadenopathy Results & Data Results & [facility]) Vital Signs (Past 12 Hours) Vital Signs Temp Pulse Resp Pulse Ox Pulse Ox 03/26/21 14:08 83 35 H 91 03/26/21 13:00 37.1 C 90 03/26/21 10:50 94 H 33 H 90 03/26/21 10:30 86 33 H 89 L 03/26/21 10:15 99 H 32 H 88 L 03/26/21 10:00 97 H 32 H 88 L 03/26/21 09:45 95 H 33 H 88 L 03/26/21 09:30 95 H 33 H 89 L 03/26/21 09:15 84 30 H 87 L 03/26/21 09:00 85 30 H 87 L 03/26/21 08:45 91 H 33 H 89 L 03/26/21 08:30 87 30 H 89 L 03/26/21 08:15 91 H 30 H 90 03/26/21 08:00 93 H 34 H 89 L 03/26/21 07:45 96 H 28 H 90 03/26/21 07:35 97 H 32 H 90 03/26/21 07:30 96 H 34 H 90 12/13/21 07:15 94 H 29 H 1213/21 07:00 95 H 30 H 03/26/21 06:45 90 34 H 03/26/21 05:00 91 H 30 H 90 03/26/21 04:45 93 H 34 H 90 03/26/21 04:30 92 H 30 H 90 03/26/21 04:15 89 30 H 90 03/26/21 04:00 37.0 C 94 H 32 H 91 03/26/21 03:45 93 H 32 H 91 03/26/21 03:30 97 H 28 H 90 03/26/21 03:15 98 H 35 H 91 03/26/21 03:07 96 H 34 H 91 03/26/21 03:00 94 H 32 H 91 03/26/21 02:45 91 H 30 H 90 Critical Care Results & Data Vital Signs (Past 12 Hours) Vital Signs Temp Pulse Resp Pulse Ox Pulse Ox 03/26/21 14:08 83 35 H 91 03/26/21 13:00 37.1 C 90 03/26/21 10:50 94 H 33 H 90 03/26/21 10:30 86 33 H 89 L 03/26/21 10:15 99 H 32 H 88 L 03/26/21 10:00 97 H 32 H 88 L 03/26/21 09:45 95 H 33 H 88 L 03/26/21 09:30 95 H 33 H 89 L 03/26/21 09:15 84 30 H 87 L 03/26/21 09:00 85 30 H 87 L 03/26/21 08:45 91 H 33 H 89 L 03/26/21 08:30 87 30 H 89 L 03/26/21 08:15 91 H 30 H 90 03/26/21 08:00 93 H 34 H 89 L 03/26/21 07:45 96 H 28 H 90 03/26/21 07:35 97 H 32 H 90 03/26/21 07:30 96 H 34 H 90 03/26/21 07:15 94 H 29 H 03/26/21 07:00 95 H 30 H 03/26/21 06:45 90 34 H 03/26/21 05:00 91 H 30 H 90 03/26/21 04:45 93 H 34 H 90 03/26/21 04:30 92 H 30 H 90 03/26/21 04:15 89 30 H 90 03/26/21 04:00 37.0 C 94 H 32 H 91 03/26/21 03:45 93 H 32 H 91 03/26/21 03:30 97 H 28 H 90 03/26/21 03:15 98 H 35 H 91 03/26/21 03:07 96 H 34 H 91 03/26/21 03:00 94 H 32 H 91 Lab & Micro Results (Past 24 Hours) RBC 3.91 M/uL (4.2-5.4) L 03/26/21 WBC 21.14 K/uL (4.8-10.8) H 03/26/21 Hgb 12.3 g/dL (12.0-16.0) 03/26/21 Hct 40.0 % (37-47) 03/26/21 MCV 102.3 fL (80-100) H 03/26/21 MCH 31.5 pg (25-34) 03/26/21 MCHC 30.8 g/dL (32-36) L 03/26/21 RDW Standard Deviation 51.8 fL (36.4-46.3) H 03/26/21 RDW Coefficient of Variation 13.8 % (11.5-14.5) 03/26/21 Plt Count 175 K/uL (130-400) 03/26/21 MPV 12.3 fL (7.4-10.4) H 03/26/21 Neutrophils (%) (Auto) 90.2 % 03/26/21 Lymphocytes (%) (Auto) 3.4 % 03/26/21 Monocytes # (Auto) 0.95 K/uL (0.11-0.59) H 03/26/21 Eosinophils # (Auto) 0.00 K/uL (0-0.5) 03/26/21 Immature Granulocyte % (Auto) 1.8 % 03/26/21 Neutrophils # (Auto) 19.05 K/uL (1.4-6.5) H 03/26/21 Lymphocytes # (Auto) 0.72 K/uL (1.2-3.4) L 03/26/21 Monocytes # (Auto) 0.95 K/uL (0.11-0.59) H 03/26/21 Eosinophils # (Auto) 0.00 K/uL (0-0.5) 03/26/21 Basophils # (Auto) 0.03 K/uL (0-0.2) 03/26/21 Immature Granulocyte # (Auto) 0.39 K/uL (0.00-0.02) H 03/26/21 Na 140 mmol/L (136-145) 03/26/21 K 4.8 mmol/L (3.5-5.1) 03/26/21 Cl 107 mmol/L (98-107) 03/26/21 CO2 29 mmol/L (21-32) 03/26/21 Anion Gap 4.0 (3-11) 03/26/21 BUN 33 mg/dl (7-18) H 03/26/21 Creatinine 0.48 mg/dl (0.6-1.2) L 03/26/21 Estimated GFR ( Amer) 116.0 ml/min 03/26/21 Estimated GFR (Non-Af Amer) 100.1 ml/min 03/26/21 BUN/Creatinine Ratio 69.0 (10-20) H 03/26/21 Glu 161 mg/dl (70-99) H 03/26/21 Ca 8.1 mg/dl (8.5-10.1) L 03/26/21 Phosphorus Level 2.0 mg/dl (2.5-4.9) L 03/26/21 Total Bilirubin 0.4 mg/dl (0.2-1) 03/26/21 Direct Bilirubin 0.1 mg/dl (0-0.2) 03/26/21 AST 18 U/L (15-37) 03/26/21 ALT 34 (12-78) 03/26/21 Alkaline Phosphatase 85 U/L (45-117) 03/26/21 TP 5.1 gm/dl (6.4-8.2) L 03/26/21 Albumin 2.0 gm/dl (3.4-5.0) L 03/26/21 Mg 2.5 mg/dl (1.8-2.4) H 03/26/21 07:18 03/26/21 Calcium Level 8.1 mg/dl (8.5-10.1) L 03/26/21 07:18 03/26/21 Beau Test NA 03/26/21 04:15 03/26/21 Microbiology 12/12/21 12:58 Aerobic Blood Culture - Preliminary Blood No growth in Aerobic bottle after 24 hours. Anaerobic Blood Culture - Preliminary No growth in Anaerobic bottle after 24 hours. 03/25/21 12:48 Aerobic Blood Culture - Preliminary Blood No growth in Aerobic bottle after 24 hours. Anaerobic Blood Culture - Preliminary No growth in Anaerobic bottle after 24 hours. 03/25/21 13:13 Urine Culture - Preliminary Urine,Indwelling Cath No growth - Less than 1,000 colonies/mL, Final report to follow. Diagnostic Findings (Past 24 Hours) Chest X-Ray 03/26/21 07:00 XR chest 1V portable HISTORY: Follow-up. Respiratory failure. COMPARISON: Chest 03/25/2021. FINDINGS: No pneumothorax. The nasogastric tube, endotracheal tube, and right jugular central venous catheter are in good position. These remain unchanged in position. Patchy bilateral hazy airspace opacities within the mid to lower lung zones persist. IMPRESSION: 1. Satisfactory support line placement. 2. No change in the patchy bibasilar airspace opacities. ACT 112: Negative or not required by law. Electronically signed by: Antwan Hardy M.D. 03/26/2021 9:05 AM I & O Totals 24 Hours 03/25/21 03/26/21 03/27/21 06:59 06:59 06:59 Intake Total 704.313 / 160.192 1558.195 / 2143.195 1523.438 / 1523.438 Output Total 925 / 925 519 / 519 150 / 150 Balance -220.687 / -928.971 3646.195 / 1753.979 6250.438 / 1373.438 Cumulative 03/06/21 08:09 thru 03/26/21 14:34 Intake Total 48266.946 Output Total 70529 Balance 1577.946 RT Ventilator Mngmt (Last Documented) Ventilator Ordered Settings Ventilator Support Mode Assist Control 03/26/21 14:08 Respiratory Rate 35 03/26/21 14:08 Ventilator Tidal Volume 250 03/26/21 14:08 Setting Minute Ventilation 8.3 03/26/21 14:08 Positive End Expiratory 10 03/26/21 14:08 Pressure Fraction of Inspired Oxygen 50 03/26/21 14:08 Machine Comment [employer] protocol followed to 03/25/21 02:48 titrate fio2 and peep accordingly Ventilator - PT Measurements Respiratory Rate 35 Exhaled Tidal Volume 250 Minute Ventilation 8.3 Peak Inspiratory Airway 28 Pressure Plateau Pressure 24 Respiratory Cycle Inspiratory: 1:1.9 Expiratory Ratio Inspiratory Phase Time 0.65 End-Tidal CO2 38 Static Lung Compliance 17.86 Dynamic Lung Compliance 13.89 Normal Static Lung Compliance 43.00 Patient Measurements Comment increased fio2 due to spo2 87 when RN did mouth care Coding Level of Care Code Critical Care 1st 30-74 mins Diagnoses ARDS (adult respiratory distress syndrome) J80 Hypoxia R09.02 Acute respiratory distress syndrome (ARDS) due to 2019 novel coronavirus U07.1; J80 Time Spent (min) 45
[2021-03-26] MEDS ORDERED: ALTEPLASE, RECOMBINANT 1 MG/ML 2ML VIAL INSTIL ONE (15:23)
[2021-03-26 15:59] LABS: Hematocrit (blood only) 36.8 % (37-47); Hemoglobin 11.4 g/dL (12.0-16.0)
[2021-03-26 16:15] LABS: Fibrinogen 335 mg/dl (184-400); Prothrombin Time 10.3 Seconds (9.0-12.0)
[2021-03-27] MEDS: INSULIN ASPART PER UNIT SC SCH ×4 (00:45→18:18)
[2021-03-27] MEDS: propofoL 1,000 MG/100 ML VIAL IV SCH ×6 (01:09→22:00)
[2021-03-27] MEDS: ARTIFICIAL TEARS OP OINT 3.5 GM TUBE OP SCH ×6 (02:48→21:44)
[2021-03-27 04:02] LABS: iSTAT Arterial Blood Gas HCO3 30 meg/L (19-24); iSTAT Arterial Blood Gas pCO2 57 mmHg (35-46); iSTAT Arterial Blood Gas pH 7.32 (7.35-7.45); iSTAT Arterial Blood Gas pO2 59 mmHg (80-95); iSTAT Carbon Dioxide 31 mmol/L (24-31); iSTAT FiO2 45 %; iSTAT Site Art Line
[2021-03-27 05:43] LABS: iSTAT Creatinine 0.5 mg/dl (0.6-1.3); iSTAT Hemoglobin 9.9 g/dl (12.0-16.0); iSTAT Ionized Calcium 1.2 mmol/l (1.12-1.32); iSTAT Potassium 4.2 mmol/L (3.3-5.0)
[2021-03-27 06:17] LABS: Basophils # (auto) 0.01 K/uL (0-0.2); Basophils % (auto) 0.1 %; Eosinophils # (auto) 0.04 K/uL (0-0.5); Eosinophils % (auto) 0.3 %; Hematocrit (blood only) 33.5 % (37-47); Hemoglobin 10.5 g/dL (12.0-16.0); Immature Granulocytes # (auto) 0.32 K/uL (0.00-0.02); Immature Granulocytes % (auto) 2.2 %; Lymphocytes # (auto) 0.71 K/uL (1.2-3.4); Lymphocytes % (auto) 4.9 %; Mean Corpuscular Hemoglobin 31.5 pg (25-34); Mean Corpuscular Hgb Conc 31.3 g/dL (32-36); Mean Corpuscular Volume 100.6 fL (80-100); Mean Platelet Volume 11.7 fL (7.4-10.4); Monocytes # (auto) 0.75 K/uL (0.11-0.59); Monocytes % (auto) 5.2 %; Neutrophils # (auto) 12.63 K/uL (1.4-6.5); Neutrophils % (auto) 87.3 %; Nucleated RBC # (auto) 0.02 K/uL (0-0); Nucleated RBC % (auto) 0.2 %; Platelet Count 130 K/uL (130-400); RDW Coefficient of Variation 13.8 % (11.5-14.5); RDW Standard Deviation 50.8 fL (36.4-46.3); Red Blood Count 3.33 M/uL (4.2-5.4); White Blood Count 14.46 K/uL (4.8-10.8)
[2021-03-27] MEDS: PROPOFOL BOLUS FROM BAG IV PRN (06:30)
[2021-03-27 06:46] LABS: Potassium 4.3 mmol/L (3.5-5.1)
[2021-03-27 06:53] LABS: Albumin Level 1.7 gm/dl (3.4-5.0); BUN Creatinine Ratio 84.2 (10-20); Bilirubin Direct 0.2 mg/dl (0-0.2); Calcium 7.7 mg/dl (8.5-10.1); Creatinine Clr Calc Pharmacy 111.7 ml/min; Est GFR (African American) 123.2 ml/min; Est GFR (Non-African American) 106.3 ml/min; Magnesium 2.4 mg/dl (1.8-2.4)
[2021-03-27 07:09] LABS: Bilirubin,Total 0.5 mg/dl (0.2-1); Phosphorus 2.3 mg/dl (2.5-4.9); Total Protein 4.4 gm/dl (6.4-8.2)
[2021-03-27] MEDS: INSULIN HUMAN NPH SC SCH (07:37)
--- NOTE | 2021-03-27 08:05 | XRay Report ---
XR chest 1V portable HISTORY: 71 years-old Female resp failure acute respiratory failure COMPARISON: Chest radiograph 03/26/2021 TECHNIQUE: Portable AP view of the chest FINDINGS: Endotracheal tube overlies the midline, 2 cm superior to the leigh ann. Right IJ central venous catheter distal tip projects over the right atrium. Enteric tube courses below the diaphragm with distal tip outside the [id number]. No pneumothorax. Trace right and small left pleural effusions. Interstitia l coarsening with mildly progressed patchy bilateral airspace opacities. No acute fracture. IMPRESSION: 1. Satisfactory positioning of life-support lines and tubes. 2. Interstitial coarsening with mildly progressed bibasilar airspace opacities. 3. Trace right and small left pleural effusions. ACT 112: Negative or not required by law. The above report was generated using voice recognition software. It may contain grammatical, syntax o r spelling errors. Electronically signed by: Williams Edwards M.D. 03/27/2021 8:04 AM
[2021-03-27] MEDS ORDERED: SODIUM PHOSPHATE 3 MMOL/1 ML INFUSION IV STA (08:09)
[2021-03-27] MEDS: ICU ELECTROLYTE REPLACEMENT PROTOCOL SCH ×2 (08:10→17:07)
[2021-03-27] MEDS: fentaNYL DRIP 1,250 MCG/250 ML BAG IV SCH ×2 (08:11→16:58)
[2021-03-27] MEDS: SENNOSIDES 8.8 MG/5 ML UDC PO SCH (08:15)
[2021-03-27] MEDS: dexAMETHasone 4 MG in SYRINGE 0 ML IV SCH (08:16)
[2021-03-27] MEDS: PANTOprazole 40 MG in SYRINGE 0 ML IV SCH ×2 (08:17→21:40)
[2021-03-27] MEDS: DOCUSATE SODIUM 100 MG CAP PO SCH (08:21)
--- NOTE | 2021-03-27 08:48 | Communication Note ---
Date of Service: March 27, 2021 Chart reviewed. Has had two BMs since onset of bleeding, last BM yesterday around 5 documented as brown mixed with red blood. HGB 10.5 with stable BUN. Would continue conservative measures as documented yesterday. Please call GI directly with any change in clinical status. Thank you for allowing us to participate in the care of this patient. Please call with any acute changes, questions or concerns. Please see addendum below with additional recommendation from my supervising physician.
[2021-03-27] MEDS ORDERED: INSULIN HUMAN NPH SC SCH ×2 (09:00→21:00)
[2021-03-27] MEDS ORDERED: SODIUM PHOSPHATE 15 MMOL in SODIUM CHLORIDE 0.9% 250 ML IV ONE (09:15)
[2021-03-27] MEDS: DOCUSATE SODIUM SYRUP 100 MG/10 ML UDC PO SCH (12:55)
--- NOTE | 2021-03-27 13:36 | Hospitalist Progress Note ---
Date of Service March 27, 2021 Assessment & Plan (1) Acute respiratory failure with hypoxia: (2) Pneumonia due to COVID-19 virus: (3) Hypoxia: Plan: Acute respiratory failure with hypoxia ARDS COVID-19 pneumonia Diagnosed COVID-19 positive on 03/06/2021 Pneumomediastinum --CTA: No CTA evidence for pulmonary embolus. Extensive groundglass opacities are present throughout both lungs characteristic of a viral type pneumonitis and Covid 19 pneumonia.XR: -Continued CPAP/high flow oxygen Not a candidate for ECMO as per pulmonary Completed remdesevir course Continued dexamethasone Palliative care consulted to address goals of care Appreciate pulmonary input Continue Lasix prn CRP:14.4>24.7 Patient continues to desaturate while on High Flow Imaging suggestive of Trace pneumomediastinum Patient prefers to be DNI DNR Appreciate palliative care Input 03/20 Chest x-ray showed worsening bilateral interstitial and alveolar opacities. Pneumomediastinum seem to be improving Continue current management Prognosis is poor 03/22 - had a long discussion with the patient and her (over the phone), patient wants to remain DNR/DNI Explained intubation in case she would worsen, however at this time patient does not want to change anything 03/23 -reports she is feeling better, she is able to answer in short sentences, does not wish to make any changes at this time 03/24 - patient having more difficulty breathing today, on HF nasal cannula, BiPAP attempted, however patient did not tolerate. Patient stated that she does not want to and wants to proceed with whatever necessary including intubation. Nursing staff at the bedside. Contacted anesthesia and plant wrapper. Updated patient's over the phone. 03/25 - pt was intubated yesterday Severe ARDS with refractory hypoxemia. Current vent settings assist-control/32/250/10/0.5 with a plateau pressure of about 30. ABG 7.2/81/73. P/F 146 with a very stiff lungs and very poor compliance. 03/27 Tracheal aspirate growing gram-negative rods (also with Dev albicans/dubliniensis, dev is not likely pathologic). Remains afebrile. Her white count was up to 21,000 yesterday but is down to 14,000 today. Start cefepime pending speciation and sensitivity. GI bleed 03/26 - developed hematochezia overnight GI consulted - conservative management, PPI, hold anticoagulation Urinary tract infection-POA Urine culture growing E. coli Completed Rocephin course (4) Elevated LFTs: Plan: Minimally elevated monitor (5) Sepsis: Plan: Sepsisin setting of COVID19 pneumonia, UTI Plan: DVT Px: Lovenox SQ then on hold d/t GI bleed Code status: Pt was DNI/DNR however then pt wished for FULL code -> pt was intubated Admission and Anticipated Discharge Date Admission Date: March 06, 2021 Subjective Patient is seen in follow up of acute resp. failure w/ hypoxia 2/2 covid 19 pneumonia Pt intubated on (03/24) d/t severe ARDS and refractory hypoxemia Pt has had prolonged hospital course, on HF NC previously Hematochezia noted, GI consulted and following Pt's updated over the phone Update: Tracheal aspirate growing gram-negative rods, starting cefepime per pulmonary/ICU team Review of Systems Review of Systems: Unobtainable due to cognitive status and Unobtainable due to endotracheal tube Physical Exam Physical Exam: General Appearance: Moderately built and nourished, intubated, sedated Head: normocephalic, Atraumatic Eyes: normal inspection Respiratory/Chest: + mild exp. wheezes Cardiovascular: S1, S2, No murmur Abdomen/GI:Soft, Non tender, Bowel sounds present Extremities/Musculoskeletal:normal inspection, no edema Neurologic/Psych:sedated intubated Skin: normal color, warm Results & Data Results & Data ([facility]) Vital Signs (Past 12 Hours) Vital Signs Temp Pulse Resp Pulse Ox 03/27/21 11:39 36.4 C L 03/27/21 11:15 69 32 H 89 L 03/27/21 11:00 82 32 H 90 03/27/21 10:45 70 32 H 88 L 03/27/21 10:30 68 32 H 87 L 03/27/21 10:15 67 32 H 88 L 03/27/21 10:00 70 32 H 88 L 03/27/21 09:45 72 35 H 89 L 03/27/21 09:30 68 32 H 90 03/27/21 09:15 67 32 H 90 03/27/21 09:00 69 32 H 91 03/27/21 08:45 71 32 H 91 03/27/21 08:30 71 32 H 91 03/27/21 08:15 70 32 H 91 03/27/21 08:00 70 32 H 91 03/27/21 07:56 36.9 C 03/27/21 07:45 71 32 H 87 L 03/27/21 07:37 36.9 C 03/27/21 07:35 70 32 H 90 03/27/21 07:30 70 90 03/27/21 07:15 70 90 03/27/21 07:00 71 90 03/27/21 06:46 73 03/27/21 06:45 74 90 03/27/21 06:30 69 91 03/27/21 06:15 146 H 83 L 03/27/21 06:00 67 93 03/27/21 05:45 67 93 03/27/21 05:30 68 92 03/27/21 05:15 68 92 03/27/21 05:00 67 92 03/27/21 04:45 68 93 03/27/21 04:30 69 93 03/27/21 04:15 70 93 03/27/21 04:00 37.0 C 69 93 03/27/21 03:46 70 32 H 92 03/27/21 03:45 70 93 03/27/21 03:30 70 93 03/27/21 03:15 71 92 03/27/21 03:00 70 92 03/27/21 02:45 70 93 03/27/21 02:30 69 93 03/27/21 02:15 70 93 03/27/21 02:00 70 89 L 03/27/21 01:45 72 89 L Laboratory Results 03/27/21 03/27/21 03/27/21 Range/Units 11:32 06:04 06:04 WBC 14.46 H (4.8-10.8) K/uL RBC 3.33 L (4.2-5.4) M/uL Hgb 10.5 L (12.0-16.0) g/dL POC Hgb (12.0-16.0) g/dl Hct 33.5 L (37-47) % POC Hct (37-47) % MCV 100.6 H (80-100) fL MCH 31.5 (25-34) pg MCHC 31.3 L (32-36) g/dL RDW Std Deviation 50.8 H (36.4-46.3) fL RDW Coeff of Heron 13.8 (11.5-14.5) % Plt Count 130 (130-400) K/uL MPV 11.7 H (7.4-10.4) fL Immature Gran % (Auto) 2.2 % Neut % (Auto) 87.3 % Lymph % (Auto) 4.9 % [place] % (Auto) 5.2 % Eos % (Auto) 0.3 % Baso % (Auto) 0.1 % Neut # (Auto) 12.63 H (1.4-6.5) K/uL Lymph # (Auto) 0.71 L (1.2-3.4) K/uL [place] # (Auto) 0.75 H (0.11-0.59) K/uL Eos # (Auto) 0.04 (0-0.5) K/uL Baso # (Auto) 0.01 (0-0.2) K/uL Immature Gran # (Auto) 0.32 H (0.00-0.02) K/uL Absolute Nucleated RBC 0.02 H (0-0) K/uL Nucleated RBC % (auto) 0.2 % PT (9.0-12.0) Seconds INR (0.9-1.1) Fibrinogen (184-400) mg/dl Sample Site POC pH (7.35-7.45) POC pCO2 (35-46) mmHg POC pO2 (80-95) mmHg POC HCO3 (19-24) mikie/L POC Total CO2 (24-31) mmol/L POC Base Excess (-9-1.8) mikie/L POC ABG O2 Sat (90-95) % Beau Test O2 Delivery Device POC O2 Rate Minute Ventilation POC FiO2 % Tidal Volume PEEP POC Sodium (135-144) mmol/L Sodium 140 (136-145) mmol/L POC Potassium (3.3-5.0) mmol/L Potassium 4.3 (3.5-5.1) mmol/L POC Chloride (101-112) mmol/L Chloride 108 H (98-107) mmol/L Carbon Dioxide 31 (21-32) mmol/L Anion Gap 1.0 L (3-11) POC Anion Gap (16-25) mmol/L POC BUN (7-18) mg/dl BUN 34 H (7-18) mg/dl Creatinine 0.40 L (0.6-1.2) mg/dl POC Creatinine (0.6-1.3) mg/dl Est Cr Clr Drug Dosing 111.7 ml/min Est GFR ( Amer) 123.2 ml/min Est GFR (Non-Af Amer) 106.3 ml/min BUN/Creatinine Ratio 84.2 H (10-20) Glucose 93 (70-99) mg/dl POC Glucose 92 (70-99) mg/dl POC Glucose (other) (70-99) mg/dl Calcium 7.7 L (8.5-10.1) mg/dl POC Ioniz Calcium Stephanie (1.12-1.32) mmol/l Phosphorus 2.3 L (2.5-4.9) mg/dl Magnesium 2.4 (1.8-2.4) mg/dl Total Bilirubin 0.5 (0.2-1) mg/dl Direct Bilirubin 0.2 D (0-0.2) mg/dl AST 16 (15-37) U/L ALT 28 (12-78) Alkaline Phosphatase 65 (45-117) U/L Total Protein 4.4 L (6.4-8.2) gm/dl Albumin 1.7 L (3.4-5.0) gm/dl 03/27/21 03/27/21 03/27/21 Range/Units 05:27 03:46 00:39 WBC (4.8-10.8) K/uL RBC (4.2-5.4) M/uL Hgb (12.0-16.0) g/dL POC Hgb 9.9 L (12.0-16.0) g/dl Hct (37-47) % POC Hct 29 L (37-47) % MCV (80-100) fL MCH (25-34) pg MCHC (32-36) g/dL RDW Std Deviation (36.4-46.3) fL RDW Coeff of Heron (11.5-14.5) % Plt Count (130-400) K/uL MPV (7.4-10.4) fL Immature Gran % (Auto) % Neut % (Auto) % Lymph % (Auto) % [place] % (Auto) % Eos % (Auto) % Baso % (Auto) % Neut # (Auto) (1.4-6.5) K/uL Lymph # (Auto) (1.2-3.4) K/uL [place] # (Auto) (0.11-0.59) K/uL Eos # (Auto) (0-0.5) K/uL Baso # (Auto) (0-0.2) K/uL Immature Gran # (Auto) (0.00-0.02) K/uL Absolute Nucleated RBC (0-0) K/uL Nucleated RBC % (auto) % PT (9.0-12.0) Seconds INR (0.9-1.1) Fibrinogen (184-400) mg/dl Sample Site Art Line POC pH 7.32 L (7.35-7.45) POC pCO2 57 H (35-46) mmHg POC pO2 59 L (80-95) mmHg POC HCO3 30 H (19-24) mikie/L POC Total CO2 28 31 (24-31) mmol/L POC Base Excess 3.0 H (-9-1.8) mikie/L POC ABG O2 Sat 87.0 L (90-95) % Beau Test NA O2 Delivery Device Ventilator POC O2 Rate 32 Minute Ventilation 8.1 POC FiO2 45 % Tidal Volume 250 PEEP 8 POC Sodium 138 (135-144) mmol/L Sodium (136-145) mmol/L POC Potassium 4.2 (3.3-5.0) mmol/L Potassium (3.5-5.1) mmol/L POC Chloride 103 (101-112) mmol/L Chloride (98-107) mmol/L Carbon Dioxide (21-32) mmol/L Anion Gap (3-11) POC Anion Gap 13.0 L (16-25) mmol/L POC BUN 31 H (7-18) mg/dl BUN (7-18) mg/dl Creatinine (0.6-1.2) mg/dl POC Creatinine 0.5 L (0.6-1.3) mg/dl Est Cr Clr Drug Dosing ml/min Est GFR ( Amer) ml/min Est GFR (Non-Af Amer) ml/min BUN/Creatinine Ratio (10-20) Glucose (70-99) mg/dl POC Glucose 103 H (70-99) mg/dl POC Glucose (other) 92 (70-99) mg/dl Calcium (8.5-10.1) mg/dl POC Ioniz Calcium Stephanie 1.20 (1.12-1.32) mmol/l Phosphorus (2.5-4.9) mg/dl Magnesium (1.8-2.4) mg/dl Total Bilirubin (0.2-1) mg/dl Direct Bilirubin (0-0.2) mg/dl AST (15-37) U/L ALT (12-78) Alkaline Phosphatase (45-117) U/L Total Protein (6.4-8.2) gm/dl Albumin (3.4-5.0) gm/dl 03/26/21 03/26/21 03/26/21 Range/Units 18:16 15:04 15:04 WBC (4.8-10.8) K/uL RBC (4.2-5.4) M/uL Hgb 11.4 L (12.0-16.0) g/dL POC Hgb (12.0-16.0) g/dl Hct 36.8 L (37-47) % POC Hct (37-47) % MCV (80-100) fL MCH (25-34) pg MCHC (32-36) g/dL RDW Std Deviation (36.4-46.3) fL RDW Coeff of Heron (11.5-14.5) % Plt Count (130-400) K/uL MPV (7.4-10.4) fL Immature Gran % (Auto) % Neut % (Auto) % Lymph % (Auto) % [place] % (Auto) % Eos % (Auto) % Baso % (Auto) % Neut # (Auto) (1.4-6.5) K/uL Lymph # (Auto) (1.2-3.4) K/uL [place] # (Auto) (0.11-0.59) K/uL Eos # (Auto) (0-0.5) K/uL Baso # (Auto) (0-0.2) K/uL Immature Gran # (Auto) (0.00-0.02) K/uL Absolute Nucleated RBC (0-0) K/uL Nucleated RBC % (auto) % PT 10.3 (9.0-12.0) Seconds INR 1.0 (0.9-1.1) Fibrinogen 335 (184-400) mg/dl Sample Site POC pH (7.35-7.45) POC pCO2 (35-46) mmHg POC pO2 (80-95) mmHg POC HCO3 (19-24) mikie/L POC Total CO2 (24-31) mmol/L POC Base Excess (-9-1.8) mikie/L POC ABG O2 Sat (90-95) % Beau Test O2 Delivery Device POC O2 Rate Minute Ventilation POC FiO2 % Tidal Volume PEEP POC Sodium (135-144) mmol/L Sodium (136-145) mmol/L POC Potassium (3.3-5.0) mmol/L Potassium (3.5-5.1) mmol/L POC Chloride (101-112) mmol/L Chloride (98-107) mmol/L Carbon Dioxide (21-32) mmol/L Anion Gap (3-11) POC Anion Gap (16-25) mmol/L POC BUN (7-18) mg/dl BUN (7-18) mg/dl Creatinine (0.6-1.2) mg/dl POC Creatinine (0.6-1.3) mg/dl Est Cr Clr Drug Dosing ml/min Est GFR ( Amer) ml/min Est GFR (Non-Af Amer) ml/min BUN/Creatinine Ratio (10-20) Glucose (70-99) mg/dl POC Glucose 128 H (70-99) mg/dl POC Glucose (other) (70-99) mg/dl Calcium (8.5-10.1) mg/dl POC Ioniz Calcium Stephanie (1.12-1.32) mmol/l Phosphorus (2.5-4.9) mg/dl Magnesium (1.8-2.4) mg/dl Total Bilirubin (0.2-1) mg/dl Direct Bilirubin (0-0.2) mg/dl AST (15-37) U/L ALT (12-78) Alkaline Phosphatase (45-117) U/L Total Protein (6.4-8.2) gm/dl Albumin (3.4-5.0) gm/dl Medications Administered Current Inpatient Medications Dextrose (Dextrose 50% 50 Ml Syringe) 25 - 50 ml IV UD PRN; Protocol PRN Reason: Hypoglycemia Protocol Stop: 04/24/21 03:22 Docusate Sodium (Docusate Sodium Syrup 100 Mg/10 Ml Udc) 100 mg PO QAM [facility] Stop: 04/26/21 08:59 Last Admin: 03/27/21 12:55 Dose: Not Given Documented by: Enoxaparin Sodium (Enoxaparin Inj 30 Mg/0.3 Ml Syr) 30 mg SQ BID [facility] Stop: 04/22/21 20:59 Last Admin: 03/25/21 17:56 Dose: Not Given Documented by: Fentanyl Citrate (Fentanyl Bolus From Bag) 50 mcg IV Q60M PRN PRN Reason: Pain or Agitation Stop: 04/07/21 13:30 Glucagon (Glucagon For Inj 1 Mg Vial) 1 mg SQ UD PRN; Protocol PRN Reason: Hypoglycemia Protocol Stop: 04/24/21 03:22 Glucose (Glucose 10 Tabs/Tube) 4 - 8 tabs PO UD PRN; Protocol PRN Reason: Hypoglycemia Protocol Stop: 04/24/21 03:22 Glucose (Glucose 40% Gel 15 Gm Tube) 15 - 30 gm PO UD PRN; Protocol PRN Reason: Hypoglycemia Protocol Stop: 04/24/21 03:22 Propofol (Diprivan) 1,000 mg in 100 mls @ 16.362 mls/hr IV .Q6H7M [facility]; Protocol Stop: 03/28/21 16:00 Last Admin: 03/27/21 08:24 Dose: 45 mcg/kg/min, 16.4 mls/hr Documented by: Fentanyl Citrate (Fentanyl Drip) 1,250 mcg in 250 mls @ 30 mls/hr IV .Q8H20M [facility]; Protocol Stop: 04/07/21 13:44 Last Admin: 03/27/21 08:11 Dose: 150 mcg/hr, 30 mls/hr Documented by: Parenteral Electrolytes (Normosol-R) 1,000 mls @ 30 mls/hr IV .Q24H [facility] Stop: 04/23/21 13:44 Last Admin: 03/26/21 14:19 Dose: 30 mls/hr Documented by: Pantoprazole Sodium 40 mg/ (Syringe) 10 mls @ 5 mls/min IV BID [facility] Stop: 04/24/21 20:59 Last Admin: 03/27/21 08:17 Dose: 5 mls/min Documented by: Dexamethasone 2 mg/ Syringe 0.5 mls @ 1 mls/min IV DAILY [facility] Stop: 04/01/21 09:01 Dexamethasone 4 mg/ Syringe 1 mls @ 1 mls/min IV DAILY [facility] Stop: 03/29/21 09:00 Last Admin: 03/27/21 08:16 Dose: 1 mls/min Documented by: Insulin Aspart (Insulin Aspart Per Unit) 0 units SC Q6 [facility]; Protocol Stop: 04/24/21 04:59 Last Admin: 03/27/21 12:03 Dose: Not Given Documented by: Insulin Human NPH (Insulin Human Nph) 5 units SC DAILY [facility] Stop: 04/26/21 08:59 Last Admin: 03/27/21 08:15 Dose: 5 units Documented by: Midazolam HCl (Midazolam Hcl 1 Mg/Ml 2ml Vial) 2 mg IV Q2H PRN PRN Reason: RASS goal -1 Stop: 04/23/21 13:30 Miscellaneous (Icu Electrolyte Replacement Protocol) 1 ea N/A BID@06,18 [facility]; Protocol Stop: 03/31/21 17:59 Last Admin: 03/27/21 08:10 Dose: 1 ea Documented by: Miscellaneous (Carbohydrates For Hypoglycemia ) 15 - 30 gm PO UD PRN PRN Reason: Hypoglycemia Protocol Stop: 04/24/21 03:22 Miscellaneous Information (Pharmacy Glycemic Mgmt Consult) 1 ea N/A UD PRN; Protocol PRN Reason: Consult Stop: 04/24/21 03:22 Multi-Ingredient Cream (Artificial Tears Op Oint 3.5 Gm Tube) 1 appln OP Q4H [facility] Stop: 04/23/21 14:29 Last Admin: 03/27/21 12:55 Dose: Not Given Documented by: Nutritional Formula (Peptamen Intense Vhp 1.0 Holden 1,000 Ml Bag) 1,000 ml OG UD [facility]; Protocol Stop: 04/24/21 14:44 Polyethylene Glycol (Polyethylene (Miralax) 17 Gm Pack) 17 gm PO DAILY PRN PRN Reason: Constipation Stop: 04/09/21 23:01 Last Admin: 03/25/21 21:03 Dose: 17 gm Documented by: Sennosides (Sennosides 8.8 Mg/5 Ml Udc) 8.8 mg PO QAM [facility] Stop: 04/24/21 11:59 Last Admin: 03/27/21 08:15 Dose: 8.8 mg Documented by:
[2021-03-27] MEDS: NORMOSOL-R 1,000 ML IV SCH (14:45)
--- NOTE | 2021-03-27 15:52 | Critical Care Progress Note ---
Date of Service March 27, 2021 Assessment & Plan (1) ARDS (adult respiratory distress syndrome): (2) Hypoxia: (3) Acute respiratory distress syndrome (ARDS) due to 2019 novel coronavirus: Plan: Impression: 71-year-old unvaccinated female with Luciana. She has been aggressively treated but unfortunately failed. She had a prolonged hospitalization but failed and was intubated 03/24/21 24-hour events: Some progress in weaning her vent. She continues to demonstrate very poor compliance with very stiff lungs. She is tolerating tube feeding. Recommendations: 1. Neurologic: We will continue sedation with fentanyl Versed propofol. We will add some low-dose oral medications (clonazepam and oxycodone) to try and smooth out sedation process. Continue restraints to prevent self extubation 2. Cardiovascular: No current issues. Continue to monitor 3. Pulmonary: Severe ARDS with refractory hypoxemia. Current vent settings assist-control 35/250/8/0.45. Blood gas 7.32/57/59. P to F ratio 131 stable compared to yesterday with continued poor compliance. Tolerating permissive hypercapnia in an effort to try and keep peak airway pressures lower. Continue to wean per ARDS net protocol. Pursuing high FiO2 low PEEP tables. She is recently been evaluated for PE and has not significantly clinically changed so we will hold off on repeat evaluation currently. Her oxygenation is adequate currently so do not think she needs additional adjuvant such as proning or inhaled epoprostenol. Overall prognosis is guarded. Day #4 mechanical ventilation. requested 5 days mechanical ventilation and reassessment and consideration for termination of resuscitative efforts if the patient were failing to make any significant progress. Her oxygenation is slightly better. We will continue to follow closely. Her lungs are quite stiff and I am not sure that she is getting be able to maintain an adequate minute ventilation if extubated but we will see how she does. She is not a candidate for lung transplant or other advanced therapies. 4. ID: Tapering dexamethasone as she is been on it for approximately 3 weeks. Blood cultures and urine cultures are showing no growth to date. Tracheal aspirate growing gram-negative rods, not yet speciated. Also with Dev albicans/dubliniensis. The dev is not likely pathologic however the gram- negative eric needs coverage. Remains afebrile. Her white count was up to 21,000 yesterday but is down to 14,000 today. We will start cefepime pending speciation and sensitivity. The patient is 21 days out from her initial diagnosis and no longer requires respiratory isolation. She can be transferred out of the Covid unit to a regular ICU room. Awaiting bed and staffing from a nursing standpoint 5. Renal: ICU electrolyte replacement will be ordered. Follow kidney function. Try and keep I/O on dry side. 6. GI: Developed GI bleed 24 hours ago. Hemoglobin hematocrit of been stable but slightly downtrending. Will type and screen. GI has no plans for urgent intervention. Continue twice daily PPI. Okay to restart tube feeding. 7. Endocrine: ICU glycemic protocol. 8. Heme/Onc: We will type and screen. Continue to trend hemoglobin and hematocrit. Coagulation panel normal. Okay to continue DVT prophylaxis with Lovenox Per previous discussions with family, no CPR or cardioversion. Will reassess after 5 days of mechanical ventilation if the patient is not making significant progress, consider termination of resuscitative efforts and transition to comfort care. Total of 45 minutes critical care time was spent in evaluation management stabilization of this patient. Patient remains critically ill with significant possibility of clinical deterioration or . Discussed with bedside respiratory therapist and ICU nurse as well as on multidisciplinary rounds. Family to be updated by hospitalist Admission and Anticipated Discharge Date Admission Date: March 06, 2021 Subjective Intubated and sedated Review of Systems Review of Systems: Unobtainable due to endotracheal tube Physical Exam Constitutional: well developed and + mechanically ventilated Neck: trachea midline, no thyromegaly Respiratory: Auscultation: + crackles Cardiovascular: RRR, no murmur, no edema Gastrointestinal (Abdomen): normal bowel sounds, soft, nontender, no hepatosplenomegaly Musculoskeletal: Extremities: extremities normal to inspection Skin: no rashes, warm and dry Lymphatic: no cervical lymphadenopathy Results & Data Results & Data ([facility]) Vital Signs (Past 12 Hours) Vital Signs Temp Pulse Resp Pulse Ox 03/27/21 14:15 70 32 H 89 L 03/27/21 14:00 70 32 H 88 L 03/27/21 13:45 71 32 H 88 L 03/27/21 13:30 72 32 H 88 L 03/27/21 13:15 69 32 H 88 L 03/27/21 13:00 72 33 H 89 L 03/27/21 12:45 78 32 H 96 03/27/21 12:30 75 33 H 87 L 03/27/21 12:15 72 32 H 88 L 03/27/21 12:00 75 32 H 89 L 03/27/21 11:45 75 33 H 89 L 03/27/21 11:39 36.4 C L 03/27/21 11:30 72 28 H 89 L 03/27/21 11:15 84 32 H 90 03/27/21 11:00 82 32 H 90 03/27/21 10:45 70 32 H 88 L 03/27/21 10:30 68 32 H 87 L 03/27/21 10:15 67 32 H 88 L 03/27/21 10:00 70 32 H 88 L 03/27/21 09:45 72 35 H 89 L 03/27/21 09:30 68 32 H 90 03/27/21 09:15 67 32 H 90 03/27/21 09:00 69 32 H 91 03/27/21 08:45 71 32 H 91 03/27/21 08:30 71 32 H 91 03/27/21 08:15 70 32 H 91 03/27/21 08:00 70 32 H 91 03/27/21 07:56 36.9 C 03/27/21 07:45 71 32 H 87 L 03/27/21 07:37 36.9 C 03/27/21 07:35 70 32 H 90 03/27/21 07:30 70 90 03/27/21 07:15 70 90 03/27/21 07:00 71 90 03/27/21 06:46 73 03/27/21 06:45 74 90 03/27/21 06:30 69 91 03/27/21 06:15 146 H 83 L 03/27/21 06:00 67 93 03/27/21 05:45 67 93 03/27/21 05:30 68 92 03/27/21 05:15 68 92 03/27/21 05:00 67 92 03/27/21 04:45 68 93 03/27/21 04:30 69 93 03/27/21 04:15 70 93 03/27/21 04:00 37.0 C 69 93 03/27/21 03:46 70 32 H 92 03/27/21 03:45 70 93 Critical Care Results & Data Vital Signs (Past 12 Hours) Vital Signs Temp Pulse Resp Pulse Ox 03/27/21 14:15 70 32 H 89 L 03/27/21 14:00 70 32 H 88 L 03/27/21 13:45 71 32 H 88 L 03/27/21 13:30 72 32 H 88 L 03/27/21 13:15 69 32 H 88 L 03/27/21 13:00 72 33 H 89 L 03/27/21 12:45 78 32 H 96 03/27/21 12:30 75 33 H 87 L 03/27/21 12:15 72 32 H 88 L 03/27/21 12:00 75 32 H 89 L 03/27/21 11:45 75 33 H 89 L 03/27/21 11:39 36.4 C L 03/27/21 11:30 72 28 H 89 L 03/27/21 11:15 84 32 H 90 03/27/21 11:00 82 32 H 90 03/27/21 10:45 70 32 H 88 L 03/27/21 10:30 68 32 H 87 L 03/27/21 10:15 67 32 H 88 L 03/27/21 10:00 70 32 H 88 L 03/27/21 09:45 72 35 H 89 L 03/27/21 09:30 68 32 H 90 03/27/21 09:15 67 32 H 90 03/27/21 09:00 69 32 H 91 03/27/21 08:45 71 32 H 91 03/27/21 08:30 71 32 H 91 03/27/21 08:15 70 32 H 91 03/27/21 08:00 70 32 H 91 03/27/21 07:56 36.9 C 03/27/21 07:45 71 32 H 87 L 03/27/21 07:37 36.9 C 03/27/21 07:35 70 32 H 90 03/27/21 07:30 70 90 03/27/21 07:15 70 90 03/27/21 07:00 71 90 03/27/21 06:46 73 03/27/21 06:45 74 90 03/27/21 06:30 69 91 03/27/21 06:15 146 H 83 L 03/27/21 06:00 67 93 03/27/21 05:45 67 93 03/27/21 05:30 68 92 03/27/21 05:15 68 92 03/27/21 05:00 67 92 03/27/21 04:45 68 93 03/27/21 04:30 69 93 03/27/21 04:15 70 93 03/27/21 04:00 37.0 C 69 93 03/27/21 03:46 70 32 H 92 03/27/21 03:45 70 93 Lab & Micro Results (Past 24 Hours) RBC 3.33 M/uL (4.2-5.4) L 03/27/21 WBC 14.46 K/uL (4.8-10.8) H 03/27/21 Hgb 10.5 g/dL (12.0-16.0) L 03/27/21 Hct 33.5 % (37-47) L 03/27/21 MCV 100.6 fL (80-100) H 03/27/21 MCH 31.5 pg (25-34) 03/27/21 MCHC 31.3 g/dL (32-36) L 03/27/21 RDW Standard Deviation 50.8 fL (36.4-46.3) H 03/27/21 RDW Coefficient of Variation 13.8 % (11.5-14.5) 03/27/21 Plt Count 130 K/uL (130-400) 03/27/21 MPV 11.7 fL (7.4-10.4) H 03/27/21 Nucleated Red Blood Cells % (auto) 0.2 % 03/27/21 Nucleated RBC Absolute Count (auto) 0.02 K/uL (0-0) H 03/27/21 Neutrophils (%) (Auto) 87.3 % 03/27/21 Lymphocytes (%) (Auto) 4.9 % 03/27/21 Monocytes # (Auto) 0.75 K/uL (0.11-0.59) H 03/27/21 Eosinophils # (Auto) 0.04 K/uL (0-0.5) 03/27/21 Immature Granulocyte % (Auto) 2.2 % 03/27/21 Neutrophils # (Auto) 12.63 K/uL (1.4-6.5) H 03/27/21 Lymphocytes # (Auto) 0.71 K/uL (1.2-3.4) L 03/27/21 Monocytes # (Auto) 0.75 K/uL (0.11-0.59) H 03/27/21 Eosinophils # (Auto) 0.04 K/uL (0-0.5) 03/27/21 Basophils # (Auto) 0.01 K/uL (0-0.2) 03/27/21 Immature Granulocyte # (Auto) 0.32 K/uL (0.00-0.02) H 03/27/21 Na 140 mmol/L (136-145) 03/27/21 K 4.3 mmol/L (3.5-5.1) 03/27/21 Cl 108 mmol/L (98-107) H 03/27/21 CO2 31 mmol/L (21-32) 03/27/21 Anion Gap 1.0 (3-11) L 03/27/21 BUN 34 mg/dl (7-18) H 03/27/21 Creatinine 0.40 mg/dl (0.6-1.2) L 03/27/21 Estimated GFR ( Amer) 123.2 ml/min 03/27/21 Estimated GFR (Non-Af Amer) 106.3 ml/min 03/27/21 BUN/Creatinine Ratio 84.2 (10-20) H 03/27/21 Glu 93 mg/dl (70-99) 03/27/21 Ca 7.7 mg/dl (8.5-10.1) L 03/27/21 Phosphorus Level 2.3 mg/dl (2.5-4.9) L 03/27/21 Total Bilirubin 0.5 mg/dl (0.2-1) 03/27/21 Direct Bilirubin 0.2 mg/dl (0-0.2) 03/27/21 AST 16 U/L (15-37) 03/27/21 ALT 28 (12-78) 03/27/21 Alkaline Phosphatase 65 U/L (45-117) 03/27/21 TP 4.4 gm/dl (6.4-8.2) L 03/27/21 Albumin 1.7 gm/dl (3.4-5.0) L 03/27/21 Mg 2.4 mg/dl (1.8-2.4) 03/27/21 06:04 03/27/21 Calcium Level 7.7 mg/dl (8.5-10.1) L 03/27/21 06:04 03/27/21 Beau Test NA 03/27/21 03:46 03/27/21 Microbiology 03/25/21 12:58 Aerobic Blood Culture - Preliminary Blood No growth in Aerobic bottle after 48 hours. Anaerobic Blood Culture - Preliminary No growth in Anaerobic bottle after 48 hours. 03/25/21 12:48 Aerobic Blood Culture - Preliminary Blood No growth in Aerobic bottle after 48 hours. Anaerobic Blood Culture - Preliminary No growth in Anaerobic bottle after 48 hours. 03/25/21 Unknown Gram Stain - Final Sputum,Vent Suction Sputum Culture - Preliminary Gram negative bacilli Dev albicans/dubliniensis 03/25/21 13:13 Urine Culture - Final Urine,Indwelling Cath No growth - less than 1,000 colonies/mL. Diagnostic Findings (Past 24 Hours) Chest X-Ray 03/27/21 07:00 XR chest 1V portable HISTORY: 71 years-old Female resp failure acute respiratory failure COMPARISON: Chest radiograph 03/26/2021 TECHNIQUE: Portable AP view of the chest FINDINGS: Endotracheal tube overlies the midline, 2 cm superior to the leigh ann. Right IJ central venous catheter distal tip projects over the right atrium. Enteric tube courses below the diaphragm with distal tip outside the [id number]. No pneumothorax. Trace right and small left pleural effusions. Interstitial coarsening with mildly progressed patchy bilateral airspace opacities. No acute fracture. IMPRESSION: 1. Satisfactory positioning of life-support lines and tubes. 2. Interstitial coarsening with mildly progressed bibasilar airspace opacities. 3. Trace right and small left pleural effusions. ACT 112: Negative or not required by law. The above report was generated using voice recognition software. It may contain grammatical, syntax or spelling errors. Electronically signed by: Williams Edwards M.D. 03/27/2021 8:04 AM I & O Totals 24 Hours 03/26/21 03/27/21 03/28/21 06:59 06:59 06:59 Intake Total 2143.195 / 2143.195 1873.438 / 3766.648 5417 / 1438 Output Total 519 / 519 471 / 471 197 / 197 Balance 1624.195 / 0454.869 2407.438 / 4488.157 1753 / 1241 Cumulative 03/06/21 08:09 thru 12/14/21 14:45 Intake Total 49095.946 Output Total 77419 Balance 2847.946 RT Ventilator Mngmt (Last Documented) Ventilator Ordered Settings Ventilator Support Mode Assist Control 03/27/21 11:15 Respiratory Rate 32 03/27/21 14:15 Ventilator Tidal Volume 250 03/27/21 11:15 Setting Minute Ventilation 8 03/27/21 11:15 Positive End Expiratory 8 03/27/21 11:15 Pressure Fraction of Inspired Oxygen 45 03/27/21 11:15 Machine Comment ardsnet chart followed for 03/26/21 23:19 decrease in fio2 Ventilator - PT Measurements Respiratory Rate 32 Exhaled Tidal Volume 250 Minute Ventilation 8 Peak Inspiratory Airway 25 Pressure Plateau Pressure 22 Respiratory Cycle Inspiratory: 1:1.9 Expiratory Ratio Inspiratory Phase Time 0.65 End-Tidal CO2 24 Static Lung Compliance 17.86 Dynamic Lung Compliance 14.71 Normal Static Lung Compliance 44.00 Patient Measurements Comment increased fio2 due to spo2 87 when RN did mouth care Coding Level of Care Code Critical Care 1st 30-74 mins Diagnoses ARDS (adult respiratory distress syndrome) J80 Hypoxia R09.02 Acute respiratory distress syndrome (ARDS) due to 2019 novel coronavirus U07.1; J80 Time Spent (min) 45
[2021-03-27] MEDS: CEFEPIME 2,000 MG in SYRINGE 0 ML IV SCH (17:47)
[2021-03-27] MEDS: ENOXAPARIN INJ 30 MG/0.3 ML SYR SQ SCH (21:40)
[2021-03-27] MEDS: clonazePAM 1 MG TAB PO SCH (21:40)
[2021-03-27] MEDS: oxyCODONE HCL SOLN 5 MG/5 ML UDC PO SCH (21:43)
[2021-03-28] MEDS: CEFEPIME 2,000 MG in SYRINGE 0 ML IV SCH ×3 (01:37→17:10)
[2021-03-28] MEDS: fentaNYL DRIP 1,250 MCG/250 ML BAG IV SCH ×5 (02:15→19:43)
[2021-03-28] MEDS: INSULIN ASPART PER UNIT SC SCH ×4 (02:24→18:34)
[2021-03-28] MEDS: ARTIFICIAL TEARS OP OINT 3.5 GM TUBE OP SCH ×6 (02:25→21:11)
[2021-03-28] MEDS: propofoL 1,000 MG/100 ML VIAL IV SCH ×3 (04:00→17:10)
[2021-03-28 04:45] LABS: iSTAT Arterial Blood Gas HCO3 28 meg/L (19-24); iSTAT Arterial Blood Gas pCO2 55 mmHg (35-46); iSTAT Arterial Blood Gas pH 7.32 (7.35-7.45); iSTAT Arterial Blood Gas pO2 57 mmHg (80-95); iSTAT Carbon Dioxide 30 mmol/L (24-31); iSTAT FiO2 45 %; iSTAT Site Art Line
[2021-03-28 06:22] LABS: Hematocrit (blood only) 32.4 % (37-47); Hemoglobin 10.2 g/dL (12.0-16.0); Mean Corpuscular Hemoglobin 31.8 pg (25-34); Mean Corpuscular Hgb Conc 31.5 g/dL (32-36); Mean Corpuscular Volume 100.9 fL (80-100); Platelet Count 119 K/uL (130-400); RDW Coefficient of Variation 13.9 % (11.5-14.5); RDW Standard Deviation 51.1 fL (36.4-46.3); Red Blood Count 3.21 M/uL (4.2-5.4); White Blood Count 13.02 K/uL (4.8-10.8)
[2021-03-28 06:24] LABS: Basophils # (auto) 0.02 K/uL (0-0.2); Basophils % (auto) 0.2 %; Eosinophils # (auto) 0.11 K/uL (0-0.5); Eosinophils % (auto) 0.8 %; Immature Granulocytes # (auto) 0.36 K/uL (0.00-0.02); Immature Granulocytes % (auto) 2.8 %; Lymphocytes # (auto) 0.82 K/uL (1.2-3.4); Lymphocytes % (auto) 6.3 %; Monocytes # (auto) 0.57 K/uL (0.11-0.59); Monocytes % (auto) 4.4 %; Neutrophils # (auto) 11.14 K/uL (1.4-6.5); Neutrophils % (auto) 85.5 %; Platelet Estimate Normal (Normal)
[2021-03-28 06:30] LABS: BUN Creatinine Ratio 100.5 (10-20); Calcium 7.9 mg/dl (8.5-10.1); Creatinine Clr Calc Pharmacy 135.4 ml/min; Est GFR (African American) 131.2 ml/min; Est GFR (Non-African American) 113.2 ml/min; Phosphorus 2.2 mg/dl (2.5-4.9); Potassium 4.2 mmol/L (3.5-5.1)
[2021-03-28 06:32] LABS: Magnesium 2.3 mg/dl (1.8-2.4)
[2021-03-28] MEDS: oxyCODONE HCL SOLN 5 MG/5 ML UDC PO SCH ×3 (06:43→21:10)
[2021-03-28] MEDS: ICU ELECTROLYTE REPLACEMENT PROTOCOL SCH ×2 (07:23→17:09)
--- NOTE | 2021-03-28 08:24 | XRay Report ---
SINGLE VIEW CHEST CLINICAL HISTORY: Respiratory failure. FINDINGS: An AP, portable, upright chest radiograph is compared to study dated 03/27/2021. The examin ation is degraded by portable technique and patient rotation. An endotracheal tube, an enteric tube, and a right internal jugular central venous catheter are unchanged in position. The cardiomediastinal silhouette is unremarkable. Multifocal airspace opacities are unchanged as compared to yesterday. Sm all pleural effusions are suspected. No pneumothorax is seen. The skeletal structures are osteopenic. The bony thorax is grossly intact. IMPRESSION: 1. Stable lines and tubes. 2. Multifocal airspace opacities are unchanged from yesterday. 3. Suspect small pleural effusions. ACT 112: Negative or not required by law. Electronically signed by: Rommel Evans M.D. 03/28/2021 8:23 AM
[2021-03-28] MEDS ORDERED: SODIUM PHOSPHATE 3 MMOL/1 ML INFUSION IV ONE (09:24)
[2021-03-28] MEDS ORDERED: SODIUM PHOSPHATE 15 MMOL in SODIUM CHLORIDE 0.9% 250 ML IV ONE (09:45)
[2021-03-28] MEDS: dexAMETHasone 4 MG in SYRINGE 0 ML IV SCH (10:16)
[2021-03-28] MEDS: clonazePAM 1 MG TAB PO SCH ×2 (10:16→21:10)
[2021-03-28] MEDS: SENNOSIDES 8.8 MG/5 ML UDC PO SCH (10:47)
[2021-03-28] MEDS: ENOXAPARIN INJ 30 MG/0.3 ML SYR SQ SCH (10:47)
[2021-03-28] MEDS: PANTOprazole 40 MG in SYRINGE 0 ML IV SCH ×2 (10:47→21:10)
[2021-03-28] MEDS: DOCUSATE SODIUM SYRUP 100 MG/10 ML UDC PO SCH (10:47)
--- NOTE | 2021-03-28 11:50 | Critical Care Progress Note ---
Date of Service March 28, 2021 Assessment & Plan (1) ARDS (adult respiratory distress syndrome): (2) Hypoxia: (3) Acute respiratory distress syndrome (ARDS) due to 2019 novel coronavirus: Plan: Impression: 71-year-old unvaccinated female with Luciana. She has been aggressively treated but unfortunately failed. She had a prolonged hospitalization but failed and was intubated 03/24/21 24-hour events: Ventilator settings essentially unchanged overnight. She is hemodynamically stable. Afebrile. She continues to have slow decline in her hemoglobin and hematocrit. Recommendations: 1. Neurologic: We will continue sedation with fentanyl Versed propofol. Continue to try and smooth out sedation process with oral clonazepam. Continue restraints to prevent self extubation 2. Cardiovascular: No current issues. Continue to monitor 3. Pulmonary: Severe ARDS with refractory hypoxemia. Current vent settings assist-control 32/250/8/0.5. Blood gas 7.32/55/57. P to F ratio 114 slightly w orse compared to yesterday with continued poor compliance. Tolerating permissive hypercapnia in an effort to try and keep peak airway pressures lower. Continue to wean per ARDS net protocol. Pursuing high FiO2 low PEEP tables. She is recently been evaluated for PE and has not significantly clinically changed so we will hold off on repeat evaluation currently. Her oxygenation is adequate currently so do not think she needs additional adjuvant such as proning or inhaled epoprostenol and given her late stage, not sure she would respond. Overall prognosis is guarded. Day #5 mechanical ventilation. requested 5 days mechanical ventilation and reassessment and consideration for termination of resuscitative efforts if the patient were failing to make any significant progress. Her oxygenation is slightly better. We will continue to follow closely. Her lungs are quite stiff and I am not sure that she is getting be able to maintain an adequate minute ventilation if extubated but we will see how she does. She is not a candidate for lung transplant or other advanced therapies. At this point time would favor extubation with rapid transition to palliative care should the patient fail. Palliative care team reaching out to family as well. 4. ID: Tapering dexamethasone as she is been on it for approximately 3 weeks. Blood cultures and urine cultures are showing no growth to date. Tracheal aspirate growing gram-negative rods, not yet speciated. Also with Dev albicans/dubliniensis. The dev is not likely pathologic however the gram- negative eric needs coverage. Remains afebrile. Her white count continues to decrease, at 13,000 today. Continue cefepime pending speciation and sensitivity. The patient is 21 days out from her initial diagnosis and no long er requires respiratory isolation. She can be transferred out of the Covid unit to a regular ICU room. Awaiting bed and staffing from a nursing standpoint 5. Renal: ICU electrolyte replacement will be ordered. Follow kidney function. Try and keep I/O on dry side and will try low-dose diuretic today. 6. GI: Developed GI bleed 48 hours ago. Hemoglobin hematocrit continue downtrending. Will type and screen. GI has no plans for urgent intervention. Continue twice daily PPI. Does not meet criteria for transfusion. 7. Endocrine: ICU glycemic protocol. 8. Heme/Onc: We will type and screen. Continue to trend hemoglobin and hematocrit. Coagulation panel normal. Will discontinue Lovenox and use SCDs. Platelet counts are decreasing and will need to continue to be trended. Discussed with today. No CPR or cardioversion. We are approaching the 5- day mechanical ventilation threshold that was previously established. Patient is not making significant progress. At this point time I would favor optimizing as much as possible and then consider extubation with no plans for reintubation and rapid transition to palliative care if the patient should fail. If she does well, could continue to support her. If the family requests continued support, its highly likely the patient will require tracheostomy and PEG tube placement. Discussed with palliative care today as well. Total of 55 minutes critical care time was spent in evaluation management stabilization of this patient. Patient remains critically ill with significant possibility of clinical deterioration or . Discussed with bedside respiratory therapist and ICU nurse as well as on multidisciplinary rounds. Admission and Anticipated Discharge Date Admission Date: March 06, 2021 Subjective Intubated and sedated Review of Systems Review of Systems: Unobtainable due to endotracheal tube Physical Exam Constitutional: well developed and + mechanically ventilated Neck: trachea midline, no thyromegaly Respiratory: Auscultation: + crackles Cardiovascular: RRR, no murmur, no edema Gastrointestinal (Abdomen): normal bowel sounds, soft, nontender, no hepatosplenomegaly Musculoskeletal: Extremities: extremities normal to inspection Skin: no rashes, warm and dry Lymphatic: no cervical lymphadenopathy Results & Data Results & Data ([facility]) Vital Signs (Past 12 Hours) Vital Signs Pulse Resp Pulse Ox 03/28/21 08:51 77 03/28/21 08:10 72 33 H 92 03/28/21 06:00 70 03/28/21 04:32 68 32 H 90 03/27/21 23:56 71 33 H 90 Critical Care Results & Data Vital Signs (Past 12 Hours) Vital Signs Pulse Resp Pulse Ox 03/28/21 08:51 77 03/28/21 08:10 72 33 H 92 03/28/21 06:00 70 03/28/21 04:32 68 32 H 90 03/27/21 23:56 71 33 H 90 Lab & Micro Results (Past 24 Hours) RBC 3.21 M/uL (4.2-5.4) L 03/28/21 WBC 13.02 K/uL (4.8-10.8) H 03/28/21 Hgb 10.2 g/dL (12.0-16.0) L 03/28/21 Hct 32.4 % (37-47) L 03/28/21 MCV 100.9 fL (80-100) H 03/28/21 MCH 31.8 pg (25-34) 03/28/21 MCHC 31.5 g/dL (32-36) L 03/28/21 RDW Standard Deviation 51.1 fL (36.4-46.3) H 03/28/21 RDW Coefficient of Variation 13.9 % (11.5-14.5) 03/28/21 Plt Count 119 K/uL (130-400) L 03/28/21 MPV 12.0 fL (7.4-10.4) H 03/28/21 Neutrophils (%) (Auto) 85.5 % 03/28/21 Lymphocytes (%) (Auto) 6.3 % 03/28/21 Monocytes # (Auto) 0.57 K/uL (0.11-0.59) 03/28/21 Eosinophils # (Auto) 0.11 K/uL (0-0.5) 03/28/21 Immature Granulocyte % (Auto) 2.8 % 03/28/21 Neutrophils # (Auto) 11.14 K/uL (1.4-6.5) H 03/28/21 Lymphocytes # (Auto) 0.82 K/uL (1.2-3.4) L 03/28/21 Monocytes # (Auto) 0.57 K/uL (0.11-0.59) 03/28/21 Eosinophils # (Auto) 0.11 K/uL (0-0.5) 03/28/21 Basophils # (Auto) 0.02 K/uL (0-0.2) 03/28/21 Immature Granulocyte # (Auto) 0.36 K/uL (0.00-0.02) H 03/28/21 Hyposegmented Neutrophils 1+ 03/28/21 Na 140 mmol/L (136-145) 03/28/21 K 4.2 mmol/L (3.5-5.1) 03/28/21 Cl 108 mmol/L (98-107) H 03/28/21 CO2 28 mmol/L (21-32) 03/28/21 Anion Gap 4.0 (3-11) 03/28/21 BUN 33 mg/dl (7-18) H 03/28/21 Creatinine 0.33 mg/dl (0.6-1.2) L 03/28/21 Estimated GFR ( Amer) 131.2 ml/min 03/28/21 Estimated GFR (Non-Af Amer) 113.2 ml/min 03/28/21 BUN/Creatinine Ratio 100.5 (10-20) H 03/28/21 Glu 107 mg/dl (70-99) H 03/28/21 Ca 7.9 mg/dl (8.5-10.1) L 03/28/21 Phosphorus Level 2.2 mg/dl (2.5-4.9) L 03/28/21 Mg 2.3 mg/dl (1.8-2.4) 03/28/21 05:20 03/28/21 Calcium Level 7.9 mg/dl (8.5-10.1) L 03/28/21 05:20 03/28/21 Beau Test NA 03/28/21 04:30 03/28/21 Microbiology 03/25/21 12:58 Aerobic Blood Culture - Preliminary Blood No growth in Aerobic bottle after 48 hours. Anaerobic Blood Culture - Preliminary No growth in Anaerobic bottle after 48 hours. 03/25/21 12:48 Aerobic Blood Culture - Preliminary Blood No growth in Aerobic bottle after 48 hours. Anaerobic Blood Culture - Preliminary No growth in Anaerobic bottle after 48 hours. 03/25/21 Unknown Gram Stain - Final Sputum,Vent Suction Sputum Culture - Preliminary Gram negative bacilli Dev albicans/dubliniensis 03/25/21 13:13 Urine Culture - Final Urine,Indwelling Cath No growth - less than 1,000 colonies/mL. Diagnostic Findings (Past 24 Hours) Chest X-Ray 03/28/21 07:00 SINGLE VIEW CHEST CLINICAL HISTORY: Respiratory failure. FINDINGS: An AP, portable, upright chest radiograph is compared to study dated 03/27/2021. The examination is degraded by portable technique and patient rotation. An endotracheal tube, an enteric tube, and a right internal jugular c entral venous catheter are unchanged in position. The cardiomediastinal silhouette is unremarkable. Multifocal airspace opacities are unchanged as compared to yesterday. Small pleural effusions are suspected. No pneumothorax is seen. The skeletal structures are osteopenic. The bony thorax is grossly intact. IMPRESSION: 1. Stable lines and tubes. 2. Multifocal airspace opacities are unchanged from yesterday. 3. Suspect small pleural effusions. ACT 112: Negative or not required by law. Electronically signed by: Rommel Evans M.D. 03/28/2021 8:23 AM I & O Totals 24 Hours 03/27/21 03/28/21 03/29/21 06:59 06:59 06:59 Intake Total 1873.438 / 5134.510 5416 / 2351 331.367 / 331.367 Output Total 471 / 471 541 / 541 Balance 1402.438 / 1923.728 7393 / 1810 331.367 / 331.367 Cumulative 03/06/21 08:09 thru 03/28/21 10:16 Intake Total 99786.313 Output Total 02260 Balance 3748.313 RT Ventilator Mngmt (Last Documented) Ventilator Ordered Settings Ventilator Support Mode Assist Control 03/28/21 08:10 Respiratory Rate 33 03/28/21 08:10 Ventilator Tidal Volume 250 03/28/21 08:10 Setting Minute Ventilation 7.8 03/28/21 08:10 Positive End Expiratory 8 03/28/21 08:10 Pressure Fraction of Inspired Oxygen 45 03/28/21 08:55 Machine Comment Settings increased post ABG 03/28/21 04:32 Ventilator - PT Measurements Respiratory Rate 33 Exhaled Tidal Volume 240 Minute Ventilation 7.8 Peak Inspiratory Airway 23 Pressure Plateau Pressure 20 Respiratory Cycle Inspiratory: 1:1.9 Expiratory Ratio Inspiratory Phase Time 0.65 End-Tidal CO2 31 Static Lung Compliance 20.00 Dynamic Lung Compliance 16.00 Normal Static Lung Compliance 44.00 Patient Measurements Comment increased fio2 due to spo2 87 when RN did mouth care Coding Level of Care Code Critical Care 1st 30-74 mins Diagnoses ARDS (adult respiratory distress syndrome) J80 Hypoxia R09.02 Acute respiratory distress syndrome (ARDS) due to 2019 novel coronavirus U07.1; J80
--- NOTE | 2021-03-28 13:02 | Palliative Care Progress Note ---
Date of Service March 28, 2021 Assessment & Plan (1) Palliative care encounter: Plan: Patient was intubated over the weekend as she was experiencing overall respiratory distress and air hunger. She was making some overall improvements where we were looking at the possibility for an SBT; however, later in the afternoon she became more hypoxic requiring an increase in FiO2. I was able to talk with the patients , Andrew who recognizes the gravity of her illness. We discussed waiting until tomorrow and reassessing the patient to determine next steps, which may include a compassionate extubation. Should she improve, I believe we will revisit the plan for SBT and if successful, work towards extubation with no escalation or reintubation if further decline. Palliative will follow. (2) Hypoxia: (3) Pneumonia due to COVID-19 virus: Admission and Anticipated Discharge Date Admission Date: March 06, 2021 Subjective Intubated and sedated, day #4 Review of Systems Review of Systems: Unobtainable due to endotracheal tube Physical Exam Constitutional: + ill appearing and cooperative Respiratory: Auscultation: + rhonchi Cardiovascular: Rate/Rhythm: regular rate and regular rhythm Extremities: normal capillary refill Gastrointestinal (Abdomen): Inspection/Auscultation: abdomen normal to inspection Neurologic: + obtunded Results & Data ([facility]) Vital Signs (Past 12 Hours) Vital Signs Pulse Resp Pulse Ox 03/28/21 08:51 77 03/28/21 08:10 72 33 H 92 03/28/21 06:00 70 03/28/21 04:32 68 32 H 90 PG Care Time/CCT Total # of Minutes Spent Total Time Spent with Patient: Total time spent is greater than 50% in coordination of care (as documented) at patient's floor/unit and/or counseling patient: 45 minutes Coding Level of Care Code 92700 Subseq Hosp Care Lvl 3 Diagnoses Palliative care encounter Z51.5 Hypoxia R09.02 Pneumonia due to COVID-19 virus U07.1; J12.82 Time Spent (min) 45
--- NOTE | 2021-03-28 13:28 | Pharmacy Report ---
Pharmacy Glycemic Short Note 2 - Date of Service March 28, 2021 - Glycemic Short BSG Results (Last 24 hours): 03/27/21 03/28/21 03/28/21 18:09 00:36 05:20 Glucose 107 H POC Glucose 120 H 89 POC Glucose (other) 03/28/21 03/28/21 03/28/21 06:23 10:14 11:40 Glucose POC Glucose 88 92 POC Glucose (other) 100 H OUTPATIENT ANTIDIABETIC REGIMEN: * N/a * HbA1c pending ASSESSMENT: 03/28: * BSGs well controlled. Pt required 5 units of insulin total yesterday. * Pt remains intubated & sedated. Steroid being tapered. Peptamen trickle feeds started. * NPH discontinued entirely today given BSGs controlled, and largely below goal. Plan to trial Novolog monotherapy with no change to CF/CR (10/02) given low insulin needs. 03/26: * Patient received a total of 17 units of insulin yesterday, 15 of which were NPH. BSGs well controlled today. * Of note, dexamethasone will be decreased from 6mg BID and tapered over the next week. TFs on hold since mid morning due to rectal bleeding. Patient received 5 units NPH this morning. Will plan to decrease scale for this evening. 03/25 * 71 yo F admitted secondary to COVID-19 pneumonia. Pharmacy has been consulted to assist with inpatient glycemic management. * Has been started on Dexamethasone 6 mg IV every 12 hours. Was on Nimbex but has since been discontinued. Remains intubated and NPO. No tube feeds started. * Will start NPH every 12 hours to cover for steroid-induced hyperglycemia. * Novolog started based on weight/stress of 2-3. * Goal range of 120-160 mg/dL. PLAN FOR INPATIENT GLYCEMIC CONTROL: * Basal insulin * n/a * Bolus insulin * NovoLog per scale ACHS or Q6hrs while NPO * Goal Range: Low 120 mg/dL - High 160 mg/dL * Correction Factor: 30 mg/dL/unit * Nutritional / Prandial insulin per carb ratio of 1 unit per 10 grams CHO consumed PLAN FOR DISCHARGE: * To be determined
[2021-03-28] MEDS: FUROSEMIDE 40 MG/4 ML VIAL IV SCH (14:22)
[2021-03-28] MEDS: TUBE FEEDING WATER FLUSH OG SCH ×3 (14:22→21:10)
[2021-03-28] MEDS: NORMOSOL-R 1,000 ML IV SCH (14:22)
--- NOTE | 2021-03-28 16:37 | Hospitalist Progress Note ---
Date of Service March 28, 2021 Assessment & Plan (1) Acute respiratory failure with hypoxia: (2) Pneumonia due to COVID-19 virus: (3) Hypoxia: Plan: Acute respiratory failure with hypoxia Severe ARDS with refractory hypoxemia COVID-19 pneumonia Diagnosed COVID-19 positive on 03/06/2021 Pneumomediastinum --CTA: No CTA evidence for pulmonary embolus. Extensive groundglass opacities are present throughout both lungs characteristic of a viral type pneumonitis and Covid 19 pneumonia.XR: -Continued CPAP/high flow oxygen Not a candidate for ECMO as per pulmonary Completed remdesevir course Continued dexamethasone taper course Palliative care on board Appreciate pulmonary/Critical Care input Intubated on 03/24 Vent management as per ICU team Currently on 66% FiO2, 10 PEEP Continue Lasix 40 mg daily Sputum culture growing gram-negative bacilli Continue cefepime Poor lung Compliance Poor Prognosis Palliative Care following GI bleed 03/26 - developed hematochezia GI consulted - conservative management, PPI, hold anticoagulation Monitor CBC Urinary tract infection-POA Urine culture grew E. coli Completed Rocephin course (4) Elevated LFTs: Plan: Minimally elevated monitor (5) Sepsis: Plan: Sepsisin setting of COVID19 pneumonia, UTI Plan: DVT Px: Lovenox SQ on hold due to GI bleed Code status: DNR Admission and Anticipated Discharge Date Admission Date: March 06, 2021 Subjective Patient is seen and examined at bedside Sedated and Intubated Currently on 66% FiO2, 10 of PEEP On propofol and fentanyl for sedation Tube feeds increased today Started on IV Lasix daily Review of Systems Review of Systems: Unobtainable due to endotracheal tube Physical Exam Physical Exam: Physical Exam: Vitals signs as noted above General Appearance:Moderately built and nourished, Sedated and Intubated Head: normocephalic, Atraumatic Eyes: normal inspection Neck: supple, Trachea midline Respiratory/Chest: Decreased breath sounds, CTA Cardiovascular: S1, S2, No murmur Abdomen/GI:Soft, Non tender, Bowel sounds present Extremities/Musculoskeletal:normal inspection, no edema Neurologic/Psych:Sedated and Intubated Skin: normal color, warm Results & Data Results & Data ([facility]) Vital Signs (Past 12 Hours) Vital Signs Temp Pulse Resp Pulse Ox Pulse Ox 03/28/21 15:19 74 34 H 90 03/28/21 15:00 72 27 H 90 12/15/21 14:00 37 C 75 30 H 90 03/28/21 13:00 68 30 H 85 L 90 03/28/21 12:00 37.2 C 73 30 H 86 L 03/28/21 11:10 74 34 H 89 L 03/28/21 11:00 77 33 H 87 L 03/28/21 10:00 74 28 H 92 03/28/21 09:00 37 C 70 30 H 92 03/28/21 08:51 77 03/28/21 08:10 72 33 H 92 03/28/21 08:00 70 30 H 91 03/28/21 07:00 69 30 H 88 L 03/28/21 06:00 76 32 H 95 03/28/21 04:32 68 32 H 90 Laboratory Results Short CBC 03/28/21 Range/Units 05:20 WBC 13.02 H (4.8-10.8) K/uL Hgb 10.2 L (12.0-16.0) g/dL Hct 32.4 L (37-47) % Plt Count 119 L (130-400) K/uL BMP 03/28/21 05:20 Sodium 140 Potassium 4.2 Chloride 108 H Carbon Dioxide 28 BUN 33 H Creatinine 0.33 L Glucose 107 H Calcium 7.9 L
[2021-03-29] MEDS: INSULIN ASPART PER UNIT SC SCH ×3 (00:02→11:44)
[2021-03-29] MEDS: propofoL 1,000 MG/100 ML VIAL IV SCH ×6 (00:17→12:43)
[2021-03-29] MEDS: CEFEPIME 2,000 MG in SYRINGE 0 ML IV SCH ×2 (01:18→07:25)
[2021-03-29] MEDS: ARTIFICIAL TEARS OP OINT 3.5 GM TUBE OP SCH ×4 (01:29→18:42)
[2021-03-29] MEDS: TUBE FEEDING WATER FLUSH OG SCH ×5 (01:29→18:42)
[2021-03-29] MEDS: fentaNYL DRIP 1,250 MCG/250 ML BAG IV SCH ×5 (04:40→11:37)
[2021-03-29 04:49] LABS: iSTAT Arterial Blood Gas HCO3 33 meg/L (19-24); iSTAT Arterial Blood Gas pCO2 51 mmHg (35-46); iSTAT Arterial Blood Gas pH 7.42 (7.35-7.45); iSTAT Arterial Blood Gas pO2 66 mmHg (80-95); iSTAT Carbon Dioxide 35 mmol/L (24-31); iSTAT FiO2 45 %; iSTAT Site Art Line
[2021-03-29] MEDS: oxyCODONE HCL SOLN 5 MG/5 ML UDC PO SCH ×2 (06:07→14:12)
[2021-03-29 06:15] LABS: Hematocrit (blood only) 32.1 % (37-47); Hemoglobin 10.3 g/dL (12.0-16.0); Mean Corpuscular Hemoglobin 31.8 pg (25-34); Mean Corpuscular Hgb Conc 32.1 g/dL (32-36); Mean Corpuscular Volume 99.1 fL (80-100); Platelet Count 111 K/uL (130-400); RDW Coefficient of Variation 13.9 % (11.5-14.5); RDW Standard Deviation 50.1 fL (36.4-46.3); Red Blood Count 3.24 M/uL (4.2-5.4); White Blood Count 12.95 K/uL (4.8-10.8)
[2021-03-29 06:28] LABS: BUN Creatinine Ratio 92.1 (10-20); Calcium 7.8 mg/dl (8.5-10.1); Creatinine Clr Calc Pharmacy 157.6 ml/min; Est GFR (African American) 135.4 ml/min; Est GFR (Non-African American) 116.8 ml/min; Magnesium 2.3 mg/dl (1.8-2.4); Phosphorus 2.6 mg/dl (2.5-4.9); Potassium 3.8 mmol/L (3.5-5.1)
[2021-03-29] MEDS: FUROSEMIDE 40 MG/4 ML VIAL IV SCH (07:26)
[2021-03-29] MEDS: clonazePAM 1 MG TAB PO SCH (07:26)
[2021-03-29] MEDS: dexAMETHasone 4 MG in SYRINGE 0 ML IV SCH (07:26)
[2021-03-29] MEDS: PANTOprazole 40 MG in SYRINGE 0 ML IV SCH (07:26)
[2021-03-29] MEDS: SENNOSIDES 8.8 MG/5 ML UDC PO SCH (07:30)
[2021-03-29] MEDS: DOCUSATE SODIUM SYRUP 100 MG/10 ML UDC PO SCH (07:30)
--- NOTE | 2021-03-29 08:05 | Critical Care Progress Note ---
Date of Service March 29, 2021 Assessment & Plan (1) ARDS (adult respiratory distress syndrome): (2) Hypoxia: (3) Acute respiratory distress syndrome (ARDS) due to 2019 novel coronavirus: Plan: Impression: 71-year-old unvaccinated female with Luciana. She has been aggressively treated but unfortunately failed. She had a prolonged hospitalization but failed and was intubated 03/24/21 24-hour events: Patient moved down to the ICU as she is cleared isolation protocols. She remains on 60% FiO2. Started diuresis. Attempted trial on pressure support ventilation as the patient has some dyssynchronous breaths and difficulty triggering. Her compliance was so poor that exceedingly high pressures were required to maintain tidal volumes so was transitioned back to AC volume cycled. Recommendations: 1. Neurologic: We will continue sedation with fentanyl Versed propofol. Continue to try and smooth out sedation process with oral clonazepam. Continue restraints to prevent self extubation. Her current vent requirements would not be conducive to ventilator liberation currently 2. Cardiovascular: No current issues. Continue to monitor. I/O even last 24 hours 3. Pulmonary: Severe ARDS with refractory hypoxemia. Current vent settings assist-control 32/250/8/0.6. Blood gas 7.42/51/66. P to F ratio 110 stable compared to yesterday with continued poor compliance. Tolerating permissive hypercapnia in an effort to try and keep peak airway pressures lower. Continue to wean per ARDS net protocol. Pursuing high FiO2 low PEEP tables. Failed trial of pressure control ventilation. She is recently been evaluated for PE and has not significantly clinically changed so we will hold off on repeat evaluation currently. Her oxygenation is adequate currently so do not think she needs additional adjuvant such as proning or inhaled epoprostenol and given her late stage, not sure she would respond. Overall prognosis is guarded. Day #6 mechanical ventilation. She appears clinically stagnant at this point time. Her lungs are quite stiff and I am not sure that she is getting be able to maintain an adequate minute ventilation if extubated. We will continue to pursue spontaneous breathing trials when she is appropriate. She is not a candidate for lung transplant or other advanced therapies. Discussed with palliative and with patient yesterday. Will update them again today. May be reasonable given the patient's previously expressed wishes to avoid intubation mechanical ventilation to transition to attempt trial of extubation and transition to palliative care if the patient has significant difficulty. 4. ID: Tapering dexamethasone as she is been on it for approximately 3 weeks. Blood cultures and urine cultures are showing no growth to date. Tracheal as pirate growing gram-negative rods, not yet speciated. Also with Dev albicans/dubliniensis. The dev is not likely pathologic however the gram- negative eric needs coverage. Remains afebrile. Her white count continues to decrease. Day #3 cefepime pending speciation and sensitivity. The patient is 21 days out from her initial diagnosis and no longer requires respiratory isolation. 5. Renal: ICU electrolyte replacement will be ordered. Follow kidney function. Try and keep I/O on dry side and will continue diuretic today but increase to twice daily dosing 6. GI: Developed GI bleed 3 days ago. Hemoglobin hematocrit stable over the last 24-hour. Continue conservative management. GI has no plans for urgent intervention. Continue twice daily PPI. Does not meet criteria for transfusion. Okay to continue tube feeding currently 7. Endocrine: ICU glycemic protocol. 8. Heme/Onc:Continue to trend hemoglobin and hematocrit. Coagulation panel normal. Off Lovenox and use SCDs. Platelet counts are decreasing and will need to continue to be trended. At this point time I would favor optimizing as much as possible and then consider extubation with no plans for reintubation and rapid transition to palliative care if the patient should fail. If she does well, could continue to support her. If the family requests continued support, its highly likely the patient will require tracheostomy and PEG tube placement. Discussed with palliative care today as well. Total of 48 minutes critical care time was spent in evaluation management stabilization of this patient. Patient remains critically ill with significant possibility of clinical deterioration or . Discussed with bedside respiratory therapist and ICU nurse as well as on multidisciplinary rounds. Admission and Anticipated Discharge Date Admission Date: March 06, 2021 Subjective intubated and sedated Review of Systems Review of Systems: Unobtainable due to endotracheal tube Physical Exam Constitutional: well developed and + mechanically ventilated Neck: trachea midline, no thyromegaly Respiratory: Auscultation: + crackles Cardiovascular: RRR, no murmur, no edema Gastrointestinal (Abdomen): normal bowel sounds, soft, nontender, no hepatosplenomegaly Musculoskeletal: Extremities: extremities normal to inspection Skin: no rashes, warm and dry Lymphatic: no cervical lymphadenopathy Results & Data Results & Data ([facility]) Vital Signs (Past 12 Hours) Vital Signs Temp Pulse Resp BP Pulse Ox 03/29/21 07:30 71 33 H 110/56 L 91 03/29/21 05:33 69 03/29/21 04:30 68 30 H 89 L 03/29/21 04:15 67 32 H 92 03/29/21 04:07 37.2 C 03/29/21 04:00 67 32 H 92 03/29/21 03:45 66 32 H 91 03/29/21 03:30 64 32 H 91 03/29/21 03:15 64 32 H 90 03/29/21 03:00 66 32 H 91 03/29/21 02:45 68 32 H 91 03/29/21 02:30 67 32 H 92 03/29/21 02:15 68 32 H 95 03/29/21 02:00 66 32 H 94 03/29/21 01:45 67 32 H 94 03/29/21 01:30 67 32 H 95 03/29/21 01:15 66 32 H 95 03/29/21 01:00 69 30 H 95 03/29/21 00:45 66 32 H 94 03/29/21 00:30 67 32 H 94 03/29/21 00:15 69 30 H 94 03/29/21 00:11 37 C 03/29/21 00:00 70 32 H 93 03/28/21 23:45 66 32 H 94 03/28/21 23:30 66 32 H 94 03/28/21 23:15 68 33 H 93 03/28/21 23:10 68 32 H 94 03/28/21 23:00 70 32 H 93 03/28/21 22:45 68 30 H 93 03/28/21 22:30 70 33 H 92 03/28/21 22:15 69 32 H 92 03/28/21 22:00 72 32 H 92 03/28/21 21:45 69 28 H 92 03/28/21 21:30 73 32 H 91 03/28/21 21:15 72 28 H 91 03/28/21 21:00 68 30 H 91 03/28/21 20:45 71 30 H 91 03/28/21 20:30 68 32 H 91 03/28/21 20:15 74 28 H 91 Critical Care Results & Data Vital Signs (Past 12 Hours) Vital Signs Temp Pulse Resp BP Pulse Ox 03/29/21 07:30 71 33 H 110/56 L 91 03/29/21 05:33 69 03/29/21 04:30 68 30 H 89 L 03/29/21 04:15 67 32 H 92 03/29/21 04:07 37.2 C 03/29/21 04:00 67 32 H 92 03/29/21 03:45 66 32 H 91 03/29/21 03:30 64 32 H 91 03/29/21 03:15 64 32 H 90 03/29/21 03:00 66 32 H 91 03/29/21 02:45 68 32 H 91 03/29/21 02:30 67 32 H 92 03/29/21 02:15 68 32 H 95 03/29/21 02:00 66 32 H 94 03/29/21 01:45 67 32 H 94 03/29/21 01:30 67 32 H 95 03/29/21 01:15 66 32 H 95 03/29/21 01:00 69 30 H 95 03/29/21 00:45 66 32 H 94 03/29/21 00:30 67 32 H 94 03/29/21 00:15 69 30 H 94 03/29/21 00:11 37 C 03/29/21 00:00 70 32 H 93 03/28/21 23:45 66 32 H 94 03/28/21 23:30 66 32 H 94 03/28/21 23:15 68 33 H 93 03/28/21 23:10 68 32 H 94 03/28/21 23:00 70 32 H 93 03/28/21 22:45 68 30 H 93 03/28/21 22:30 70 33 H 92 03/28/21 22:15 69 32 H 92 03/28/21 22:00 72 32 H 92 03/28/21 21:45 69 28 H 92 03/28/21 21:30 73 32 H 91 03/28/21 21:15 72 28 H 91 03/28/21 21:00 68 30 H 91 03/28/21 20:45 71 30 H 91 03/28/21 20:30 68 32 H 91 03/28/21 20:15 74 28 H 91 Lab & Micro Results (Past 24 Hours) RBC 3.24 M/uL (4.2-5.4) L 03/29/21 WBC 12.95 K/uL (4.8-10.8) H 03/29/21 Hgb 10.3 g/dL (12.0-16.0) L 03/29/21 Hct 32.1 % (37-47) L 03/29/21 MCV 99.1 fL (80-100) 03/29/21 MCH 31.8 pg (25-34) 03/29/21 MCHC 32.1 g/dL (32-36) 03/29/21 RDW Standard Deviation 50.1 fL (36.4-46.3) H 03/29/21 RDW Coefficient of Variation 13.9 % (11.5-14.5) 03/29/21 Plt Count 111 K/uL (130-400) L 03/29/21 MPV 12.0 fL (7.4-10.4) H 03/29/21 Na 141 mmol/L (136-145) 03/29/21 K 3.8 mmol/L (3.5-5.1) 03/29/21 Cl 106 mmol/L (98-107) 03/29/21 CO2 31 mmol/L (21-32) 03/29/21 Anion Gap 3.0 (3-11) 03/29/21 BUN 28 mg/dl (7-18) H 03/29/21 Creatinine 0.30 mg/dl (0.6-1.2) L 03/29/21 Estimated GFR ( Amer) 135.4 ml/min 03/29/21 Estimated GFR (Non-Af Amer) 116.8 ml/min 03/29/21 BUN/Creatinine Ratio 92.1 (10-20) H 03/29/21 Glu 122 mg/dl (70-99) H 03/29/21 Ca 7.8 mg/dl (8.5-10.1) L 03/29/21 Phosphorus Level 2.6 mg/dl (2.5-4.9) 03/29/21 Mg 2.3 mg/dl (1.8-2.4) 03/29/21 05:45 03/29/21 Calcium Level 7.8 mg/dl (8.5-10.1) L 03/29/21 05:45 03/29/21 Beau Test NA 03/29/21 04:10 03/29/21 Diagnostic Findings (Past 24 Hours) Chest X-Ray 03/28/21 07:00 SINGLE VIEW CHEST CLINICAL HISTORY: Respiratory failure. FINDINGS: An AP, portable, upright chest radiograph is compared to study dated 03/27/2021. The examination is degraded by portable technique and patient rotation. An endotracheal tube, an enteric tube, and a right internal jugular central venous catheter are unchanged in position. The cardiomediastinal silhouette is unremarkable. Multifocal airspace opacities are unchanged as compared to yesterday. Small pleural effusions are suspected. No pneumothorax is seen. The skeletal structures are osteopenic. The bony thorax is grossly intact. IMPRESSION: 1. Stable lines and tubes. 2. Multifocal airspace opacities are unchanged from yesterday. 3. Suspect small pleural effusions. ACT 112: Negative or not required by law. Electronically signed by: Rommel Evans M.D. 03/28/2021 8:23 AM I & O Totals 24 Hours 03/28/21 03/29/21 03/30/21 06:59 06:59 06:59 Intake Total 2351 / 2351 2747.808 / 2747.808 Output Total 541 / 541 2625 / 2625 Balance 1810 / 1810 122.808 / 122.808 Cumulative 03/06/21 08:09 thru 03/29/21 06:54 Intake Total 08366.754 Output Total 24688 Balance 3539.754 RT Ventilator Mngmt (Last Documented) Ventilator Ordered Settings Ventilator Support Mode Assist Control 03/29/21 0 3:00 Respiratory Rate 33 03/29/21 07:30 Ventilator Tidal Volume 250 03/29/21 03:00 Setting Minute Ventilation 7.9 03/29/21 03:00 Positive End Expiratory 8 03/29/21 03:00 Pressure Fraction of Inspired Oxygen 45 03/29/21 03:00 Machine Comment Settings increased post ABG 03/28/21 04:32 Ventilator - PT Measurements Respiratory Rate 33 Exhaled Tidal Volume 250 Minute Ventilation 7.9 Peak Inspiratory Airway 24 Pressure Plateau Pressure 22.3 Respiratory Cycle Inspiratory: 1:1.9 Expiratory Ratio Inspiratory Phase Time 0.65 End-Tidal CO2 37 Static Lung Compliance 17.48 Dynamic Lung Compliance 15.63 Normal Static Lung Compliance 44.00 Patient Measurements Comment increased fio2 due to spo2 87 when RN did mouth care Coding Level of Care Code Critical Care 1st 30-74 mins Diagnoses ARDS (adult respiratory distress syndrome) J80 Hypoxia R09.02 Acute respiratory distress syndrome (ARDS) due to 2019 novel coronavirus U07.1; J80 Time Spent (min) 48
[2021-03-29] MEDS: ICU ELECTROLYTE REPLACEMENT PROTOCOL SCH ×2 (08:17→18:42)
[2021-03-29] MEDS ORDERED: MULTI VIT W/MINERALS LIQUID 15 ML UDP NG SCH (09:00)
--- NOTE | 2021-03-29 09:23 | XRay Report ---
XR chest 1V portable CLINICAL HISTORY: resp failure TECHNIQUE: Single frontal radiograph of the chest was obtained. Comparison: Comparison is made to chest one view 03/28/2021 FINDINGS: Lines and tubes are stable. The cardiomediastinal silhouette is normal. Prominence and cephalization of the vasculature is seen. Bilateral lower lobe predominant airspace opacities are seen. No evidence of pleural effusion or pneumothorax. IMPRESSION: 1. Mild pulmonary edema. 2. Bilateral lower lobe predominant airspace opacities may represent atelectasis, pneumonia, or aspi ration. ACT 112: Negative or not required by law. Electronically signed by: Beck Gordon M.D. 03/29/2021 9:22 AM
[2021-03-29] MEDS: POTASSIUM CHLORIDE 20 MEQ/15 ML UDC NG SCH ×2 (11:36→12:45)
[2021-03-29] MEDS: SULFAMETHOXAZOLE/TRIMETHOPRIM 200MG/40MG/5ML SUSP NG SCH ×2 (11:38→18:42)
--- NOTE | 2021-03-29 12:32 | Palliative Care Progress Note ---
Date of Service March 29, 2021 Assessment & Plan (1) Palliative care encounter: Plan: Patient remains intubated. She has declined overnight and has required increased FiO2 on the vent, along with pressor support. Lengthy conversation held with the patients Andrew and son Landon. Decision has been made that they would like to transition to comfort measures only with compassionate extubation. Patient was extubated with family at bedside and life expectancy set for minutes to hours. Thanks for allowing us to participate in her care. (2) Hypoxia: (3) Pneumonia due to COVID-19 virus: Admission and Anticipated Discharge Date Admission Date: March 06, 2021 Subjective intubated and sedated Review of Systems Review of Systems: Unobtainable due to endotracheal tube Physical Exam Constitutional: + ill appearing and cooperative Respiratory: + uses accessory muscles Auscultation: + rhonchi Cardiovascular: Rate/Rhythm: regular rate and regular rhythm Extremities: normal capillary refill Gastrointestinal (Abdomen): Inspection/Auscultation: abdomen normal to inspection Neurologic: + obtunded Results & Data ([facility]) Vital Signs (Past 12 Hours) Vital Signs Temp Pulse Resp BP Pulse Ox 03/29/21 11:17 107 H 35 H 90 03/29/21 08:04 36.7 C 03/29/21 08:00 90 03/29/21 07:30 71 33 H 110/56 L 91 03/29/21 07:19 68 33 H 91 03/29/21 05:33 69 03/29/21 04:30 68 30 H 89 L 03/29/21 04:15 67 32 H 92 03/29/21 04:07 37.2 C 03/29/21 04:00 67 32 H 92 03/29/21 03:45 66 32 H 91 03/29/21 03:30 64 32 H 91 03/29/21 03:15 64 32 H 90 03/29/21 03:00 66 32 H 91 03/29/21 02:45 68 32 H 91 03/29/21 02:30 67 32 H 92 03/29/21 02:15 68 32 H 95 03/29/21 02:00 66 32 H 94 03/29/21 01:45 67 32 H 94 03/29/21 01:30 67 32 H 95 03/29/21 01:15 66 32 H 95 12/16/21 01:00 69 30 H 95 03/29/21 00:45 66 32 H 94 PG Care Time/CCT Total # of Minutes Spent Total Time Spent with Patient: Total time spent is greater than 50% in coordination of care (as documented) at patient's floor/unit and/or counseling patient: 45 minutes Coding Level of Care Code 55944 Subseq Hosp Care Lvl 3 Diagnoses Palliative care encounter Z51.5 Hypoxia R09.02 Pneumonia due to COVID-19 virus U07.1; J12.82 Time Spent (min) 45
[2021-03-29] MEDS ORDERED: GLYCOPYRROLATE 0.2 MG/ML VIAL IV PRN (14:11)
[2021-03-29] MEDS ORDERED: ONDANSETRON INJ 2 MG/ML 2 ML VIAL IV PRN (14:11)
[2021-03-29] MEDS ORDERED: LORazepam 0.5 MG TAB PO PRN (14:11)
[2021-03-29] MEDS ORDERED: ONDANSETRON 4 MG OD TAB SL PRN (14:11)
[2021-03-29] MEDS ORDERED: MoRPHine SULFATE 2 MG/ML CARP IV PRN (14:11)
[2021-03-29] MEDS: LORazepam 0.5 MG/1 ML VIAL IV PRN ×2 (17:55→19:31)
--- NOTE | 2021-03-29 18:02 | Hospitalist Progress Note ---
Date of Service March 29, 2021 Assessment & Plan (1) Acute respiratory failure with hypoxia: (2) Pneumonia due to COVID-19 virus: (3) Hypoxia: Plan: Acute respiratory failure with hypoxia Severe ARDS with refractory hypoxemia COVID-19 pneumonia Diagnosed COVID-19 positive on 03/06/2021 Pneumomediastinum --CTA: No CTA evidence for pulmonary embolus. Extensive groundglass opacities are present throughout both lungs characteristic of a viral type pneumonitis and Covid 19 pneumonia.XR: -Continued CPAP/high flow oxygen Not a candidate for ECMO as per pulmonary Completed remdesevir course Continued dexamethasone taper course Palliative care on board Appreciate pulmonary/Critical Care input Intubated on 03/24 Vent management as per ICU team Currently on 60% FiO2, 8 PEEP Continue Lasix 40 mg daily Sputum culture growing gram-negative bacilli Continue cefepime Poor lung Compliance Poor Prognosis Palliative Care following Planned for Terminal Extubation today Family agrees to transition to comfort measures GI bleed 03/26 - developed hematochezia GI consulted - conservative management, PPI, hold anticoagulation Monitor CBC Urinary tract infection-POA Urine culture grew E. coli Completed Rocephin course (4) Elevated LFTs: Plan: Minimally elevated monitor (5) Sepsis: Plan: Sepsisin setting of COVID19 pneumonia, UTI Plan: DVT Px: Lovenox SQ on hold due to GI bleed Code status: DNR Admission and Anticipated Discharge Date Admission Date: March 06, 2021 Subjective Patient is seen and examined at bedside Terminally extubated today Family at bedside Review of Systems Review of Systems: Unobtainable due to endotracheal tube Physical Exam Physical Exam: Physical Exam: Vitals signs as noted above General Appearance:Moderately built and nourished, Sedated and Intubated Head: normocephalic, Atraumatic Eyes: normal inspection Neck: supple, Trachea midline Respiratory/Chest: Decreased breath sounds, CTA Cardiovascular: S1, S2, No murmur, +Tachycardia Abdomen/GI:Soft, Non tender, Bowel sounds present Extremities/Musculoskeletal:normal inspection, no edema Neurologic/Psych:Sedated and Intubated Skin: normal color, warm Results & Data Results & Data ([facility]) Vital Signs (Past 12 Hours) Vital Signs Temp Pulse Resp BP Pulse Ox Pulse Ox 03/29/21 14:00 103 H 27 H 89 L 03/29/21 13:00 93 H 25 H 116/59 L 88 L 89 L 03/29/21 12:00 87 29 H 130/77 89 L 03/29/21 11:17 107 H 35 H 90 03/29/21 11:00 87 9 L 109/66 87 L 03/29/21 10:00 88 22 123/63 87 L 03/29/21 09:00 78 23 131/66 89 L 03/29/21 08:04 36.7 C 03/29/21 08:00 72 29 H 125/61 88 L 03/29/21 07:30 71 33 H 110/56 L 91 03/29/21 07:19 68 33 H 91 Laboratory Results Short CBC 03/29/21 Range/Units 05:45 WBC 12.95 H (4.8-10.8) K/uL Hgb 10.3 L (12.0-16.0) g/dL Hct 32.1 L (37-47) % Plt Count 111 L (130-400) K/uL BMP 03/29/21 05:45 Sodium 141 Potassium 3.8 Chloride 106 Carbon Dioxide 31 BUN 28 H Creatinine 0.30 L Glucose 122 H Calcium 7.8 L
[2021-03-29] MEDS ORDERED: FUROSEMIDE 40 MG/4 ML VIAL IV SCH (21:00)
--- NOTE | 2021-03-30 07:24 | Discharge Summary ---
Date of Service March 30, 2021 Admission HPI Per Admitting Provider History of Present Illness Chief Complaint: near-syncope, covid Primary Care Provider: Sita Zamora PA-C This is a 70 y/o female with a PMH of GERD who presented to the ED today via EMS after an episode of near-syncope today when getting a shower. Pt reports at least ten days of symptoms. She was seen at urgent care on 02/28 with sore throat, fever with a temp to 100.8F. COVID test done and came back positive. Pt reports ST has now resolved but she has noted progressive SOB over the past few days. Not sleeping at night due to trouble breathing. Denies cough, chest pain, palpitations, N/V/D. Fever and sore throat have resolved. Mild associated MELVIN. +fatigue. Pt did receive her flu vaccine this year but not the COVID vaccine. Only outpatient medication is a multivitamin. No hx of underlying pulmonary disease. Denies prior history of cardiac disease. Admission Exam Per Admitting Provider Physical Exam Constitutional: well developed and well nourished; no acute distress Eyes: + anicteric sclerae ENMT: BiPAP mask in place Neck: trachea midline Respiratory: + labored breathing (mildly on BiPAP) an d + tachypneic Ausculta tion: + diminished lung sounds; no rhonchi and no wheezes Cardiovascular: Rate/Rhythm: regular rate and regular rhythm Heart Sounds: no murmur Vessels: dorsalis pedis pulses present and radial pulses present Extremities: no pedal edema Gastrointestinal (Abdomen): Inspection/Auscultation: normal bowel sounds; abdomen not distended Percussion/Palpation: abdomen soft; abdomen nontender Musculoskeletal: Head/Neck/Chest: normocephalic, head atraumatic and neck supple Skin: no rashes Neurologic: moves all extremities; no focal motor deficits Principal Diagnosis Acute respiratory failure with hypoxia Severe ARDS with refractory hypoxemia COVID-19 pneumonia Pneumomediastinum Urinary tract infection Sepsis Discharge Data Allergies Allergy/AdvReac Type Severity Reaction Status Date / Time No Known Allergies Allergy Unknown Verified 03/06/21 09:52 Consultations 03/06/21 10:52 ED Decision to Admit Stat 03/14/21 09:12 Consult Pulmonology Routine 03/14/21 13:15 Consult Palliative Care Routine 03/24/21 11:36 Consult Mint Machine Operator Routine 03/26/21 07:14 Consult Gastroenterology Routine Ordered Studies 03/06/21 08:38 CT angio chest PE protocol Stat 03/19/21 08:05 CT angio chest PE protocol Urgent Hospital Course (1) Acute respiratory failure with hypoxia: (2) Pneumonia due to COVID-19 virus: (3) Hypoxia: Acute respiratory failure with hypoxia Severe ARDS with refractory hypoxemia COVID-19 pneumonia Diagnosed COVID-19 positive on 03/06/2021 Pneumomediastinum --CTA: No CTA evidence for pulmonary embolus. Extensive groundglass opacities are present throughout both lungs characteristic of a viral type pneumonitis and Covid 19 pneumonia.XR: -Continued CPAP/high flow oxygen Not a candidate for ECMO as per pulmonary Completed remdesevir course Continued dexamethasone taper course Palliative care on board Appreciate pulmonary/Critical Care input Intubated on 03/24 Vent management as per ICU team Currently on 60% FiO2, 8 PEEP Continue Lasix 40 mg daily Sputum culture growing gram-negative bacilli Continue cefepime Poor lung Compliance Poor Prognosis Palliative Care following Planned for Terminal Extubation today Family agrees to transition to comfort measures Patient at 1944 on 03/30/21. Family was made aware. GI bleed 03/26 - developed hematochezia GI consulted - conservative management, PPI, hold anticoagulation Monitor CBC Urinary tract infection-POA Urine culture grew E. coli Completed Rocephin course (4) Elevated LFTs: Minimally elevated monitor (5) Sepsis: Sepsisin setting of COVID19 pneumonia, UTI DVT Px: Lovenox SQ on hold due to GI bleed Code status: DNR Total Time Total Time Spent Total Time Spent (In Minutes): 45 minutes Discharge Plan Discharge Items Patient Disposition: Discharge Diagnosis: Acute respiratory failure with hypoxia Severe ARDS with refractory hypoxemia COVID-19 pneumonia Pneumomediastinum Urinary tract infection Sepsis Other Date/Time: 03/29/21 19:44
[2021-03-30] MEDS ORDERED: dexAMETHasone 2 MG in SYRINGE 0 ML IV SCH (09:00)
== END 2021-03-29 20:40 | disposition expired | DRG 870 ==
LOC: ED 08:28 → 2S 10:56 → SUATTDRO 10:56 → 2S 12:15 → 2E 03-24 12:38 → 1E 03-29 07:04